=== PATIENT | female | born 1935 | race Caucasian/White ===

== ENCOUNTER 2017-02-09 04:10 | Inpatient (IN) | payer MEDICARE, MEDICAID ==
[2017-02-09] MEDS ORDERED: Sodium Chloride 0.9% 1,000 ML IV ONE (04:26)
--- NOTE | 2017-02-09 04:40 | ED Physician Chart ---
Chief Complaint/HPI - Patient Information Date Seen:: 02/09/17 Time Seen:: 04:20 Chief Complaint:: VOMITING History of Present Illness:: THIS IS AN 81 YR DEMENTED FEMALE PATIENT SENT FROM A SENIOR LIVING BECAUSE OF PERSISTENT VOMITING. SHE WAS GIVEN ZOFRAN BUT CONTINUED TO VOMIT. SHE HAS G- TUBE IN PLACE. SHE HAS A HISTORY OF DIABETES, HYPERTENSION AND HEART DISEASE. Allergies:: Allergies Allergy/AdvReac Type Severity Reaction Status Date / Time No Known Allergies Allergy Verified 02/09/17 04:24 Vitals:: Vital Signs - 8 hr 02/09/17 04:15 Temp 98.1 F HR 84 RR 20 BP 144/69 O2 Sat % 96 Historian:: EMS, Medical Records Review:: Nurse's Note Reviewed, Old Chart Reviewed, Transfer documents Reviewed Review of Systems - Review of Systems General/Constitutional: Other (SHE CANNOT GIVE A REVIEW OF SYSTEMS) Past Medical History - Past Medical History Obtainable: Yes Past Medical History: HTN, DM, CAD, Dementia Family History: None Social History: Non Smoker, No Alcohol, No Drug Use, Care Facility Surgical History: Appendectomy, Cholecystectomy, , Pacemaker Family Medical History - Family Member Mother History Unknown: Yes Physical Exam - Physical Examination General/Constitutional: Well-developed, well-nourished, Alert, No distress, GCS 15, Non-toxic appearing, Ambulatory Other Gen/Cons comments:: LETHARGIC AND NON-VERBAL Head: Atraumatic Eyes: Lids, conjuctiva normal, PERRL, EOMI Skin: Nl inspection, No rash, No skin lesions, No ecchymosis, Well hydrated, No lymphadenopathy ENMT: External ears, nose nl, Nasal exam nl, Lips, teeth, gums nl Neck: Nontender, Full ROM w/o pain, No JVD, No nuchal rigidity, No bruit, No mass, No stridor Respiratory: Nl effort/Exclusion, Clear to Auscultation, No Wheeze/Rhonchi/Rales Cardio Vascular: RRR, No murmur, gallop, rubs, NL S1 S2 GI: No tenderness/rebounding/guarding, No organomegaly, No hernia, Normal BS's, Nondistended, No mass/bruits, No McBurney tenderness Other GI comments:: NO TENDERNESS AND NO REBOUND. : No CVA tenderness Other comments:: THE G-TUBE WAS IN PLACE AND THE ABDOMEN LARGE AND SOFT Extremities: No tenderness or effusion, Full ROM, normal strength in all extremities, No edema, Normal digits & nails Neuro/Psych: Alert/oriented, DTR's symmetric, Normal sensory exam, Normal motor strength, Judgement/insight normal, Mood normal, Normal gait, No focal deficits Misc: normal gait, Normal back, No paraspinal tenderness Labs/Radiology/EKG Results - EKG Interpretations EKG Time:: 04:23 Rate & Rhythm: RATE=68 SINUS(PACED) [place]: LEFT AXIS Assessment - Assessment General Assessment: VOMITING ED Septic Shock - . Is Septic Shock (SBP<90, OR Lactate>4 mmol\L) present?: No - <6hrs of presentation: Vital Signs: Vital Signs - 8 hr 02/09/ 04:15 Temp 98.1 F HR 84 RR 20 BP 144/69 O2 Sat % 96 Reassessment (Disposition) - Reassessment Reassessment Condition:: Unchanged - Diagnosis Diagnosis:: PROTRACTED VOMITING DIABETES MELLITUS URINARY TRACT INFECTION - Patient Disposition Discharge/Transfer:: Acute Care w/in this hosp Condition at Disposition:: Improved ED Discharge Plan - Patient Disposition Admit/Discharge/Transfer: Acute Care w/in this hosp Condition at Disposition: Improved
[2017-02-09 05:39] LABS: MEAN CELL VOLUME 88.2 fl (81-100); MEAN CORPUSCULAR HEMOGLOBIN 29.8 pg (27.0-31.0); MEAN CORPUSCULAR HGB CONC 33.8 pg (28.0-36.0); RED BLOOD COUNT 3.94 Mil/cmm (3.80-5.20)
[2017-02-09 05:41] LABS: HEMATOCRIT 34.7 % (35.0-45.0); HEMOGLOBIN 11.7 gm/dL (11.7-16.1); PLATELET COUNT 187 Th/cmm (150-400); WHITE BLOOD COUNT 11.6 Th/cmm (4.8-10.8)
[2017-02-09 05:55] LABS: ALB/GLOB RATIO 0.9 (1.0-1.8); ALKALINE PHOSPHATASE 121 U/L (34-104); BILIRUBIN,TOTAL 0.4 mg/dL (0.3-1.0); BUN - UREA NITROGEN 45 mg/dL (7-25); CALCIUM SERUM 9.6 mg/dL (8.6-10.3); CARBON DIOXIDE 23.8 mEq/L (21.0-31.0); CHLORIDE 106 mEq/L (98-107); CHOLESTEROL 134 mg/dL (<200); CREATININE - SERUM 0.9 mg/dL (0.6-1.2); GLUCOSE 274 mg/dL (70-105); POTASSIUM SERUM 3.8 mEq/L (3.5-5.1); SGOT 24 U/L (13-39); SGPT/ALT 16 U/L (7-52); SODIUM SERUM 135 mEq/L (136-145); TRIGLYCERIDES 113 mg/dL (<150)
[2017-02-09 06:01] LABS: INR 0.97 (0.5-1.4); PROTHROMBIN TIME (TEST) 10.1 SECONDS (9.5-11.5)
[2017-02-09] MEDS ORDERED: cefTRIAXone 1 GM in Sodium Chloride 0.9% 50 ML IV ONE (06:25)
[2017-02-09 06:26] LABS: BAND NEUTROPHILE 3 % (0-10); NEUTROPHILS 91 % (40-80); TOTAL CELLS COUNTED 100
[2017-02-09 06:27] LABS: PLATELET ESTIMATE ADEQUATE (NORMAL); PLATELET MORPHOLOGY NORMAL (NORMAL)
[2017-02-09] MEDS ORDERED: Acetaminophen 160 MG/5 ML UDC GT PRN (08:38)
[2017-02-09] MEDS ORDERED: Magnesium Hydroxide (MOM) 30 mL UDC PO PRN (08:38)
--- NOTE | 2017-02-09 08:38 | Internal Medicine Prog Note ---
Internal Medicine Subjective - Subjective Service Date: 02/09/17 (dictated [id number]) Internal Medicine Objective - Results Result Diagrams: 02/09/17 05:13 02/09/17 05:13 Recent Labs: Laboratory Last Values WBC 11.6 Th/cmm (4.8-10.8) H D 02/09/17 05:13 RBC 3.94 Mil/cmm (3.80-5.20) 02/09/17 05:13 Hgb 11.7 gm/dL (11.7-16.1) D 02/09/17 05:13 Hct 34.7 % (35.0-45.0) L D 02/09/17 05:13 MCV 88.2 fl (81-100) 02/09/17 05:13 MCH 29.8 pg (27.0-31.0) 02/09/17 05:13 MCHC Differential 33.8 pg (28.0-36.0) 02/09/17 05:13 RDW 13.0 % (11.5-20.0) 02/09/17 05:13 Plt Count 187 Th/cmm (150-400) D 02/09/17 05:13 MPV 9.0 fl 02/09/17 05:13 Band Neutrophils % 3 % (0-10) 02/09/17 05:13 Neutrophils (Manual) 91 % (40-80) H 02/09/17 05:13 Lymphocytes 5 % (20-50) L 02/09/17 05:13 Monocytes 1 % (2-10) L 02/09/17 05:13 Platelet Estimate ADEQUATE (NORMAL) 02/09/17 05:13 Platelet Morphology NORMAL (NORMAL) 02/09/17 05:13 RBC Morph Micro Appear NORMAL (NORMAL) 02/09/17 05:13 PT 10.1 SECONDS (9.5-11.5) 02/09/17 05:13 INR 0.97 (0.5-1.4) 02/09/17 05:13 PTT (Actin FS) 23.0 SECONDS (26.0-38.0) L 02/09/17 05:13 Sodium 135 mEq/L (136-145) L 02/09/17 05:13 Potassium 3.8 mEq/L (3.5-5.1) 02/09/17 05:13 Chloride 106 mEq/L (98-107) 02/09/17 05:13 Carbon Dioxide 23.8 mEq/L (21.0-31.0) 02/09/17 05:13 Anion Gap 9.0 (7.0-16.0) 02/09/17 05:13 BUN 45 mg/dL (7-25) H 02/09/17 05:13 Creatinine 0.9 mg/dL (0.6-1.2) 02/09/17 05:13 Est GFR ( Amer) TNP 02/09/17 05:13 Est GFR (Non-Af Amer) TNP 02/09/17 05:13 BUN/Creatinine Ratio 50.0 02/09/17 05:13 Glucose 274 mg/dL (70-105) H 02/09/17 05:13 Hemoglobin A1c % 6.0 % (4.0-6.0) 02/09/17 05:13 Calcium 9.6 mg/dL (8.6-10.3) 02/09/17 05:13 Total Bilirubin 0.4 mg/dL (0.3-1.0) 02/09/17 05:13 AST 24 U/L (13-39) 02/09/17 05:13 ALT 16 U/L (7-52) 02/09/17 05:13 Alkaline Phosphatase 121 U/L (34-104) H 02/09/17 05:13 Troponin I 0.03 ng/mL (0.01-0.05) 02/09/17 05:13 Total Protein 6.9 gm/dL (6.0-8.3) 02/09/17 05:13 Albumin 3.2 gm/dL (3.7-5.3) L 02/09/17 05:13 Globulin 3.7 gm/dL 02/09/17 05:13 Albumin/Globulin Ratio 0.9 (1.0-1.8) L 02/09/17 05:13 Triglycerides 113 mg/dL (<150) 02/09/17 05:13 Cholesterol 134 mg/dL (<200) 02/09/17 05:13 LDL Cholesterol Direct 92 mg/dL (75-193) 02/09/17 05:13 HDL Cholesterol 35 mg/dL (23-92) 02/09/17 05:13 TSH 1.02 uIU/ml (0.34-5.60) 02/09/17 05:13 - Physical Exam Vitals and I&O: Vital Signs Temp 98.7 F 02/09/17 06:48 Pulse 62 02/09/17 06:48 Resp 13 02/09/17 06:48 BP 102/48 02/09/17 06:48 Pulse Ox 100 02/09/17 06:48 Active Medications: Current Medications Sodium Chloride (Nacl 0.9%) 1,000 mls @ 100 mls/hr IV .Q10H ONE Stop: 02/09/17 14:25 Last Admin: 02/09/17 04:35 Dose: 100 mls/hr - Procedures Procedures: Procedures Procedure Code Date EGD PLACE GASTROSTOMY TUBE 72632 12/31/15 INSERTION OF FEEDING DEVICE INTO STOMACH, [facility] APPROACH [id number] 12/31/15 TRANSFUSE NONAUT RED BLOOD CELLS IN PERIPH VEIN, [facility] 96902W7 12/31/15 Internal Medicine Assmt/Plan - Assessment Assessment: INTRACTABLE NAUSEA VOMITING HYPONATREMIA Acute renal failure dementia diabetes hypothyroidism cardiac pacemaker gerd alzheimers
[2017-02-09] MEDS ORDERED: Ipratropium Neb 0.5 mg/2.5 mL UD IH PRN (08:39)
[2017-02-09] MEDS ORDERED: Albuterol Nebulizer 2.5mg/3mL IH PRN (08:39)
[2017-02-09] MEDS ORDERED: guaiFENesin 200 MG/10 ML UDC PO PRN (08:40)
[2017-02-09] MEDS ORDERED: D5-0.45NS 1,000 ML IV SCH (08:45)
[2017-02-09] MEDS ORDERED: Non-Formulary Item 1 EA (Ferrous Sulfate [Ferosul] 7.5 ML) GT SCH (09:00)
[2017-02-09 09:07] LABS: URINE BILIRUBIN NEGATIVE (NEGATIVE); URINE BLOOD SMALL (NEGATIVE); URINE GLUCOSE (UA) 250 mg/dL (NEGATIVE); URINE KETONE NEGATIVE (NEGATIVE); URINE PROTEIN 30 mg/dL (NEGATIVE); URINE UROBILINOGEN 0.2 E.U./dL (0.2 - 1.0)
[2017-02-09 09:10] LABS: URINE COLOR YELLOW
[2017-02-09 10:07] LABS: URINE BACTERIA MANY /hpf (NONE SEEN); URINE EPITHELIAL CELLS FEW /lpf (FEW)
--- NOTE | 2017-02-09 10:21 | History & Physical ---
ADMIT DATE: 02/09/2017 CHIEF COMPLAINT: Nausea, vomiting. HISTORY OF PRESENT ILLNESS: This is an 81-year-old female who is a resident of [facility] who was brought here to [facility] with a 1-day history of nausea and vomiting. I was called on this patient last night. The patient had 4 episodes of vomiting and relieved by Zofran. For this reason, the patient was brought to [facility] and patient is now admitted. PAST MEDICAL HISTORY: Hypertension, diabetes, , GERD, hypothyroid, arthritis, dementia, status post pacemaker placement. SURGICAL HISTORY: Pacemaker. FAMILY HISTORY: Noncontributory. SOCIAL HISTORY: The patient is a [facility] resident, requiring 24-hour nursing care. PSYCHIATRIC HISTORY: Dementia. REVIEW OF SYSTEMS: Unable to obtain due to patient's mental status. The patient is confused. PHYSICAL EXAMINATION: GENERAL: The patient is well developed, well nourished, no acute distress. VITAL SIGNS: Temperature 98, heart rate 76, blood pressure 93/39, respirations 19, O2 99%. HEENT: Head; normocephalic, atraumatic. NECK: Supple. No mass. LUNGS: Clear bilaterally. HEART: Regular rhythm. ABDOMEN: Soft, nontender. LABORATORY DATA: WBC 6.0, H and H 9.1 and 27.7, platelet of 93. Sodium 139, potassium 4.0, chloride 112, BUN 32, creatinine 1.6, calcium 7.8. ASSESSMENT: Intractable nausea, vomiting, hyponatremia, acute renal failure, dementia, diabetes, hypothyroidism, cardiac pacemaker, GERD, Alzheimer's, hyponatremia. PLAN: The patient to be admitted to the med/surg unit. We will get GI on the case. We will keep the patient hydrated on IV fluids. The patient will be on antibiotic Cipro. We will continue to monitor this patient. [facility]# [id number]
[2017-02-09] MEDS: Levothyroxine 0.125 Mg Tab GT SCH (10:41)
[2017-02-09] MEDS: Potassium Chloride Elixir 20 mEq /15 mL UDC GT SCH (10:41)
[2017-02-09] MEDS: Ferrous Sulfate 300 MG/5 ML UDC PO SCH (10:41)
[2017-02-09] MEDS: Multivitamin Tab PO SCH (10:42)
[2017-02-09] MEDS: Multivitamin w/ Minerals Tab PO SCH (10:42)
[2017-02-09] MEDS ORDERED: INSULIN ASPART SLIDING SCALE 100 UNITS/ML UNIT SUBQ SCH (16:30)
[2017-02-09] MEDS ORDERED: VTE Chemical Prophylaxis Screen/Admission MC PRN (16:30)
[2017-02-09] MEDS: INSULIN ASPART SLIDING SCALE 100 UNITS/ML UNIT SUBQ SCH ×2 (19:33→20:54)
[2017-02-09] MEDS: Ciprofloxacin 400mg Premix PB 400 MG/200 ML BAG IV SCH (20:51)
[2017-02-09] MEDS: D5-0.45NS 1,000 ML IV SCH (20:52)
[2017-02-10] MEDS: Ciprofloxacin 400mg Premix PB 400 MG/200 ML BAG IV SCH ×3 (06:02→20:24)
[2017-02-10] MEDS: INSULIN ASPART SLIDING SCALE 100 UNITS/ML UNIT SUBQ SCH ×6 (06:31→20:16)
[2017-02-10 07:14] LABS: % BASOPHILS 0.5 % (0.0-2.0); % EOSINOPHILS 6.8 % (0.0-5.0); % LYMPHOCYTES 16.9 % (20.0-50.0); % MONOCYTES 7.4 % (2.0-10.0); % NEUTROPHILS 68.4 % (40.0-80.0); MEAN CELL VOLUME 88.7 fl (81-100); MEAN CORPUSCULAR HEMOGLOBIN 30.6 pg (27.0-31.0); MEAN CORPUSCULAR HGB CONC 34.5 pg (28.0-36.0); MEAN PLATELET VOLUME 9.2 fl; PLATELET COUNT 192 Th/cmm (150-400); RED BLOOD COUNT 3.61 Mil/cmm (3.80-5.20); RED CELL DISTRIBUTION WIDTH 13.1 % (11.5-20.0); WHITE BLOOD COUNT 10.4 Th/cmm (4.8-10.8)
[2017-02-10 07:40] LABS: ANION GAP 6.7 (7.0-16.0); BUN - UREA NITROGEN 39 mg/dL (7-25); BUN/CREATININE RATIO 43.3; CALCIUM SERUM 9.3 mg/dL (8.6-10.3); CARBON DIOXIDE 25.9 mEq/L (21.0-31.0); CHLORIDE 109 mEq/L (98-107); CREATININE - SERUM 0.9 mg/dL (0.6-1.2); GLUCOSE 204 mg/dL (70-105); POTASSIUM SERUM 3.6 mEq/L (3.5-5.1); SODIUM SERUM 138 mEq/L (136-145)
[2017-02-10] MEDS: Potassium Chloride Elixir 20 mEq /15 mL UDC GT SCH (09:52)
[2017-02-10] MEDS: Ferrous Sulfate 300 MG/5 ML UDC PO SCH (09:52)
[2017-02-10] MEDS: Multivitamin w/ Minerals Tab PO SCH (09:53)
[2017-02-10] MEDS: Multivitamin Tab PO SCH (09:53)
[2017-02-10] MEDS: Levothyroxine 0.125 Mg Tab GT SCH (09:54)
--- NOTE | 2017-02-10 12:36 | Internal Medicine Prog Note ---
Internal Medicine Subjective - Subjective Service Date: 02/10/17 Patient seen and examined:: with staff Patient is:: awake Per staff patient has:: no adverse event Internal Medicine Objective - Results Result Diagrams: 02/10/17 06:10 02/10/17 06:10 Recent Labs: Laboratory Last Values WBC 10.4 Th/cmm (4.8-10.8) 02/10/17 06:10 RBC 3.61 Mil/cmm (3.80-5.20) L 02/10/17 06:10 Hgb 11.0 gm/dL (11.7-16.1) L 02/10/17 06:10 Hct 32.0 % (35.0-45.0) L 02/10/17 06:10 MCV 88.7 fl (81-100) 02/10/17 06:10 MCH 30.6 pg (27.0-31.0) 02/10/17 06:10 MCHC Differential 34.5 pg (28.0-36.0) 02/10/17 06:10 RDW 13.1 % (11.5-20.0) 02/10/17 06:10 Plt Count 192 Th/cmm (150-400) 02/10/17 06:10 MPV 9.2 fl 02/10/17 06:10 Neutrophils % 68.4 % (40.0-80.0) 02/10/17 06:10 Band Neutrophils % 3 % (0-10) 02/09/17 05:13 Lymphocytes % 16.9 % (20.0-50.0) L 02/10/17 06:10 Monocytes % 7.4 % (2.0-10.0) 02/10/17 06:10 Eosinophils % 6.8 % (0.0-5.0) H 02/10/17 06:10 Basophils % 0.5 % (0.0-2.0) 02/10/17 06:10 Neutrophils (Manual) 91 % (40-80) H 02/09/17 05:13 Lymphocytes 5 % (20-50) L 02/09/17 05:13 Monocytes 1 % (2-10) L 02/09/17 05:13 Platelet Estimate ADEQUATE (NORMAL) 02/09/17 05:13 Platelet Morphology NORMAL (NORMAL) 02/09/17 05:13 RBC Morph Micro Appear NORMAL (NORMAL) 02/09/17 05:13 PT 10.1 SECONDS (9.5-11.5) 02/09/17 05:13 INR 0.97 (0.5-1.4) 02/09/17 05:13 PTT (Actin FS) 23.0 SECONDS (26.0-38.0) L 02/09/17 05:13 Sodium 138 mEq/L (136-145) 02/10/17 06:10 Potassium 3.6 mEq/L (3.5-5.1) 02/10/17 06:10 Chloride 109 mEq/L (98-107) H 02/10/17 06:10 Carbon Dioxide 25.9 mEq/L (21.0-31.0) 02/10/17 06:10 Anion Gap 6.7 (7.0-16.0) L 02/10/17 06:10 BUN 39 mg/dL (7-25) H 02/10/17 06:10 Creatinine 0.9 mg/dL (0.6-1.2) 02/10/17 06:10 Est GFR ( Amer) TNP 02/10/17 06:10 Est GFR (Non-Af Amer) TNP 02/10/17 06:10 BUN/Creatinine Ratio 43.3 02/10/17 06:10 Glucose 204 mg/dL (70-105) H 02/10/17 06:10 POC Glucose 201 MG/DL (70 - 105) H 02/10/17 06:05 Hemoglobin A1c % 6.0 % (4.0-6.0) 02/09/17 05:13 Calcium 9.3 mg/dL (8.6-10.3) 02/10/17 06:10 Magnesium 2.0 mg/dL (1.9-2.7) 02/10/17 06:10 Total Bilirubin 0.4 mg/dL (0.3-1.0) 02/09/17 05:13 AST 24 U/L (13-39) 02/09/17 05:13 ALT 16 U/L (7-52) 02/09/17 05:13 Alkaline Phosphatase 121 U/L (34-104) H 02/09/17 05:13 Troponin I 0.03 ng/mL (0.01-0.05) 02/09/17 05:13 B-Natriuretic Peptide 149.0 pg/mL (5.0-100.0) H 02/10/17 06:10 Total Protein 6.9 gm/dL (6.0-8.3) 02/09/17 05:13 Albumin 3.2 gm/dL (3.7-5.3) L 02/09/17 05:13 Globulin 3.7 gm/dL 02/09/17 05:13 Albumin/Globulin Ratio 0.9 (1.0-1.8) L 02/09/17 05:13 Triglycerides 113 mg/dL (<150) 02/09/17 05:13 Cholesterol 134 mg/dL (<200) 02/09/17 05:13 LDL Cholesterol Direct 92 mg/dL (75-193) 02/09/17 05:13 HDL Cholesterol 35 mg/dL (23-92) 02/09/17 05:13 TSH 1.02 uIU/ml (0.34-5.60) 02/09/17 05:13 Urine Source CLEAN C 02/09/17 05:15 Urine Color YELLOW 02/09/17 05:15 Urine Clarity SL. CLOUDY (CLEAR) 02/09/17 05:15 Urine pH 6.0 (4.6 - 8.0) 02/09/17 05:15 Ur Specific [place] 1.015 (1.005-1.030) 02/09/17 05:15 Urine Protein 30 mg/dL (NEGATIVE) H 02/09/17 05:15 Urine Glucose (UA) 250 mg/dL (NEGATIVE) H 02/09/17 05:15 Urine Ketones NEGATIVE mg/dL (NEGATIVE) 02/09/17 05:15 Urine Blood SMALL (NEGATIVE) H 02/09/17 05:15 Urine Nitrate NEGATIVE (NEGATIVE) 02/09/17 05:15 Urine Bilirubin NEGATIVE (NEGATIVE) 02/09/17 05:15 Urine Urobilinogen 0.2 E.U./dL (0.2 - 1.0) 02/09/17 05:15 Ur Leukocyte Esterase SMALL (NEGATIVE) H 02/09/17 05:15 Urine RBC 2-4 /hpf (0-5) 02/09/17 05:15 Urine WBC 2-5 /hpf (0-5) 02/09/17 05:15 Ur Epithelial Cells FEW /lpf (FEW) 02/09/17 05:15 Urine Bacteria MANY /hpf (NONE SEEN) 02/09/17 05:15 - Physical Exam Vitals and I&O: Vital Signs Temp 97.3 F 02/10/17 08:00 Pulse 66 02/10/17 08:00 Resp 18 02/10/17 08:00 BP 147/65 02/10/17 08:00 Pulse Ox 99 02/10/17 08:00 Intake & Output 02/09/17 02/10/17 02/10/17 18:59 06:59 18:59 Intake Total 1120 Output Total 200 300 200 Balance -200 820 -200 Weight (lbs) 160 lb 161 lb 161 lb Intake: Intake, IV Amount 200 Ciprofloxacin 400mg 200 Premix PB 400 mg In 200 ml @ 200 mls/hr IV Q8HR [facility] Rx#:[id number] Tube Feeding 720 Other 200 Output: Urine 200 300 200 Other: # Bowel Movements 0 0 Active Medications: Current Medications Acetaminophen (Tylenol Children) 320 mg GT Q4HR PRN PRN Reason: Pain or Fever >101 Stop: 04/10/17 08:37 Acetaminophen (Tylenol) 650 mg PO Q4HR PRN PRN Reason: Pain Or Fever above 101 Stop: 04/10/17 08:39 Albuterol Sulfate (Albuterol 2.5mg/3ml Neb Ud) 2.5 mg IH Q2HR PRN PRN Reason: Shortness of Breath or Wheeze Stop: 04/10/17 08:38 Bisacodyl (Dulcolax 10 Mg Supp) 10 mg RC DAILY PRN PRN Reason: Constipation Stop: 04/10/17 08:37 Docusate Sodium (Colace) 100 mg PO DAILY [facility] Stop: 04/10/17 08:59 Last Admin: 02/10/17 09:52 Dose: 100 mg Ferrous Sulfate (Iron) 300 mg PO DAILY [facility] Stop: 04/10/17 08:59 Last Admin: 02/10/17 09:52 Dose: 300 mg Fludrocortisone Acetate (Florinef) 0.05 mg PO DAILY [facility] Stop: 04/10/17 08:59 Last Admin: 02/10/17 09:52 Dose: 0.05 mg Guaifenesin (Robitussin) 100 mg PO Q4H PRN PRN Reason: Cough or Congestion Stop: 04/10/17 08:39 Heparin Sodium (Porcine) (Heparin) 5,000 units SUBQ Q12HR TINA Stop: 04/10/17 20:59 Last Admin: 02/10/17 09:55 Dose: 5,000 units Dextrose/Sodium Chloride (D5-0.45ns) 1,000 mls @ 70 mls/hr IV .[id number] TINA Stop: 04/10/17 08:44 Last Admin: 02/09/17 20:52 Dose: 70 mls/hr Ciprofloxacin (Cipro 400mg Premix Pb) 400 mg in 200 mls @ 200 mls/hr IV Q8HR TINA Stop: 04/10/17 20:59 Last Admin: 02/10/17 06:02 Dose: 200 mls/hr Insulin Aspart (Novolog Insulin Sliding Scale) 1 units SUBQ ACHS TINA PRN Reason: Protocol Stop: 04/10/17 16:29 Last Admin: 02/10/17 06:31 Dose: 1 units Ipratropium [place] (Atrovent Neb 0.5mg/2.5ml) 0.5 mg IH Q2HR PRN PRN Reason: Shortness of Breath or Wheeze Stop: 04/10/17 08:38 Levothyroxine Sodium (Synthroid) 0.125 mg GT DAILY TINA Stop: 04/10/17 08:59 Last Admin: 02/10/17 09:54 Dose: 0.125 mg Magnesium Hydroxide (Milk Of Magnesia) 30 ml PO DAILY PRN PRN Reason: Constipation Stop: 04/10/17 08:37 Miscellaneous (Vte Chemical Prophylaxis Screen/ Admission) 1 ea MC PRN PRN PRN Reason: PROTOCOL Stop: 04/10/17 16:29 Multivitamins/Vitamin C (Theragran) 1 tab PO DAILY TINA Stop: 04/10/17 08:59 Last Admin: 02/10/17 09:53 Dose: 1 tab Ondansetron HCl (Zofran) 4 mg IV Q8H PRN PRN Reason: Nausea / Vomiting Stop: 04/10/17 08:39 Potassium Chloride (Potassium Chloride Elixir) 20 meq GT DAILY TINA Stop: 04/10/17 08:59 Last Admin: 02/10/17 09:52 Dose: 20 meq Sitagliptin Phosphate (Januvia) 50 mg GT DAILY TINA Stop: 04/10/17 08:59 Last Admin: 02/10/17 09:52 Dose: 50 mg General: weak, alert, demented HEENT: NC/AT, PERRLA Neck: Supple Lungs: CTAB Cardiovascular: RRR, Normal S1, Normal S2, without murmur Abdomen: soft, non-tender, non-distended, positive bowel sound Extremities: clear Neurological: alert - Procedures Procedures: Procedures Procedure Code Date EGD PLACE GASTROSTOMY TUBE 15323 12/31/15 INSERTION OF FEEDING DEVICE INTO STOMACH, [facility] APPROACH [id number] 12/31/15 TRANSFUSE NONAUT RED BLOOD CELLS IN PERIPH VEIN, PERC 74034F6 12/31/15 Internal Medicine Assmt/Plan - Assessment Assessment: INTRACTABLE NAUSEA VOMITING HYPONATREMIA Acute renal failure dementia diabetes hypothyroidism cardiac pacemaker gerd alzheimers - Plan Plan: ivf for hydration am labs monitor glucose continue current plan of care
[2017-02-10] MEDS: D5-0.45NS 1,000 ML IV SCH ×3 (15:18→20:31)
[2017-02-11] MEDS: Ciprofloxacin 400mg Premix PB 400 MG/200 ML BAG IV SCH ×3 (05:35→21:06)
[2017-02-11 05:41] LABS: % BASOPHILS 0.4 % (0.0-2.0); % EOSINOPHILS 6.6 % (0.0-5.0); % LYMPHOCYTES 20.1 % (20.0-50.0); % MONOCYTES 7.4 % (2.0-10.0); % NEUTROPHILS 65.5 % (40.0-80.0); HEMOGLOBIN 9.8 gm/dL (11.7-16.1); MEAN CELL VOLUME 87.9 fl (81-100); MEAN CORPUSCULAR HEMOGLOBIN 30.4 pg (27.0-31.0); MEAN CORPUSCULAR HGB CONC 34.6 pg (28.0-36.0); MEAN PLATELET VOLUME 8.9 fl; NEUTROPHILE ABSOLUTE 6.6 Th/cmm (1.8-8.0); PLATELET COUNT 184 Th/cmm (150-400); RED BLOOD COUNT 3.21 Mil/cmm (3.80-5.20); RED CELL DISTRIBUTION WIDTH 13.1 % (11.5-20.0)
[2017-02-11 05:55] LABS: HEMATOCRIT 28.2 % (35.0-45.0)
[2017-02-11 06:02] LABS: ANION GAP 5.4 (7.0-16.0); BUN - UREA NITROGEN 34 mg/dL (7-25); CALCIUM SERUM 8.7 mg/dL (8.6-10.3); CARBON DIOXIDE 26.6 mEq/L (21.0-31.0); CHLORIDE 106 mEq/L (98-107); GLUCOSE 255 mg/dL (70-105); SODIUM SERUM 134 mEq/L (136-145)
[2017-02-11] MEDS: INSULIN ASPART SLIDING SCALE 100 UNITS/ML UNIT SUBQ SCH ×4 (06:52→21:24)
[2017-02-11] MEDS: Potassium Chloride Elixir 20 mEq /15 mL UDC GT SCH (08:32)
[2017-02-11] MEDS: Ferrous Sulfate 300 MG/5 ML UDC PO SCH (08:32)
[2017-02-11] MEDS: Multivitamin w/ Minerals Tab PO SCH (08:33)
[2017-02-11] MEDS: Multivitamin Tab PO SCH (08:33)
[2017-02-11] MEDS: Levothyroxine 0.125 Mg Tab GT SCH (08:34)
[2017-02-11] MEDS: D5-0.45NS 1,000 ML IV SCH (12:20)
--- NOTE | 2017-02-11 14:34 | Internal Medicine Prog Note ---
Internal Medicine Subjective - Subjective Service Date: 02/11/17 Patient is:: awake Per staff patient has:: no adverse event Internal Medicine Objective - Results Result Diagrams: 02/11/17 05:15 02/11/17 05:15 Recent Labs: Laboratory Last Values WBC 10.0 Th/cmm (4.8-10.8) 02/11/17 05:15 RBC 3.21 Mil/cmm (3.80-5.20) L 02/11/17 05:15 Hgb 9.8 gm/dL (11.7-16.1) L 02/11/17 05:15 Hct 28.2 % (35.0-45.0) L D 02/11/17 05:15 MCV 87.9 fl (81-100) 02/11/17 05:15 MCH 30.4 pg (27.0-31.0) 02/11/17 05:15 MCHC Differential 34.6 pg (28.0-36.0) 02/11/17 05:15 RDW 13.1 % (11.5-20.0) 02/11/17 05:15 Plt Count 184 Th/cmm (150-400) 02/11/17 05:15 MPV 8.9 fl 02/11/17 05:15 Neutrophils % 65.5 % (40.0-80.0) 02/11/17 05:15 Band Neutrophils % 3 % (0-10) 02/09/17 05:13 Lymphocytes % 20.1 % (20.0-50.0) 02/11/17 05:15 Monocytes % 7.4 % (2.0-10.0) 02/11/17 05:15 Eosinophils % 6.6 % (0.0-5.0) H 02/11/17 05:15 Basophils % 0.4 % (0.0-2.0) 02/11/17 05:15 Neutrophils (Manual) 91 % (40-80) H 02/09/17 05:13 Lymphocytes 5 % (20-50) L 02/09/17 05:13 Monocytes 1 % (2-10) L 02/09/17 05:13 Platelet Estimate ADEQUATE (NORMAL) 02/09/17 05:13 Platelet Morphology NORMAL (NORMAL) 02/09/17 05:13 RBC Morph Micro Appear NORMAL (NORMAL) 02/09/17 05:13 PT 10.1 SECONDS (9.5-11.5) 02/09/17 05:13 INR 0.97 (0.5-1.4) 02/09/17 05:13 PTT (Actin FS) 23.0 SECONDS (26.0-38.0) L 02/09/17 05:13 Sodium 134 mEq/L (136-145) L 02/11/17 05:15 Potassium 4.0 mEq/L (3.5-5.1) 02/11/17 05:15 Chloride 106 mEq/L (98-107) 02/11/17 05:15 Carbon Dioxide 26.6 mEq/L (21.0-31.0) 02/11/17 05:15 Anion Gap 5.4 (7.0-16.0) L 02/11/17 05:15 BUN 34 mg/dL (7-25) H 02/11/17 05:15 Creatinine 1.0 mg/dL (0.6-1.2) 02/11/17 05:15 Est GFR ( Amer) TNP 02/11/17 05:15 Est GFR (Non-Af Amer) TNP 02/11/17 05:15 BUN/Creatinine Ratio 34.0 02/11/17 05:15 Glucose 255 mg/dL (70-105) H 02/11/17 05:15 POC Glucose 219 MG/DL (70 - 105) H 02/11/17 11:45 Hemoglobin A1c % 6.0 % (4.0-6.0) 02/09/17 05:13 Calcium 8.7 mg/dL (8.6-10.3) 02/11/17 05:15 Magnesium 2.0 mg/dL (1.9-2.7) 02/10/17 06:10 Total Bilirubin 0.4 mg/dL (0.3-1.0) 02/09/17 05:13 AST 24 U/L (13-39) 02/09/17 05:13 ALT 16 U/L (7-52) 02/09/17 05:13 Alkaline Phosphatase 121 U/L (34-104) H 02/09/17 05:13 Troponin I 0.03 ng/mL (0.01-0.05) 02/09/17 05:13 B-Natriuretic Peptide 149.0 pg/mL (5.0-100.0) H 02/10/17 06:10 Total Protein 6.9 gm/dL (6.0-8.3) 02/09/17 05:13 Albumin 3.2 gm/dL (3.7-5.3) L 02/09/17 05:13 Globulin 3.7 gm/dL 02/09/17 05:13 Albumin/Globulin Ratio 0.9 (1.0-1.8) L 02/09/17 05:13 Triglycerides 113 mg/dL (<150) 02/09/17 05:13 Cholesterol 134 mg/dL (<200) 02/09/17 05:13 LDL Cholesterol Direct 92 mg/dL (75-193) 02/09/17 05:13 HDL Cholesterol 35 mg/dL (23-92) 02/09/17 05:13 TSH 1.02 uIU/ml (0.34-5.60) 02/09/17 05:13 Urine Source CLEAN C 02/09/17 05:15 Urine Color YELLOW 02/09/17 05:15 Urine Clarity SL. CLOUDY (CLEAR) 02/09/17 05:15 Urine pH 6.0 (4.6 - 8.0) 02/09/17 05:15 Ur Specific [place] 1.015 (1.005-1.030) 02/09/17 05:15 Urine Protein 30 mg/dL (NEGATIVE) H 02/09/17 05:15 Urine Glucose (UA) 250 mg/dL (NEGATIVE) H 02/09/17 05:15 Urine Ketones NEGATIVE mg/dL (NEGATIVE) 02/09/17 05:15 Urine Blood SMALL (NEGATIVE) H 02/09/17 05:15 Urine Nitrate NEGATIVE (NEGATIVE) 02/09/17 05:15 Urine Bilirubin NEGATIVE (NEGATIVE) 02/09/17 05:15 Urine Urobilinogen 0.2 E.U./dL (0.2 - 1.0) 02/09/17 05:15 Ur Leukocyte Esterase SMALL (NEGATIVE) H 02/09/17 05:15 Urine RBC 2-4 /hpf (0-5) 02/09/17 05:15 Urine WBC 2-5 /hpf (0-5) 02/09/17 05:15 Ur Epithelial Cells FEW /lpf (FEW) 02/09/17 05:15 Urine Bacteria MANY /hpf (NONE SEEN) 02/09/17 05:15 RPR NONREACTIVE (NONREACTIVE) 02/09/17 05:13 - Physical Exam Vitals and I&O: Vital Signs Temp 98.3 F 02/11/17 12:00 Pulse 62 02/11/17 12:00 Resp 20 02/11/17 12:00 BP 120/52 02/11/17 12:00 Pulse Ox 97 02/11/17 12:00 Intake & Output 02/10/17 02/11/17 02/11/17 18:59 06:59 18:59 Intake Total 1400 2480.980 9713 Output Total 1300 450 Balance 100 6518.039 2285 Weight (lbs) 161 lb 177 lb Intake: Intake, IV Amount 1400 837.337 2924 Ciprofloxacin 400mg 400 400 Premix PB 400 mg In 200 ml @ 200 mls/hr IV Q8HR [facility] Rx#:[id number] D5-0.45NS 1,000 ml @ 70 1000 868.953 4469 mls/hr IV .[id number] [facility] Rx #:[id number] Tube Feeding 720 Output: Urine 1300 450 Other: # Bowel Movements 0 0 Active Medications: Current Medications Acetaminophen (Tylenol Children) 320 mg GT Q4HR PRN PRN Reason: Pain or Fever >101 Stop: 04/10/17 08:37 Acetaminophen (Tylenol) 650 mg PO Q4HR PRN PRN Reason: Pain Or Fever above 101 Stop: 04/10/17 08:39 Albuterol Sulfate (Albuterol 2.5mg/3ml Neb Ud) 2.5 mg IH Q2HR PRN PRN Reason: Shortness of Breath or Wheeze Stop: 04/10/17 08:38 Bisacodyl (Dulcolax 10 Mg Supp) 10 mg RC DAILY PRN PRN Reason: Constipation Stop: 04/10/17 08:37 Docusate Sodium (Colace) 100 mg PO DAILY [facility] Stop: 04/10/17 08:59 Last Admin: 02/11/17 08:34 Dose: 100 mg Ferrous Sulfate (Iron) 300 mg PO DAILY [facility] Stop: 04/10/17 08:59 Last Admin: 02/11/17 08:32 Dose: 300 mg Fludrocortisone Acetate (Florinef) 0.05 mg PO DAILY [facility] Stop: 04/10/17 08:59 Last Admin: 02/11/17 08:34 Dose: 0.05 mg Guaifenesin (Robitussin) 100 mg PO Q4H PRN PRN Reason: Cough or Congestion Stop: 04/10/17 08:39 Heparin Sodium (Porcine) (Heparin) 5,000 units SUBQ Q12HR [facility] Stop: 04/10/17 20:59 Last Admin: 02/11/17 08:35 Dose: 5,000 units Dextrose/Sodium Chloride (D5-0.45ns) 1,000 mls @ 70 mls/hr IV .[id number] [facility] Stop: 04/10/17 08:44 Last Admin: 02/11/17 12:20 Dose: 70 mls/hr Ciprofloxacin (Cipro 400mg Premix Pb) 400 mg in 200 mls @ 200 mls/hr IV Q8HR [facility] Stop: 04/10/17 20:59 Last Admin: 02/11/17 12:56 Dose: 200 mls/hr Insulin Aspart (Novolog Insulin Sliding Scale) 0 units SUBQ ACHS [facility] PRN Reason: Protocol Stop: 04/11/17 12:49 Last Admin: 02/11/17 11:50 Dose: 2 units Ipratropium [place] (Atrovent Neb 0.5mg/2.5ml) 0.5 mg IH Q2HR PRN PRN Reason: Shortness of Breath or Wheeze Stop: 04/10/17 08:38 Levothyroxine Sodium (Synthroid) 0.125 mg GT DAILY [facility] Stop: 04/10/17 08:59 Last Admin: 02/11/17 08:34 Dose: 0.125 mg Magnesium Hydroxide (Milk Of Magnesia) 30 ml PO DAILY PRN PRN Reason: Constipation Stop: 04/10/17 08:37 Miscellaneous (Vte Chemical Prophylaxis Screen/ Admission) 1 ea MC PRN PRN PRN Reason: PROTOCOL Stop: 04/10/17 16:29 Multivitamins/Vitamin C (Theragran) 1 tab PO DAILY [facility] Stop: 04/10/17 08:59 Last Admin: 02/11/17 08:33 Dose: 1 tab Mupirocin (Bactroban Oint) 1 appl TP BID [facility] Stop: 04/12/17 16:59 Ondansetron HCl (Zofran) 4 mg IV Q8H PRN PRN Reason: Nausea / Vomiting Stop: 04/10/17 08:39 Potassium Chloride (Potassium Chloride Elixir) 20 meq GT DAILY [facility] Stop: 04/10/17 08:59 Last Admin: 02/11/17 08:32 Dose: 20 meq Sitagliptin Phosphate (Januvia) 50 mg GT DAILY [facility] Stop: 04/10/17 08:59 Last Admin: 02/11/17 08:34 Dose: 50 mg General: weak, alert, demented HEENT: NC/AT, PERRLA Neck: Supple Lungs: CTAB Cardiovascular: RRR, Normal S1, Normal S2, without murmur Abdomen: soft, non-tender, non-distended, positive bowel sound Extremities: clear Neurological: alert - Procedures Procedures: Procedures Procedure Code Date EGD PLACE GASTROSTOMY TUBE 22042 12/31/15 INSERTION OF FEEDING DEVICE INTO STOMACH, [facility]C APPROACH [id number] 12/31/15 TRANSFUSE NONAUT RED BLOOD CELLS IN PERIPH VEIN, PERC 01978D5 12/31/15 Internal Medicine Assmt/Plan - Assessment Assessment: INTRACTABLE NAUSEA VOMITING HYPONATREMIA Acute renal failure dementia diabetes hypothyroidism cardiac pacemaker gerd alzheimers - Plan Plan: ivf for hydration am labs monitor glucose continue current plan of care Nutritional Asmnt/Malnutr-PDOC - Dietary Evaluation Malnutrition Findings (Please click <Entered> for more info): Nutritional Asmnt/Malnutrition Start: 02/10/17 11: 01 Text: Status: Complete Freq: Document 02/10/17 17:05 [facility] (Rec: 02/10/17 17:14 [facility] [id number]) Nutritional Asmnt/Malnutrition Patient General Information Nutritional Screening High Risk Screening Diagnosis Intractable nausea and vomiting, hyponatremia, acute renal failure Pertinent Medical Hx/Surgical Hx HTN, DM, GERD, hypothyroidism, arthritis, dementia, s/p pacemaker placement Subjective Information Pt is a 81-year-old female from [facility] admitted with chief complaint of nausea and vomiting for one day. Pt has hx dementia. She is confused and a poor historian. Pt appears well nourished with no signs of muscle or fat depletion. Current Diet Order/ Nutrition Support Diabetisource AC at 60 ml/hr x 20 hours = 1440kcal,72gm protein,982ml water Patient / S.O Can't verbalize diet edu Pertinent Medications Cipro, D5-0.45 ns, Coalce, Iron, Theragran, KCl Elixir, Januvia Pertinent Labs (02/09) Glucose 274H, A1C WNL, Alkaline Phosphatase 121H. () BUN 39H, Glucose 204H, POC Glucose 271H Nutritional Hx/Data Height 5 ft Height (Calculated Centimeters) 152.4 Current Weight (lbs) 161 lb Weight (Calculated Kilograms) 73.0 Weight (Calculated Grams) 06447.4 [place] Body Weight 100 % [place] Body Weight 161 Weight Status Obese GI Symptoms GI Symptoms Nausea Vomitting Difficult in: Chewing Swallowing Food Allergies No Skin Integrity/Comment: Jey 14. Skin intact. Estimated Nutritional Goals BEE in Kcals: Adj wt of IBW Calories/Kcals/Kg Based on IBW 45.5 kg with consideration for obesity, wt maintenance: Kcals Calculated 4391-2485 kcals/day (30-35 kcals/kg) Protein: Adj wt of IBW Protein g/kg: Based on IBW 45.5 kg Protein Calculated 46-55 gm/day (1-1.2 gm/kg) Fluid: ml 7138-9147 ml/day (1 ml/kcal) Nutritional Problem 1. Problem Problem Altered GI function related to Etiology unknown etiology as evidenced by Signs/Symptoms: intractable nausea and vomiting x 1 day. Malnutrition Alert Protein-Calorie Malnutrition N/A Is there a minimum of two criteria No selected? Query Text:Check all the applicable criteria. A minimum of two criteria are recommended for diagnosis of either severe or non-severe malnutrition. Malnutrition Related to Morbid Obesity Malnutrition related to morbid obesity No Intervention/Recommendation Comments 1. When medically feasible, recommend resume tube feeding Diabetisource AC at 20 ml/hr and increase by 10 ml/hr every 4 hours, or as tolerated, to goal rate of 50 ml/hr. Expected Outcomes/Goals Expected Outcomes/Goals Provide pt with 100% of estimated nutritional needs with acceptable tolerance. Physician Parameters for PEM Serum Albumin (g/dl) 3.1 - 3.4 (Mild)
[2017-02-12] MEDS: Ciprofloxacin 400mg Premix PB 400 MG/200 ML BAG IV SCH (05:17)
[2017-02-12] MEDS: D5-0.45NS 1,000 ML IV SCH (05:31)
[2017-02-12 06:07] LABS: % BASOPHILS 1.3 % (0.0-2.0); % EOSINOPHILS 5.4 % (0.0-5.0); % LYMPHOCYTES 17.5 % (20.0-50.0); % MONOCYTES 7.9 % (2.0-10.0); % NEUTROPHILS 67.9 % (40.0-80.0); HEMATOCRIT 28.6 % (35.0-45.0); HEMOGLOBIN 9.8 gm/dL (11.7-16.1); MEAN CORPUSCULAR HEMOGLOBIN 30.6 pg (27.0-31.0); MEAN CORPUSCULAR HGB CONC 34.4 pg (28.0-36.0); NEUTROPHILE ABSOLUTE 6.8 Th/cmm (1.8-8.0); PLATELET COUNT 187 Th/cmm (150-400); RED BLOOD COUNT 3.21 Mil/cmm (3.80-5.20); RED CELL DISTRIBUTION WIDTH 13.2 % (11.5-20.0)
[2017-02-12 06:29] LABS: BUN - UREA NITROGEN 28 mg/dL (7-25); CALCIUM SERUM 9.1 mg/dL (8.6-10.3); CARBON DIOXIDE 25.9 mEq/L (21.0-31.0); CHLORIDE 106 mEq/L (98-107); GLUCOSE 214 mg/dL (70-105); POTASSIUM SERUM 3.9 mEq/L (3.5-5.1); SODIUM SERUM 135 mEq/L (136-145)
[2017-02-12] MEDS: Ferrous Sulfate 300 MG/5 ML UDC PO SCH (08:42)
[2017-02-12] MEDS: Levothyroxine 0.125 Mg Tab GT SCH (08:42)
[2017-02-12] MEDS: Multivitamin Tab PO SCH (08:42)
[2017-02-12] MEDS: Multivitamin w/ Minerals Tab PO SCH (08:42)
[2017-02-12] MEDS: Potassium Chloride Elixir 20 mEq /15 mL UDC GT SCH (08:42)
[2017-02-12] MEDS: INSULIN ASPART SLIDING SCALE 100 UNITS/ML UNIT SUBQ SCH (12:30)
--- NOTE | 2017-02-12 13:33 | Internal Medicine Prog Note ---
Internal Medicine Subjective - Subjective Service Date: 02/12/17 ([id number]) Patient is:: awake Per staff patient has:: no adverse event Internal Medicine Objective - Results Result Diagrams: 02/12/17 05:40 02/12/17 05:40 Recent Labs: Laboratory Last Values WBC 10.0 Th/cmm (4.8-10.8) 02/12/17 05:40 RBC 3.21 Mil/cmm (3.80-5.20) L 02/12/17 05:40 Hgb 9.8 gm/dL (11.7-16.1) L 02/12/17 05:40 Hct 28.6 % (35.0-45.0) L 02/12/17 05:40 MCV 89.0 fl (81-100) 02/12/17 05:40 MCH 30.6 pg (27.0-31.0) 02/12/17 05:40 MCHC Differential 34.4 pg (28.0-36.0) 02/12/17 05:40 RDW 13.2 % (11.5-20.0) 02/12/17 05:40 Plt Count 187 Th/cmm (150-400) 02/12/17 05:40 MPV 9.0 fl 02/12/17 05:40 Neutrophils % 67.9 % (40.0-80.0) 02/12/17 05:40 Band Neutrophils % 3 % (0-10) 02/09/17 05:13 Lymphocytes % 17.5 % (20.0-50.0) L 02/12/17 05:40 Monocytes % 7.9 % (2.0-10.0) 02/12/17 05:40 Eosinophils % 5.4 % (0.0-5.0) H 02/12/17 05:40 Basophils % 1.3 % (0.0-2.0) 02/12/17 05:40 Neutrophils (Manual) 91 % (40-80) H 02/09/17 05:13 Lymphocytes 5 % (20-50) L 02/09/17 05:13 Monocytes 1 % (2-10) L 02/09/17 05:13 Platelet Estimate ADEQUATE (NORMAL) 02/09/17 05:13 Platelet Morphology NORMAL (NORMAL) 02/09/17 05:13 RBC Morph Micro Appear NORMAL (NORMAL) 02/09/17 05:13 PT 10.1 SECONDS (9.5-11.5) 02/09/17 05:13 INR 0.97 (0.5-1.4) 02/09/17 05:13 PTT (Actin FS) 23.0 SECONDS (26.0-38.0) L 02/09/17 05:13 Sodium 135 mEq/L (136-145) L 02/12/17 05:40 Potassium 3.9 mEq/L (3.5-5.1) 02/12/17 05:40 Chloride 106 mEq/L (98-107) 02/12/17 05:40 Carbon Dioxide 25.9 mEq/L (21.0-31.0) 02/12/17 05:40 Anion Gap 7.0 (7.0-16.0) 02/12/17 05:40 BUN 28 mg/dL (7-25) H 02/12/17 05:40 Creatinine 1.0 mg/dL (0.6-1.2) 02/12/17 05:40 Est GFR ( Amer) TNP 02/12/17 05:40 Est GFR (Non-Af Amer) TNP 02/12/17 05:40 BUN/Creatinine Ratio 28.0 02/12/17 05:40 Glucose 214 mg/dL (70-105) H 02/12/17 05:40 POC Glucose 239 MG/DL (70 - 105) H 02/12/17 11:27 Hemoglobin A1c % 6.0 % (4.0-6.0) 02/09/17 05:13 Calcium 9.1 mg/dL (8.6-10.3) 02/12/17 05:40 Magnesium 2.0 mg/dL (1.9-2.7) 02/10/17 06:10 Total Bilirubin 0.4 mg/dL (0.3-1.0) 02/09/17 05:13 AST 24 U/L (13-39) 02/09/17 05:13 ALT 16 U/L (7-52) 02/09/17 05:13 Alkaline Phosphatase 121 U/L (34-104) H 02/09/17 05:13 Troponin I 0.03 ng/mL (0.01-0.05) 02/09/17 05:13 B-Natriuretic Peptide 149.0 pg/mL (5.0-100.0) H 02/10/17 06:10 Total Protein 6.9 gm/dL (6.0-8.3) 02/09/17 05:13 Albumin 3.2 gm/dL (3.7-5.3) L 02/09/17 05:13 Globulin 3.7 gm/dL 02/09/17 05:13 Albumin/Globulin Ratio 0.9 (1.0-1.8) L 02/09/17 05:13 Triglycerides 113 mg/dL (<150) 02/09/17 05:13 Cholesterol 134 mg/dL (<200) 02/09/17 05:13 LDL Cholesterol Direct 92 mg/dL (75-193) 02/09/17 05:13 HDL Cholesterol 35 mg/dL (23-92) 02/09/17 05:13 TSH 1.02 uIU/ml (0.34-5.60) 02/09/17 05:13 Urine Source CLEAN C 02/09/17 05:15 Urine Color YELLOW 02/09/17 05:15 Urine Clarity SL. CLOUDY (CLEAR) 02/09/17 05:15 Urine pH 6.0 (4.6 - 8.0) 02/09/17 05:15 Ur Specific [place] 1.015 (1.005-1.030) 02/09/17 05:15 Urine Protein 30 mg/dL (NEGATIVE) H 02/09/17 05:15 Urine Glucose (UA) 250 mg/dL (NEGATIVE) H 02/09/17 05:15 Urine Ketones NEGATIVE mg/dL (NEGATIVE) 02/09/17 05:15 Urine Blood SMALL (NEGATIVE) H 02/09/17 05:15 Urine Nitrate NEGATIVE (NEGATIVE) 02/09/17 05:15 Urine Bilirubin NEGATIVE (NEGATIVE) 02/09/17 05:15 Urine Urobilinogen 0.2 E.U./dL (0.2 - 1.0) 02/09/17 05:15 Ur Leukocyte Esterase SMALL (NEGATIVE) H 02/09/17 05:15 Urine RBC 2-4 /hpf (0-5) 02/09/17 05:15 Urine WBC 2-5 /hpf (0-5) 02/09/17 05:15 Ur Epithelial Cells FEW /lpf (FEW) 02/09/17 05:15 Urine Bacteria MANY /hpf (NONE SEEN) 02/09/17 05:15 RPR NONREACTIVE (NONREACTIVE) 02/09/17 05:13 - Physical Exam Vitals and I&O: Vital Signs Temp 97.7 F 02/12/17 07:38 Pulse 66 02/12/17 08:03 Resp 18 02/12/17 08:04 BP 130/71 02/12/17 07:38 Pulse Ox 96 02/12/17 08:03 Intake & Output 02/11/17 02/12/17 02/12/17 18:59 06:59 18:59 Intake Total 1920 1200 Output Total 1050 Balance 870 1200 Weight (lbs) 177 lb 177 lb Intake: Intake, IV Amount 1200 1200 Ciprofloxacin 400mg 200 200 Premix PB 400 mg In 200 ml @ 200 mls/hr IV Q8HR [facility] Rx#:[id number] D5-0.45NS 1,000 ml @ 70 1000 1000 mls/hr IV .[id number] [facility] Rx #:[id number] Tube Feeding 420 Other 300 Output: Urine 1050 Active Medications: Current Medications Acetaminophen (Tylenol Children) 320 mg GT Q4HR PRN PRN Reason: Pain or Fever >101 Stop: 04/10/17 08:37 Acetaminophen (Tylenol) 650 mg PO Q4HR PRN PRN Reason: Pain Or Fever above 101 Stop: 04/10/17 08:39 Albuterol Sulfate (Albuterol 2.5mg/3ml Neb Ud) 2.5 mg IH Q2HR PRN PRN Reason: Shortness of Breath or Wheeze Stop: 04/10/17 08:38 Bisacodyl (Dulcolax 10 Mg Supp) 10 mg RC DAILY PRN PRN Reason: Constipation Stop: 04/10/17 08:37 Docusate Sodium (Colace) 100 mg PO DAILY [facility] Stop: 04/10/17 08:59 Last Admin: 02/12/17 08:42 Dose: 100 mg Ferrous Sulfate (Iron) 300 mg PO DAILY [facility] Stop: 04/10/17 08:59 Last Admin: 02/12/17 08:42 Dose: 300 mg Fludrocortisone Acetate (Florinef) 0.05 mg PO DAILY [facility] Stop: 04/10/17 08:59 Last Admin: 02/12/17 08:42 Dose: 0.05 mg Guaifenesin (Robitussin) 100 mg PO Q4H PRN PRN Reason: Cough or Congestion Stop: 04/10/17 08:39 Heparin Sodium (Porcine) (Heparin) 5,000 units SUBQ Q12HR [facility] Stop: 04/10/17 20:59 Last Admin: 02/12/17 08:42 Dose: 5,000 units Dextrose/Sodium Chloride (D5-0.45ns) 1,000 mls @ 70 mls/hr IV .[id number] [facility] Stop: 04/10/17 08:44 Last Admin: 02/12/17 05:31 Dose: 70 mls/hr Ciprofloxacin (Cipro 400mg Premix Pb) 400 mg in 200 mls @ 200 mls/hr IV Q12H [facility] Stop: 04/13/17 17:59 Insulin Aspart (Novolog Insulin Sliding Scale) 0 units SUBQ ACHS [facility] PRN Reason: Protocol Stop: 04/11/17 12:49 Last Admin: 02/12/17 12:30 Dose: 2 units Ipratropium [place] (Atrovent Neb 0.5mg/2.5ml) 0.5 mg IH Q2HR PRN PRN Reason: Shortness of Breath or Wheeze Stop: 04/10/17 08:38 Levothyroxine Sodium (Synthroid) 0.125 mg GT DAILY [facility] Stop: 04/10/17 08:59 Last Admin: 02/12/17 08:42 Dose: 0.125 mg Magnesium Hydroxide (Milk Of Magnesia) 30 ml PO DAILY PRN PRN Reason: Constipation Stop: 04/10/17 08:37 Miscellaneous (Vte Chemical Prophylaxis Screen/ Admission) 1 ea MC PRN PRN PRN Reason: PROTOCOL Stop: 04/10/17 16:29 Multivitamins/Vitamin C (Theragran) 1 tab PO DAILY [facility] Stop: 04/10/17 08:59 Last Admin: 02/12/17 08:42 Dose: 1 tab Mupirocin (Bactroban Oint) 1 appl TP BID [facility] Stop: 02/16/17 09:01 Last Admin: 02/12/17 09:05 Dose: 1 appl Ondansetron HCl (Zofran) 4 mg IV Q8H PRN PRN Reason: Nausea / Vomiting Stop: 04/10/17 08:39 Potassium Chloride (Potassium Chloride Elixir) 20 meq GT DAILY [facility] Stop: 04/10/17 08:59 Last Admin: 02/12/17 08:42 Dose: 20 meq Sitagliptin Phosphate (Januvia) 50 mg GT DAILY [facility] Stop: 04/10/17 08:59 Last Admin: 02/12/17 08:42 Dose: 50 mg General: weak, alert, demented HEENT: NC/AT, PERRLA Neck: Supple Lungs: CTAB Cardiovascular: RRR, Normal S1, Normal S2, without murmur Abdomen: soft, non-tender, non-distended, positive bowel sound Extremities: clear Neurological: alert - Procedures Procedures: Procedures Procedure Code Date EGD PLACE GASTROSTOMY TUBE 61192 12/31/15 INSERTION OF FEEDING DEVICE INTO STOMACH, PERC APPROACH [id number] 12/31/15 TRANSFUSE NONAUT RED BLOOD CELLS IN PERIPH VEIN, PERC 07561G4 12/31/15 Internal Medicine Assmt/Plan - Assessment Assessment: INTRACTABLE NAUSEA VOMITING HYPONATREMIA Acute renal failure dementia diabetes hypothyroidism cardiac pacemaker gerd alzheimers - Plan Plan: ivf for hydration am labs monitor glucose continue current plan of care Nutritional Asmnt/Malnutr-PDOC - Dietary Evaluation Malnutrition Findings (Please click <Entered> for more info): Nutritional Asmnt/Malnutrition Start: 02/10/17 11: 01 Text: Status: Complete Freq: Document 02/10/17 17:05 [facility] (Rec: 02/10/17 17:14 [facility] [id number]) Nutritional Asmnt/Malnutrition Patient General Information Nutritional Screening High Risk Screening Diagnosis Intractable nausea and vomiting, hyponatremia, acute renal failure Pertinent Medical Hx/Surgical Hx HTN, DM, GERD, hypothyroidism, arthritis, dementia, s/p pacemaker placement Subjective Information Pt is a 81-year-old female from [facility] admitted with chief complaint of nausea and vomiting for one day. Pt has hx dementia. She is confused and a poor historian. Pt appears well nourished with no signs of muscle or fat depletion. Current Diet Order/ Nutrition Support Diabetisource AC at 60 ml/hr x 20 hours = 1440kcal,72gm protein,982ml water Patient / S.O Can't verbalize diet edu Pertinent Medications Cipro, D5-0.45 ns, Coalce, Iron, Theragran, KCl Elixir, Januvia Pertinent Labs (02/09) Glucose 274H, A1C WNL, Alkaline Phosphatase 121H. () BUN 39H, Glucose 204H, POC Glucose 271H Nutritional Hx/Data Height 5 ft Height (Calculated Centimeters) 152.4 Current Weight (lbs) 161 lb Weight (Calculated Kilograms) 73.0 Weight (Calculated Grams) 74200.4 [place] Body Weight 100 % [place] Body Weight 161 Weight Status Obese GI Symptoms GI Symptoms Nausea Vomitting Difficult in: Chewing Swallowing Food Allergies No Skin Integrity/Comment: Jey 14. Skin intact. Estimated Nutritional Goals BEE in Kcals: Adj wt of IBW Calories/Kcals/Kg Based on IBW 45.5 kg with consideration for obesity, wt maintenance: Kcals Calculated 4452-8975 kcals/day (30-35 kcals/kg) Protein: Adj wt of IBW Protein g/kg: Based on IBW 45.5 kg Protein Calculated 46-55 gm/day (1-1.2 gm/kg) Fluid: ml 2934-0839 ml/day (1 ml/kcal) Nutritional Problem 1. Problem Problem Altered GI function related to Etiology unknown etiology as evidenced by Signs/Symptoms: intractable nausea and vomiting x 1 day. Malnutrition Alert Protein-Calorie Malnutrition N/A Is there a minimum of two criteria No selected? Query Text:Check all the applicable criteria. A minimum of two criteria are recommended for diagnosis of either severe or non-severe malnutrition. Malnutrition Related to Morbid Obesity Malnutrition related to morbid obesity No Intervention/Recommendation Comments 1. When medically feasible, recommend resume tube feeding Diabetisource AC at 20 ml/hr and increase by 10 ml/hr every 4 hours, or as tolerated, to goal rate of 50 ml/hr. Expected Outcomes/Goals Expected Outcomes/Goals Provide pt with 100% of estimated nutritional needs with acceptable tolerance. Physician Parameters for PEM Serum Albumin (g/dl) 3.1 - 3.4 (Mild)
[2017-02-12] MEDS ORDERED: Ciprofloxacin 400mg Premix PB 400 MG/200 ML BAG IV SCH (18:00)
--- NOTE | 2017-02-12 20:23 | Discharge Summary ---
DATE OF DISCHARGE: 02/12/[address] Davy Trent. DISCHARGE DIAGNOSES: Intractable nausea, vomiting, hypernatremia, which has all resolved. Acute renal failure, dementia, diabetes, hypothyroidism, cardiac pacemaker, gastroesophageal reflux disease, Alzheimer , which has improved. HISTORY OF PRESENT ILLNESS: This is an 81-year-old female who is a resident of [facility], was brought to [facility] for 1-day history of nausea, vomiting, and diarrhea. The patient had 4 episodes of vomiting and unrelieved by Zofran. For this reason, the patient was admitted. PHYSICAL EXAMINATION: GENERAL: The patient is well developed, well nourished, in no acute distress. VITAL SIGNS: Stable. HEAD: Normocephalic and atraumatic. NECK: Supple. No mass. LUNGS: Clear bilaterally. CARDIOVASCULAR: Regular rate and rhythm. ABDOMEN: Soft and nontender. HOSPITAL COURSE: During the hospital stay, the patient was admitted to the Med/Surg unit. The patient was kept on IV fluids for hydration. The patient was also kept on Cipro for possible gastroenteritis. The patient was kept on IV antibiotics of Cipro. The patient did not have any episodes of any nausea, vomiting, or any diarrhea during the hospital stay. The patient's electrolyte levels were being monitored as well. For this reason, the patient is stable for discharge. CONDITION UPON DISCHARGE: Fair. DISPOSITION: The patient is going to [facility]. JOB# [id number]
== END 2017-02-12 17:00 | disposition home or self-care (01) | DRG 683 ==
LOC: ER 04:10 → MSI 06:30
PROVIDERS: ADMIT Internal Medicine; ATTEND Internal Medicine
DX: N17.9 Acute kidney failure, unspecified (principal); E87.1 Hypo-osmolality and hyponatremia; N39.0 Urinary tract infection, site not specified; I11.9 Hypertensive heart disease without heart failure; K52.9 Noninfective gastroenteritis and colitis, unspecified; G30.9 Alzheimer's disease, unspecified; E03.9 Hypothyroidism, unspecified; K21.9 Gastro-esophageal reflux disease without esophagitis; F02.80 Dementia in other diseases classified elsewhere, unspecified severity, without behavioral disturbance, psychotic disturbance, mood disturbance, and anxiety; I25.10 Atherosclerotic heart disease of native coronary artery without angina pectoris; M19.90 Unspecified osteoarthritis, unspecified site; E11.9 Type 2 diabetes mellitus without complications; Z95.0 Presence of cardiac pacemaker; Z93.1 Gastrostomy status; Z90.49 Acquired absence of other specified parts of digestive tract
CPT/HCPCS: 36415-UA; 80048-TC; 80053-TC; 80061-TC; 81001-TC; 82948-90; 83036-90; 83735-TC; 83880-TC; 84443-TC; 84484-TC; 85007-TC; 85025-TC; 85027-TC; 85610-TC; 85730-TC; 86592-TC; 93005; 94760; 96374; 96375; J0696; J0744; J1644; J1815; J2405; J7030; J7042; Z7610

== ENCOUNTER 2017-04-25 19:24 | Inpatient (IN) | payer MEDICARE, MEDICAID ==
[2017-04-25] MEDS ORDERED: cefTRIAXone 1 GM in Sodium Chloride 0.9% 50 ML IV ONE (22:49)
[2017-04-25] MEDS ORDERED: metroNIDAZOLE 500mg/NS 100mL 500 MG/100 ML BAG IV ONE (22:50)
[2017-04-26 00:47] LABS: % LYMPHOCYTES 11.7 % (20.0-50.0); % MONOCYTES 3.8 % (2.0-10.0); % NEUTROPHILS 82.5 % (40.0-80.0); MEAN CELL VOLUME 88.8 fl (81-100); MEAN CORPUSCULAR HGB CONC 33.8 pg (28.0-36.0); MEAN PLATELET VOLUME 8.8 fl; NEUTROPHILE ABSOLUTE 8.7 Th/cmm (1.8-8.0); PLATELET COUNT 195 Th/cmm (150-400); RED BLOOD COUNT 4.29 Mil/cmm (3.80-5.20); RED CELL DISTRIBUTION WIDTH 13.4 % (11.5-20.0); WHITE BLOOD COUNT 10.5 Th/cmm (4.8-10.8)
[2017-04-26 00:54] LABS: HEMOGLOBIN 12.9 gm/dL (12-16)
[2017-04-26 00:55] LABS: HEMATOCRIT 38.1 % (41.0-60)
[2017-04-26] MEDS ORDERED: Albuterol Nebulizer 2.5mg/3mL HHN PRN (01:00)
[2017-04-26] MEDS ORDERED: Morphine Sulfate 2 mg/mL 1mL Syr IVP PRN (01:00)
[2017-04-26 01:04] LABS: ALB/GLOB RATIO 0.8 (1.0-1.8); ALKALINE PHOSPHATASE 104 U/L (34-104); BILIRUBIN,TOTAL 0.5 mg/dL (0.3-1.0); BUN - UREA NITROGEN 45 mg/dL (7-25); CALCIUM SERUM 9.9 mg/dL (8.6-10.3); CHLORIDE 108 mEq/L (98-107); GLUCOSE 168 mg/dL (70-105); SGOT 36 U/L (13-39); SGPT/ALT 21 U/L (7-52); SODIUM SERUM 139 mEq/L (136-145)
[2017-04-26 01:07] LABS: INR 0.97 (0.5-1.4); PROTHROMBIN TIME (TEST) 10.1 SECONDS (9.5-11.5)
[2017-04-26 01:54] LABS: ANION GAP 10.8 (7.0-16.0); CARBON DIOXIDE 24.2 mEq/L (21.0-31.0)
[2017-04-26] MEDS: D5-0.9%NS 1,000 ML IV SCH ×2 (03:53→15:22)
[2017-04-26 04:43] VITALS: BP 138/72
--- NOTE | 2017-04-26 06:48 | ER Physician Documentation ---
DATE OF SERVICE: HISTORY OF PRESENT ILLNESS: I saw the patient, evaluated. The patient was sent from the correction for change of the G-tube. For G-tube replacement, according to the information that I got that the G-tube is small, it is not coming out and somehow it is not working well and hence Dr. Trent is the patient's MD, I believe, he might have instructed the patient to come over here. The patient cannot speak any Latvian or any other language. She does not speak anything, so history of present illness and review of systems could not be obtained. PHYSICAL EXAMINATION: VITAL SIGNS: The patient's temperature is 98.6, pulse is 77, respirations 20, blood pressure 116/64. Height is 5 feet 7 inches, weight 165 pounds. HEENT: Conjunctivae are pink, sclerae are white. HEENT is normal. The patient does not speak anything. MEDICAL DECISION MAKING: An 81-year-old female patient. The patient needs admission at [facility]. I believe the patient came from [facility], where she has been given many medications, which will be followed up on the floor. From what I can see, the patient has been taking some stool softener, fludrocortisone 0.1 mg tablet, insulin, and Januvia tablet, that means the patient has diabetes mellitus. The patient has some enteral orders. The patient's other diagnoses include, the patient has dysphagia of unspecified etiology. Gastrostomy tube, how it was done, by whom it was done, whether it was surgeon or whether it was done by motion picture set worker, what kind of G-tube was placed, none of this information is available and when I tried to pull it, it is not coming out, so best is the patient's G-tube should be removed by a motion picture set worker hopefully by tomorrow morning. The patient also has bilateral primary osteoarthritis of the knee, muscle weakness, contractures. She holds a tiny little baby doll. She has contractures. She has chronic kidney disease, unspecified. She has type 2 diabetes without complication. Other specified, hypothyroidism is the condition, the patient has it. Other condition that ____ has been mentioned is the patient has long-term need of insulin also. The patient had a cardiac pacemaker, but I do not see any cardiac pacemaker. She had atherosclerotic heart disease with angina pectoris, but the patient does not say whether she has any problems. She has dementia, behavioral dysfunction, peptic ulcer disease, unspecified, chronic without hemorrhage or perforation. The patient's G-tube needs to be removed and a new G-tube to be placed in. Somebody cleaned the G-tube with normal saline and dried, applied calcium alginate and then some dressing was applied and hence patient was sent over here. We are waiting for the patient's lab results to come and then we will follow up from there. If the labs are okay, the patient will be admitted under Dr. Coleman. JOB# [id number]
[2017-04-26] MEDS: Ipratropium Neb 0.5 mg/2.5 mL UD IH SCH ×4 (07:14→18:48)
[2017-04-26] MEDS ORDERED: Maalox 30 mL Cup PO PRN (09:15)
[2017-04-26] MEDS ORDERED: Diatrizoate Meglumine/Diatri 30 mL Sol PO ONE (09:27)
--- NOTE | 2017-04-26 15:21 | Internal Medicine Prog Note ---
Internal Medicine Subjective - Subjective Service Date: 04/26/17 ([facility] [id number] Internal Medicine Objective - Results Result Diagrams: 04/26/17 00:39 04/26/17 00:39 Recent Labs: Laboratory Last Values WBC 10.5 Th/cmm (4.8-10.8) 04/26/17 00:39 RBC 4.29 Mil/cmm (3.80-5.20) 04/26/17 00:39 Hgb 12.9 gm/dL (12-16) D 04/26/17 00:39 Hct 38.1 % (41.0-60) L D 04/26/17 00:39 MCV 88.8 fl (81-100) 04/26/17 00:39 MCH 30.0 pg (27.0-31.0) 04/26/17 00:39 MCHC Differential 33.8 pg (28.0-36.0) 04/26/17 00:39 RDW 13.4 % (11.5-20.0) 04/26/17 00:39 Plt Count 195 Th/cmm (150-400) 04/26/17 00:39 MPV 8.8 fl 04/26/17 00:39 Neutrophils % 82.5 % (40.0-80.0) H 04/26/17 00:39 Lymphocytes % 11.7 % (20.0-50.0) L 04/26/17 00:39 Monocytes % 3.8 % (2.0-10.0) 04/26/17 00:39 Eosinophils % 1.0 % (0.0-5.0) 04/26/17 00:39 Basophils % 1.0 % (0.0-2.0) 04/26/17 00:39 PT 10.1 SECONDS (9.5-11.5) 04/26/17 00:39 INR 0.97 (0.5-1.4) 04/26/17 00:39 Sodium 139 mEq/L (136-145) 04/26/17 00:39 Potassium 4.0 mEq/L (3.5-5.1) 04/26/17 00:39 Chloride 108 mEq/L (98-107) H 04/26/17 00:39 Carbon Dioxide 24.2 mEq/L (21.0-31.0) 04/26/17 00:39 Anion Gap 10.8 (7.0-16.0) 04/26/17 00:39 BUN 45 mg/dL (7-25) H 04/26/17 00:39 Creatinine 1.0 mg/dL (0.6-1.2) 04/26/17 00:39 Est GFR ( Amer) TNP 04/26/17 00:39 Est GFR (Non-Af Amer) TNP 04/26/17 00:39 BUN/Creatinine Ratio 45.0 04/26/17 00:39 Glucose 168 mg/dL (70-105) H 04/26/17 00:39 Calcium 9.9 mg/dL (8.6-10.3) 04/26/17 00:39 Magnesium 2.0 mg/dL (1.9-2.7) 04/26/17 00:39 Total Bilirubin 0.5 mg/dL (0.3-1.0) 04/26/17 00:39 AST 36 U/L (13-39) 04/26/17 00:39 ALT 21 U/L (7-52) 04/26/17 00:39 Alkaline Phosphatase 104 U/L (34-104) 04/26/17 00:39 Total Protein 7.5 gm/dL (6.0-8.3) 04/26/17 00:39 Albumin 3.4 gm/dL (3.7-5.3) L 04/26/17 00:39 Globulin 4.1 gm/dL 04/26/17 00:39 Albumin/Globulin Ratio 0.8 (1.0-1.8) L 04/26/17 00:39 - Physical Exam Vitals and I&O: Vital Signs Temp 97.4 F 04/26/17 12:00 Pulse 62 04/26/17 14:46 Resp 14 04/26/17 14:46 BP 141/64 04/26/17 12:00 Pulse Ox 97 04/26/17 14:46 Intake & Output 04/25/17 04/26/17 04/26/17 18:59 06:59 18:59 Weight (lbs) 164 lb 6.4 oz Other: Stool Characteristics Soft Soft Black Active Medications: Current Medications Acetaminophen (Tylenol) 650 mg PO Q4H PRN PRN Reason: Pain Or Fever above 101 Stop: 06/25/17 09:14 Al Hydrox/Mg Hydrox/Simethicone (Maalox) 30 ml PO Q6H PRN PRN Reason: Dyspepsia Stop: 06/25/17 09:14 Albuterol Sulfate (Albuterol 2.5mg/3ml Neb Ud) 2.5 mg HHN Q2HRT PRN PRN Reason: Shortness of Breath or Wheeze Stop: 06/25/17 00:59 Docusate Sodium (Colace) 100 mg PO DAILY [facility] Stop: 06/26/17 08:59 Ferrous Sulfate (Iron) 300 mg PO DAILY [facility] Stop: 06/26/17 08:59 Fludrocortisone Acetate (Florinef) 0.05 mg PO DAILY [facility] Stop: 06/26/17 08:59 Heparin Sodium (Porcine) (Heparin) 5,000 units SUBQ Q12HR [facility] Stop: 06/25/17 20:59 Dextrose/Sodium Chloride (D5-0.9%Ns) 1,000 mls @ 80 mls/hr IV .[id number] [facility] Stop: 06/25/17 00:59 Last Admin: 04/26/17 03:53 Dose: 80 mls/hr Ipratropium [place] (Atrovent Neb 0.5mg/2.5ml) 0.5 mg IH QIDRT [facility] Stop: 06/25/17 06:59 Last Admin: 04/26/17 14:45 Dose: 0.5 mg Morphine Sulfate (Morphine) 2 mg IVP Q4H PRN PRN Reason: Pain (Moderate) Stop: 06/25/17 00:59 Multivitamins/Vitamin C (Theragran) 5 ml PO DAILY [facility] Stop: 06/26/17 08:59 Ondansetron HCl (Zofran) 4 mg IV Q8H PRN PRN Reason: Nausea / Vomiting Stop: 06/25/17 00:59 Sitagliptin Phosphate (Januvia) 50 mg GT DAILY [facility] Stop: 06/26/17 08:59 - Procedures Procedures: Procedures Procedure Code Date EGD PLACE GASTROSTOMY TUBE 74511 12/31/15 INSERTION OF FEEDING DEVICE INTO STOMACH, PERC APPROACH [id number] 12/31/15 TRANSFUSE NONAUT RED BLOOD CELLS IN PERIPH VEIN, PERC 83047L2 12/31/15 Internal Medicine Assmt/Plan - Assessment Assessment: GT MALFUNCTION ACUTE RENAL FAILURE MILD PROTEIN CALORIE MALNUTRITION GERD DM HYPOTHYROID PACEMAKER STATUS
[2017-04-26] MEDS: INSULIN ASPART SLIDING SCALE 100 UNITS/ML UNIT SUBQ SCH (22:52)
[2017-04-26] MEDS: Insulin Detemir 100 units/mL 10mL Vial SUBQ SCH (22:52)
--- NOTE | 2017-04-26 23:12 | History & Physical ---
ADMIT DATE: 04/26/2017 CHIEF COMPLAINT: G-tube malfunction. HISTORY OF PRESENT ILLNESS: This is an 81-year-old female who is a resident of [facility] who I recently seen yesterday at the [place] [facility]. The patient was noted to have a G-tube malfunction. For this reason, the patient is now admitted to have her G-tube replaced. PAST MEDICAL HISTORY: Hypertension, diabetes, GERD, hypothyroidism, arthritis, dementia, status post pacemaker status. PAST SURGICAL HISTORY: Pacemaker. FAMILY HISTORY: Noncontributory. SOCIAL HISTORY: The patient is a [place] [facility] resident, requiring 24-hour nursing care. PSYCHIATRIC HISTORY: Dementia. REVIEW OF SYSTEMS: Unable to obtain due to patient's mental status. PHYSICAL EXAMINATION: GENERAL: This is an elderly female, awake, confused, no apparent distress. VITAL SIGNS: Temperature 97.4, heart rate 63, blood pressure 141/64, respirations 18, O2 99%. HEENT: Head; normocephalic, atraumatic. NECK: Supple. No mass. LUNGS: Clear bilaterally. ABDOMEN: Soft, nontender. LABORATORY DATA: WBC 10.5, H and H 12.9 and 38.1. Platelet 195. Sodium 139, potassium 4.0, chloride 108, BUN 45, creatinine 1.0. Albumin 3.4. ASSESSMENT: G-tube malfunction, acute renal failure, dementia, diabetes, hypothyroidism, cardiac pacemaker status, gastroesophageal reflux disease, Alzheimer, and protein calorie malnutrition. PLAN: We will admit patient to the med/surg unit. Will get GI on the case to have a G-tube replace. Will keep the patient on IV fluids for hydration. We will continue to monitor this patient. JOB# [id number]
[2017-04-27] MEDS: D5-0.9%NS 1,000 ML IV SCH ×2 (04:37→21:34)
[2017-04-27 05:21] LABS: % BASOPHILS 0.1 % (0.0-2.0); % LYMPHOCYTES 17.1 % (20.0-50.0); % MONOCYTES 8.9 % (2.0-10.0); % NEUTROPHILS 67.9 % (40.0-80.0); HEMATOCRIT 35.4 % (41.0-60); HEMOGLOBIN 11.9 gm/dL (12-16); MEAN CELL VOLUME 89.1 fl (81-100); MEAN CORPUSCULAR HEMOGLOBIN 29.9 pg (27.0-31.0); MEAN CORPUSCULAR HGB CONC 33.6 pg (28.0-36.0); MEAN PLATELET VOLUME 9.6 fl; NEUTROPHILE ABSOLUTE 4.7 Th/cmm (1.8-8.0); PLATELET COUNT 170 Th/cmm (150-400); RED BLOOD COUNT 3.98 Mil/cmm (3.80-5.20); RED CELL DISTRIBUTION WIDTH 13.8 % (11.5-20.0); WHITE BLOOD COUNT 6.9 Th/cmm (4.8-10.8)
[2017-04-27 05:46] LABS: ANION GAP 8.9 (7.0-16.0); BUN - UREA NITROGEN 33 mg/dL (7-25); BUN/CREATININE RATIO 41.3; CALCIUM SERUM 9.3 mg/dL (8.6-10.3); CARBON DIOXIDE 25.8 mEq/L (21.0-31.0); CHLORIDE 113 mEq/L (98-107); CREATININE - SERUM 0.8 mg/dL (0.6-1.2); GLUCOSE 164 mg/dL (70-105); POTASSIUM SERUM 3.7 mEq/L (3.5-5.1); SODIUM SERUM 144 mEq/L (136-145)
[2017-04-27 06:07] LABS: URINE BILIRUBIN NEGATIVE (NEGATIVE); URINE BLOOD TRACE (NEGATIVE); URINE GLUCOSE (UA) NEGATIVE (NEGATIVE); URINE KETONE NEGATIVE (NEGATIVE); URINE PROTEIN TRACE mg/dL (NEGATIVE)
[2017-04-27 06:11] LABS: URINE COLOR YELLOW
[2017-04-27 06:31] LABS: URINE BACTERIA 2+ /hpf (NONE SEEN); URINE EPITHELIAL CELLS FEW /lpf (FEW); URINE WBC >100 /hpf (0-5)
[2017-04-27] MEDS: INSULIN ASPART SLIDING SCALE 100 UNITS/ML UNIT SUBQ SCH ×4 (06:34→21:15)
[2017-04-27] MEDS: Ipratropium Neb 0.5 mg/2.5 mL UD IH SCH ×4 (07:25→18:58)
--- NOTE | 2017-04-27 07:35 | Consultation ---
DATE OF CONSULTATION: 04/26/2017 INPATIENT GASTROENTEROLOGY CONSULT REFERRING PHYSICIAN: Davy Trent DO REASON FOR CONSULTATION: Malfunctioning G-tube. HISTORY OF PRESENT ILLNESS: This is an 81-year-old female resident of skilled facility, was sent to the hospital because of G-tube was malfunctioning. The patient is otherwise a poor historian, unable to give any meaningful history. PAST MEDICAL HISTORY: Dysphagia, hypertension, diabetes, hypothyroidism, arthritis, and dementia. PAST SURGICAL HISTORY: Pacemaker placement and PEG tube. FAMILY HISTORY: Noncontributory. SOCIAL HISTORY: Resident of [facility]. ALLERGIES: None. CURRENT MEDICATIONS: Tylenol, Maalox, albuterol, Colace, Florinef, heparin, , morphine, Zofran, and Januvia. REVIEW OF SYSTEMS: Unobtainable. PHYSICAL EXAMINATION: VITAL SIGNS: Temperature is 97.3, breathing 18, pulse of 61, blood pressure 139/53, and satting 99%. GENERAL: In no apparent distress. EYES: Anicteric, normal conjunctivae. HEENT: Normocephalic, atraumatic. Moist mucous membranes. NECK: Soft, supple. CHEST: Clear. No effort. CARDIOVASCULAR: Regular rate and rhythm. ABDOMEN: Soft, nontender, nondistended with the old G-tube. SKIN: Warm, dry. EXTREMITIES: Reveal no cyanosis. LABORATORY DATA: INR is 0.97. White count 10.5, hemoglobin 12.9, platelets of 195. IMPRESSION: An 81-year-old female with dysphagia, has a G-tube that has malfunctioned, will likely need to have it replaced. PLAN: 1. G-tube to be changed at bedside. 2. Continue supportive care and other management per primary team. Thank you for allowing me to participate. Please call me if you have any questions. JOB# [id number]
[2017-04-27] MEDS ORDERED: Non-Formulary Item 1 EA (Ferrous Sulfate [Ferosul] 7.5 ML) GT SCH (09:00)
--- NOTE | 2017-04-27 09:07 | GI Progress Note ---
Subjective - Review of Systems Subjective: YIN TUBE FEEDS NO EVENTS Objective - Results Result Diagrams: 04/27/17 04:35 04/27/17 04:35 Recent Labs: Laboratory Last Values WBC 6.9 Th/cmm (4.8-10.8) D 04/27/17 04:35 RBC 3.98 Mil/cmm (3.80-5.20) 04/27/17 04:35 Hgb 11.9 gm/dL (12-16) L 04/27/17 04:35 Hct 35.4 % (41.0-60) L 04/27/17 04:35 MCV 89.1 fl (81-100) 04/27/17 04:35 MCH 29.9 pg (27.0-31.0) 04/27/17 04:35 MCHC Differential 33.6 pg (28.0-36.0) 04/27/17 04:35 RDW 13.8 % (11.5-20.0) 04/27/17 04:35 Plt Count 170 Th/cmm (150-400) 04/27/17 04:35 MPV 9.6 fl 04/27/17 04:35 Neutrophils % 67.9 % (40.0-80.0) 04/27/17 04:35 Lymphocytes % 17.1 % (20.0-50.0) L 04/27/17 04:35 Monocytes % 8.9 % (2.0-10.0) 04/27/17 04:35 Eosinophils % 6.0 % (0.0-5.0) H 04/27/17 04:35 Basophils % 0.1 % (0.0-2.0) 04/27/17 04:35 PT 10.1 SECONDS (9.5-11.5) 04/26/17 00:39 INR 0.97 (0.5-1.4) 04/26/17 00:39 Sodium 144 mEq/L (136-145) 04/27/17 04:35 Potassium 3.7 mEq/L (3.5-5.1) 04/27/17 04:35 Chloride 113 mEq/L (98-107) H 04/27/17 04:35 Carbon Dioxide 25.8 mEq/L (21.0-31.0) 04/27/17 04:35 Anion Gap 8.9 (7.0-16.0) 04/27/17 04:35 BUN 33 mg/dL (7-25) H 04/27/17 04:35 Creatinine 0.8 mg/dL (0.6-1.2) 04/27/17 04:35 Est GFR ( Amer) TNP 04/27/17 04:35 Est GFR (Non-Af Amer) TNP 04/27/17 04:35 BUN/Creatinine Ratio 41.3 04/27/17 04:35 Glucose 164 mg/dL (70-105) H 04/27/17 04:35 POC Glucose 244 MG/DL (70 - 105) H 04/27/17 06:12 Calcium 9.3 mg/dL (8.6-10.3) 04/27/17 04:35 Magnesium 2.0 mg/dL (1.9-2.7) 04/26/17 00:39 Total Bilirubin 0.5 mg/dL (0.3-1.0) 04/26/17 00:39 AST 36 U/L (13-39) 04/26/17 00:39 ALT 21 U/L (7-52) 04/26/17 00:39 Alkaline Phosphatase 104 U/L (34-104) 04/26/17 00:39 Total Protein 7.5 gm/dL (6.0-8.3) 04/26/17 00:39 Albumin 3.4 gm/dL (3.7-5.3) L 04/26/17 00:39 Globulin 4.1 gm/dL 04/26/17 00:39 Albumin/Globulin Ratio 0.8 (1.0-1.8) L 04/26/17 00:39 Urine Source CATH 04/27/17 03:45 Urine Color YELLOW 04/27/17 03:45 Urine Clarity HAZY (CLEAR) 04/27/17 03:45 Urine pH 7.0 (4.6 - 8.0) 04/27/17 03:45 Ur Specific [place] 1.010 (1.005-1.030) 04/27/17 03:45 Urine Protein TRACE mg/dL (NEGATIVE) 04/27/17 03:45 Urine Glucose (UA) NEGATIVE mg/dL (NEGATIVE) 04/27/17 03:45 Urine Ketones NEGATIVE mg/dL (NEGATIVE) 04/27/17 03:45 Urine Blood TRACE (NEGATIVE) 04/27/17 03:45 Urine Nitrate NEGATIVE (NEGATIVE) 04/27/17 03:45 Urine Bilirubin NEGATIVE (NEGATIVE) 04/27/17 03:45 Urine Urobilinogen 1.0 E.U./dL (0.2 - 1.0) 04/27/17 03:45 Ur Leukocyte Esterase LARGE (NEGATIVE) H 04/27/17 03:45 Urine RBC 5-10 /hpf (0-5) H 04/27/17 03:45 Urine WBC >100 /hpf (0-5) H 04/27/17 03:45 Ur Epithelial Cells FEW /lpf (FEW) 04/27/17 03:45 Urine Bacteria 2+ /hpf (NONE SEEN) H 04/27/17 03:45 - Physical Exam Vitals and I&O: Vital Signs Temp 99.2 F 04/27/17 07:58 Pulse 79 04/27/17 07:58 Resp 19 04/27/17 07:58 BP 153/58 04/27/17 07:58 Pulse Ox 99 04/27/17 07:58 Intake & Output 04/26/17 04/27/17 04/27/17 18:59 06:59 18:59 Intake Total 3247.719 4255 Balance 6278.058 6828 Weight (lbs) 74.571 kg 76.657 kg Intake: Intake, IV Amount 366.667 2458 D5-0.9%Ns 1,000 ml @ 80 813.790 0429 mls/hr IV .[id number] [facility] Rx #:[id number] Tube Feeding 270 600 Other: # Voids 4 2 # Bowel Movements 2 1 Stool Characteristics Soft Black Active Medications: Current Medications Acetaminophen (Tylenol) 650 mg PO Q4H PRN PRN Reason: Pain Or Fever above 101 Stop: 06/25/17 09:14 Al Hydrox/Mg Hydrox/Simethicone (Maalox) 30 ml PO Q6H PRN PRN Reason: Dyspepsia Stop: 06/25/17 09:14 Albuterol Sulfate (Albuterol 2.5mg/3ml Neb Ud) 2.5 mg HHN Q2HRT PRN PRN Reason: Shortness of Breath or Wheeze Stop: 06/25/17 00:59 Docusate Sodium (Colace) 100 mg PO DAILY [facility] Stop: 06/26/17 08:59 Ferrous Sulfate (Iron) 300 mg PO DAILY [facility] Stop: 06/26/17 08:59 Fludrocortisone Acetate (Florinef) 0.05 mg PO DAILY [facility] Stop: 06/26/17 08:59 Heparin Sodium (Porcine) (Heparin) 5,000 units SUBQ Q12HR [facility] Stop: 06/25/17 20:59 Last Admin: 04/26/17 22:48 Dose: 5,000 units Dextrose/Sodium Chloride (D5-0.9%Ns) 1,000 mls @ 80 mls/hr IV .[id number] [facility] Stop: 06/25/17 00:59 Last Admin: 04/27/17 04:37 Dose: 80 mls/hr Insulin Aspart (Novolog Insulin Sliding Scale) 0 units SUBQ ACHS [facility] PRN Reason: Protocol Stop: 06/25/17 20:59 Last Admin: 04/27/17 06:34 Dose: 4 units Insulin Detemir (Levemir Insulin) 20 units SUBQ HS [facility] PRN Reason: Protocol Stop: 06/25/17 20:59 Last Admin: 04/26/17 22:52 Dose: 20 units Ipratropium [place] (Atrovent Neb 0.5mg/2.5ml) 0.5 mg IH QIDRT [facility] Stop: 06/25/17 06:59 Last Admin: 04/27/17 07:25 Dose: 0.5 mg Morphine Sulfate (Morphine) 2 mg IVP Q4H PRN PRN Reason: Pain (Moderate) Stop: 06/25/17 00:59 Multivitamins/Vitamin C (Theragran) 5 ml PO DAILY [facility] Stop: 06/26/17 08:59 Ondansetron HCl (Zofran) 4 mg IV Q8H PRN PRN Reason: Nausea / Vomiting Stop: 06/25/17 00:59 Sitagliptin Phosphate (Januvia) 50 mg GT DAILY [facility] Stop: 06/26/17 08:59 - Procedures Procedures: Procedures Procedure Code Date EGD PLACE GASTROSTOMY TUBE 44901 12/31/15 INSERTION OF FEEDING DEVICE INTO STOMACH, [facility] APPROACH [id number] 12/31/15 TRANSFUSE NONAUT RED BLOOD CELLS IN PERIPH VEIN, PERC 29175X0 07/03/16 Assessment/Plan - Problem List Patient Problems: All Active Problems DM w/o complication type II (Acute) E11.9 Dehydration (Acute) E86.0 Urinary tract infection (Acute) - Assessment Assessment: 81 YO FEMALE WITH MALFUNCTION G TUBE AND DYSPHAGIA GTUBE CHANGED TO 20 FR KUB NOTED TUBE IN THE STOMACH 1.CONT SUPP CARE 2.CONT TUBE FEEDS YIN 3.WILL SIGN OFF, CALL IF QUESTIONS
[2017-04-27] MEDS: Multivitamin 5 mL UDC PO SCH (09:45)
[2017-04-27] MEDS: Ferrous Sulfate 300 MG/5 ML UDC PO SCH (09:45)
--- NOTE | 2017-04-27 10:01 | Diagnostic Imaging Report ---
Upper GI (Limited, gastrostomy tube placement) HISTORY: Gastrostomy tube placement Water-soluble contrast was instilled through the patient's gastrostomy tube. The exam demonstrates opacification of the gastric lumen. There is free flow of contrast into the duodenum. IMPRESSION: 1. Confirmation of gastrostomy tube within the gastric lumen.
--- NOTE | 2017-04-27 13:16 | Internal Medicine Prog Note ---
Internal Medicine Subjective - Subjective Service Date: 04/27/17 (s/p peg placement tolerating feedings well.) Patient seen and examined:: with staff Patient is:: awake, confused Per staff patient has:: tolerating meds Internal Medicine Objective - Results Result Diagrams: 04/27/17 04:35 04/27/17 04:35 Recent Labs: Laboratory Last Values WBC 6.9 Th/cmm (4.8-10.8) D 04/27/17 04:35 RBC 3.98 Mil/cmm (3.80-5.20) 04/27/17 04:35 Hgb 11.9 gm/dL (12-16) L 04/27/17 04:35 Hct 35.4 % (41.0-60) L 04/27/17 04:35 MCV 89.1 fl (81-100) 04/27/17 04:35 MCH 29.9 pg (27.0-31.0) 04/27/17 04:35 MCHC Differential 33.6 pg (28.0-36.0) 04/27/17 04:35 RDW 13.8 % (11.5-20.0) 04/27/17 04:35 Plt Count 170 Th/cmm (150-400) 04/27/17 04:35 MPV 9.6 fl 04/27/17 04:35 Neutrophils % 67.9 % (40.0-80.0) 04/27/17 04:35 Lymphocytes % 17.1 % (20.0-50.0) L 04/27/17 04:35 Monocytes % 8.9 % (2.0-10.0) 04/27/17 04:35 Eosinophils % 6.0 % (0.0-5.0) H 04/27/17 04:35 Basophils % 0.1 % (0.0-2.0) 04/27/17 04:35 PT 10.1 SECONDS (9.5-11.5) 04/26/17 00:39 INR 0.97 (0.5-1.4) 04/26/17 00:39 Sodium 144 mEq/L (136-145) 04/27/17 04:35 Potassium 3.7 mEq/L (3.5-5.1) 04/27/17 04:35 Chloride 113 mEq/L (98-107) H 04/27/17 04:35 Carbon Dioxide 25.8 mEq/L (21.0-31.0) 04/27/17 04:35 Anion Gap 8.9 (7.0-16.0) 04/27/17 04:35 BUN 33 mg/dL (7-25) H 04/27/17 04:35 Creatinine 0.8 mg/dL (0.6-1.2) 04/27/17 04:35 Est GFR ( Amer) TNP 04/27/17 04:35 Est GFR (Non-Af Amer) TNP 04/27/17 04:35 BUN/Creatinine Ratio 41.3 04/27/17 04:35 Glucose 164 mg/dL (70-105) H 04/27/17 04:35 POC Glucose 141 MG/DL (70 - 105) H 04/27/17 11:45 Calcium 9.3 mg/dL (8.6-10.3) 04/27/17 04:35 Magnesium 2.0 mg/dL (1.9-2.7) 04/26/17 00:39 Total Bilirubin 0.5 mg/dL (0.3-1.0) 04/26/17 00:39 AST 36 U/L (13-39) 04/26/17 00:39 ALT 21 U/L (7-52) 04/26/17 00:39 Alkaline Phosphatase 104 U/L (34-104) 04/26/17 00:39 Total Protein 7.5 gm/dL (6.0-8.3) 04/26/17 00:39 Albumin 3.4 gm/dL (3.7-5.3) L 04/26/17 00:39 Globulin 4.1 gm/dL 04/26/17 00:39 Albumin/Globulin Ratio 0.8 (1.0-1.8) L 04/26/17 00:39 Urine Source CATH 04/27/17 03:45 Urine Color YELLOW 04/27/17 03:45 Urine Clarity HAZY (CLEAR) 04/27/17 03:45 Urine pH 7.0 (4.6 - 8.0) 04/27/17 03:45 Ur Specific [place] 1.010 (1.005-1.030) 04/27/17 03:45 Urine Protein TRACE mg/dL (NEGATIVE) 04/27/17 03:45 Urine Glucose (UA) NEGATIVE mg/dL (NEGATIVE) 04/27/17 03:45 Urine Ketones NEGATIVE mg/dL (NEGATIVE) 04/27/17 03:45 Urine Blood TRACE (NEGATIVE) 04/27/17 03:45 Urine Nitrate NEGATIVE (NEGATIVE) 04/27/17 03:45 Urine Bilirubin NEGATIVE (NEGATIVE) 04/27/17 03:45 Urine Urobilinogen 1.0 E.U./dL (0.2 - 1.0) 04/27/17 03:45 Ur Leukocyte Esterase LARGE (NEGATIVE) H 04/27/17 03:45 Urine RBC 5-10 /hpf (0-5) H 04/27/17 03:45 Urine WBC >100 /hpf (0-5) H 04/27/17 03:45 Ur Epithelial Cells FEW /lpf (FEW) 04/27/17 03:45 Urine Bacteria 2+ /hpf (NONE SEEN) H 04/27/17 03:45 - Physical Exam Vitals and I&O: Vital Signs Temp 99.2 F 04/27/17 07:58 Pulse 79 04/27/17 11:21 Resp 14 04/27/17 11:21 BP 153/58 04/27/17 07:58 Pulse Ox 100 04/27/17 11:21 Intake & Output 04/26/17 04/27/17 04/27/17 18:59 06:59 18:59 Intake Total 1305.653 7005 Balance 4067.742 8851 Weight (lbs) 164 lb 6.4 oz 169 lb Intake: Intake, IV Amount 567.488 2261 D5-0.9%Ns 1,000 ml @ 80 898.992 5640 mls/hr IV .[id number] [facility] Rx #:[id number] Tube Feeding 270 600 Other: # Voids 4 2 # Bowel Movements 2 1 Stool Characteristics Soft Black Active Medications: Current Medications Acetaminophen (Tylenol) 650 mg PO Q4H PRN PRN Reason: Pain Or Fever above 101 Stop: 06/25/17 09:14 Al Hydrox/Mg Hydrox/Simethicone (Maalox) 30 ml PO Q6H PRN PRN Reason: Dyspepsia Stop: 06/25/17 09:14 Albuterol Sulfate (Albuterol 2.5mg/3ml Neb Ud) 2.5 mg HHN Q2HRT PRN PRN Reason: Shortness of Breath or Wheeze Stop: 06/25/17 00:59 Docusate Sodium (Colace) 100 mg PO DAILY [facility] Stop: 06/26/17 08:59 Last Admin: 04/27/17 09:45 Dose: 100 mg Ferrous Sulfate (Iron) 300 mg PO DAILY [facility] Stop: 06/26/17 08:59 Last Admin: 04/27/17 09:45 Dose: 300 mg Fludrocortisone Acetate (Florinef) 0.05 mg PO DAILY [facility] Stop: 06/26/17 08:59 Last Admin: 04/27/17 09:45 Dose: 0.05 mg Heparin Sodium (Porcine) (Heparin) 5,000 units SUBQ Q12HR [facility] Stop: 06/25/17 20:59 Last Admin: 04/27/17 09:45 Dose: 5,000 units Dextrose/Sodium Chloride (D5-0.9%Ns) 1,000 mls @ 80 mls/hr IV .[id number] [facility] Stop: 06/25/17 00:59 Last Admin: 04/27/17 04:37 Dose: 80 mls/hr Levofloxacin (Levaquin Pb) 500 mg in 100 mls @ 100 mls/hr IV Q24HR [facility] Stop: 06/26/17 13:14 Insulin Aspart (Novolog Insulin Sliding Scale) 0 units SUBQ ACHS [facility] PRN Reason: Protocol Stop: 06/25/17 20:59 Last Admin: 04/27/17 11:46 Dose: Not Given Insulin Detemir (Levemir Insulin) 20 units SUBQ HS [facility] PRN Reason: Protocol Stop: 06/25/17 20:59 Last Admin: 04/26/17 22:52 Dose: 20 units Ipratropium Mercedita (Atrovent Neb 0.5mg/2.5ml) 0.5 mg IH QIDRT [facility] Stop: 06/25/17 06:59 Last Admin: 04/27/17 11:19 Dose: 0.5 mg Morphine Sulfate (Morphine) 2 mg IVP Q4H PRN PRN Reason: Pain (Moderate) Stop: 06/25/17 00:59 Multivitamins/Vitamin C (Theragran) 5 ml PO DAILY [facility] Stop: 06/26/17 08:59 Last Admin: 04/27/17 09:45 Dose: Not Given Multivitamins/Vitamin C (Theragran) 1 tab PO DAILY [facility] Stop: 06/27/17 08:59 Ondansetron HCl (Zofran) 4 mg IV Q8H PRN PRN Reason: Nausea / Vomiting Stop: 06/25/17 00:59 Sitagliptin Phosphate (Januvia) 50 mg GT DAILY [facility] Stop: 06/26/17 08:59 Last Admin: 04/27/17 09:45 Dose: 50 mg General: alert HEENT: NC/AT, PERRLA Neck: Supple Lungs: CTAB Abdomen: soft, non-tender, non-distended, +GT Extremities: excoriation Neurological: alert, other (confused) - Procedures Procedures: Procedures Procedure Code Date EGD PLACE GASTROSTOMY TUBE 25066 12/31/15 INSERTION OF FEEDING DEVICE INTO STOMACH, [facility] APPROACH [id number] 12/31/15 TRANSFUSE NONAUT RED BLOOD CELLS IN PERIPH VEIN, [facility] 72452Z7 12/31/15 Internal Medicine Assmt/Plan - Assessment Assessment: ACUTE UTI 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
[2017-04-27] MEDS ORDERED: Levofloxacin 500mg/100mL 500 MG/100 ML BAG IV SCH (15:00)
[2017-04-27] MEDS: Insulin Detemir 100 units/mL 10mL Vial SUBQ SCH (21:16)
[2017-04-28 06:19] LABS: % BASOPHILS 0.6 % (0.0-2.0); % EOSINOPHILS 1.6 % (0.0-5.0); % LYMPHOCYTES 27.3 % (20.0-50.0); % MONOCYTES 11.1 % (2.0-10.0); % NEUTROPHILS 59.4 % (40.0-80.0); HEMATOCRIT 32.8 % (41.0-60); HEMOGLOBIN 10.9 gm/dL (12-16); MEAN CELL VOLUME 89.2 fl (81-100); MEAN CORPUSCULAR HEMOGLOBIN 29.7 pg (27.0-31.0); MEAN CORPUSCULAR HGB CONC 33.3 pg (28.0-36.0); MEAN PLATELET VOLUME 9.1 fl; NEUTROPHILE ABSOLUTE 2.5 Th/cmm (1.8-8.0); PLATELET COUNT 151 Th/cmm (150-400); RED BLOOD COUNT 3.67 Mil/cmm (3.80-5.20); RED CELL DISTRIBUTION WIDTH 13.5 % (11.5-20.0)
[2017-04-28 06:27] LABS: WHITE BLOOD COUNT 4.3 Th/cmm (4.8-10.8)
[2017-04-28] MEDS: D5-0.9%NS 1,000 ML IV SCH (06:29)
[2017-04-28] MEDS: Ipratropium Neb 0.5 mg/2.5 mL UD IH SCH ×2 (06:30→10:49)
[2017-04-28] MEDS: INSULIN ASPART SLIDING SCALE 100 UNITS/ML UNIT SUBQ SCH ×2 (06:33→12:00)
[2017-04-28 06:37] LABS: ANION GAP 4.5 (7.0-16.0); BUN - UREA NITROGEN 24 mg/dL (7-25); BUN/CREATININE RATIO 26.7; CALCIUM SERUM 8.6 mg/dL (8.6-10.3); CHLORIDE 113 mEq/L (98-107); CREATININE - SERUM 0.9 mg/dL (0.6-1.2); GLUCOSE 177 mg/dL (70-105); POTASSIUM SERUM 3.5 mEq/L (3.5-5.1); SODIUM SERUM 139 mEq/L (136-145)
[2017-04-28] MEDS: Ferrous Sulfate 300 MG/5 ML UDC PO SCH (08:53)
[2017-04-28] MEDS ORDERED: Multivitamin Tab PO SCH (09:00)
[2017-04-28] MEDS: Multivitamin 5 mL UDC PO SCH (09:26)
--- NOTE | 2017-04-28 12:20 | Internal Medicine Prog Note ---
Internal Medicine Subjective - Subjective Service Date: 04/28/17 ( DC SUMMARY [id number]) Patient is:: awake, confused Per staff patient has:: tolerating meds Internal Medicine Objective - Results Result Diagrams: 04/28/17 05:40 04/28/17 05:40 Recent Labs: Laboratory Last Values WBC 4.3 Th/cmm (4.8-10.8) L D 04/28/17 05:40 RBC 3.67 Mil/cmm (3.80-5.20) L 04/28/17 05:40 Hgb 10.9 gm/dL (12-16) L 04/28/17 05:40 Hct 32.8 % (41.0-60) L 04/28/17 05:40 MCV 89.2 fl (81-100) 04/28/17 05:40 MCH 29.7 pg (27.0-31.0) 04/28/17 05:40 MCHC Differential 33.3 pg (28.0-36.0) 04/28/17 05:40 RDW 13.5 % (11.5-20.0) 04/28/17 05:40 Plt Count 151 Th/cmm (150-400) 04/28/17 05:40 MPV 9.1 fl 04/28/17 05:40 Neutrophils % 59.4 % (40.0-80.0) 04/28/17 05:40 Lymphocytes % 27.3 % (20.0-50.0) 04/28/17 05:40 Monocytes % 11.1 % (2.0-10.0) H 04/28/17 05:40 Eosinophils % 1.6 % (0.0-5.0) 04/28/17 05:40 Basophils % 0.6 % (0.0-2.0) 04/28/17 05:40 PT 10.1 SECONDS (9.5-11.5) 04/26/17 00:39 INR 0.97 (0.5-1.4) 04/26/17 00:39 Sodium 139 mEq/L (136-145) 04/28/17 05:40 Potassium 3.5 mEq/L (3.5-5.1) 04/28/17 05:40 Chloride 113 mEq/L (98-107) H 04/28/17 05:40 Carbon Dioxide 25.0 mEq/L (21.0-31.0) 04/28/17 05:40 Anion Gap 4.5 (7.0-16.0) L 04/28/17 05:40 BUN 24 mg/dL (7-25) 04/28/17 05:40 Creatinine 0.9 mg/dL (0.6-1.2) 04/28/17 05:40 Est GFR ( Amer) TNP 04/28/17 05:40 Est GFR (Non-Af Amer) TNP 04/28/17 05:40 BUN/Creatinine Ratio 26.7 04/28/17 05:40 Glucose 177 mg/dL (70-105) H 04/28/17 05:40 POC Glucose 94 MG/DL (70 - 105) 04/28/17 11:33 Calcium 8.6 mg/dL (8.6-10.3) 04/28/17 05:40 Magnesium 2.0 mg/dL (1.9-2.7) 04/26/17 00:39 Total Bilirubin 0.5 mg/dL (0.3-1.0) 04/26/17 00:39 AST 36 U/L (13-39) 04/26/17 00:39 ALT 21 U/L (7-52) 04/26/17 00:39 Alkaline Phosphatase 104 U/L (34-104) 04/26/17 00:39 Total Protein 7.5 gm/dL (6.0-8.3) 04/26/17 00:39 Albumin 3.4 gm/dL (3.7-5.3) L 04/26/17 00:39 Globulin 4.1 gm/dL 04/26/17 00:39 Albumin/Globulin Ratio 0.8 (1.0-1.8) L 04/26/17 00:39 Urine Source CATH 04/27/17 03:45 Urine Color YELLOW 04/27/17 03:45 Urine Clarity HAZY (CLEAR) 04/27/17 03:45 Urine pH 7.0 (4.6 - 8.0) 04/27/17 03:45 Ur Specific [place] 1.010 (1.005-1.030) 04/27/17 03:45 Urine Protein TRACE mg/dL (NEGATIVE) 04/27/17 03:45 Urine Glucose (UA) NEGATIVE mg/dL (NEGATIVE) 04/27/17 03:45 Urine Ketones NEGATIVE mg/dL (NEGATIVE) 04/27/17 03:45 Urine Blood TRACE (NEGATIVE) 04/27/17 03:45 Urine Nitrate NEGATIVE (NEGATIVE) 04/27/17 03:45 Urine Bilirubin NEGATIVE (NEGATIVE) 04/27/17 03:45 Urine Urobilinogen 1.0 E.U./dL (0.2 - 1.0) 04/27/17 03:45 Ur Leukocyte Esterase LARGE (NEGATIVE) H 04/27/17 03:45 Urine RBC 5-10 /hpf (0-5) H 04/27/17 03:45 Urine WBC >100 /hpf (0-5) H 04/27/17 03:45 Ur Epithelial Cells FEW /lpf (FEW) 04/27/17 03:45 Urine Bacteria 2+ /hpf (NONE SEEN) H 04/27/17 03:45 - Physical Exam Vitals and I&O: Vital Signs Temp 98.4 F 04/28/17 07:37 Pulse 66 04/28/17 10:58 Resp 12 04/28/17 10:58 BP 119/38 04/28/17 07:37 Pulse Ox 96 04/28/17 10:58 Intake & Output 04/27/17 04/28/17 04/28/17 18:59 06:59 18:59 Intake Total 360 1953.333 Balance 360 1953.333 Weight (lbs) 169 lb 171 lb Intake: Intake, IV Amount 1713.333 D5-0.9%Ns 1,000 ml @ 80 1713.333 mls/hr IV .[id number] [facility] Rx #:[id number] Oral 0 Tube Feeding 360 240 Other: # Voids 4 # Bowel Movements 2 Active Medications: Current Medications Acetaminophen (Tylenol) 650 mg PO Q4H PRN PRN Reason: Pain Or Fever above 101 Stop: 06/25/17 09:14 Al Hydrox/Mg Hydrox/Simethicone (Maalox) 30 ml PO Q6H PRN PRN Reason: Dyspepsia Stop: 06/25/17 09:14 Albuterol Sulfate (Albuterol 2.5mg/3ml Neb Ud) 2.5 mg HHN Q2HRT PRN PRN Reason: Shortness of Breath or Wheeze Stop: 06/25/17 00:59 Docusate Sodium (Colace) 100 mg PO DAILY [facility] Stop: 06/26/17 08:59 Last Admin: 04/28/17 08:54 Dose: 100 mg Ferrous Sulfate (Iron) 300 mg PO DAILY TINA Stop: 06/26/17 08:59 Last Admin: 04/28/17 08:53 Dose: 300 mg Fludrocortisone Acetate (Florinef) 0.05 mg PO DAILY [facility] Stop: 06/26/17 08:59 Last Admin: 04/28/17 08:53 Dose: 0.05 mg Heparin Sodium (Porcine) (Heparin) 5,000 units SUBQ Q12HR [facility] Stop: 06/25/17 20:59 Last Admin: 04/28/17 08:54 Dose: 5,000 units Dextrose/Sodium Chloride (D5-0.9%Ns) 1,000 mls @ 80 mls/hr IV .[id number] [facility] Stop: 06/25/17 00:59 Last Admin: 04/28/17 06:29 Dose: 80 mls/hr Levofloxacin (Levaquin Pb) 500 mg in 100 mls @ 100 mls/hr IV Q24HR [facility] Stop: 06/26/17 14:59 Last Admin: 04/27/17 14:57 Dose: 100 mls/hr Insulin Aspart (Novolog Insulin Sliding Scale) 0 units SUBQ ACHS TINA PRN Reason: Protocol Stop: 06/25/17 20:59 Last Admin: 04/28/17 12:00 Dose: Not Given Insulin Detemir (Levemir Insulin) 20 units SUBQ HS [facility] PRN Reason: Protocol Stop: 06/25/17 20:59 Last Admin: 04/27/17 21:16 Dose: 20 units Ipratropium [place] (Atrovent Neb 0.5mg/2.5ml) 0.5 mg IH QIDRT [facility] Stop: 06/25/17 06:59 Last Admin: 04/28/17 10:49 Dose: 0.5 mg Morphine Sulfate (Morphine) 2 mg IVP Q4H PRN PRN Reason: Pain (Moderate) Stop: 06/25/17 00:59 Multivitamins/Vitamin C (Theragran) 5 ml PO DAILY [facility] Stop: 06/26/17 08:59 Last Admin: 04/28/17 09:26 Dose: Not Given Multivitamins/Vitamin C (Theragran) 1 tab PO DAILY TINA Stop: 06/27/17 08:59 Last Admin: 04/28/17 08:54 Dose: 1 tab Mupirocin (Bactroban Oint) 1 appl NS BID TINA Stop: 05/02/17 09:01 Last Admin: 04/28/17 11:04 Dose: Not Given Ondansetron HCl (Zofran) 4 mg IV Q8H PRN PRN Reason: Nausea / Vomiting Stop: 06/25/17 00:59 Sitagliptin Phosphate (Januvia) 50 mg GT DAILY TINA Stop: 06/26/17 08:59 Last Admin: 04/28/17 08:54 Dose: 50 mg General: alert HEENT: NC/AT, PERRLA Neck: Supple Lungs: CTAB Abdomen: soft, non-tender, non-distended, +GT Extremities: excoriation Neurological: alert, other (confused) - Procedures Procedures: Procedures Procedure Code Date CHANGE FEEDING DEVICE IN UP INTEST TRACT, APPLICATIONS SYSTEM ANALYST APPROACH [id number] 04/26/17 CHANGE GASTROSTOMY TUBE 07324 04/26/[address] GASTROSTOMY TUBE 05643 12/31/15 INSERTION OF FEEDING DEVICE INTO STOMACH, PERC APPROACH [id number] 12/31/15 TRANSFUSE NONAUT RED BLOOD CELLS IN PERIPH VEIN, PERC 80607O9 12/31/15 Internal Medicine Assmt/Plan - Assessment Assessment: ACUTE UTI MRSA NARES GT MALFUNCTION s/p peg placement ACUTE RENAL FAILURE MILD PROTEIN CALORIE MALNUTRITION GERD DM HYPOTHYROID PACEMAKER STATUS
--- NOTE | 2017-04-28 12:20 | Operative Report ---
DATE OF SURGERY: 04/26/2017 INPATIENT GASTROINTESTINAL PROCEDURE NAME OF PROCEDURE: G-tube change. REFERRING PHYSICIAN: Dr. Trent. REASON FOR PROCEDURE: Malfunctioning G-tube, dysphagia. PREOPERATIVE DIAGNOSES: Malfunctioning G-tube and dysphagia. POSTOPERATIVE DIAGNOSIS: New 20-Namibian gastrostomy tube placed. DESCRIPTION OF PROCEDURE: The patient was placed on her back. The old G-tube site was identified, it was simply pulled out using traction method. A new 20-Namibian gastrostomy tube was lubricated at the tip inserted through the gastrocutaneous fistula entering into the stomach lumen. Internal balloon was inflated with 15 mL of sterile saline. The outer flange was secured in position. Procedure was then completed. COMPLICATIONS: None. FINDINGS: New 20-Namibian gastrostomy tube placed in the stomach. RECOMMENDATIONS: 1. Obtain KUB with Gastrografin to confirm placement in the stomach. 2. If it is in stomach, may begin using it. 3. Check residual every 6 hours and hold if greater than 100 mL. Thank you for allowing me to participate. Please call me if any questions. JOB# [id number]
--- NOTE | 2017-04-29 00:30 | Discharge Summary ---
DATE OF DISCHARGE: 04/28/2017 DICTATING FOR: Davy Trent D.O. DISCHARGE DIAGNOSES: G-tube malfunction, status post PEG replacement, acute urinary tract infection, acute renal failure, dementia, diabetes, hypothyroidism, cardiac pacemaker status, gastroesophageal reflux disease, Alzheimer, and protein calorie malnutrition. HISTORY OF PRESENT ILLNESS: An 81-year-old female who is a resident of [facility] who I had recently seen yesterday at the [facility]. The patient was noted to have a G-tube malfunction. For this reason, the patient is now admitted to have her G-tube replaced. PHYSICAL EXAMINATION: GENERAL: The patient is an elderly female, awake, confused, in no apparent distress. VITAL SIGNS: Stable. HEENT: Head normocephalic and atraumatic. NECK: Supple. No mass. LUNGS: Clear bilaterally. HEART: ____. ABDOMEN: Soft and nontender. HOSPITAL COURSE: During the hospital stay, the patient was admitted to the med/surg unit. The patient had MRSA of swab of nares, the patient was positive for MRSA. The patient was kept on Bactroban via nares b.i.d. The patient had a GI consultation done with Dr. Figueredo on 04/26/2017, the patient's PEG was replaced. The patient tolerating G-tube feedings. The patient was kept on empiric IV antibiotics of Levaquin for acute UTI. The patient was also kept on IV fluids for hydration. The patient is currently stable. For this reason, the patient is stable for discharge. CONDITION UPON DISCHARGE: Fair. DISPOSITION: [facility]. JOB# [id number]
== END 2017-04-28 19:20 | disposition home or self-care (01) | DRG 394 ==
LOC: ER 19:24 → MSI 04-26 00:45
PROVIDERS: ADMIT Internal Medicine; ATTEND Internal Medicine
PROC: 0D20XUZ Change Feeding Device in Upper Intestinal Tract, External Approach (ICD-10-PCS; principal; 2017-04-26)
DX: K94.23 Gastrostomy malfunction (principal); N17.9 Acute kidney failure, unspecified; E11.22 Type 2 diabetes mellitus with diabetic chronic kidney disease; G30.9 Alzheimer's disease, unspecified; E44.1 Mild protein-calorie malnutrition; R13.10 Dysphagia, unspecified; N39.0 Urinary tract infection, site not specified; F02.81 Dementia in other diseases classified elsewhere, unspecified severity, with behavioral disturbance; E03.9 Hypothyroidism, unspecified; Z95.0 Presence of cardiac pacemaker; K21.9 Gastro-esophageal reflux disease without esophagitis; M17.0 Bilateral primary osteoarthritis of knee; M62.81 Muscle weakness (generalized); M24.562 Contracture, left knee; M24.561 Contracture, right knee; N18.9 Chronic kidney disease, unspecified; I25.10 Atherosclerotic heart disease of native coronary artery without angina pectoris; K27.9 Peptic ulcer, site unspecified, unspecified as acute or chronic, without hemorrhage or perforation; I12.9 Hypertensive chronic kidney disease with stage 1 through stage 4 chronic kidney disease, or unspecified chronic kidney disease; Y83.3 Surgical operation with formation of external stoma as the cause of abnormal reaction of the patient, or of later complication, without mention of misadventure at the time of the procedure; Y92.89 Other specified places as the place of occurrence of the external cause; Z68.26 Body mass index [BMI] 26.0-26.9, adult
CPT/HCPCS: 36415-UA; 80048-TC; 80053-TC; 81001-TC; 82948-90; 83735-TC; 85025-TC; 85610-TC; 87086-90; 90779; 94760; 96375; J1644; J1815; J1956; J7042; X7704; Z7610

== ENCOUNTER 2017-09-29 22:14 | Inpatient (IN) | payer MEDICARE, MEDICAID ==
--- NOTE | 2017-09-29 22:56 | ED Physician Chart ---
ED Chief Complaint/HPI - Patient Information Date Seen:: 09/29/17 Time Seen:: 22:52 Chief Complaint:: right breast solid mass infected with pus coming out and redness andppm lt History of Present Illness:: ultrasound of the breaset done showing a space occupying complex mass measuring 3.6 cm by 1 cm seen at 8 o clock position.and impression was solid complex mass and was referred by dr. Trent for perhaps admission and this is going on for a week or more Allergies:: Allergies Allergy/AdvReac Type Severity Reaction Status Date / Time No Known Allergies Allergy Verified 09/29/17 22:26 Vitals:: Vital Signs - 8 hr 09/29/17 22:15 Temp 97.6 F HR 78 RR 18 BP 118/52 O2 Sat % 100 Historian:: Medical Records Family MD/PCP:: LMP:: patient has many other diagnosis which will be put in the final diagnosis. Review:: Nurse's Note Reviewed, Old Chart Reviewed, EMS run form Reviewed (most of the data are from the chart came with the patient), Transfer documents Reviewed, Patient unable to respond (speaks latvian and does not answer questions) ED Review of Systems - Review of Systems General/Constitutional: Fever, Weight loss, No weight loss Skin: Skin lesions (right breast solid mass with purulent discharge) Head: No headache Eyes: No pain ENT: No earache Neck: No neck pain Cardio Vascular: No chest pain, No palpitations, No PND, No orthopnea, No edema Pulmonary: No SOB, No cough, No sputum, No wheezing GI: No nausea, No vomiting, No diarrhea, No pain, No melena, No hematochezia, No constipation, No hematemesis, Other (has g tube and a ppm and has dysphagia, peptic ulcer disease,dementiahtn,) G/U: Other (peptic ulcer,) Musculoskeletal: No bone or joint pain, No back pain, No muscle pain, Other ( bilateral primary osteoarthritis of knee,contracture,ckd,DM WITHOUT COMPLICATIONS,HYPOTHYROIDISM,ANAEMIA,ashd,CAD WITHPOUT ANGINA DEMENTIA, PEPTIC ULCER DISEASE UNSPECIFIED OR CHRONIC WITHOUT HEMORRAGE OR PERFORATION,) Endocrine: No polyuria, No polydipsia Psychiatric: Prior psych history, Depression, Anxiety, Other (dementia) Hematopoietic: No bruising, Lymphadenopathy (NO DEFINITE LYMPHADENOPATHY), No lymphadenopathy Allergic/Immuno: No urticaria, No angioedema Neurological: No syncope, No focal symptoms, Weakness, No weakness, No paresthesia, No headache, No seizure, No dizziness, Confusion (CANNOT COMMUNICATE WITH ME NOR WITH RNS), No confusion, No vertigo, Other ED Past Medical History - Past Medical History Past Medical History: HTN, CAD (HYPOTHYROIDISM,), CHF, Dyslipidemia, Thyroid disorder (HYPOTHYROIDISM), Arthritis, Dementia Family History: None Social History: No Alcohol, No Drug Use, Single (LIVES [place], G TUBE,PPM) Surgical History: Pacemaker, PEG/GTube Psychiatricy History: Depression, Dementia Other PMH History: HTN,ASHD,CONTRACTURES, Family Medical History - Family Member Mother History Unknown: Yes Ethnicity: Unknown Living Status: Unknown ED Physical Exam - Physical Examination General/Constitutional: Well-developed, well-nourished, No distress, Non-toxic appearing Eyes: Lids, conjuctiva normal, PERRL, EOMI Skin: Nl inspection, No rash, No skin lesions, No ecchymosis, Well hydrated, No lymphadenopathy ENMT: External ears, nose nl, Nasal exam nl, Lips, teeth, gums nl Neck: Nontender, Full ROM w/o pain, No JVD, No nuchal rigidity, No bruit, No mass, No stridor Respiratory: Nl effort/Exclusion, Clear to Auscultation, No Wheeze/Rhonchi/Rales Cardio Vascular: RRR, No murmur, gallop, rubs, NL S1 S2 GI: No tenderness/rebounding/guarding, No organomegaly, No hernia, Normal BS's, Nondistended, No mass/bruits, No McBurney tenderness : No CVA tenderness Extremities: No tenderness or effusion, Full ROM, normal strength in all extremities, No edema (AWAKE BUT NOT COMMUNICATIVE), Normal digits & nails ED Labs/Radiology/EKG Results - Radiology Results Results: DONE NOW - EKG Interpretations EKG Time:: 23:25 Rate & Rhythm: 100 PERCENT PACED [place]: LEFT Comments:: 100 percent paced rhythm and has 2 leads atrial and ventricular good position lvh, ED Assessment - Assessment General Assessment: RIGHT BREAST INFECTED TUMOUR HTN, HYPOTHYROIDISM DEMENTIA, ASHD, CAD WITHOUTM ANGINA PECTORIS PPM 2 LEASDS OF THE LEFT SIDE, G TUBE, PEPTIC ULCER DISEASE, GERD OBESITY, DEMENTIA,LVH, DYSPHAGIA, 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 Is Septic Shock (SBP<90, OR Lactate>4 mmol\L) present?: No - <6hrs of presentation: Vital Signs: Vital Signs - 8 hr 09/29/17 22:15 Temp 97.6 F HR 78 RR 18 BP 118/52 O2 Sat % 100 Assessment of Lungs: Lung CTA bilateral, Ventilator, Decreased BS, Rhonchi, No Rhonchi, Rales, No Rales, Wheezing, No Wheezing, Stridor, No Stridor, Other, Documented in PE Assessment of Heart: RRR, No thrill, No Gallops, No Rub, No Murmur EKG Interpretation: NSR, No ST elevation (PACED RHYTHM) Capillary refill evaluation: Capillary refill < 2 secs Skin Exam: Warm, Dry, Good Turgur - Peripheral pulse evaluation Carotid Peripheral pulse evaluation-quality: +2 (normal), Symmetrical ED Reassessment (Disposition) - Reassessment Reassessment:: ABOVE MENTIONED WILL CALL AND WILL DO WHAT CINTHIA RECOMMENDSR.N. IS INSERTING MEDS ETC THANKS DR. TRENT FOR THE PREVILEGE. - Aftercare/Follow up Instructions Medication Prescribed:: PER - Patient Disposition Accepting Physician::
[2017-09-29 23:12] LABS: % BASOPHILS 0.2 % (0.0-2.0); % EOSINOPHILS 4.9 % (0.0-5.0); % LYMPHOCYTES 20.8 % (20.0-50.0); % MONOCYTES 6.5 % (2.0-10.0); % NEUTROPHILS 67.6 % (40.0-80.0); EOSINOPHILE ABSOLUTE 0.4 Th/cmm (0.1-0.4); HEMATOCRIT 33.7 % (41.0-60); HEMOGLOBIN 11.4 gm/dL (12-16); LYMPHOCYTE ABSOLUTE 1.6 Th/cmm (1.5-3.0); MEAN CELL VOLUME 89.5 fl (81-100); MEAN CORPUSCULAR HEMOGLOBIN 30.3 pg (27.0-31.0); MEAN CORPUSCULAR HGB CONC 33.9 pg (28.0-36.0); MEAN PLATELET VOLUME 8.8 fl; MONOCYTE ABSOLUTE 0.5 Th/cmm (0.3-1.0); NEUTROPHILE ABSOLUTE 5.2 Th/cmm (1.8-8.0); PLATELET COUNT 207 Th/cmm (150-400); RED BLOOD COUNT 3.77 Mil/cmm (3.80-5.20); RED CELL DISTRIBUTION WIDTH 13.2 % (11.5-20.0); WHITE BLOOD COUNT 7.7 Th/cmm (4.8-10.8)
[2017-09-29 23:33] LABS: ALB/GLOB RATIO 0.8 (1.0-1.8); ALBUMIN 3.2 gm/dL (3.7-5.3); ALKALINE PHOSPHATASE 147 U/L (34-104); BILIRUBIN,TOTAL 0.3 mg/dL (0.3-1.0); BUN - UREA NITROGEN 39 mg/dL (7-25); CALCIUM SERUM 9.8 mg/dL (8.6-10.3); CARBON DIOXIDE 23.3 mEq/L (21.0-31.0); CHLORIDE 104 mEq/L (98-107); CREATININE - SERUM 1.1 mg/dL (0.6-1.2); GLUCOSE 158 mg/dL (70-105); MAGNESIUM 2.1 mg/dL (1.9-2.7); POTASSIUM SERUM 4.3 mEq/L (3.5-5.1); SGOT 23 U/L (13-39); SGPT/ALT 16 U/L (7-52); SODIUM SERUM 133 mEq/L (136-145); TOTAL PROTEIN,SERUM 7.4 gm/dL (6.0-8.3)
[2017-09-29] MEDS ORDERED: Sodium Chloride 0.9% 1,000 ML IV SCH (23:45)
[2017-09-29] MEDS ORDERED: Pantoprazole 40 mg EC Tab PO STA (23:51)
[2017-09-30] MEDS ORDERED: Albuterol Nebulizer 2.5mg/3mL IH PRN (01:57)
[2017-09-30] MEDS ORDERED: Magnesium Hydroxide (MOM) 30 mL UDC GT PRN (01:57)
[2017-09-30] MEDS ORDERED: Ipratropium Neb 0.5 mg/2.5 mL UD IH PRN (01:57)
[2017-09-30] MEDS ORDERED: Dextrose 50% 50 mL Abboject IVP ONE (01:57)
[2017-09-30] MEDS: D5-0.45NS 1,000 ML IV SCH ×2 (02:56→22:02)
[2017-09-30 03:01] VITALS: BP 128/52
[2017-09-30] MEDS ORDERED: Pneumococcal Vaccine 0.5 mL Vial IM ONE (03:37)
[2017-09-30] MEDS ORDERED: Piperacillin Sodium/Tazobact 3.375 gm Vial IV ONE (05:20)
[2017-09-30] MEDS: INSULIN ASPART SLIDING SCALE 100 UNITS/ML UNIT SUBQ SCH ×4 (07:30→21:54)
--- NOTE | 2017-09-30 07:51 | Diagnostic Imaging Report ---
Portable chest x-ray HISTORY: Shortness of breath There is a poor inspiration. The heart appears enlarged. Cardiac pacemaker lead wires project over the right atrium and right ventricle. Allowing for a poor inspiration, no acute focal pulmonary processes are seen. IMPRESSION: 1. No acute abnormalities 2. Cardiomegaly with pacemaker placement
[2017-09-30] MEDS ORDERED: Probiotic Screen MC PRN (08:59)
[2017-09-30] MEDS: Potassium Chloride Elixir 20 mEq /15 mL UDC GT SCH (09:46)
[2017-09-30] MEDS: Ferrous Sulfate 300 MG/5 ML UDC GT SCH (09:46)
[2017-09-30] MEDS: Multivitamin w/ Minerals Tab GT SCH (09:51)
[2017-09-30] MEDS: Lactobacillus Rhamnosus GG 15 Billion CFU CAP.SPRINK PO SCH (09:55)
--- NOTE | 2017-09-30 10:40 | General Progress Note ---
Subjective - Review of Systems Service Date: 09/30/17 Events since last encounter: left breast mass, etio?? ultrasound ordered Objective - Results Result Diagrams: 09/29/17 23:00 09/29/17 23:00 Recent Labs: Laboratory Last Values WBC 7.7 Th/cmm (4.8-10.8) 09/29/17 23:00 RBC 3.77 Mil/cmm (3.80-5.20) L 09/29/17 23:00 Hgb 11.4 gm/dL (12-16) L 09/29/17 23:00 Hct 33.7 % (41.0-60) L 09/29/17 23:00 MCV 89.5 fl (81-100) 09/29/17 23:00 MCH 30.3 pg (27.0-31.0) 09/29/17 23:00 MCHC Differential 33.9 pg (28.0-36.0) 09/29/17 23:00 RDW 13.2 % (11.5-20.0) 09/29/17 23:00 Plt Count 207 Th/cmm (150-400) 09/29/17 23:00 MPV 8.8 fl 09/29/17 23:00 Neutrophils % 67.6 % (40.0-80.0) 09/29/17 23:00 Lymphocytes % 20.8 % (20.0-50.0) 09/29/17 23:00 Monocytes % 6.5 % (2.0-10.0) 09/29/17 23:00 Eosinophils % 4.9 % (0.0-5.0) 09/29/17 23:00 Basophils % 0.2 % (0.0-2.0) 09/29/17 23:00 Sodium 133 mEq/L (136-145) L 09/29/17 23:00 Potassium 4.3 mEq/L (3.5-5.1) 09/29/17 23:00 Chloride 104 mEq/L (98-107) 09/29/17 23:00 Carbon Dioxide 23.3 mEq/L (21.0-31.0) 09/29/17 23:00 Anion Gap 10.0 (7.0-16.0) 09/29/17 23:00 BUN 39 mg/dL (7-25) H 09/29/17 23:00 Creatinine 1.1 mg/dL (0.6-1.2) 09/29/17 23:00 Est GFR ( Amer) TNP 09/29/17 23:00 Est GFR (Non-Af Amer) TNP 09/29/17 23:00 BUN/Creatinine Ratio 35.5 09/29/17 23:00 Glucose 158 mg/dL (70-105) H 09/29/17 23:00 POC Glucose 194 MG/DL (70 - 105) H 09/30/17 06:27 Whole Bld Lactic Acid 1.03 mmol/L (0.60-1.99) 09/29/17 23:00 Calcium 9.8 mg/dL (8.6-10.3) 09/29/17 23:00 Magnesium 2.1 mg/dL (1.9-2.7) 09/29/17 23:00 Total Bilirubin 0.3 mg/dL (0.3-1.0) 09/29/17 23:00 AST 23 U/L (13-39) 09/29/17 23:00 ALT 16 U/L (7-52) 09/29/17 23:00 Alkaline Phosphatase 147 U/L (34-104) H 09/29/17 23:00 Total Protein 7.4 gm/dL (6.0-8.3) 09/29/17 23:00 Albumin 3.2 gm/dL (3.7-5.3) L 09/29/17 23:00 Globulin 4.2 gm/dL 09/29/17 23:00 Albumin/Globulin Ratio 0.8 (1.0-1.8) L 09/29/17 23:00 - Physical Exam Vitals and I&O: Vital Signs Temp 97 F 09/30/17 04:00 Pulse 75 09/30/17 04:00 Resp 20 09/30/17 04:00 BP 128/76 09/30/17 04:00 Pulse Ox 98 09/30/17 04:00 Intake & Output 09/29/17 09/30/17 09/30/17 18:59 06:59 18:59 Weight (lbs) 81.647 kg Other: # Voids 2 # Bowel Movements 0 Weight Source Bedscale Active Medications: Current Medications Acetaminophen (Tylenol) 650 mg PO Q4HR PRN PRN Reason: Pain Or Fever above 101 Stop: 11/29/17 01:56 Albuterol Sulfate (Albuterol 2.5mg/3ml Neb Ud) 2.5 mg IH Q2HR PRN PRN Reason: Shortness of Breath or Wheeze Stop: 11/29/17 01:56 Bisacodyl (Dulcolax 10 Mg Supp) 10 mg RC DAILY PRN PRN Reason: Constipation Stop: 11/29/17 01:56 Docusate Sodium (Colace) 100 mg PO DAILY [facility] Stop: 11/29/17 08:59 Last Admin: 09/30/17 09:49 Dose: 100 mg Ferrous Sulfate (Iron) 450 mg GT DAILY [facility] Stop: 11/29/17 08:59 Last Admin: 09/30/17 09:46 Dose: 450 mg Fludrocortisone Acetate (Florinef) 0.05 mg GT DAILY [facility] Stop: 11/29/17 08:59 Last Admin: 09/30/17 09:47 Dose: 0.05 mg Dextrose/Sodium Chloride (D5-0.45ns) 1,000 mls @ 60 mls/hr IV .[id number] [facility] Stop: 11/29/17 01:56 Last Admin: 09/30/17 02:56 Dose: 60 mls/hr Piperacillin Sod/Tazobactam (Sod 3.375 gm/ Sodium Chloride) 50 mls @ 100 mls/ hr IV Q6HR [facility] Stop: 11/29/17 05:59 Last Admin: 09/30/17 05:47 Dose: 100 mls/hr Vancomycin HCl 1 gm/ Sodium (Chloride) 250 mls @ 165 mls/hr IV Q24H [facility] Stop: 11/29/17 09:59 Last Admin: 09/30/17 09:49 Dose: 165 mls/hr Insulin Aspart (Novolog Insulin Sliding Scale) 0 units SUBQ ACHS TINA PRN Reason: Protocol Stop: 11/29/17 07:29 Insulin Detemir (Levemir Insulin) 20 units SUBQ HS [facility]INA PRN Reason: Protocol Stop: 11/29/17 20:59 Ipratropium [place] (Atrovent Neb 0.5mg/2.5ml) 0.5 mg IH Q2HR PRN PRN Reason: Shortness of Breath or Wheeze Stop: 11/29/17 01:56 Lactobacillus Rhamnosus (Culturelle 15b) 1 each PO DAILY [facility] Stop: 11/29/17 08:59 Last Admin: 09/30/17 09:55 Dose: 1 each Levothyroxine Sodium (Synthroid) 0.125 mg GT 1030 [facility] Stop: 11/29/17 10:29 Magnesium Hydroxide (Milk Of Magnesia) 30 ml GT DAILY PRN PRN Reason: Constipation Stop: 11/29/17 01:56 Miscellaneous (Vancomycin Iv Per Pharmacy) 1 ea PRN TINA Stop: 11/29/17 01:56 Miscellaneous (Probiotic Screen) 1 ea PRN PRN PRN Reason: PROTOCOL Stop: 11/29/17 08:58 Ondansetron HCl (Zofran) 4 mg IV Q8H PRN PRN Reason: Nausea / Vomiting Stop: 11/29/17 01:56 Pantoprazole Sodium (Protonix) 20 mg IVP DAILY [facility] Stop: 11/29/17 08:59 Last Admin: 09/30/17 09:55 Dose: 20 mg Potassium Chloride (Potassium Chloride Elixir) 20 meq GT DAILY [facility] Stop: 11/29/17 08:59 Last Admin: 09/30/17 09:46 Dose: 20 meq Sitagliptin Phosphate (Januvia) 50 mg GT DAILY [facility] Stop: 11/29/17 08:59 Last Admin: 09/30/17 09:47 Dose: 50 mg - Procedures Procedures: Procedures Procedure Code Date CHANGE FEEDING DEVICE IN UP INTEST TRACT, LANDSCAPE SPECIALIST APPROACH [id number] 04/26/17 CHANGE GASTROSTOMY TUBE 88153 04/26/[address] GASTROSTOMY TUBE 33620 12/31/15 INSERTION OF FEEDING DEVICE INTO STOMACH, PERC APPROACH [id number] 12/31/15 TRANSFUSE NONAUT RED BLOOD CELLS IN PERIPH VEIN, PERC 50709T9 12/31/15
[2017-09-30] MEDS: Levothyroxine 0.125 Mg Tab GT SCH (10:52)
--- NOTE | 2017-09-30 11:58 | Diagnostic Imaging Report ---
Exam: Ultrasound examination right breast HISTORY: Right breast mass. Findings: Real-time ultrasound of right breast performed multiple planes. The study demonstrates the palpable nodularity at 7:00 measuring 1.4 x 1.1 x 0.6 cm diameter. Architectural distortion subcutaneously suggestive of inflammatory changes. Subcutaneous phlegmon cannot be excluded. Clinical correlation recommended. IMPRESSION: Subcutaneous architectural distortion of the right breast at 7:00 most likely suggestive of inflammatory changes, phlegmon formation cannot be excluded clinical correlation recommended.
--- NOTE | 2017-09-30 12:24 | Internal Medicine Prog Note ---
Internal Medicine Subjective - Subjective Service Date: 09/30/17 ([facility] [id number]) Internal Medicine Objective - Results Result Diagrams: 09/29/17 23:00 09/29/17 23:00 Recent Labs: Laboratory Last Values WBC 7.7 Th/cmm (4.8-10.8) 09/29/17 23:00 RBC 3.77 Mil/cmm (3.80-5.20) L 09/29/17 23:00 Hgb 11.4 gm/dL (12-16) L 09/29/17 23:00 Hct 33.7 % (41.0-60) L 09/29/17 23:00 MCV 89.5 fl (81-100) 09/29/17 23:00 MCH 30.3 pg (27.0-31.0) 09/29/17 23:00 MCHC Differential 33.9 pg (28.0-36.0) 09/29/17 23:00 RDW 13.2 % (11.5-20.0) 09/29/17 23:00 Plt Count 207 Th/cmm (150-400) 09/29/17 23:00 MPV 8.8 fl 09/29/17 23:00 Neutrophils % 67.6 % (40.0-80.0) 09/29/17 23:00 Lymphocytes % 20.8 % (20.0-50.0) 09/29/17 23:00 Monocytes % 6.5 % (2.0-10.0) 09/29/17 23:00 Eosinophils % 4.9 % (0.0-5.0) 09/29/17 23:00 Basophils % 0.2 % (0.0-2.0) 09/29/17 23:00 Sodium 133 mEq/L (136-145) L 09/29/17 23:00 Potassium 4.3 mEq/L (3.5-5.1) 09/29/17 23:00 Chloride 104 mEq/L (98-107) 09/29/17 23:00 Carbon Dioxide 23.3 mEq/L (21.0-31.0) 09/29/17 23:00 Anion Gap 10.0 (7.0-16.0) 09/29/17 23:00 BUN 39 mg/dL (7-25) H 09/29/17 23:00 Creatinine 1.1 mg/dL (0.6-1.2) 09/29/17 23:00 Est GFR ( Amer) TNP 09/29/17 23:00 Est GFR (Non-Af Amer) TNP 09/29/17 23:00 BUN/Creatinine Ratio 35.5 09/29/17 23:00 Glucose 158 mg/dL (70-105) H 09/29/17 23:00 POC Glucose 155 MG/DL (70 - 105) H 09/30/17 11:31 Whole Bld Lactic Acid 1.03 mmol/L (0.60-1.99) 09/29/17 23:00 Calcium 9.8 mg/dL (8.6-10.3) 09/29/17 23:00 Magnesium 2.1 mg/dL (1.9-2.7) 09/29/17 23:00 Total Bilirubin 0.3 mg/dL (0.3-1.0) 09/29/17 23:00 AST 23 U/L (13-39) 09/29/17 23:00 ALT 16 U/L (7-52) 09/29/17 23:00 Alkaline Phosphatase 147 U/L (34-104) H 09/29/17 23:00 Total Protein 7.4 gm/dL (6.0-8.3) 09/29/17 23:00 Albumin 3.2 gm/dL (3.7-5.3) L 09/29/17 23:00 Globulin 4.2 gm/dL 09/29/17 23:00 Albumin/Globulin Ratio 0.8 (1.0-1.8) L 09/29/17 23:00 - Physical Exam Vitals and I&O: Vital Signs Temp 97 F 09/30/17 04:00 Pulse 75 09/30/17 04:00 Resp 20 09/30/17 04:00 BP 128/76 09/30/17 04:00 Pulse Ox 98 09/30/17 04:00 Intake & Output 09/29/17 09/30/17 09/30/17 18:59 06:59 18:59 Intake Total 50 Balance 50 Weight (lbs) 180 lb Intake: Intake, IV Amount 50 Piperacillin Sodium/ 50 Tazobact 3.375 gm In Sodium Chloride 0.9% 50 ml @ 100 mls/hr IV Q6HR [facility] Rx#:[id number] Other: # Voids 2 # Bowel Movements 0 Weight Source Bedscale Active Medications: Current Medications Acetaminophen (Tylenol) 650 mg PO Q4HR PRN PRN Reason: Pain Or Fever above 101 Stop: 11/29/17 01:56 Albuterol Sulfate (Albuterol 2.5mg/3ml Neb Ud) 2.5 mg IH Q2HR PRN PRN Reason: Shortness of Breath or Wheeze Stop: 11/29/17 01:56 Bisacodyl (Dulcolax 10 Mg Supp) 10 mg RC DAILY PRN PRN Reason: Constipation Stop: 11/29/17 01:56 Docusate Sodium (Colace) 100 mg PO DAILY [facility] Stop: 11/29/17 08:59 Last Admin: 09/30/17 09:49 Dose: 100 mg Ferrous Sulfate (Iron) 450 mg GT DAILY [facility] Stop: 11/29/17 08:59 Last Admin: 09/30/17 09:46 Dose: 450 mg Fludrocortisone Acetate (Florinef) 0.05 mg GT DAILY [facility] Stop: 11/29/17 08:59 Last Admin: 09/30/17 09:47 Dose: 0.05 mg Dextrose/Sodium Chloride (D5-0.45ns) 1,000 mls @ 60 mls/hr IV .[id number] [facility] Stop: 11/29/17 01:56 Last Admin: 09/30/17 02:56 Dose: 60 mls/hr Piperacillin Sod/Tazobactam (Sod 3.375 gm/ Sodium Chloride) 50 mls @ 100 mls/ hr IV Q6HR [facility] Stop: 11/29/17 05:59 Last Admin: 09/30/17 11:41 Dose: 100 mls/hr Vancomycin HCl 1 gm/ Sodium (Chloride) 250 mls @ 165 mls/hr IV Q24H [facility] Stop: 11/29/17 09:59 Last Admin: 09/30/17 09:49 Dose: 165 mls/hr Insulin Aspart (Novolog Insulin Sliding Scale) 0 units SUBQ ACHS [facility]INA PRN Reason: Protocol Stop: 11/29/17 07:29 Last Admin: 09/30/17 11:40 Dose: 3 units Insulin Detemir (Levemir Insulin) 20 units SUBQ HS [facility]INA PRN Reason: Protocol Stop: 11/29/17 20:59 Ipratropium [place] (Atrovent Neb 0.5mg/2.5ml) 0.5 mg IH Q2HR PRN PRN Reason: Shortness of Breath or Wheeze Stop: 11/29/17 01:56 Lactobacillus Rhamnosus (Culturelle 15b) 1 each PO DAILY [facility] Stop: 11/29/17 08:59 Last Admin: 09/30/17 09:55 Dose: 1 each Levothyroxine Sodium (Synthroid) 0.125 mg GT 1030 [facility] Stop: 11/29/17 10:29 Last Admin: 09/30/17 10:52 Dose: 0.125 mg Magnesium Hydroxide (Milk Of Magnesia) 30 ml GT DAILY PRN PRN Reason: Constipation Stop: 11/29/17 01:56 Miscellaneous (Vancomycin Iv Per Pharmacy) 1 ea PRN [facility] Stop: 11/29/17 01:56 Miscellaneous (Probiotic Screen) 1 [facility] PRN PRN PRN Reason: PROTOCOL Stop: 11/29/17 08:58 Ondansetron HCl (Zofran) 4 mg IV Q8H PRN PRN Reason: Nausea / Vomiting Stop: 11/29/17 01:56 Pantoprazole Sodium (Protonix) 20 mg IVP DAILY [facility] Stop: 11/29/17 08:59 Last Admin: 09/30/17 09:55 Dose: 20 mg Potassium Chloride (Potassium Chloride Elixir) 20 meq GT DAILY [facility] Stop: 11/29/17 08:59 Last Admin: 09/30/17 09:46 Dose: 20 meq Sitagliptin Phosphate (Januvia) 50 mg GT DAILY [facility] Stop: 11/29/17 08:59 Last Admin: 09/30/17 09:47 Dose: 50 mg - Procedures Procedures: Procedures Procedure Code Date CHANGE FEEDING DEVICE IN UP INTEST TRACT, CAFE HELPER APPROACH [id number] 04/26/17 CHANGE GASTROSTOMY TUBE 81415 04/26/[address] GASTROSTOMY TUBE 19017 12/31/15 INSERTION OF FEEDING DEVICE INTO STOMACH, PERC APPROACH [id number] 12/31/15 TRANSFUSE NONAUT RED BLOOD CELLS IN PERIPH VEIN, PERC 63043A8 12/31/15
--- NOTE | 2017-09-30 13:34 | History & Physical ---
ADMIT DATE: 09/30/2017 CHIEF COMPLAINT: Right breast mass infected with pus. HISTORY OF PRESENT ILLNESS: This is an 81-year-old female who is a resident of [facility], who was brought here to [facility] due to recent ultrasound of the breast and showing space occupying complex mass measuring 3.6 cm x 1 cm seen at 8 o'clock position and impression was solid mass and the patient is noted to have pus drainage coming out from the right breast. For further management, the patient is now admitted to the med-surg unit. PAST MEDICAL HISTORY: Hypertension, diabetes, GERD, hypothyroidism, arthritis, dementia, and status post pacemaker status. SURGICAL HISTORY: Pacemaker. FAMILY HISTORY: Noncontributory. SOCIAL HISTORY: The patient is a halfway resident, requiring 24-hour nursing care. PSYCHIATRIC HISTORY: Dementia. REVIEW OF SYSTEMS: Unable to obtain due to patient's mental status. PHYSICAL EXAMINATION: GENERAL: This is an elderly female, awake, not really interactive, in no apparent distress. VITAL SIGNS: Temperature 97, heart rate 75, blood pressure 120/76, respirations 20, and O2 98%. HEENT: Head; normocephalic, atraumatic. NECK: Supple. No mass. LUNGS: Clear bilaterally. HEART: Regular rhythm. ABDOMEN: Nontender. BREAST: Right breast noted with pustule drainage with slight redness. DIAGNOSTICS: The patient had an ultrasound of the breast and the impression is subcutaneous architectural distortion of the right breast at 7 o'clock, most likely suggestive of inflammatory changes, phlegmon formation cannot be excluded. Clinical correlation recommended. The patient also had a chest x-ray done and the impression is no acute abnormalities, cardiomegaly with pacemaker placement. ASSESSMENT: Right breast abscess, rule out mass; hyponatremia; acute renal failure; dementia; diabetes, hypothyroidism; cardiac pacemaker status; GERD; and Alzheimer. PLAN: We will refer to patient to Oncology as well as a Surgical consultation. I will await for patient's urine cultures. Keep patient on IV fluids for hydration. Accu-Chek per sliding scale. I will get a wound culture done of the right breast due to the pustule drainage. Keep patient on vancomycin and Zosyn. Continue current orders. We will continue to follow this patient. JOB# [id number]
--- NOTE | 2017-09-30 17:34 | Consultation ---
DATE OF CONSULTATION: 09/30/2017 HEMATOLOGY ONCOLOGY CONSULTATION REFERRED BY: Dr. Krista Dobson and Dr. Trent. REASON FOR CONSULTATION: Breast mass. HISTORY OF PRESENT ILLNESS: The patient is an 81-year-old female, who is a resident of a nursing facility. She was found to have swelling in the right breast, therefore admitted. Breast ultrasound showed inflammatory changes at the 7 o'clock position and possible underlying mass. The patient is scheduled to have an incision and drainage by surgeon. PAST MEDICAL HISTORY: Diabetes, hypertension, hypothyroidism, arthritis, dementia. PAST SURGICAL HISTORY: Pacemaker. MEDICATIONS: Reviewed. SOCIAL HISTORY: long-term facility. PHYSICAL EXAMINATION: GENERAL: She is awake, not in distress, noncommunicative, pleasantly confused, afebrile. VITAL SIGNS: Blood pressure is stable. HEENT: Atraumatic. NECK: No lymphadenopathy. CHEST: Good air entry. BREASTS: Right breast with erythema and [place] consistent with abscess formation. No axillary adenopathy. ABDOMEN: Soft. No bleeding from any site. LABORATORY DATA: White count 7.7, hemoglobin 11.4, platelets 207. Chemistry unremarkable. Albumin 3.2. The breast ultrasound report was noted showing subcutaneous distortion of the right breast at 7 o'clock position most likely inflammatory with abscess formation. ASSESSMENT: Right breast mass, inflammatory versus neoplastic. I agree with incision and drainage and the patient is covered with vancomycin antibiotic and Zosyn. Further management to be addressed per surgical findings. Thank you for the opportunity to participate in the care of this interesting case. JOB# [id number]
[2017-09-30] MEDS: Insulin Detemir 100 units/mL 10mL Vial SUBQ SCH (21:55)
[2017-10-01 04:41] LABS: % NEUTROPHILS 61.9 % (40.0-80.0); LYMPHOCYTE ABSOLUTE 1.5 Th/cmm (1.5-3.0); NEUTROPHILE ABSOLUTE 4.1 Th/cmm (1.8-8.0); RED CELL DISTRIBUTION WIDTH 13.1 % (11.5-20.0)
[2017-10-01 04:47] LABS: % BASOPHILS 0.5 % (0.0-2.0); % EOSINOPHILS 5.1 % (0.0-5.0); % LYMPHOCYTES 22.6 % (20.0-50.0); % MONOCYTES 9.9 % (2.0-10.0); EOSINOPHILE ABSOLUTE 0.3 Th/cmm (0.1-0.4); HEMATOCRIT 34.2 % (41.0-60); HEMOGLOBIN 11.4 gm/dL (12-16); MEAN CELL VOLUME 90.2 fl (81-100); MEAN CORPUSCULAR HGB CONC 33.2 pg (28.0-36.0); MEAN PLATELET VOLUME 9.2 fl; MONOCYTE ABSOLUTE 0.6 Th/cmm (0.3-1.0); PLATELET COUNT 203 Th/cmm (150-400); RED BLOOD COUNT 3.79 Mil/cmm (3.80-5.20); WHITE BLOOD COUNT 6.5 Th/cmm (4.8-10.8)
[2017-10-01 04:56] LABS: INR 1.03 (0.5-1.4); PROTHROMBIN TIME (TEST) 10.7 SECONDS (9.5-11.5)
[2017-10-01 05:03] LABS: ALB/GLOB RATIO 0.8 (1.0-1.8); ALBUMIN 3.2 gm/dL (3.7-5.3); ALKALINE PHOSPHATASE 114 U/L (34-104); ANION GAP 11.3 (7.0-16.0); BILIRUBIN,TOTAL 0.6 mg/dL (0.3-1.0); BUN - UREA NITROGEN 35 mg/dL (7-25); CALCIUM SERUM 9.7 mg/dL (8.6-10.3); CARBON DIOXIDE 21.6 mEq/L (21.0-31.0); CHLORIDE 107 mEq/L (98-107); CREATININE - SERUM 1.2 mg/dL (0.6-1.2); GLUCOSE 96 mg/dL (70-105); POTASSIUM SERUM 3.9 mEq/L (3.5-5.1); SGOT 26 U/L (13-39); SGPT/ALT 17 U/L (7-52); SODIUM SERUM 136 mEq/L (136-145); TOTAL PROTEIN,SERUM 7.3 gm/dL (6.0-8.3)
[2017-10-01] MEDS ORDERED: Propofol 10 mg/mL 20mL Vial **SURGERY USE ONLY IV ONE (07:20)
[2017-10-01] MEDS: INSULIN ASPART SLIDING SCALE 100 UNITS/ML UNIT SUBQ SCH ×4 (07:40→21:37)
[2017-10-01] MEDS: Potassium Chloride Elixir 20 mEq /15 mL UDC GT SCH (08:49)
[2017-10-01] MEDS: Ferrous Sulfate 300 MG/5 ML UDC GT SCH (08:49)
[2017-10-01] MEDS: Lactobacillus Rhamnosus GG 15 Billion CFU CAP.SPRINK PO SCH (08:49)
[2017-10-01] MEDS: Multivitamin w/ Minerals Tab GT SCH (08:49)
--- NOTE | 2017-10-01 10:02 | Operative Report ---
DATE OF SURGERY: 10/01/2017 PREOPERATIVE DIAGNOSES: 1. Right breast abscess, questionable mass. 2. Diabetes mellitus. 3. Dementia. POSTOPERATIVE DIAGNOSES: 1. Right breast abscess, questionable mass. 2. Diabetes mellitus. 3. Dementia. OPERATION DONE: 1. Incision and drainage abscess, right breast. 2. Excisional biopsy. SURGEON: Azalia Fry MD. ANESTHESIA: MAC. ANESTHESIOLOGIST: Henri. ESTIMATED BLOOD LOSS: 5 mL. INDICATIONS FOR SURGERY: The patient had only consent for incision and drainage, but in view of the suspicious mass on the first ultrasound. We will try and obtain tissue for histologic examination. Message was left to granddaughter via telephone. The granddaughter was called over the phone in [place] for the additional consent PROCEDURE: The patient was given IV sedation. The right breast was prepped with Betadine and draped. A 1% lidocaine was used to infiltrate the area around the breast infection. Incision was then done and drainage and cultures taken. Feel for the breast for any suspicious mass was, however, difficult to ascertain, so a piece of tissue was excised for examination. The incision was closed with interrupted sutures of 3-0 Vicryl for the subcutaneous tissues. The skin was closed with subcuticular suture of 4-0 Vicryl. The patient tolerated the procedure well. [facility]# [id number] MARGIE
--- NOTE | 2017-10-01 10:40 | General Progress Note ---
Subjective - Review of Systems Service Date: 10/01/17 Objective - Results Result Diagrams: 10/01/17 04:15 10/01/17 04:15 Recent Labs: Laboratory Last Values WBC 6.5 Th/cmm (4.8-10.8) 10/01/17 04:15 RBC 3.79 Mil/cmm (3.80-5.20) L 10/01/17 04:15 Hgb 11.4 gm/dL (12-16) L 10/01/17 04:15 Hct 34.2 % (41.0-60) L 10/01/17 04:15 MCV 90.2 fl (81-100) 10/01/17 04:15 MCH 30.0 pg (27.0-31.0) 10/01/17 04:15 MCHC Differential 33.2 pg (28.0-36.0) 10/01/17 04:15 RDW 13.1 % (11.5-20.0) 10/01/17 04:15 Plt Count 203 Th/cmm (150-400) 10/01/17 04:15 MPV 9.2 fl 10/01/17 04:15 Neutrophils % 61.9 % (40.0-80.0) 10/01/17 04:15 Lymphocytes % 22.6 % (20.0-50.0) 10/01/17 04:15 Monocytes % 9.9 % (2.0-10.0) 10/01/17 04:15 Eosinophils % 5.1 % (0.0-5.0) H 10/01/17 04:15 Basophils % 0.5 % (0.0-2.0) 10/01/17 04:15 PT 10.7 SECONDS (9.5-11.5) 10/01/17 04:15 INR 1.03 (0.5-1.4) 10/01/17 04:15 PTT (Actin FS) 25.6 SECONDS (26.0-38.0) L 10/01/17 04:15 Sodium 136 mEq/L (136-145) 10/01/17 04:15 Potassium 3.9 mEq/L (3.5-5.1) 10/01/17 04:15 Chloride 107 mEq/L (98-107) 10/01/17 04:15 Carbon Dioxide 21.6 mEq/L (21.0-31.0) 10/01/17 04:15 Anion Gap 11.3 (7.0-16.0) 10/01/17 04:15 BUN 35 mg/dL (7-25) H 10/01/17 04:15 Creatinine 1.2 mg/dL (0.6-1.2) 10/01/17 04:15 Est GFR ( Amer) TNP 10/01/17 04:15 Est GFR (Non-Af Amer) TNP 10/01/17 04:15 BUN/Creatinine Ratio 29.2 10/01/17 04:15 Glucose 96 mg/dL (70-105) 10/01/17 04:15 POC Glucose 89 MG/DL (70 - 105) 10/01/17 06:06 Whole Bld Lactic Acid 1.03 mmol/L (0.60-1.99) 09/29/17 23:00 Calcium 9.7 mg/dL (8.6-10.3) 10/01/17 04:15 Magnesium 2.1 mg/dL (1.9-2.7) 09/29/17 23:00 Total Bilirubin 0.6 mg/dL (0.3-1.0) 10/01/17 04:15 AST 26 U/L (13-39) 10/01/17 04:15 ALT 17 U/L (7-52) 10/01/17 04:15 Alkaline Phosphatase 114 U/L (34-104) H 10/01/17 04:15 Total Protein 7.3 gm/dL (6.0-8.3) 10/01/17 04:15 Albumin 3.2 gm/dL (3.7-5.3) L 10/01/17 04:15 Globulin 4.1 gm/dL 10/01/17 04:15 Albumin/Globulin Ratio 0.8 (1.0-1.8) L 10/01/17 04:15 - Physical Exam Vitals and I&O: Vital Signs Temp 96.1 F 10/01/17 08:00 Pulse 71 10/01/17 08:00 Resp 20 10/01/17 08:00 BP 144/45 10/01/17 08:00 Pulse Ox 98 10/01/17 08:00 Intake & Output 0410/01/17 10/01/17 18:59 06:59 18:59 Intake Total 970 1300 Balance 970 1300 Weight (lbs) 81.647 kg 81.057 kg Intake: Intake, IV Amount 100 1300 D5-0.45NS 1,000 ml @ 60 1000 mls/hr IV .[id number] [facility] Rx #:[id number] Piperacillin Sodium/ 100 50 Tazobact 3.375 gm In Sodium Chloride 0.9% 50 ml @ 100 mls/hr IV Q6HR [facility] Rx#:[id number] Vancomycin HCl 1 gm In 250 Sodium Chloride 0.9% 250 ml @ 165 mls/hr IV Q24H [facility] Rx#:[id number] Tube Feeding 870 Other: # Voids 3 Weight Source Bedscale Bedscale Active Medications: Current Medications Acetaminophen (Tylenol) 650 mg PO Q4HR PRN PRN Reason: Pain Or Fever above 101 Stop: 11/29/17 01:56 Albuterol Sulfate (Albuterol 2.5mg/3ml Neb Ud) 2.5 mg IH Q2HR PRN PRN Reason: Shortness of Breath or Wheeze Stop: 11/29/17 01:56 Bisacodyl (Dulcolax 10 Mg Supp) 10 mg RC DAILY PRN PRN Reason: Constipation Stop: 11/29/17 01:56 Docusate Sodium (Colace) 100 mg PO DAILY [facility] Stop: 11/29/17 08:59 Last Admin: 10/01/17 08:49 Dose: Not Given Ferrous Sulfate (Iron) 450 mg GT DAILY [facility] Stop: 11/29/17 08:59 Last Admin: 10/01/17 08:49 Dose: Not Given Dextrose/Sodium Chloride (D5-0.45ns) 1,000 mls @ 60 mls/hr IV .[id number] [facility] Stop: 11/29/17 01:56 Last Admin: 09/30/17 22:02 Dose: 60 mls/hr Piperacillin Sod/Tazobactam (Sod 3.375 gm/ Sodium Chloride) 50 mls @ 100 mls/ hr IV Q6HR [facility] Stop: 11/29/17 05:59 Last Admin: 10/01/17 05:03 Dose: 100 mls/hr Vancomycin HCl 1 gm/ Sodium (Chloride) 250 mls @ 165 mls/hr IV Q24H [facility] Stop: 11/29/17 09:59 Last Infusion: 10/01/17 00:17 Dose: Infused Insulin Aspart (Novolog Insulin Sliding Scale) 0 units SUBQ ACHS TINA PRN Reason: Protocol Stop: 11/29/17 07:29 Last Admin: 10/01/17 07:40 Dose: Not Given Insulin Detemir (Levemir Insulin) 20 units SUBQ HS [facility] PRN Reason: Protocol Stop: 11/29/17 20:59 Last Admin: 09/30/17 21:55 Dose: 20 units Ipratropium [place] (Atrovent Neb 0.5mg/2.5ml) 0.5 mg IH Q2HR PRN PRN Reason: Shortness of Breath or Wheeze Stop: 11/29/17 01:56 Lactobacillus Rhamnosus (Culturelle 15b) 1 each PO DAILY [facility] Stop: 11/29/17 08:59 Last Admin: 10/01/17 08:49 Dose: Not Given Levothyroxine Sodium (Synthroid) 0.125 mg GT 1030 [facility] Stop: 11/29/17 10:29 Last Admin: 09/30/17 10:52 Dose: 0.125 mg Magnesium Hydroxide (Milk Of Magnesia) 30 ml GT DAILY PRN PRN Reason: Constipation Stop: 11/29/17 01:56 Miscellaneous (Vancomycin Iv Per Pharmacy) 1 ea PRN [facility] Stop: 11/29/17 01:56 Miscellaneous (Probiotic Screen) 1 ea PRN PRN PRN Reason: PROTOCOL Stop: 11/29/17 08:58 Ondansetron HCl (Zofran) 4 mg IV Q8H PRN PRN Reason: Nausea / Vomiting Stop: 11/29/17 01:56 Pantoprazole Sodium (Protonix) 20 mg IVP DAILY [facility] Stop: 11/29/17 08:59 Last Admin: 10/01/17 08:49 Dose: Not Given Potassium Chloride (Potassium Chloride Elixir) 20 meq GT DAILY [facility] Stop: 11/29/17 08:59 Last Admin: 10/01/17 08:49 Dose: Not Given Sitagliptin Phosphate (Januvia) 50 mg GT DAILY [facility] Stop: 11/29/17 08:59 Last Admin: 10/01/17 08:50 Dose: Not Given General: Alert HEENT: Atraumatic Neck: Supple Cardiovascular: Regular rate Lungs: Clear to auscultation Skin: Other (right breast dressing dry) - Procedures Procedures: Procedures Procedure Code Date CHANGE FEEDING DEVICE IN UP INTEST TRACT, INSPECTOR GENERAL APPROACH [id number] 04/26/17 CHANGE GASTROSTOMY TUBE 50216 04/26/[address] GASTROSTOMY TUBE 41402 12/31/15 INSERTION OF FEEDING DEVICE INTO STOMACH, PERC APPROACH [id number] 12/31/15 TRANSFUSE NONAUT RED BLOOD CELLS IN PERIPH VEIN, PERC 53655D5 12/31/15 Assessment/Plan - Assessment Assessment: * Right breast abcess s/p I&D with excision biopsy follow biopsy Nutritional Asmnt/Malnutr-PDOC - Dietary Evaluation Malnutrition Findings (Please click <Entered> for more info): Nutritional Asmnt/Malnutrition Start: 09/30/17 16: 02 Text: Status: Complete Freq: Document 09/30/17 16:02 MARIBELL (Rec: 09/30/17 16:21 MARIBELL INOCENTE-[email or web address]) Nutritional Asmnt/Malnutrition Patient General Information Nutritional Screening High Risk Consult Diagnosis right breast abscess Pertinent Medical Hx/Surgical Hx HTN, CAD, hypothyroidism, CHF, dyslipidemia, arthritis, dementia, depression, ASHD, contractures, pacemaker, PEG Subjective Information Consult received for TF and diabetic. Pt is English speaking note. No diet order at this time. Per nurse note, pt was getting TF Glucerna 1.2 at 65ml/hr x 20hr at care facility. Current Diet Order/ Nutrition Support no diet order Pertinent Medications D5-0.45ns, colace, iron, novolog, levemir, culturelle, synthroid, protonix, piperacillin, kcl, vancomycin Pertinent Labs 4/2 Na 133, BUN 39, glucose 158 4/3 POC 155-194 Nutritional Hx/Data Height 1.57 m Height (Calculated Centimeters) 157.5 Current Weight (lbs) 81.647 kg Weight (Calculated Kilograms) 81.6 Weight (Calculated Grams) 03171.6 [place] Body Weight 110 Body Mass Index (BMI) 32.9 Weight Status Obese GI Symptoms GI Symptoms None Last BM 0 Difficult in: None Usual diet at home Glucerna 1.2 at 65ml/hr x 20hr Skin Integrity/Comment: ulceration to right breast abscess Current %PO Negligible < 25% Estimated Nutritional Goals BEE in Kcals: Adj wt of IBW Calories/Kcals/Kg 25-30 adj wt 58kg Kcals Calculated 3786-5058 Protein: Adj wt of IBW Protein g/k.1-1.3 Protein Calculated 64-75 Fluid: ml 1450-1740ml (1ml/kcal) Nutritional Problem 1. Problem Problem altered nutritioni related labs Etiology hx of DM Signs/Symptoms: glucose 158, POC 155-194 Malnutrition Alert Protein-Calorie Malnutrition N/A Is there a minimum of two criteria No selected? Query Text:Check all the applicable criteria. A minimum of two criteria are recommended for diagnosis of either severe or non-severe malnutrition. Intervention/Recommendation Comments 1. Recommend Diabetisource AC at 60ml/hr x 20ml. It provides 1440kcal, 72g protein, 981ml free water, meeting 100% of nutritional needs 2. Monitor TF rate, tolerance, wt weekly, skin integrity and labs 3. F/U as high risk in 2-3 days, 45-/6 Expected Outcomes/Goals Expected Outcomes/Goals 1. Pt to meet at least 75% of nutritional needs via nutrition support with tolerance 2. Wt stability, skin to remain intact, labs to approach WNL.
[2017-10-01] MEDS: D5-0.45NS 1,000 ML IV SCH (10:41)
[2017-10-01] MEDS: Levothyroxine 0.125 Mg Tab GT SCH (10:41)
--- NOTE | 2017-10-01 13:45 | Internal Medicine Prog Note ---
Internal Medicine Subjective - Subjective Service Date: 10/01/17 Patient seen and examined:: with staff Patient is:: awake, non-verbal Per staff patient has:: tolerating meds Internal Medicine Objective - Results Result Diagrams: 10/01/17 04:15 10/01/17 04:15 Recent Labs: Laboratory Last Values WBC 6.5 Th/cmm (4.8-10.8) 10/01/17 04:15 RBC 3.79 Mil/cmm (3.80-5.20) L 10/01/17 04:15 Hgb 11.4 gm/dL (12-16) L 10/01/17 04:15 Hct 34.2 % (41.0-60) L 10/01/17 04:15 MCV 90.2 fl (81-100) 10/01/17 04:15 MCH 30.0 pg (27.0-31.0) 10/01/17 04:15 MCHC Differential 33.2 pg (28.0-36.0) 10/01/17 04:15 RDW 13.1 % (11.5-20.0) 10/01/17 04:15 Plt Count 203 Th/cmm (150-400) 10/01/17 04:15 MPV 9.2 fl 10/01/17 04:15 Neutrophils % 61.9 % (40.0-80.0) 10/01/17 04:15 Lymphocytes % 22.6 % (20.0-50.0) 10/01/17 04:15 Monocytes % 9.9 % (2.0-10.0) 10/01/17 04:15 Eosinophils % 5.1 % (0.0-5.0) H 10/01/17 04:15 Basophils % 0.5 % (0.0-2.0) 10/01/17 04:15 PT 10.7 SECONDS (9.5-11.5) 10/01/17 04:15 INR 1.03 (0.5-1.4) 10/01/17 04:15 PTT (Actin FS) 25.6 SECONDS (26.0-38.0) L 10/01/17 04:15 Sodium 136 mEq/L (136-145) 10/01/17 04:15 Potassium 3.9 mEq/L (3.5-5.1) 10/01/17 04:15 Chloride 107 mEq/L (98-107) 10/01/17 04:15 Carbon Dioxide 21.6 mEq/L (21.0-31.0) 10/01/17 04:15 Anion Gap 11.3 (7.0-16.0) 10/01/17 04:15 BUN 35 mg/dL (7-25) H 10/01/17 04:15 Creatinine 1.2 mg/dL (0.6-1.2) 10/01/17 04:15 Est GFR ( Amer) TNP 10/01/17 04:15 Est GFR (Non-Af Amer) TNP 10/01/17 04:15 BUN/Creatinine Ratio 29.2 10/01/17 04:15 Glucose 96 mg/dL (70-105) 10/01/17 04:15 POC Glucose 94 MG/DL (70 - 105) 10/01/17 11:39 Whole Bld Lactic Acid 1.03 mmol/L (0.60-1.99) 09/29/17 23:00 Calcium 9.7 mg/dL (8.6-10.3) 10/01/17 04:15 Magnesium 2.1 mg/dL (1.9-2.7) 09/29/17 23:00 Total Bilirubin 0.6 mg/dL (0.3-1.0) 10/01/17 04:15 AST 26 U/L (13-39) 10/01/17 04:15 ALT 17 U/L (7-52) 10/01/17 04:15 Alkaline Phosphatase 114 U/L (34-104) H 10/01/17 04:15 Total Protein 7.3 gm/dL (6.0-8.3) 10/01/17 04:15 Albumin 3.2 gm/dL (3.7-5.3) L 10/01/17 04:15 Globulin 4.1 gm/dL 10/01/17 04:15 Albumin/Globulin Ratio 0.8 (1.0-1.8) L 10/01/17 04:15 - Physical Exam Vitals and I&O: Vital Signs Temp 96.5 F 10/01/17 12:00 Pulse 60 10/01/17 12:00 Resp 18 10/01/17 12:00 BP 123/76 10/01/17 12:00 Pulse Ox 100 10/01/17 12:00 Intake & Output 09/30/17 10/01/17 10/01/17 18:59 06:59 18:59 Intake Total 970 1350 759 Balance 970 1350 759 Weight (lbs) 180 lb 178 lb 11.2 oz Intake: Intake, IV Amount 100 1350 759 D5-0.45NS 1,000 ml @ 60 1000 759 mls/hr IV .[id number] [facility] Rx #:[id number] Piperacillin Sodium/ 100 100 Tazobact 3.375 gm In Sodium Chloride 0.9% 50 ml @ 100 mls/hr IV Q6HR [facility] Rx#:[id number] Vancomycin HCl 1 gm In 250 Sodium Chloride 0.9% 250 ml @ 165 mls/hr IV Q24H [facility] Rx#:[id number] Tube Feeding 870 Other: # Voids 3 Weight Source Bedscale Bedscale Active Medications: Current Medications Acetaminophen (Tylenol) 650 mg PO Q4HR PRN PRN Reason: Pain Or Fever above 101 Stop: 11/29/17 01:56 Albuterol Sulfate (Albuterol 2.5mg/3ml Neb Ud) 2.5 mg IH Q2HR PRN PRN Reason: Shortness of Breath or Wheeze Stop: 11/29/17 01:56 Bisacodyl (Dulcolax 10 Mg Supp) 10 mg RC DAILY PRN PRN Reason: Constipation Stop: 11/29/17 01:56 Docusate Sodium (Colace) 100 mg PO DAILY [facility] Stop: 11/29/17 08:59 Last Admin: 10/01/17 08:49 Dose: Not Given Ferrous Sulfate (Iron) 450 mg GT DAILY [facility] Stop: 11/29/17 08:59 Last Admin: 10/01/17 08:49 Dose: Not Given Dextrose/Sodium Chloride (D5-0.45ns) 1,000 mls @ 60 mls/hr IV .[id number] [facility] Stop: 11/29/17 01:56 Last Admin: 10/01/17 10:41 Dose: 60 mls/hr Piperacillin Sod/Tazobactam (Sod 3.375 gm/ Sodium Chloride) 50 mls @ 100 mls/ hr IV Q6HR [facility] Stop: 11/29/17 05:59 Last Admin: 10/01/17 12:28 Dose: 100 mls/hr Vancomycin HCl 1 gm/ Sodium (Chloride) 250 mls @ 165 mls/hr IV Q24H [facility] Stop: 11/29/17 09:59 Last Admin: 10/01/17 10:40 Dose: 165 mls/hr Insulin Aspart (Novolog Insulin Sliding Scale) 0 units SUBQ ACHS [facility] PRN Reason: Protocol Stop: 11/29/17 07:29 Last Admin: 10/01/17 11:47 Dose: Not Given Insulin Detemir (Levemir Insulin) 20 units SUBQ HS [facility]INA PRN Reason: Protocol Stop: 11/29/17 20:59 Last Admin: 09/30/17 21:55 Dose: 20 units Ipratropium [place] (Atrovent Neb 0.5mg/2.5ml) 0.5 mg IH Q2HR PRN PRN Reason: Shortness of Breath or Wheeze Stop: 11/29/17 01:56 Lactobacillus Rhamnosus (Culturelle 15b) 1 each PO DAILY [facility] Stop: 11/29/17 08:59 Last Admin: 10/01/17 08:49 Dose: Not Given Levothyroxine Sodium (Synthroid) 0.125 mg GT 1030 [facility] Stop: 11/29/17 10:29 Last Admin: 10/01/17 10:41 Dose: 0.125 mg Magnesium Hydroxide (Milk Of Magnesia) 30 ml GT DAILY PRN PRN Reason: Constipation Stop: 11/29/17 01:56 Miscellaneous (Vancomycin Iv Per Pharmacy) 1 ea MC PRN [facility] Stop: 11/29/17 01:56 Miscellaneous (Probiotic Screen) 1 ea PRN PRN PRN Reason: PROTOCOL Stop: 11/29/17 08:58 Ondansetron HCl (Zofran) 4 mg IV Q8H PRN PRN Reason: Nausea / Vomiting Stop: 11/29/17 01:56 Pantoprazole Sodium (Protonix) 20 mg IVP DAILY [facility] Stop: 11/29/17 08:59 Last Admin: 10/01/17 08:49 Dose: Not Given Potassium Chloride (Potassium Chloride Elixir) 20 meq GT DAILY [facility] Stop: 11/29/17 08:59 Last Admin: 10/01/17 08:49 Dose: Not Given Sitagliptin Phosphate (Januvia) 50 mg GT DAILY [facility] Stop: 11/29/17 08:59 Last Admin: 10/01/17 08:50 Dose: Not Given General: weak, alert HEENT: NC/AT, PERRLA Neck: Supple, No JVD Lungs: CTAB Cardiovascular: RRR Abdomen: soft, non-tender, non-distended, positive bowel sound Neurological: alert - Procedures Procedures: Procedures Procedure Code Date CHANGE FEEDING DEVICE IN UP INTEST TRACT, AUTO DRIVER APPROACH [id number] 04/26/17 CHANGE GASTROSTOMY TUBE 67082 04/26/[address] GASTROSTOMY TUBE 50893 12/31/15 INSERTION OF FEEDING DEVICE INTO STOMACH, PERC APPROACH [id number] 12/31/15 TRANSFUSE NONAUT RED BLOOD CELLS IN PERIPH VEIN, PERC 56038O1 12/31/15 Internal Medicine Assmt/Plan - Assessment Assessment: right breast abscess s/p i+d hyponatremia acute renal failure dm hypothyroidism cardiac pacemaker status gerd alzheimer - Plan Plan: continue ivabx cbc/bmp in am will follow performance management consultant recommendations continue current plan of care Nutritional Asmnt/Malnutr-PDOC - Dietary Evaluation Malnutrition Findings (Please click <Entered> for more info): Nutritional Asmnt/Malnutrition Start: 09/30/17 16: 02 Text: Status: Complete Freq: Document 09/30/17 16:02 EDUARD (Rec: 09/30/17 16:21 [facility] Nutritional Asmnt/Malnutrition Patient General Information Nutritional Screening High Risk Consult Diagnosis right breast abscess Pertinent Medical Hx/Surgical Hx HTN, CAD, hypothyroidism, CHF, dyslipidemia, arthritis, dementia, depression, ASHD, contractures, pacemaker, PEG Subjective Information Consult received for TF and diabetic. Pt is Romansh speaking note. No diet order at this time. Per nurse note, pt was getting TF Glucerna 1.2 at 65ml/hr x 20hr at care facility. Current Diet Order/ Nutrition Support no diet order Pertinent Medications D5-0.45ns, colace, iron, novolog, levemir, culturelle, synthroid, protonix, piperacillin, kcl, vancomycin Pertinent Labs 4/2 Na 133, BUN 39, glucose 158 4/3 POC 155-194 Nutritional Hx/Data Height 5 ft 2 in Height (Calculated Centimeters) 157.5 Current Weight (lbs) 180 lb Weight (Calculated Kilograms) 81.6 Weight (Calculated Grams) 56614.6 [place] Body Weight 110 Body Mass Index (BMI) 32.9 Weight Status Obese GI Symptoms GI Symptoms None Last BM 0 Difficult in: None Usual diet at home Glucerna 1.2 at 65ml/hr x 20hr Skin Integrity/Comment: ulceration to right breast abscess Current %PO Negligible < 25% Estimated Nutritional Goals BEE in Kcals: Adj wt of IBW Calories/Kcals/Kg 25-30 adj wt 58kg Kcals Calculated 5738-4649 Protein: Adj wt of IBW Protein g/k.1-1.3 Protein Calculated 64-75 Fluid: ml 1450-1740ml (1ml/kcal) Nutritional Problem 1. Problem Problem altered nutritioni related labs Etiology hx of DM Signs/Symptoms: glucose 158, POC 155-194 Malnutrition Alert Protein-Calorie Malnutrition N/A Is there a minimum of two criteria No selected? Query Text:Check all the applicable criteria. A minimum of two criteria are recommended for diagnosis of either severe or non-severe malnutrition. Intervention/Recommendation Comments 1. Recommend Diabetisource AC at 60ml/hr x 20ml. It provides 1440kcal, 72g protein, 981ml free water, meeting 100% of nutritional needs 2. Monitor TF rate, tolerance, wt weekly, skin integrity and labs 3. F/U as high risk in 2-3 days, 4/5-4/6 Expected Outcomes/Goals Expected Outcomes/Goals 1. Pt to meet at least 75% of nutritional needs via nutrition support with tolerance 2. Wt stability, skin to remain intact, labs to approach WNL.
--- NOTE | 2017-10-01 14:49 | Consultation ---
DATE OF CONSULTATION: 09/30/2017 SURGICAL CONSULTATION REFERRING PHYSICIAN: Dr. Trent. REASON FOR CONSULTATION: Abscess, right breast. Thank you for referring this patient to me. HISTORY OF PRESENT ILLNESS: This is an 81-year-old female, unable to give any information. She apparently had a mass in the right breast measuring 3.6 cm x 1 cm at 8 o'clock location. Other comorbidities include hypertension, diabetes, GERD, hypothyroidism, arthritis, pacemaker, and dementia. The laboratory studies show the WBC is normal. The chemistry; blood sugar slightly high at 158, BUN high at 39. An ultrasound was repeated of the right breast and this showed subcutaneous architectural distortion of the right breast at 7 o'clock suggestive of inflammatory changes, no masses noted. The patient will need incision and drainage and also biopsy of mass if this is palpated on surgery. JOB# [id number]
[2017-10-01] MEDS: Insulin Detemir 100 units/mL 10mL Vial SUBQ SCH (21:37)
[2017-10-02] MEDS: D5-0.45NS 1,000 ML IV SCH (04:51)
[2017-10-02 07:16] LABS: % BASOPHILS 0.8 % (0.0-2.0); % EOSINOPHILS 4.8 % (0.0-5.0); % LYMPHOCYTES 26.1 % (20.0-50.0); % MONOCYTES 9.6 % (2.0-10.0); % NEUTROPHILS 58.7 % (40.0-80.0); EOSINOPHILE ABSOLUTE 0.3 Th/cmm (0.1-0.4); HEMATOCRIT 30.2 % (41.0-60); HEMOGLOBIN 10.3 gm/dL (12-16); LYMPHOCYTE ABSOLUTE 1.6 Th/cmm (1.5-3.0); MEAN CELL VOLUME 89.9 fl (81-100); MEAN CORPUSCULAR HEMOGLOBIN 30.6 pg (27.0-31.0); MEAN CORPUSCULAR HGB CONC 34.1 pg (28.0-36.0); MONOCYTE ABSOLUTE 0.6 Th/cmm (0.3-1.0); NEUTROPHILE ABSOLUTE 3.6 Th/cmm (1.8-8.0); PLATELET COUNT 185 Th/cmm (150-400); RED BLOOD COUNT 3.37 Mil/cmm (3.80-5.20); RED CELL DISTRIBUTION WIDTH 13.1 % (11.5-20.0); WHITE BLOOD COUNT 6.1 Th/cmm (4.8-10.8)
[2017-10-02 07:20] LABS: ANION GAP 10.4 (7.0-16.0); BUN - UREA NITROGEN 29 mg/dL (7-25); CALCIUM SERUM 9.1 mg/dL (8.6-10.3); CARBON DIOXIDE 22.3 mEq/L (21.0-31.0); CHLORIDE 110 mEq/L (98-107); CREATININE - SERUM 1.2 mg/dL (0.6-1.2); GLUCOSE 104 mg/dL (70-105); POTASSIUM SERUM 3.7 mEq/L (3.5-5.1); SODIUM SERUM 139 mEq/L (136-145)
[2017-10-02] MEDS: INSULIN ASPART SLIDING SCALE 100 UNITS/ML UNIT SUBQ SCH ×4 (08:05→21:14)
[2017-10-02] MEDS: Multivitamin w/ Minerals Tab GT SCH (09:13)
[2017-10-02] MEDS: Potassium Chloride Elixir 20 mEq /15 mL UDC GT SCH (09:13)
[2017-10-02] MEDS: Ferrous Sulfate 300 MG/5 ML UDC GT SCH (09:13)
[2017-10-02] MEDS: Lactobacillus Rhamnosus GG 15 Billion CFU CAP.SPRINK PO SCH (09:13)
--- NOTE | 2017-10-02 09:22 | General Progress Note ---
Subjective - Review of Systems Service Date: 10/02/17 Events since last encounter: await tests dressings dry Objective - Results Result Diagrams: 10/02/17 06:45 10/02/17 06:45 Recent Labs: Laboratory Last Values WBC 6.1 Th/cmm (4.8-10.8) 10/02/17 06:45 RBC 3.37 Mil/cmm (3.80-5.20) L 10/02/17 06:45 Hgb 10.3 gm/dL (12-16) L 10/02/17 06:45 Hct 30.2 % (41.0-60) L 10/02/17 06:45 MCV 89.9 fl (81-100) 10/02/17 06:45 MCH 30.6 pg (27.0-31.0) 10/02/17 06:45 MCHC Differential 34.1 pg (28.0-36.0) 10/02/17 06:45 RDW 13.1 % (11.5-20.0) 10/02/17 06:45 Plt Count 185 Th/cmm (150-400) 10/02/17 06:45 MPV 9.0 fl 10/02/17 06:45 Neutrophils % 58.7 % (40.0-80.0) 10/02/17 06:45 Lymphocytes % 26.1 % (20.0-50.0) 10/02/17 06:45 Monocytes % 9.6 % (2.0-10.0) 10/02/17 06:45 Eosinophils % 4.8 % (0.0-5.0) 10/02/17 06:45 Basophils % 0.8 % (0.0-2.0) 10/02/17 06:45 PT 10.7 SECONDS (9.5-11.5) 10/01/17 04:15 INR 1.03 (0.5-1.4) 10/01/17 04:15 PTT (Actin FS) 25.6 SECONDS (26.0-38.0) L 10/01/17 04:15 Sodium 139 mEq/L (136-145) 10/02/17 06:45 Potassium 3.7 mEq/L (3.5-5.1) 10/02/17 06:45 Chloride 110 mEq/L (98-107) H 10/02/17 06:45 Carbon Dioxide 22.3 mEq/L (21.0-31.0) 10/02/17 06:45 Anion Gap 10.4 (7.0-16.0) 10/02/17 06:45 BUN 29 mg/dL (7-25) H 10/02/17 06:45 Creatinine 1.2 mg/dL (0.6-1.2) 10/02/17 06:45 Est GFR ( Amer) TNP 10/02/17 06:45 Est GFR (Non-Af Amer) TNP 10/02/17 06:45 BUN/Creatinine Ratio 24.2 10/02/17 06:45 Glucose 104 mg/dL (70-105) 10/02/17 06:45 POC Glucose 102 MG/DL (70 - 105) 10/02/17 06:36 Whole Bld Lactic Acid 1.03 mmol/L (0.60-1.99) 09/29/17 23:00 Calcium 9.1 mg/dL (8.6-10.3) 10/02/17 06:45 Magnesium 2.1 mg/dL (1.9-2.7) 09/29/17 23:00 Total Bilirubin 0.6 mg/dL (0.3-1.0) 10/01/17 04:15 AST 26 U/L (13-39) 10/01/17 04:15 ALT 17 U/L (7-52) 10/01/17 04:15 Alkaline Phosphatase 114 U/L (34-104) H 10/01/17 04:15 Total Protein 7.3 gm/dL (6.0-8.3) 10/01/17 04:15 Albumin 3.2 gm/dL (3.7-5.3) L 10/01/17 04:15 Globulin 4.1 gm/dL 10/01/17 04:15 Albumin/Globulin Ratio 0.8 (1.0-1.8) L 10/01/17 04:15 Urine Source Cancelled 09/29/17 18:19 Urine Color Cancelled 09/29/17 18:19 Urine Clarity Cancelled 09/29/17 18:19 Urine pH Cancelled 09/29/17 18:19 Ur Specific Strang Cancelled 09/29/17 18:19 Urine Protein Cancelled 09/29/17 18:19 Urine Glucose (UA) Cancelled 09/29/17 18:19 Urine Clinitest Cancelled 09/29/17 18:19 Urine Ketones Cancelled 09/29/17 18:19 Urine Blood Cancelled 09/29/17 18:19 Urine Nitrate Cancelled 09/29/17 18:19 Urine Bilirubin Cancelled 09/29/17 18:19 Urine Ictotest Cancelled 09/29/17 18:19 Urine Urobilinogen Cancelled 09/29/17 18:19 Ur Leukocyte Esterase Cancelled 09/29/17 18:19 Ur Micro Indicated Cancelled 09/29/17 18:19 Urine RBC Cancelled 09/29/17 18:19 Urine WBC Cancelled 09/29/17 18:19 Ur Epithelial Cells Cancelled 09/29/17 18:19 Calcium Oxalate Crystal Cancelled 09/29/17 18:19 Uric Acid Crystals Cancelled 09/29/17 18:19 Triple Phos Crystals Cancelled 09/29/17 18:19 Other Crystals Cancelled 09/29/17 18:19 Amorphous Sediment Cancelled 09/29/17 18:19 Urine Bacteria Cancelled 09/29/17 18:19 Hyaline Casts Cancelled 09/29/17 18:19 Fine Granular Casts Cancelled 09/29/17 18:19 Coarse Granular Casts Cancelled 09/29/17 18:19 Waxy Casts Cancelled 09/29/17 18:19 RBC Casts Cancelled 09/29/17 18:19 WBC Casts Cancelled 09/29/17 18:19 Other Casts Cancelled 09/29/17 18:19 Urine Mucus Cancelled 09/29/17 18:19 Urine Other Cancelled 09/29/17 18:19 Urine Trichomonas Cancelled 09/29/17 18:19 Urine Yeast Cancelled 09/29/17 18:19 Urine Sperm Cancelled 09/29/17 18:19 Ur Oval Fat Bodies Cancelled 09/29/17 18:19 - Physical Exam Vitals and I&O: Vital Signs Temp 98.5 F 10/02/17 08:00 Pulse 60 10/02/17 08:00 Resp 17 10/02/17 08:00 BP 119/49 10/02/17 08:00 Pulse Ox 94 10/02/17 08:00 Intake & Output 04/10/1510/02/17 10/02/17 18:59 06:59 18:59 Intake Total 1769 1050 Output Total 0 Balance 1769 1050 Weight (lbs) 80.739 kg Intake: Intake, IV Amount 1109 1050 D5-0.45NS 1,000 ml @ 60 759 1000 mls/hr IV .[id number] [facility] Rx #:[id number] Piperacillin Sodium/ 100 50 Tazobact 3.375 gm In Sodium Chloride 0.9% 50 ml @ 100 mls/hr IV Q6HR [facility] Rx#:[id number] Vancomycin HCl 1 gm In 250 Sodium Chloride 0.9% 250 ml @ 165 mls/hr IV Q24H [facility] Rx#:[id number] Oral 0 Tube Feeding 660 Output: Stool 0 Other: # Voids 3 # Bowel Movements 0 Weight Source Bedscale Active Medications: Current Medications Acetaminophen (Tylenol) 650 mg PO Q4HR PRN PRN Reason: Pain Or Fever above 101 Stop: 11/29/17 01:56 Last Admin: 10/01/17 21:57 Dose: 650 mg Albuterol Sulfate (Albuterol 2.5mg/3ml Neb Ud) 2.5 mg IH Q2HR PRN PRN Reason: Shortness of Breath or Wheeze Stop: 11/29/17 01:56 Bisacodyl (Dulcolax 10 Mg Supp) 10 mg RC DAILY PRN PRN Reason: Constipation Stop: 11/29/17 01:56 Docusate Sodium (Colace) 100 mg PO DAILY [facility] Stop: 11/29/17 08:59 Last Admin: 10/02/17 09:13 Dose: 100 mg Ferrous Sulfate (Iron) 450 mg GT DAILY [facility] Stop: 11/29/17 08:59 Last Admin: 10/02/17 09:13 Dose: 450 mg Dextrose/Sodium Chloride (D5-0.45ns) 1,000 mls @ 60 mls/hr IV .[id number] [facility] Stop: 11/29/17 01:56 Last Admin: 10/02/17 04:51 Dose: 60 mls/hr Piperacillin Sod/Tazobactam (Sod 3.375 gm/ Sodium Chloride) 50 mls @ 100 mls/ hr IV Q6HR [facility] Stop: 11/29/17 05:59 Last Admin: 10/02/17 05:09 Dose: 100 mls/hr Vancomycin HCl 1 gm/ Sodium (Chloride) 250 mls @ 165 mls/hr IV Q24H [facility] Stop: 11/29/17 09:59 Last Admin: 10/02/17 09:13 Dose: 165 mls/hr Insulin Aspart (Novolog Insulin Sliding Scale) 0 units SUBQ ACHS [facility]INA PRN Reason: Protocol Stop: 11/29/17 07:29 Last Admin: 10/02/17 08:05 Dose: Not Given Insulin Detemir (Levemir Insulin) 20 units SUBQ HS [facility]INA PRN Reason: Protocol Stop: 11/29/17 20:59 Last Admin: 10/01/17 21:37 Dose: 20 units Ipratropium [place] (Atrovent Neb 0.5mg/2.5ml) 0.5 mg IH Q2HR PRN PRN Reason: Shortness of Breath or Wheeze Stop: 11/29/17 01:56 Lactobacillus Rhamnosus (Culturelle 15b) 1 each PO DAILY [facility] Stop: 11/29/17 08:59 Last Admin: 10/02/17 09:13 Dose: 1 each Levothyroxine Sodium (Synthroid) 0.125 mg GT 1030 [facility] Stop: 11/29/17 10:29 Last Admin: 10/01/17 10:41 Dose: 0.125 mg Magnesium Hydroxide (Milk Of Magnesia) 30 ml GT DAILY PRN PRN Reason: Constipation Stop: 11/29/17 01:56 Miscellaneous (Vancomycin Iv Per Pharmacy) 1 ea MC PRN [facility] Stop: 11/29/17 01:56 Miscellaneous (Probiotic Screen) 1 ea PRN PRN PRN Reason: PROTOCOL Stop: 11/29/17 08:58 Mupirocin (Bactroban Oint) 1 appl NS BID [facility] Stop: 10/06/17 09:01 Last Admin: 10/02/17 09:13 Dose: 1 appl Ondansetron HCl (Zofran) 4 mg IV Q8H PRN PRN Reason: Nausea / Vomiting Stop: 11/29/17 01:56 Pantoprazole Sodium (Protonix) 20 mg IVP DAILY [facility] Stop: 11/29/17 08:59 Last Admin: 10/02/17 09:13 Dose: 20 mg Potassium Chloride (Potassium Chloride Elixir) 20 meq GT DAILY [facility] Stop: 11/29/17 08:59 Last Admin: 10/02/17 09:13 Dose: 20 meq Sitagliptin Phosphate (Januvia) 50 mg GT DAILY [facility] Stop: 11/29/17 08:59 Last Admin: 10/02/17 09:13 Dose: 50 mg General: Alert HEENT: Atraumatic Neck: Supple Cardiovascular: Regular rate Lungs: Clear to auscultation Skin: Other (right breast dressing dry) - Procedures Procedures: Procedures Procedure Code Date BIOPSY OF BREAST OPEN 42891 09/30/17 CHANGE FEEDING DEVICE IN UP INTEST TRACT, CREATIVE DEVELOPER APPROACH [id number] 04/26/17 CHANGE GASTROSTOMY TUBE 87542 04/26/17 DRAINAGE OF CHEST SUBCU/FASCIA, OPEN APPROACH [id number] 09/30/17 DRAINAGE OF SKIN ABSCESS 14717 09/30/[address] GASTROSTOMY TUBE 93052 12/31/15 EXCISION OF RIGHT BREAST, OPEN APPROACH, DIAGNOSTIC [id number] 09/30/17 INSERTION OF FEEDING DEVICE INTO STOMACH, PERC APPROACH [id number] 12/31/15 TRANSFUSE NONAUT RED BLOOD CELLS IN PERIPH VEIN, PERC 89236A9 12/31/15 Nutritional Asmnt/Malnutr-PDOC - Dietary Evaluation Malnutrition Findings (Please click <Entered> for more info): Nutritional Asmnt/Malnutrition Start: 09/30/17 16: 02 Text: Status: Complete Freq: Document 09/30/17 16:[address] [facility] (Rec: 09/30/17 16:21 [facility]-FNS1) Nutritional Asmnt/Malnutrition Patient General Information Nutritional Screening High Risk Consult Diagnosis right breast abscess Pertinent Medical Hx/Surgical Hx HTN, CAD, hypothyroidism, CHF, dyslipidemia, arthritis, dementia, depression, ASHD, contractures, pacemaker, PEG Subjective Information Consult received for TF and diabetic. Pt is [place] speaking note. No diet order at this time. Per nurse note, pt was getting TF Glucerna 1.2 at 65ml/hr x 20hr at care facility. Current Diet Order/ Nutrition Support no diet order Pertinent Medications D5-0.45ns, colace, iron, novolog, levemir, culturelle, synthroid, protonix, piperacillin, kcl, vancomycin Pertinent Labs 4/2 Na 133, BUN 39, glucose 158 4/3 POC 155-194 Nutritional Hx/Data Height 1.57 m Height (Calculated Centimeters) 157.5 Current Weight (lbs) 81.647 kg Weight (Calculated Kilograms) 81.6 Weight (Calculated Grams) 94029.6 [place] Body Weight 110 Body Mass Index (BMI) 32.9 Weight Status Obese GI Symptoms GI Symptoms None Last BM 0 Difficult in: None Usual diet at home Glucerna 1.2 at 65ml/hr x 20hr Skin Integrity/Comment: ulceration to right breast abscess Current %PO Negligible < 25% Estimated Nutritional Goals BEE in Kcals: Adj wt of IBW Calories/Kcals/Kg 25-30 adj wt 58kg Kcals Calculated 0419-3007 Protein: Adj wt of IBW Protein g/k.1-1.3 Protein Calculated 64-75 Fluid: ml 1450-1740ml (1ml/kcal) Nutritional Problem 1. Problem Problem altered nutritioni related labs Etiology hx of DM Signs/Symptoms: glucose 158, POC 155-194 Malnutrition Alert Protein-Calorie Malnutrition N/A Is there a minimum of two criteria No selected? Query Text:Check all the applicable criteria. A minimum of two criteria are recommended for diagnosis of either severe or non-severe malnutrition. Intervention/Recommendation Comments 1. Recommend Diabetisource AC at 60ml/hr x 20ml. It provides 1440kcal, 72g protein, 981ml free water, meeting 100% of nutritional needs 2. Monitor TF rate, tolerance, wt weekly, skin integrity and labs 3. F/U as high risk in 2-3 days, 4/5-4/6 Expected Outcomes/Goals Expected Outcomes/Goals 1. Pt to meet at least 75% of nutritional needs via nutrition support with tolerance 2. Wt stability, skin to remain intact, labs to approach WNL.
--- NOTE | 2017-10-02 09:23 | General Progress Note ---
Subjective - Review of Systems Service Date: 10/02/17 Events since last encounter: tolerating oral intake no pain Objective - Results Result Diagrams: 10/02/17 06:45 10/02/17 06:45 Recent Labs: Laboratory Last Values WBC 6.1 Th/cmm (4.8-10.8) 10/02/17 06:45 RBC 3.37 Mil/cmm (3.80-5.20) L 10/02/17 06:45 Hgb 10.3 gm/dL (12-16) L 10/02/17 06:45 Hct 30.2 % (41.0-60) L 10/02/17 06:45 MCV 89.9 fl (81-100) 10/02/17 06:45 MCH 30.6 pg (27.0-31.0) 10/02/17 06:45 MCHC Differential 34.1 pg (28.0-36.0) 10/02/17 06:45 RDW 13.1 % (11.5-20.0) 10/02/17 06:45 Plt Count 185 Th/cmm (150-400) 10/02/17 06:45 MPV 9.0 fl 10/02/17 06:45 Neutrophils % 58.7 % (40.0-80.0) 10/02/17 06:45 Lymphocytes % 26.1 % (20.0-50.0) 10/02/17 06:45 Monocytes % 9.6 % (2.0-10.0) 10/02/17 06:45 Eosinophils % 4.8 % (0.0-5.0) 10/02/17 06:45 Basophils % 0.8 % (0.0-2.0) 10/02/17 06:45 PT 10.7 SECONDS (9.5-11.5) 10/01/17 04:15 INR 1.03 (0.5-1.4) 10/01/17 04:15 PTT (Actin FS) 25.6 SECONDS (26.0-38.0) L 10/01/17 04:15 Sodium 139 mEq/L (136-145) 10/02/17 06:45 Potassium 3.7 mEq/L (3.5-5.1) 10/02/17 06:45 Chloride 110 mEq/L (98-107) H 10/02/17 06:45 Carbon Dioxide 22.3 mEq/L (21.0-31.0) 10/02/17 06:45 Anion Gap 10.4 (7.0-16.0) 10/02/17 06:45 BUN 29 mg/dL (7-25) H 10/02/17 06:45 Creatinine 1.2 mg/dL (0.6-1.2) 10/02/17 06:45 Est GFR ( Amer) TNP 10/02/17 06:45 Est GFR (Non-Af Amer) TNP 10/02/17 06:45 BUN/Creatinine Ratio 24.2 10/02/17 06:45 Glucose 104 mg/dL (70-105) 10/02/17 06:45 POC Glucose 102 MG/DL (70 - 105) 10/02/17 06:36 Whole Bld Lactic Acid 1.03 mmol/L (0.60-1.99) 09/29/17 23:00 Calcium 9.1 mg/dL (8.6-10.3) 10/02/17 06:45 Magnesium 2.1 mg/dL (1.9-2.7) 09/29/17 23:00 Total Bilirubin 0.6 mg/dL (0.3-1.0) 10/01/17 04:15 AST 26 U/L (13-39) 10/01/17 04:15 ALT 17 U/L (7-52) 10/01/17 04:15 Alkaline Phosphatase 114 U/L (34-104) H 10/01/17 04:15 Total Protein 7.3 gm/dL (6.0-8.3) 10/01/17 04:15 Albumin 3.2 gm/dL (3.7-5.3) L 10/01/17 04:15 Globulin 4.1 gm/dL 10/01/17 04:15 Albumin/Globulin Ratio 0.8 (1.0-1.8) L 10/01/17 04:15 Urine Source Cancelled 09/29/17 18:19 Urine Color Cancelled 09/29/17 18:19 Urine Clarity Cancelled 09/29/17 18:19 Urine pH Cancelled 09/29/17 18:19 Ur Specific [place] Cancelled 09/29/17 18:19 Urine Protein Cancelled 09/29/17 18:19 Urine Glucose (UA) Cancelled 09/29/17 18:19 Urine Clinitest Cancelled 09/29/17 18:19 Urine Ketones Cancelled 09/29/17 18:19 Urine Blood Cancelled 09/29/17 18:19 Urine Nitrate Cancelled 09/29/17 18:19 Urine Bilirubin Cancelled 09/29/17 18:19 Urine Ictotest Cancelled 09/29/17 18:19 Urine Urobilinogen Cancelled 09/29/17 18:19 Ur Leukocyte Esterase Cancelled 09/29/17 18:19 Ur Micro Indicated Cancelled 09/29/17 18:19 Urine RBC Cancelled 09/29/17 18:19 Urine WBC Cancelled 09/29/17 18:19 Ur Epithelial Cells Cancelled 09/29/17 18:19 Calcium Oxalate Crystal Cancelled 09/29/17 18:19 Uric Acid Crystals Cancelled 09/29/17 18:19 Triple Phos Crystals Cancelled 09/29/17 18:19 Other Crystals Cancelled 09/29/17 18:19 Amorphous Sediment Cancelled 09/29/17 18:19 Urine Bacteria Cancelled 09/29/17 18:19 Hyaline Casts Cancelled 09/29/17 18:19 Fine Granular Casts Cancelled 09/29/17 18:19 Coarse Granular Casts Cancelled 09/29/17 18:19 Waxy Casts Cancelled 09/29/17 18:19 RBC Casts Cancelled 09/29/17 18:19 WBC Casts Cancelled 09/29/17 18:19 Other Casts Cancelled 09/29/17 18:19 Urine Mucus Cancelled 09/29/17 18:19 Urine Other Cancelled 09/29/17 18:19 Urine Trichomonas Cancelled 09/29/17 18:19 Urine Yeast Cancelled 09/29/17 18:19 Urine Sperm Cancelled 09/29/17 18:19 Ur Oval Fat Bodies Cancelled 09/29/17 18:19 - Physical Exam Vitals and I&O: Vital Signs Temp 98.5 F 10/02/17 08:00 Pulse 60 10/02/17 08:00 Resp 17 10/02/17 08:00 BP 119/49 10/02/17 08:00 Pulse Ox 94 10/02/17 08:00 Intake & Output 04/10/1510/02/17 10/02/17 18:59 06:59 18:59 Intake Total 1769 1050 Output Total 0 Balance 1769 1050 Weight (lbs) 80.739 kg Intake: Intake, IV Amount 1109 1050 D5-0.45NS 1,000 ml @ 60 759 1000 mls/hr IV .[id number] [facility] Rx #:[id number] Piperacillin Sodium/ 100 50 Tazobact 3.375 gm In Sodium Chloride 0.9% 50 ml @ 100 mls/hr IV Q6HR [facility] Rx#:[id number] Vancomycin HCl 1 gm In 250 Sodium Chloride 0.9% 250 ml @ 165 mls/hr IV Q24H [facility] Rx#:[id number] Oral 0 Tube Feeding 660 Output: Stool 0 Other: # Voids 3 # Bowel Movements 0 Weight Source Bedscale Active Medications: Current Medications Acetaminophen (Tylenol) 650 mg PO Q4HR PRN PRN Reason: Pain Or Fever above 101 Stop: 11/29/17 01:56 Last Admin: 10/01/17 21:57 Dose: 650 mg Albuterol Sulfate (Albuterol 2.5mg/3ml Neb Ud) 2.5 mg IH Q2HR PRN PRN Reason: Shortness of Breath or Wheeze Stop: 11/29/17 01:56 Bisacodyl (Dulcolax 10 Mg Supp) 10 mg RC DAILY PRN PRN Reason: Constipation Stop: 11/29/17 01:56 Docusate Sodium (Colace) 100 mg PO DAILY [facility] Stop: 11/29/17 08:59 Last Admin: 10/02/17 09:13 Dose: 100 mg Ferrous Sulfate (Iron) 450 mg GT DAILY [facility] Stop: 11/29/17 08:59 Last Admin: 10/02/17 09:13 Dose: 450 mg Dextrose/Sodium Chloride (D5-0.45ns) 1,000 mls @ 60 mls/hr IV .[id number] [facility] Stop: 11/29/17 01:56 Last Admin: 10/02/17 04:51 Dose: 60 mls/hr Piperacillin Sod/Tazobactam (Sod 3.375 gm/ Sodium Chloride) 50 mls @ 100 mls/ hr IV Q6HR [facility] Stop: 11/29/17 05:59 Last Admin: 10/02/17 05:09 Dose: 100 mls/hr Vancomycin HCl 1 gm/ Sodium (Chloride) 250 mls @ 165 mls/hr IV Q24H [facility] Stop: 11/29/17 09:59 Last Admin: 10/02/17 09:13 Dose: 165 mls/hr Insulin Aspart (Novolog Insulin Sliding Scale) 0 units SUBQ ACHS [facility] PRN Reason: Protocol Stop: 11/29/17 07:29 Last Admin: 10/02/17 08:05 Dose: Not Given Insulin Detemir (Levemir Insulin) 20 units SUBQ HS [facility] PRN Reason: Protocol Stop: 11/29/17 20:59 Last Admin: 10/01/17 21:37 Dose: 20 units Ipratropium [place] (Atrovent Neb 0.5mg/2.5ml) 0.5 mg IH Q2HR PRN PRN Reason: Shortness of Breath or Wheeze Stop: 11/29/17 01:56 Lactobacillus Rhamnosus (Culturelle 15b) 1 each PO DAILY [facility] Stop: 11/29/17 08:59 Last Admin: 10/02/17 09:13 Dose: 1 each Levothyroxine Sodium (Synthroid) 0.125 mg GT 1030 [facility] Stop: 11/29/17 10:29 Last Admin: 10/01/17 10:41 Dose: 0.125 mg Magnesium Hydroxide (Milk Of Magnesia) 30 ml GT DAILY PRN PRN Reason: Constipation Stop: 11/29/17 01:56 Miscellaneous (Vancomycin Iv Per Pharmacy) 1 ea MC PRN [facility] Stop: 11/29/17 01:56 Miscellaneous (Probiotic Screen) 1 ea PRN PRN PRN Reason: PROTOCOL Stop: 11/29/17 08:58 Mupirocin (Bactroban Oint) 1 appl NS BID [facility] Stop: 10/06/17 09:01 Last Admin: 10/02/17 09:13 Dose: 1 appl Ondansetron HCl (Zofran) 4 mg IV Q8H PRN PRN Reason: Nausea / Vomiting Stop: 11/29/17 01:56 Pantoprazole Sodium (Protonix) 20 mg IVP DAILY [facility] Stop: 11/29/17 08:59 Last Admin: 10/02/17 09:13 Dose: 20 mg Potassium Chloride (Potassium Chloride Elixir) 20 meq GT DAILY [facility] Stop: 11/29/17 08:59 Last Admin: 10/02/17 09:13 Dose: 20 meq Sitagliptin Phosphate (Januvia) 50 mg GT DAILY [facility] Stop: 11/29/17 08:59 Last Admin: 10/02/17 09:13 Dose: 50 mg General: Alert HEENT: Atraumatic Neck: Supple Cardiovascular: Regular rate Lungs: Clear to auscultation Skin: Other (right breast dressing dry) - Procedures Procedures: Procedures Procedure Code Date BIOPSY OF BREAST OPEN 57087 09/30/17 CHANGE FEEDING DEVICE IN UP INTEST TRACT, SOFTLINES SUPERVISOR APPROACH [id number] 04/26/17 CHANGE GASTROSTOMY TUBE 04705 04/26/17 DRAINAGE OF CHEST SUBCU/FASCIA, OPEN APPROACH [id number] 09/30/17 DRAINAGE OF SKIN ABSCESS 56728 09/30/[address] GASTROSTOMY TUBE 16146 12/31/15 EXCISION OF RIGHT BREAST, OPEN APPROACH, DIAGNOSTIC [id number] 09/30/17 INSERTION OF FEEDING DEVICE INTO STOMACH, PERC APPROACH 8BB88PB 12/31/15 TRANSFUSE NONAUT RED BLOOD CELLS IN PERIPH VEIN, PERC 42474M4 12/31/15 Nutritional Asmnt/Malnutr-PDOC - Dietary Evaluation Malnutrition Findings (Please click <Entered> for more info): Nutritional Asmnt/Malnutrition Start: 09/30/17 16: 02 Text: Status: Complete Freq: Document 09/30/17 16:02 [facility] (Rec: 09/30/17 16:21 [facility]-[email or web address]) Nutritional Asmnt/Malnutrition Patient General Information Nutritional Screening High Risk Consult Diagnosis right breast abscess Pertinent Medical Hx/Surgical Hx HTN, CAD, hypothyroidism, CHF, dyslipidemia, arthritis, dementia, depression, ASHD, contractures, pacemaker, PEG Subjective Information Consult received for TF and diabetic. Pt is Somali speaking note. No diet order at this time. Per nurse note, pt was getting TF Glucerna 1.2 at 65ml/hr x 20hr at care facility. Current Diet Order/ Nutrition Support no diet order Pertinent Medications D5-0.45ns, colace, iron, novolog, levemir, culturelle, synthroid, protonix, piperacillin, kcl, vancomycin Pertinent Labs 4/2 Na 133, BUN 39, glucose 158 4/3 POC 155-194 Nutritional Hx/Data Height 1.57 m Height (Calculated Centimeters) 157.5 Current Weight (lbs) 81.647 kg Weight (Calculated Kilograms) 81.6 Weight (Calculated Grams) 48689.6 [place] Body Weight 110 Body Mass Index (BMI) 32.9 Weight Status Obese GI Symptoms GI Symptoms None Last BM 0 Difficult in: None Usual diet at home Glucerna 1.2 at 65ml/hr x 20hr Skin Integrity/Comment: ulceration to right breast abscess Current %PO Negligible < 25% Estimated Nutritional Goals BEE in Kcals: Adj wt of IBW Calories/Kcals/Kg 25-30 adj wt 58kg Kcals Calculated 6937-8780 Protein: Adj wt of IBW Protein g/k.1-1.3 Protein Calculated 64-75 Fluid: ml 1450-1740ml (1ml/kcal) Nutritional Problem 1. Problem Problem altered nutritioni related labs Etiology hx of DM Signs/Symptoms: glucose 158, POC 155-194 Malnutrition Alert Protein-Calorie Malnutrition N/A Is there a minimum of two criteria No selected? Query Text:Check all the applicable criteria. A minimum of two criteria are recommended for diagnosis of either severe or non-severe malnutrition. Intervention/Recommendation Comments 1. Recommend Diabetisource AC at 60ml/hr x 20ml. It provides 1440kcal, 72g protein, 981ml free water, meeting 100% of nutritional needs 2. Monitor TF rate, tolerance, wt weekly, skin integrity and labs 3. F/U as high risk in 2-3 days, 4/5-4/6 Expected Outcomes/Goals Expected Outcomes/Goals 1. Pt to meet at least 75% of nutritional needs via nutrition support with tolerance 2. Wt stability, skin to remain intact, labs to approach WNL.
[2017-10-02] MEDS: Levothyroxine 0.125 Mg Tab GT SCH (09:55)
--- NOTE | 2017-10-02 10:15 | General Progress Note ---
Subjective - Review of Systems Service Date: 10/02/17 Objective - Results Result Diagrams: 10/02/17 06:45 10/02/17 06:45 Recent Labs: Laboratory Last Values WBC 6.1 Th/cmm (4.8-10.8) 10/02/17 06:45 RBC 3.37 Mil/cmm (3.80-5.20) L 10/02/17 06:45 Hgb 10.3 gm/dL (12-16) L 10/02/17 06:45 Hct 30.2 % (41.0-60) L 10/02/17 06:45 MCV 89.9 fl (81-100) 10/02/17 06:45 MCH 30.6 pg (27.0-31.0) 10/02/17 06:45 MCHC Differential 34.1 pg (28.0-36.0) 10/02/17 06:45 RDW 13.1 % (11.5-20.0) 10/02/17 06:45 Plt Count 185 Th/cmm (150-400) 10/02/17 06:45 MPV 9.0 fl 10/02/17 06:45 Neutrophils % 58.7 % (40.0-80.0) 10/02/17 06:45 Lymphocytes % 26.1 % (20.0-50.0) 10/02/17 06:45 Monocytes % 9.6 % (2.0-10.0) 10/02/17 06:45 Eosinophils % 4.8 % (0.0-5.0) 10/02/17 06:45 Basophils % 0.8 % (0.0-2.0) 10/02/17 06:45 PT 10.7 SECONDS (9.5-11.5) 10/01/17 04:15 INR 1.03 (0.5-1.4) 10/01/17 04:15 PTT (Actin FS) 25.6 SECONDS (26.0-38.0) L 10/01/17 04:15 Sodium 139 mEq/L (136-145) 10/02/17 06:45 Potassium 3.7 mEq/L (3.5-5.1) 10/02/17 06:45 Chloride 110 mEq/L (98-107) H 10/02/17 06:45 Carbon Dioxide 22.3 mEq/L (21.0-31.0) 10/02/17 06:45 Anion Gap 10.4 (7.0-16.0) 10/02/17 06:45 BUN 29 mg/dL (7-25) H 10/02/17 06:45 Creatinine 1.2 mg/dL (0.6-1.2) 04 06:45 Est GFR ( Amer) TNP 10/02/17 06:45 Est GFR (Non-Af Amer) TNP 10/02/17 06:45 BUN/Creatinine Ratio 24.2 10/02/17 06:45 Glucose 104 mg/dL (70-105) 10/02/17 06:45 POC Glucose 102 MG/DL (70 - 105) 10/02/17 06:36 Whole Bld Lactic Acid 1.03 mmol/L (0.60-1.99) 09/29/17 23:00 Calcium 9.1 mg/dL (8.6-10.3) 10/02/17 06:45 Magnesium 2.1 mg/dL (1.9-2.7) 09/29/17 23:00 Total Bilirubin 0.6 mg/dL (0.3-1.0) 10/01/17 04:15 AST 26 U/L (13-39) 10/01/17 04:15 ALT 17 U/L (7-52) 10/01/17 04:15 Alkaline Phosphatase 114 U/L (34-104) H 10/01/17 04:15 Total Protein 7.3 gm/dL (6.0-8.3) 10/01/17 04:15 Albumin 3.2 gm/dL (3.7-5.3) L 10/01/17 04:15 Globulin 4.1 gm/dL 10/01/17 04:15 Albumin/Globulin Ratio 0.8 (1.0-1.8) L 10/01/17 04:15 Urine Source Cancelled 09/29/17 18:19 Urine Color Cancelled 09/29/17 18:19 Urine Clarity Cancelled 09/29/17 18:19 Urine pH Cancelled 09/29/17 18:19 Ur Specific [place] Cancelled 09/29/17 18:19 Urine Protein Cancelled 09/29/17 18:19 Urine Glucose (UA) Cancelled 09/29/17 18:19 Urine Clinitest Cancelled 09/29/17 18:19 Urine Ketones Cancelled 09/29/17 18:19 Urine Blood Cancelled 09/29/17 18:19 Urine Nitrate Cancelled 09/29/17 18:19 Urine Bilirubin Cancelled 09/29/17 18:19 Urine Ictotest Cancelled 09/29/17 18:19 Urine Urobilinogen Cancelled 09/29/17 18:19 Ur Leukocyte Esterase Cancelled 09/29/17 18:19 Ur Micro Indicated Cancelled 09/29/17 18:19 Urine RBC Cancelled 09/29/17 18:19 Urine WBC Cancelled 09/29/17 18:19 Ur Epithelial Cells Cancelled 09/29/17 18:19 Calcium Oxalate Crystal Cancelled 09/29/17 18:19 Uric Acid Crystals Cancelled 09/29/17 18:19 Triple Phos Crystals Cancelled 09/29/17 18:19 Other Crystals Cancelled 09/29/17 18:19 Amorphous Sediment Cancelled 09/29/17 18:19 Urine Bacteria Cancelled 09/29/17 18:19 Hyaline Casts Cancelled 09/29/17 18:19 Fine Granular Casts Cancelled 09/29/17 18:19 Coarse Granular Casts Cancelled 09/29/17 18:19 Waxy Casts Cancelled 09/29/17 18:19 RBC Casts Cancelled 09/29/17 18:19 WBC Casts Cancelled 09/29/17 18:19 Other Casts Cancelled 09/29/17 18:19 Urine Mucus Cancelled 09/29/17 18:19 Urine Other Cancelled 09/29/17 18:19 Urine Trichomonas Cancelled 09/29/17 18:19 Urine Yeast Cancelled 09/29/17 18:19 Urine Sperm Cancelled 09/29/17 18:19 Ur Oval Fat Bodies Cancelled 09/29/17 18:19 - Physical Exam Vitals and I&O: Vital Signs Temp 98.5 F 10/02/17 08:00 Pulse 60 10/02/17 08:00 Resp 20 10/02/17 08:00 BP 119/49 10/02/17 08:00 Pulse Ox 94 10/02/17 08:00 Intake & Output 10/01/17 10/02/17 10/02/17 18:59 06:59 18:59 Intake Total 1769 1050 Output Total 0 Balance 1769 1050 Weight (lbs) 80.739 kg Intake: Intake, IV Amount 1109 1050 D5-0.45NS 1,000 ml @ 60 759 1000 mls/hr IV .[id number] [facility] Rx #:[id number] Piperacillin Sodium/ 100 50 Tazobact 3.375 gm In Sodium Chloride 0.9% 50 ml @ 100 mls/hr IV Q6HR [facility] Rx#:[id number] Vancomycin HCl 1 gm In 250 Sodium Chloride 0.9% 250 ml @ 165 mls/hr IV Q24H [facility] Rx#:[id number] Oral 0 Tube Feeding 660 Output: Stool 0 Other: # Voids 3 # Bowel Movements 0 Stool Characteristics Soft Soft Formed Formed Brown Brown Weight Source Bedscale Active Medications: Current Medications Acetaminophen (Tylenol) 650 mg PO Q4HR PRN PRN Reason: Pain Or Fever above 101 Stop: 11/29/17 01:56 Last Admin: 10/01/17 21:57 Dose: 650 mg Albuterol Sulfate (Albuterol 2.5mg/3ml Neb Ud) 2.5 mg IH Q2HR PRN PRN Reason: Shortness of Breath or Wheeze Stop: 11/29/17 01:56 Bisacodyl (Dulcolax 10 Mg Supp) 10 mg RC DAILY PRN PRN Reason: Constipation Stop: 11/29/17 01:56 Docusate Sodium (Colace) 100 mg PO DAILY [facility] Stop: 11/29/17 08:59 Last Admin: 10/02/17 09:13 Dose: 100 mg Ferrous Sulfate (Iron) 450 mg GT DAILY [facility] Stop: 11/29/17 08:59 Last Admin: 10/02/17 09:13 Dose: 450 mg Dextrose/Sodium Chloride (D5-0.45ns) 1,000 mls @ 60 mls/hr IV .[id number] [facility] Stop: 11/29/17 01:56 Last Admin: 10/02/17 04:51 Dose: 60 mls/hr Piperacillin Sod/Tazobactam (Sod 3.375 gm/ Sodium Chloride) 50 mls @ 100 mls/ hr IV Q6HR [facility] Stop: 11/29/17 05:59 Last Admin: 10/02/17 05:09 Dose: 100 mls/hr Vancomycin HCl 1 gm/ Sodium (Chloride) 250 mls @ 165 mls/hr IV Q24H [facility] Stop: 11/29/17 09:59 Last Admin: 10/02/17 09:13 Dose: 165 mls/hr Insulin Aspart (Novolog Insulin Sliding Scale) 0 units SUBQ ACHS [facility] PRN Reason: Protocol Stop: 11/29/17 07:29 Last Admin: 10/02/17 08:05 Dose: Not Given Insulin Detemir (Levemir Insulin) 20 units SUBQ HS [facility] PRN Reason: Protocol Stop: 11/29/17 20:59 Last Admin: 10/01/17 21:37 Dose: 20 units Ipratropium [place] (Atrovent Neb 0.5mg/2.5ml) 0.5 mg IH Q2HR PRN PRN Reason: Shortness of Breath or Wheeze Stop: 11/29/17 01:56 Lactobacillus Rhamnosus (Culturelle 15b) 1 each PO DAILY [facility] Stop: 11/29/17 08:59 Last Admin: 10/02/17 09:13 Dose: 1 each Levothyroxine Sodium (Synthroid) 0.125 mg GT 1030 [facility] Stop: 11/29/17 10:29 Last Admin: 10/02/17 09:55 Dose: 0.125 mg Magnesium Hydroxide (Milk Of Magnesia) 30 ml GT DAILY PRN PRN Reason: Constipation Stop: 11/29/17 01:56 Miscellaneous (Vancomycin Iv Per Pharmacy) 1 ea MC PRN [facility] Stop: 11/29/17 01:56 Miscellaneous (Probiotic Screen) 1 ea PRN PRN PRN Reason: PROTOCOL Stop: 11/29/17 08:58 Mupirocin (Bactroban Oint) 1 appl NS BID [facility] Stop: 10/06/17 09:01 Last Admin: 10/02/17 09:13 Dose: 1 appl Ondansetron HCl (Zofran) 4 mg IV Q8H PRN PRN Reason: Nausea / Vomiting Stop: 11/29/17 01:56 Pantoprazole Sodium (Protonix) 20 mg IVP DAILY [facility] Stop: 11/29/17 08:59 Last Admin: 10/02/17 09:13 Dose: 20 mg Potassium Chloride (Potassium Chloride Elixir) 20 meq GT DAILY [facility] Stop: 11/29/17 08:59 Last Admin: 10/02/17 09:13 Dose: 20 meq Sitagliptin Phosphate (Januvia) 50 mg GT DAILY [facility] Stop: 11/29/17 08:59 Last Admin: 10/02/17 09:13 Dose: 50 mg General: Alert HEENT: Atraumatic Neck: Supple Cardiovascular: Regular rate Lungs: Clear to auscultation Skin: Other (right breast dressing dry) - Procedures Procedures: Procedures Procedure Code Date BIOPSY OF BREAST OPEN 19391 09/30/17 CHANGE FEEDING DEVICE IN UP INTEST TRACT, SCALEMAKER APPROACH [id number] 04/26/17 CHANGE GASTROSTOMY TUBE 18431 04/26/17 DRAINAGE OF CHEST SUBCU/FASCIA, OPEN APPROACH 2R764MH 09/30/17 DRAINAGE OF SKIN ABSCESS 76603 09/30/[address] GASTROSTOMY TUBE 60352 12/31/15 EXCISION OF RIGHT BREAST, OPEN APPROACH, DIAGNOSTIC [id number] 09/30/17 INSERTION OF FEEDING DEVICE INTO STOMACH, PERC APPROACH 5KB40MR 12/31/15 TRANSFUSE NONAUT RED BLOOD CELLS IN PERIPH VEIN, PERC 53944L7 12/31/15 Assessment/Plan - Assessment Assessment: * Right breast abcess s/p I&D with excision biopsy follow biopsy pathology Nutritional Asmnt/Malnutr-PDOC - Dietary Evaluation Malnutrition Findings (Please click <Entered> for more info): Nutritional Asmnt/Malnutrition Start: 09/30/17 16: 02 Text: Status: Complete Freq: Document 09/30/17 16:02 [facility] (Rec: 09/30/17 16:21 [facility] Nutritional Asmnt/Malnutrition Patient General Information Nutritional Screening High Risk Consult Diagnosis right breast abscess Pertinent Medical Hx/Surgical Hx HTN, CAD, hypothyroidism, CHF, dyslipidemia, arthritis, dementia, depression, ASHD, contractures, pacemaker, PEG Subjective Information Consult received for TF and diabetic. Pt is Belarusian speaking note. No diet order at this time. Per nurse note, pt was getting TF Glucerna 1.2 at 65ml/hr x 20hr at care facility. Current Diet Order/ Nutrition Support no diet order Pertinent Medications D5-0.45ns, colace, iron, novolog, levemir, culturelle, synthroid, protonix, piperacillin, kcl, vancomycin Pertinent Labs / Na 133, BUN 39, glucose 158 4/3 POC 155-194 Nutritional Hx/Data Height 1.57 m Height (Calculated Centimeters) 157.5 Current Weight (lbs) 81.647 kg Weight (Calculated Kilograms) 81.6 Weight (Calculated Grams) 08760.6 [place] Body Weight 110 Body Mass Index (BMI) 32.9 Weight Status Obese GI Symptoms GI Symptoms None Last BM 0 Difficult in: None Usual diet at home Glucerna 1.2 at 65ml/hr x 20hr Skin Integrity/Comment: ulceration to right breast abscess Current %PO Negligible < 25% Estimated Nutritional Goals BEE in Kcals: Adj wt of IBW Calories/Kcals/Kg 25-30 adj wt 58kg Kcals Calculated 7713-7191 Protein: Adj wt of IBW Protein g/k.1-1.3 Protein Calculated 64-75 Fluid: ml 1450-1740ml (1ml/kcal) Nutritional Problem 1. Problem Problem altered nutritioni related labs Etiology hx of DM Signs/Symptoms: glucose 158, POC 155-194 Malnutrition Alert Protein-Calorie Malnutrition N/A Is there a minimum of two criteria No selected? Query Text:Check all the applicable criteria. A minimum of two criteria are recommended for diagnosis of either severe or non-severe malnutrition. Intervention/Recommendation Comments 1. Recommend Diabetisource AC at 60ml/hr x 20ml. It provides 1440kcal, 72g protein, 981ml free water, meeting 100% of nutritional needs 2. Monitor TF rate, tolerance, wt weekly, skin integrity and labs 3. F/U as high risk in 2-3 days, 4/5-4/6 Expected Outcomes/Goals Expected Outcomes/Goals 1. Pt to meet at least 75% of nutritional needs via nutrition support with tolerance 2. Wt stability, skin to remain intact, labs to approach WNL.
--- NOTE | 2017-10-02 14:46 | Internal Medicine Prog Note ---
Internal Medicine Subjective - Subjective Service Date: 10/02/17 Patient is:: awake, non-verbal Per staff patient has:: tolerating meds Internal Medicine Objective - Results Result Diagrams: 10/02/17 06:45 10/02/17 06:45 Recent Labs: Laboratory Last Values WBC 6.1 Th/cmm (4.8-10.8) 10/02/17 06:45 RBC 3.37 Mil/cmm (3.80-5.20) L 10/02/17 06:45 Hgb 10.3 gm/dL (12-16) L 10/02/17 06:45 Hct 30.2 % (41.0-60) L 10/02/17 06:45 MCV 89.9 fl (81-100) 10/02/17 06:45 MCH 30.6 pg (27.0-31.0) 10/02/17 06:45 MCHC Differential 34.1 pg (28.0-36.0) 10/02/17 06:45 RDW 13.1 % (11.5-20.0) 10/02/17 06:45 Plt Count 185 Th/cmm (150-400) 10/02/17 06:45 MPV 9.0 fl 10/02/17 06:45 Neutrophils % 58.7 % (40.0-80.0) 10/02/17 06:45 Lymphocytes % 26.1 % (20.0-50.0) 10/02/17 06:45 Monocytes % 9.6 % (2.0-10.0) 10/02/17 06:45 Eosinophils % 4.8 % (0.0-5.0) 10/02/17 06:45 Basophils % 0.8 % (0.0-2.0) 10/02/17 06:45 PT 10.7 SECONDS (9.5-11.5) 10/01/17 04:15 INR 1.03 (0.5-1.4) 10/01/17 04:15 PTT (Actin FS) 25.6 SECONDS (26.0-38.0) L 10/01/17 04:15 Sodium 139 mEq/L (136-145) 10/02/17 06:45 Potassium 3.7 mEq/L (3.5-5.1) 10/02/17 06:45 Chloride 110 mEq/L (98-107) H 10/02/17 06:45 Carbon Dioxide 22.3 mEq/L (21.0-31.0) 10/02/17 06:45 Anion Gap 10.4 (7.0-16.0) 10/02/17 06:45 BUN 29 mg/dL (7-25) H 10/02/17 06:45 Creatinine 1.2 mg/dL (0.6-1.2) 10/02/17 06:45 Est GFR ( Amer) TNP 10/02/17 06:45 Est GFR (Non-Af Amer) TNP 10/02/17 06:45 BUN/Creatinine Ratio 24.2 10/02/17 06:45 Glucose 104 mg/dL (70-105) 10/02/17 06:45 POC Glucose 90 MG/DL (70 - 105) 10/02/17 12:56 Whole Bld Lactic Acid 1.03 mmol/L (0.60-1.99) 09/29/17 23:00 Calcium 9.1 mg/dL (8.6-10.3) 10/02/17 06:45 Magnesium 2.1 mg/dL (1.9-2.7) 09/29/17 23:00 Total Bilirubin 0.6 mg/dL (0.3-1.0) 10/01/17 04:15 AST 26 U/L (13-39) 10/01/17 04:15 ALT 17 U/L (7-52) 10/01/17 04:15 Alkaline Phosphatase 114 U/L (34-104) H 10/01/17 04:15 Total Protein 7.3 gm/dL (6.0-8.3) 10/01/17 04:15 Albumin 3.2 gm/dL (3.7-5.3) L 10/01/17 04:15 Globulin 4.1 gm/dL 10/01/17 04:15 Albumin/Globulin Ratio 0.8 (1.0-1.8) L 10/01/17 04:15 Urine Source Cancelled 09/29/17 18:19 Urine Color Cancelled 09/29/17 18:19 Urine Clarity Cancelled 09/29/17 18:19 Urine pH Cancelled 09/29/17 18:19 Ur Specific [place] Cancelled 09/29/17 18:19 Urine Protein Cancelled 09/29/17 18:19 Urine Glucose (UA) Cancelled 09/29/17 18:19 Urine Clinitest Cancelled 09/29/17 18:19 Urine Ketones Cancelled 09/29/17 18:19 Urine Blood Cancelled 09/29/17 18:19 Urine Nitrate Cancelled 09/29/17 18:19 Urine Bilirubin Cancelled 09/29/17 18:19 Urine Ictotest Cancelled 09/29/17 18:19 Urine Urobilinogen Cancelled 09/29/17 18:19 Ur Leukocyte Esterase Cancelled 09/29/17 18:19 Ur Micro Indicated Cancelled 09/29/17 18:19 Urine RBC Cancelled 09/29/17 18:19 Urine WBC Cancelled 09/29/17 18:19 Ur Epithelial Cells Cancelled 09/29/17 18:19 Calcium Oxalate Crystal Cancelled 09/29/17 18:19 Uric Acid Crystals Cancelled 09/29/17 18:19 Triple Phos Crystals Cancelled 09/29/17 18:19 Other Crystals Cancelled 09/29/17 18:19 Amorphous Sediment Cancelled 09/29/17 18:19 Urine Bacteria Cancelled 09/29/17 18:19 Hyaline Casts Cancelled 09/29/17 18:19 Fine Granular Casts Cancelled 09/29/17 18:19 Coarse Granular Casts Cancelled 09/29/17 18:19 Waxy Casts Cancelled 09/29/17 18:19 RBC Casts Cancelled 09/29/17 18:19 WBC Casts Cancelled 09/29/17 18:19 Other Casts Cancelled 09/29/17 18:19 Urine Mucus Cancelled 09/29/17 18:19 Urine Other Cancelled 09/29/17 18:19 Urine Trichomonas Cancelled 09/29/17 18:19 Urine Yeast Cancelled 09/29/17 18:19 Urine Sperm Cancelled 09/29/17 18:19 Ur Oval Fat Bodies Cancelled 09/29/17 18:19 Vancomycin Trough 17.7 ug/mL (5-10) H 10/02/17 08:30 - Physical Exam Vitals and I&O: Vital Signs Temp 97.9 F 10/02/17 12:00 Pulse 58 10/02/17 12:00 Resp 17 04/05/18 12:00 BP 116/58 10/02/17 12:00 Pulse Ox 100 10/02/17 12:00 Intake & Output 10/01/17 10/02/17 10/02/17 18:59 06:59 18:59 Intake Total 1769 1100 300 Output Total 0 Balance 1769 1100 300 Weight (lbs) 178 lb Intake: Intake, IV Amount 1109 1100 300 D5-0.45NS 1,000 ml @ 60 759 1000 mls/hr IV .[id number] [facility] Rx #:[id number] Piperacillin Sodium/ 100 100 50 Tazobact 3.375 gm In Sodium Chloride 0.9% 50 ml @ 100 mls/hr IV Q6HR [facility] Rx#:[id number] Vancomycin HCl 1 gm In 250 250 Sodium Chloride 0.9% 250 ml @ 165 mls/hr IV Q24H [facility] Rx#:[id number] Oral 0 Tube Feeding 660 Output: Stool 0 Other: # Voids 3 # Bowel Movements 0 Stool Characteristics Soft Soft Formed Formed Brown Brown Weight Source Bedscale Active Medications: Current Medications Acetaminophen (Tylenol) 650 mg PO Q4HR PRN PRN Reason: Pain Or Fever above 101 Stop: 11/29/17 01:56 Last Admin: 10/01/17 21:57 Dose: 650 mg Albuterol Sulfate (Albuterol 2.5mg/3ml Neb Ud) 2.5 mg IH Q2HR PRN PRN Reason: Shortness of Breath or Wheeze Stop: 11/29/17 01:56 Bisacodyl (Dulcolax 10 Mg Supp) 10 mg RC DAILY PRN PRN Reason: Constipation Stop: 11/29/17 01:56 Docusate Sodium (Colace) 100 mg PO DAILY [facility] Stop: 11/29/17 08:59 Last Admin: 10/02/17 09:13 Dose: 100 mg Ferrous Sulfate (Iron) 450 mg GT DAILY [facility] Stop: 11/29/17 08:59 Last Admin: 10/02/17 09:13 Dose: 450 mg Dextrose/Sodium Chloride (D5-0.45ns) 1,000 mls @ 60 mls/hr IV .[id number] [facility] Stop: 11/29/17 01:56 Last Admin: 10/02/17 04:51 Dose: 60 mls/hr Piperacillin Sod/Tazobactam (Sod 3.375 gm/ Sodium Chloride) 50 mls @ 100 mls/ hr IV Q6HR TINA Stop: 11/29/17 05:59 Last Infusion: 10/02/17 14:38 Dose: Infused Vancomycin HCl 1 gm/ Sodium (Chloride) 250 mls @ 165 mls/hr IV Q24H [facility]INA Stop: 11/29/17 09:59 Last Infusion: 10/02/17 14:38 Dose: Infused Insulin Aspart (Novolog Insulin Sliding Scale) 0 units SUBQ ACHS TINA PRN Reason: Protocol Stop: 11/29/17 07:29 Last Admin: 10/02/17 12:01 Dose: Not Given Insulin Detemir (Levemir Insulin) 20 units SUBQ HS TINA PRN Reason: Protocol Stop: 11/29/17 20:59 Last Admin: 10/01/17 21:37 Dose: 20 units Ipratropium [place] (Atrovent Neb 0.5mg/2.5ml) 0.5 mg IH Q2HR PRN PRN Reason: Shortness of Breath or Wheeze Stop: 11/29/17 01:56 Lactobacillus Rhamnosus (Culturelle 15b) 1 each PO DAILY TINA Stop: 11/29/17 08:59 Last Admin: 10/02/17 09:13 Dose: 1 each Levothyroxine Sodium (Synthroid) 0.125 mg GT 1030 [facility] Stop: 11/29/17 10:29 Last Admin: 10/02/17 09:55 Dose: 0.125 mg Magnesium Hydroxide (Milk Of Magnesia) 30 ml GT DAILY PRN PRN Reason: Constipation Stop: 11/29/17 01:56 Miscellaneous (Vancomycin Iv Per Pharmacy) 1 ea MC PRN TINA Stop: 11/29/17 01:56 Miscellaneous (Probiotic Screen) 1 ea MC PRN PRN PRN Reason: PROTOCOL Stop: 11/29/17 08:58 Mupirocin (Bactroban Oint) 1 appl NS BID [facility] Stop: 10/06/17 09:01 Last Admin: 10/02/17 09:13 Dose: 1 appl Ondansetron HCl (Zofran) 4 mg IV Q8H PRN PRN Reason: Nausea / Vomiting Stop: 11/29/17 01:56 Pantoprazole Sodium (Protonix) 20 mg IVP DAILY TINA Stop: 11/29/17 08:59 Last Admin: 10/02/17 09:13 Dose: 20 mg Potassium Chloride (Potassium Chloride Elixir) 20 meq GT DAILY [facility] Stop: 11/29/17 08:59 Last Admin: 10/02/17 09:13 Dose: 20 meq Sitagliptin Phosphate (Januvia) 50 mg GT DAILY [facility] Stop: 11/29/17 08:59 Last Admin: 10/02/17 09:13 Dose: 50 mg General: weak, alert HEENT: NC/AT, PERRLA Neck: Supple, No JVD Lungs: CTAB Cardiovascular: RRR Abdomen: soft, non-tender, non-distended, positive bowel sound Neurological: alert - Procedures Procedures: Procedures Procedure Code Date BIOPSY OF BREAST OPEN 96362 09/30/17 CHANGE FEEDING DEVICE IN UP INTEST TRACT, BUILDING ASSOCIATE APPROACH [id number] 04/26/17 CHANGE GASTROSTOMY TUBE 32336 04/26/17 DRAINAGE OF CHEST SUBCU/FASCIA, OPEN APPROACH [id number] 09/30/17 DRAINAGE OF SKIN ABSCESS 26779 09/30/[address] GASTROSTOMY TUBE 04141 12/31/15 EXCISION OF RIGHT BREAST, OPEN APPROACH, DIAGNOSTIC [id number] 09/30/17 INSERTION OF FEEDING DEVICE INTO STOMACH, PERC APPROACH 4UL45WJ 12/31/15 TRANSFUSE NONAUT RED BLOOD CELLS IN PERIPH VEIN, PERC 19273R6 12/31/15 Internal Medicine Assmt/Plan - Assessment Assessment: right breast abscess s/p i+d W/mrsa hyponatremia acute renal failure dm hypothyroidism cardiac pacemaker status gerd alzheimer - Plan Plan: CONTINUE VANCO continue ivabx cbc/bmp in am will follow workday consultant recommendations continue current plan of care Nutritional Asmnt/Malnutr-PDOC - Dietary Evaluation Malnutrition Findings (Please click <Entered> for more info): Nutritional Asmnt/Malnutrition Start: 09/30/17 16: 02 Text: Status: Complete Freq: Document 09/30/17 16:02 GURJIT (Rec: 09/30/17 16:21 GURJIT [email or web address]) Nutritional Asmnt/Malnutrition Patient General Information Nutritional Screening High Risk Consult Diagnosis right breast abscess Pertinent Medical Hx/Surgical Hx HTN, CAD, hypothyroidism, CHF, dyslipidemia, arthritis, dementia, depression, ASHD, contractures, pacemaker, PEG Subjective Information Consult received for TF and diabetic. Pt is [place]ive[place] speaking note. No diet order at this time. Per nurse note, pt was getting TF Glucerna 1.2 at 65ml/hr x 20hr at care facility. Current Diet Order/ Nutrition Support no diet order Pertinent Medications D5-0.45ns, colace, iron, novolog, levemir, culturelle, synthroid, protonix, piperacillin, kcl, vancomycin Pertinent Labs 4/2 Na 133, BUN 39, glucose 158 4/3 POC 155-194 Nutritional Hx/Data Height 5 ft 2 in Height (Calculated Centimeters) 157.5 Current Weight (lbs) 180 lb Weight (Calculated Kilograms) 81.6 Weight (Calculated Grams) 03340.6 [place] Body Weight 110 Body Mass Index (BMI) 32.9 Weight Status Obese GI Symptoms GI Symptoms None Last BM 0 Difficult in: None Usual diet at home Glucerna 1.2 at 65ml/hr x 20hr Skin Integrity/Comment: ulceration to right breast abscess Current %PO Negligible < 25% Estimated Nutritional Goals BEE in Kcals: Adj wt of IBW Calories/Kcals/Kg 25-30 adj wt 58kg Kcals Calculated 1233-7399 Protein: Adj wt of IBW Protein g/k.1-1.3 Protein Calculated 64-75 Fluid: ml 1450-1740ml (1ml/kcal) Nutritional Problem 1. Problem Problem altered nutritioni related labs Etiology hx of DM Signs/Symptoms: glucose 158, POC 155-194 Malnutrition Alert Protein-Calorie Malnutrition N/A Is there a minimum of two criteria No selected? Query Text:Check all the applicable criteria. A minimum of two criteria are recommended for diagnosis of either severe or non-severe malnutrition. Intervention/Recommendation Comments 1. Recommend Diabetisource AC at 60ml/hr x 20ml. It provides 1440kcal, 72g protein, 981ml free water, meeting 100% of nutritional needs 2. Monitor TF rate, tolerance, wt weekly, skin integrity and labs 3. F/U as high risk in 2-3 days, 10/02-10/03 Expected Outcomes/Goals Expected Outcomes/Goals 1. Pt to meet at least 75% of nutritional needs via nutrition support with tolerance 2. Wt stability, skin to remain intact, labs to approach WNL.
--- NOTE | 2017-10-02 14:59 | Internal Medicine Prog Note ---
Internal Medicine Subjective - Subjective Service Date: 10/02/17 Patient is:: awake, non-verbal Per staff patient has:: tolerating meds Internal Medicine Objective - Results Result Diagrams: 10/02/17 06:45 10/02/17 06:45 Recent Labs: Laboratory Last Values WBC 6.1 Th/cmm (4.8-10.8) 10/02/17 06:45 RBC 3.37 Mil/cmm (3.80-5.20) L 10/02/17 06:45 Hgb 10.3 gm/dL (12-16) L 10/02/17 06:45 Hct 30.2 % (41.0-60) L 10/02/17 06:45 MCV 89.9 fl (81-100) 10/02/17 06:45 MCH 30.6 pg (27.0-31.0) 10/02/17 06:45 MCHC Differential 34.1 pg (28.0-36.0) 10/02/17 06:45 RDW 13.1 % (11.5-20.0) 10/02/17 06:45 Plt Count 185 Th/cmm (150-400) 10/02/17 06:45 MPV 9.0 fl 10/02/17 06:45 Neutrophils % 58.7 % (40.0-80.0) 10/02/17 06:45 Lymphocytes % 26.1 % (20.0-50.0) 10/02/17 06:45 Monocytes % 9.6 % (2.0-10.0) 10/02/17 06:45 Eosinophils % 4.8 % (0.0-5.0) 10/02/17 06:45 Basophils % 0.8 % (0.0-2.0) 10/02/17 06:45 PT 10.7 SECONDS (9.5-11.5) 10/01/17 04:15 INR 1.03 (0.5-1.4) 10/01/17 04:15 PTT (Actin FS) 25.6 SECONDS (26.0-38.0) L 10/01/17 04:15 Sodium 139 mEq/L (136-145) 10/02/17 06:45 Potassium 3.7 mEq/L (3.5-5.1) 10/02/17 06:45 Chloride 110 mEq/L (98-107) H 10/02/17 06:45 Carbon Dioxide 22.3 mEq/L (21.0-31.0) 10/02/17 06:45 Anion Gap 10.4 (7.0-16.0) 10/02/17 06:45 BUN 29 mg/dL (7-25) H 10/02/17 06:45 Creatinine 1.2 mg/dL (0.6-1.2) 10/02/17 06:45 Est GFR ( Amer) TNP 10/02/17 06:45 Est GFR (Non-Af Amer) TNP 10/02/17 06:45 BUN/Creatinine Ratio 24.2 10/02/17 06:45 Glucose 104 mg/dL (70-105) 10/02/17 06:45 POC Glucose 90 MG/DL (70 - 105) 10/02/17 12:56 Whole Bld Lactic Acid 1.03 mmol/L (0.60-1.99) 09/29/17 23:00 Calcium 9.1 mg/dL (8.6-10.3) 10/02/17 06:45 Magnesium 2.1 mg/dL (1.9-2.7) 09/29/17 23:00 Total Bilirubin 0.6 mg/dL (0.3-1.0) 10/01/17 04:15 AST 26 U/L (13-39) 10/01/17 04:15 ALT 17 U/L (7-52) 10/01/17 04:15 Alkaline Phosphatase 114 U/L (34-104) H 10/01/17 04:15 Total Protein 7.3 gm/dL (6.0-8.3) 10/01/17 04:15 Albumin 3.2 gm/dL (3.7-5.3) L 10/01/17 04:15 Globulin 4.1 gm/dL 10/01/17 04:15 Albumin/Globulin Ratio 0.8 (1.0-1.8) L 10/01/17 04:15 Urine Source Cancelled 09/29/17 18:19 Urine Color Cancelled 09/29/17 18:19 Urine Clarity Cancelled 09/29/17 18:19 Urine pH Cancelled 09/29/17 18:19 Ur Specific [place] Cancelled 09/29/17 18:19 Urine Protein Cancelled 09/29/17 18:19 Urine Glucose (UA) Cancelled 09/29/17 18:19 Urine Clinitest Cancelled 09/29/17 18:19 Urine Ketones Cancelled 09/29/17 18:19 Urine Blood Cancelled 09/29/17 18:19 Urine Nitrate Cancelled 09/29/17 18:19 Urine Bilirubin Cancelled 09/29/17 18:19 Urine Ictotest Cancelled 09/29/17 18:19 Urine Urobilinogen Cancelled 09/29/17 18:19 Ur Leukocyte Esterase Cancelled 09/29/17 18:19 Ur Micro Indicated Cancelled 09/29/17 18:19 Urine RBC Cancelled 09/29/17 18:19 Urine WBC Cancelled 09/29/17 18:19 Ur Epithelial Cells Cancelled 09/29/17 18:19 Calcium Oxalate Crystal Cancelled 09/29/17 18:19 Uric Acid Crystals Cancelled 09/29/17 18:19 Triple Phos Crystals Cancelled 09/29/17 18:19 Other Crystals Cancelled 09/29/17 18:19 Amorphous Sediment Cancelled 09/29/17 18:19 Urine Bacteria Cancelled 09/29/17 18:19 Hyaline Casts Cancelled 09/29/17 18:19 Fine Granular Casts Cancelled 09/29/17 18:19 Coarse Granular Casts Cancelled 09/29/17 18:19 Waxy Casts Cancelled 09/29/17 18:19 RBC Casts Cancelled 09/29/17 18:19 WBC Casts Cancelled 09/29/17 18:19 Other Casts Cancelled 09/29/17 18:19 Urine Mucus Cancelled 09/29/17 18:19 Urine Other Cancelled 09/29/17 18:19 Urine Trichomonas Cancelled 09/29/17 18:19 Urine Yeast Cancelled 09/29/17 18:19 Urine Sperm Cancelled 09/29/17 18:19 Ur Oval Fat Bodies Cancelled 09/29/17 18:19 Vancomycin Trough 17.7 ug/mL (5-10) H 10/02/17 08:30 - Physical Exam Vitals and I&O: Vital Signs Temp 97.9 F 10/02/17 12:00 Pulse 58 10/02/17 12:00 Resp 17 04/05/18 12:00 BP 116/58 10/02/17 12:00 Pulse Ox 100 10/02/17 12:00 Intake & Output 10/01/17 10/02/17 10/02/17 18:59 06:59 18:59 Intake Total 1769 1100 300 Output Total 0 Balance 1769 1100 300 Weight (lbs) 178 lb Intake: Intake, IV Amount 1109 1100 300 D5-0.45NS 1,000 ml @ 60 759 1000 mls/hr IV .[id number] [facility] Rx #:[id number] Piperacillin Sodium/ 100 100 50 Tazobact 3.375 gm In Sodium Chloride 0.9% 50 ml @ 100 mls/hr IV Q6HR [facility] Rx#:[id number] Vancomycin HCl 1 gm In 250 250 Sodium Chloride 0.9% 250 ml @ 165 mls/hr IV Q24H [facility] Rx#:[id number] Oral 0 Tube Feeding 660 Output: Stool 0 Other: # Voids 3 # Bowel Movements 0 Stool Characteristics Soft Soft Formed Formed Brown Brown Weight Source Bedscale Active Medications: Current Medications Acetaminophen (Tylenol) 650 mg PO Q4HR PRN PRN Reason: Pain Or Fever above 101 Stop: 11/29/17 01:56 Last Admin: 10/01/17 21:57 Dose: 650 mg Albuterol Sulfate (Albuterol 2.5mg/3ml Neb Ud) 2.5 mg IH Q2HR PRN PRN Reason: Shortness of Breath or Wheeze Stop: 11/29/17 01:56 Bisacodyl (Dulcolax 10 Mg Supp) 10 mg RC DAILY PRN PRN Reason: Constipation Stop: 11/29/17 01:56 Docusate Sodium (Colace) 100 mg PO DAILY [facility] Stop: 11/29/17 08:59 Last Admin: 10/02/17 09:13 Dose: 100 mg Ferrous Sulfate (Iron) 450 mg GT DAILY [facility] Stop: 11/29/17 08:59 Last Admin: 10/02/17 09:13 Dose: 450 mg Dextrose/Sodium Chloride (D5-0.45ns) 1,000 mls @ 60 mls/hr IV .[id number] [facility] Stop: 11/29/17 01:56 Last Admin: 10/02/17 04:51 Dose: 60 mls/hr Piperacillin Sod/Tazobactam (Sod 3.375 gm/ Sodium Chloride) 50 mls @ 100 mls/ hr IV Q6HR [facility] Stop: 11/29/17 05:59 Last Infusion: 10/02/17 14:38 Dose: Infused Vancomycin HCl 1 gm/ Sodium (Chloride) 250 mls @ 165 mls/hr IV Q24H [facility] Stop: 11/29/17 09:59 Last Infusion: 10/02/17 14:38 Dose: Infused Insulin Aspart (Novolog Insulin Sliding Scale) 0 units SUBQ ACHS TINA PRN Reason: Protocol Stop: 11/29/17 07:29 Last Admin: 10/02/17 12:01 Dose: Not Given Insulin Detemir (Levemir Insulin) 20 units SUBQ HS TINA PRN Reason: Protocol Stop: 11/29/17 20:59 Last Admin: 10/01/17 21:37 Dose: 20 units Ipratropium [place] (Atrovent Neb 0.5mg/2.5ml) 0.5 mg IH Q2HR PRN PRN Reason: Shortness of Breath or Wheeze Stop: 11/29/17 01:56 Lactobacillus Rhamnosus (Culturelle 15b) 1 each PO DAILY [facility]INA Stop: 11/29/17 08:59 Last Admin: 10/02/17 09:13 Dose: 1 each Levothyroxine Sodium (Synthroid) 0.125 mg GT 1030 [facility] Stop: 11/29/17 10:29 Last Admin: 10/02/17 09:55 Dose: 0.125 mg Magnesium Hydroxide (Milk Of Magnesia) 30 ml GT DAILY PRN PRN Reason: Constipation Stop: 11/29/17 01:56 Miscellaneous (Vancomycin Iv Per Pharmacy) 1 ea MC PRN TINA Stop: 11/29/17 01:56 Miscellaneous (Probiotic Screen) 1 ea MC PRN PRN PRN Reason: PROTOCOL Stop: 11/29/17 08:58 Mupirocin (Bactroban Oint) 1 appl NS BID [facility] Stop: 10/06/17 09:01 Last Admin: 10/02/17 09:13 Dose: 1 appl Ondansetron HCl (Zofran) 4 mg IV Q8H PRN PRN Reason: Nausea / Vomiting Stop: 11/29/17 01:56 Pantoprazole Sodium (Protonix) 20 mg IVP DAILY [facility] Stop: 11/29/17 08:59 Last Admin: 10/02/17 09:13 Dose: 20 mg Potassium Chloride (Potassium Chloride Elixir) 20 meq GT DAILY [facility] Stop: 11/29/17 08:59 Last Admin: 10/02/17 09:13 Dose: 20 meq Sitagliptin Phosphate (Januvia) 50 mg GT DAILY [facility] Stop: 11/29/17 08:59 Last Admin: 10/02/17 09:13 Dose: 50 mg General: weak, alert HEENT: NC/AT, PERRLA Neck: Supple, No JVD Lungs: CTAB Cardiovascular: RRR Abdomen: soft, non-tender, non-distended, positive bowel sound Neurological: alert - Procedures Procedures: Procedures Procedure Code Date BIOPSY OF BREAST OPEN 89928 09/30/17 CHANGE FEEDING DEVICE IN UP INTEST TRACT, COAT OPERATOR APPROACH [id number] 04/26/17 CHANGE GASTROSTOMY TUBE 38604 04/26/17 DRAINAGE OF CHEST SUBCU/FASCIA, OPEN APPROACH [id number] 09/30/17 DRAINAGE OF SKIN ABSCESS 01739 09/30/[address] GASTROSTOMY TUBE 78676 12/31/15 EXCISION OF RIGHT BREAST, OPEN APPROACH, DIAGNOSTIC [id number] 09/30/17 INSERTION OF FEEDING DEVICE INTO STOMACH, PERC APPROACH 6EL59EX 12/31/15 TRANSFUSE NONAUT RED BLOOD CELLS IN PERIPH VEIN, PERC 27693V4 12/31/15 Internal Medicine Assmt/Plan - Assessment Assessment: right breast abscess s/p i+d W/mrsa hyponatremia acute renal failure dm hypothyroidism cardiac pacemaker status gerd alzheimer - Plan Plan: CONTINUE VANCO continue ivabx cbc/bmp in am will follow technical marketing consultant recommendations continue current plan of care Nutritional Asmnt/Malnutr-PDOC - Dietary Evaluation Malnutrition Findings (Please click <Entered> for more info): Nutritional Asmnt/Malnutrition Start: 09/30/17 16: 02 Text: Status: Complete Freq: Document 09/30/17 16:02 GURJIT (Rec: 09/30/17 16:21 GURJIT [email or web address]) Nutritional Asmnt/Malnutrition Patient General Information Nutritional Screening High Risk Consult Diagnosis right breast abscess Pertinent Medical Hx/Surgical Hx HTN, CAD, hypothyroidism, CHF, dyslipidemia, arthritis, dementia, depression, ASHD, contractures, pacemaker, PEG Subjective Information Consult received for TF and diabetic. Pt is [place] speaking note. No diet order at this time. Per nurse note, pt was getting TF Glucerna 1.2 at 65ml/hr x 20hr at care facility. Current Diet Order/ Nutrition Support no diet order Pertinent Medications D5-0.45ns, colace, iron, novolog, levemir, culturelle, synthroid, protonix, piperacillin, kcl, vancomycin Pertinent Labs 4/2 Na 133, BUN 39, glucose 158 4/3 POC 155-194 Nutritional Hx/Data Height 5 ft 2 in Height (Calculated Centimeters) 157.5 Current Weight (lbs) 180 lb Weight (Calculated Kilograms) 81.6 Weight (Calculated Grams) 77471.6 [place] Body Weight 110 Body Mass Index (BMI) 32.9 Weight Status Obese GI Symptoms GI Symptoms None Last BM 0 Difficult in: None Usual diet at home Glucerna 1.2 at 65ml/hr x 20hr Skin Integrity/Comment: ulceration to right breast abscess Current %PO Negligible < 25% Estimated Nutritional Goals BEE in Kcals: Adj wt of IBW Calories/Kcals/Kg 25-30 adj wt 58kg Kcals Calculated 4605-7547 Protein: Adj wt of IBW Protein g/k.1-1.3 Protein Calculated 64-75 Fluid: ml 1450-1740ml (1ml/kcal) Nutritional Problem 1. Problem Problem altered nutritioni related labs Etiology hx of DM Signs/Symptoms: glucose 158, POC 155-194 Malnutrition Alert Protein-Calorie Malnutrition N/A Is there a minimum of two criteria No selected? Query Text:Check all the applicable criteria. A minimum of two criteria are recommended for diagnosis of either severe or non-severe malnutrition. Intervention/Recommendation Comments 1. Recommend Diabetisource AC at 60ml/hr x 20ml. It provides 1440kcal, 72g protein, 981ml free water, meeting 100% of nutritional needs 2. Monitor TF rate, tolerance, wt weekly, skin integrity and labs 3. F/U as high risk in 2-3 days, 10/02-10/03 Expected Outcomes/Goals Expected Outcomes/Goals 1. Pt to meet at least 75% of nutritional needs via nutrition support with tolerance 2. Wt stability, skin to remain intact, labs to approach WNL.
[2017-10-02 15:48] LABS: URINE MICROSCOPIC INDICATED? YES; URINE SOURCE CATH
[2017-10-02 15:51] LABS: URINE BILIRUBIN NEGATIVE (NEGATIVE); URINE BLOOD MODERATE (NEGATIVE); URINE GLUCOSE (UA) NEGATIVE (NEGATIVE); URINE KETONE NEGATIVE (NEGATIVE); URINE LEUKOCYTE ESTERASE SMALL (NEGATIVE); URINE NITRATE NEGATIVE (NEGATIVE); URINE PH 7.5 (4.6 - 8.0); URINE PROTEIN NEGATIVE (NEGATIVE); URINE UROBILINOGEN 0.2 E.U./dL (0.2 - 1.0)
[2017-10-02 15:57] LABS: URINE BACTERIA OCCASIONAL /hpf (NONE SEEN); URINE CLARITY CLEAR (CLEAR); URINE COLOR YELLOW; URINE EPITHELIAL CELLS OCCASIONAL /lpf (FEW)
[2017-10-02] MEDS: Insulin Detemir 100 units/mL 10mL Vial SUBQ SCH (21:16)
[2017-10-03] MEDS: D5-0.45NS 1,000 ML IV SCH ×2 (04:02→12:51)
[2017-10-03 05:42] LABS: % BASOPHILS 0.9 % (0.0-2.0); % LYMPHOCYTES 22.1 % (20.0-50.0); % MONOCYTES 9.1 % (2.0-10.0); % NEUTROPHILS 62.9 % (40.0-80.0); BASOPHILE ABSOLUTE 0.1 Th/cumm (0-0.2); EOSINOPHILE ABSOLUTE 0.3 Th/cmm (0.1-0.4); HEMOGLOBIN 10.4 gm/dL (12-16); LYMPHOCYTE ABSOLUTE 1.5 Th/cmm (1.5-3.0); MEAN CELL VOLUME 90.1 fl (81-100); MEAN CORPUSCULAR HEMOGLOBIN 30.3 pg (27.0-31.0); MEAN CORPUSCULAR HGB CONC 33.6 pg (28.0-36.0); MEAN PLATELET VOLUME 8.7 fl; MONOCYTE ABSOLUTE 0.6 Th/cmm (0.3-1.0); NEUTROPHILE ABSOLUTE 4.2 Th/cmm (1.8-8.0); PLATELET COUNT 188 Th/cmm (150-400); RED BLOOD COUNT 3.44 Mil/cmm (3.80-5.20); RED CELL DISTRIBUTION WIDTH 13.2 % (11.5-20.0); WHITE BLOOD COUNT 6.7 Th/cmm (4.8-10.8)
[2017-10-03 05:53] LABS: ANION GAP 8.1 (7.0-16.0); BUN - UREA NITROGEN 27 mg/dL (7-25); CARBON DIOXIDE 22.6 mEq/L (21.0-31.0); CHLORIDE 109 mEq/L (98-107); CREATININE - SERUM 1.1 mg/dL (0.6-1.2); POTASSIUM SERUM 3.7 mEq/L (3.5-5.1); SODIUM SERUM 136 mEq/L (136-145)
[2017-10-03 06:21] LABS: GLUCOSE 217 mg/dL (70-105)
[2017-10-03] MEDS: INSULIN ASPART SLIDING SCALE 100 UNITS/ML UNIT SUBQ SCH ×4 (06:32→22:46)
[2017-10-03] MEDS: Ferrous Sulfate 300 MG/5 ML UDC GT SCH (09:32)
[2017-10-03] MEDS: Multivitamin w/ Minerals Tab GT SCH (09:33)
[2017-10-03] MEDS: Lactobacillus Rhamnosus GG 15 Billion CFU CAP.SPRINK PO SCH (09:33)
[2017-10-03] MEDS: Levothyroxine 0.125 Mg Tab GT SCH (09:33)
--- NOTE | 2017-10-03 11:14 | Pathology Report ---
[id number] Collection date: 10/01/2017 Surgeon: Dr. Marianela Fry Specimen Description: Right breast biopsy Gross Description: Received in formalin is a 4.2 x 4.0 x 2.5 cm portion of yellow fatty tissue. Sectioning shows areas of lanza-white firm tissue measuring up to 1.3 cm. There are no mass lesions appreciated. Neon Pumper sections are submitted in six cassettes labeled A1 to A6, which includes all of the firm lanza- white tissue. Microscopic Description: The histologic sections show fibrofatty breast tissue with areas of benign fibrocystic change including several dilated ducts and focal microcalcification. Areas of chronic inflammation are appreciated consisting of mostly lymphocytes. There is no evidence for atypia. Diagnosis: 1. Benign fibrocystic changes with microcalcification (right breast biopsy). 2. There are areas of chronic inflammation, consistent with recent abscess. [facility]# [id number] [facility]OSPITALSusan
--- NOTE | 2017-10-03 12:00 | General Progress Note ---
Subjective - Review of Systems Service Date: 10/03/17 Events since last encounter: redressed, minimal drainage Mone drain out C and S no growth no path report Objective - Results Result Diagrams: 10/03/17 05:00 10/03/17 05:00 Recent Labs: Laboratory Last Values WBC 6.7 Th/cmm (4.8-10.8) 10/03/17 05:00 RBC 3.44 Mil/cmm (3.80-5.20) L 10/03/17 05:00 Hgb 10.4 gm/dL (12-16) L 10/03/17 05:00 Hct 31.0 % (41.0-60) L 10/03/17 05:00 MCV 90.1 fl (81-100) 10/03/17 05:00 MCH 30.3 pg (27.0-31.0) 10/03/17 05:00 MCHC Differential 33.6 pg (28.0-36.0) 10/03/17 05:00 RDW 13.2 % (11.5-20.0) 10/03/17 05:00 Plt Count 188 Th/cmm (150-400) 10/03/17 05:00 MPV 8.7 fl 10/03/17 05:00 Neutrophils % 62.9 % (40.0-80.0) 10/03/17 05:00 Lymphocytes % 22.1 % (20.0-50.0) 10/03/17 05:00 Monocytes % 9.1 % (2.0-10.0) 10/03/17 05:00 Eosinophils % 5.0 % (0.0-5.0) 10/03/17 05:00 Basophils % 0.9 % (0.0-2.0) 10/03/17 05:00 PT 10.7 SECONDS (9.5-11.5) 10/01/17 04:15 INR 1.03 (0.5-1.4) 10/01/17 04:15 PTT (Actin FS) 25.6 SECONDS (26.0-38.0) L 10/01/17 04:15 Sodium 136 mEq/L (136-145) 10/03/17 05:00 Potassium 3.7 mEq/L (3.5-5.1) 10/03/17 05:00 Chloride 109 mEq/L (98-107) H 10/03/17 05:00 Carbon Dioxide 22.6 mEq/L (21.0-31.0) 10/03/17 05:00 Anion Gap 8.1 (7.0-16.0) 10/03/17 05:00 BUN 27 mg/dL (7-25) H 10/03/17 05:00 Creatinine 1.1 mg/dL (0.6-1.2) 10/03/17 05:00 Est GFR ( Amer) TNP 10/03/17 05:00 Est GFR (Non-Af Amer) TNP 10/03/17 05:00 BUN/Creatinine Ratio 24.5 10/03/17 05:00 Glucose 217 mg/dL (70-105) H D 10/03/17 05:00 POC Glucose 199 MG/DL (70 - 105) H 10/03/17 06:13 Whole Bld Lactic Acid 1.03 mmol/L (0.60-1.99) 09/29/17 23:00 Calcium 9.0 mg/dL (8.6-10.3) 10/03/17 05:00 Magnesium 2.1 mg/dL (1.9-2.7) 09/29/17 23:00 Total Bilirubin 0.6 mg/dL (0.3-1.0) 10/01/17 04:15 AST 26 U/L (13-39) 10/01/17 04:15 ALT 17 U/L (7-52) 10/01/17 04:15 Alkaline Phosphatase 114 U/L (34-104) H 10/01/17 04:15 Total Protein 7.3 gm/dL (6.0-8.3) 10/01/17 04:15 Albumin 3.2 gm/dL (3.7-5.3) L 10/01/17 04:15 Globulin 4.1 gm/dL 10/01/17 04:15 Albumin/Globulin Ratio 0.8 (1.0-1.8) L 10/01/17 04:15 Urine Source CATH 10/02/17 15:37 Urine Color YELLOW 10/02/17 15:37 Urine Clarity CLEAR (CLEAR) 10/02/17 15:37 Urine pH 7.5 (4.6 - 8.0) 10/02/17 15:37 Ur Specific [place] 1.010 (1.005-1.030) 10/02/17 15:37 Urine Protein NEGATIVE mg/dL (NEGATIVE) 10/02/17 15:37 Urine Glucose (UA) NEGATIVE mg/dL (NEGATIVE) 10/02/17 15:37 Urine Clinitest Cancelled 09/29/17 18:19 Urine Ketones NEGATIVE mg/dL (NEGATIVE) 10/02/17 15:37 Urine Blood MODERATE (NEGATIVE) H 10/02/17 15:37 Urine Nitrate NEGATIVE (NEGATIVE) 10/02/17 15:37 Urine Bilirubin NEGATIVE (NEGATIVE) 10/02/17 15:37 Urine Ictotest Cancelled 09/29/17 18:19 Urine Urobilinogen 0.2 E.U./dL (0.2 - 1.0) 10/02/17 15:37 Ur Leukocyte Esterase SMALL (NEGATIVE) H 10/02/17 15:37 Ur Micro Indicated Cancelled 09/29/17 18:19 Urine RBC 10-25 /hpf (0-5) H 10/02/17 15:37 Urine WBC 2-5 /hpf (0-5) 10/02/17 15:37 Ur Epithelial Cells OCCASIONAL /lpf (FEW) 10/02/17 15:37 Calcium Oxalate Crystal Cancelled 09/29/17 18:19 Uric Acid Crystals Cancelled 09/29/17 18:19 Triple Phos Crystals Cancelled 09/29/17 18:19 Other Crystals Cancelled 09/29/17 18:19 Amorphous Sediment Cancelled 09/29/17 18:19 Urine Bacteria OCCASIONAL /hpf (NONE SEEN) 10/02/17 15:37 Hyaline Casts Cancelled 09/29/17 18:19 Fine Granular Casts Cancelled 09/29/17 18:19 Coarse Granular Casts Cancelled 09/29/17 18:19 Waxy Casts Cancelled 09/29/17 18:19 RBC Casts Cancelled 09/29/17 18:19 WBC Casts Cancelled 09/29/17 18:19 Other Casts Cancelled 09/29/17 18:19 Urine Mucus Cancelled 09/29/17 18:19 Urine Other Cancelled 09/29/17 18:19 Urine Trichomonas Cancelled 09/29/17 18:19 Urine Yeast Cancelled 09/29/17 18:19 Urine Sperm Cancelled 09/29/17 18:19 Ur Oval Fat Bodies Cancelled 09/29/17 18:19 Vancomycin Trough 17.7 ug/mL (5-10) H 10/02/17 08:30 - Physical Exam Vitals and I&O: Vital Signs Temp 96.8 F 10/03/17 08:00 Pulse 70 10/03/17 08:00 Resp 17 10/03/17 08:00 BP 125/38 10/03/17 08:00 Pulse Ox 100 10/03/17 08:00 Intake & Output 10/02/17 10/03/17 10/03/17 18:59 06:59 18:59 Intake Total 350 1050 Balance 350 1050 Intake: Intake, IV Amount 350 1050 D5-0.45NS 1,000 ml @ 60 1000 mls/hr IV .[id number] [facility] Rx #:[id number] Piperacillin Sodium/ 100 Tazobact 3.375 gm In Sodium Chloride 0.9% 50 ml @ 100 mls/hr IV Q6HR [facility] Rx#:[id number] Vancomycin HCl 1 gm In 250 Sodium Chloride 0.9% 250 ml @ 165 mls/hr IV Q24H [facility] Rx#:[id number] Other: Stool Characteristics Soft Formed Brown Active Medications: Current Medications Acetaminophen (Tylenol) 650 mg PO Q4HR PRN PRN Reason: Pain Or Fever above 101 Stop: 11/29/17 01:56 Last Admin: 10/01/17 21:57 Dose: 650 mg Albuterol Sulfate (Albuterol 2.5mg/3ml Neb Ud) 2.5 mg IH Q2HR PRN PRN Reason: Shortness of Breath or Wheeze Stop: 11/29/17 01:56 Bisacodyl (Dulcolax 10 Mg Supp) 10 mg RC DAILY PRN PRN Reason: Constipation Stop: 11/29/17 01:56 Docusate Sodium (Colace) 100 mg PO DAILY [facility] Stop: 11/29/17 08:59 Last Admin: 10/03/17 09:33 Dose: 100 mg Ferrous Sulfate (Iron) 450 mg GT DAILY [facility] Stop: 11/29/17 08:59 Last Admin: 10/03/17 09:32 Dose: 450 mg Dextrose/Sodium Chloride (D5-0.45ns) 1,000 mls @ 60 mls/hr IV .[id number] [facility] Stop: 11/29/17 01:56 Last Admin: 10/03/17 04:02 Dose: 60 mls/hr Vancomycin HCl 1 gm/ Sodium (Chloride) 250 mls @ 165 mls/hr IV Q24H [facility] Stop: 11/29/17 09:59 Last Admin: 10/03/17 09:32 Dose: 165 mls/hr Piperacillin Sod/Tazobactam (Sod 3.375 gm/ Sodium Chloride) 50 mls @ 100 mls/ hr IV Q8HR [facility] Stop: 12/02/17 04:59 Last Admin: 10/03/17 05:35 Dose: 100 mls/hr Insulin Aspart (Novolog Insulin Sliding Scale) 0 units SUBQ ACHS [facility] PRN Reason: Protocol Stop: 11/29/17 07:29 Last Admin: 10/03/17 06:32 Dose: 3 units Insulin Detemir (Levemir Insulin) 14 units SUBQ HS [facility] PRN Reason: Protocol Stop: 12/02/17 01:19 Ipratropium [place] (Atrovent Neb 0.5mg/2.5ml) 0.5 mg IH Q2HR PRN PRN Reason: Shortness of Breath or Wheeze Stop: 11/29/17 01:56 Lactobacillus Rhamnosus (Culturelle 15b) 1 each PO DAILY [facility] Stop: 11/29/17 08:59 Last Admin: 10/03/17 09:33 Dose: 1 each Levothyroxine Sodium (Synthroid) 0.125 mg GT 1030 [facility] Stop: 11/29/17 10:29 Last Admin: 10/03/17 09:33 Dose: 0.125 mg Magnesium Hydroxide (Milk Of Magnesia) 30 ml GT DAILY PRN PRN Reason: Constipation Stop: 11/29/17 01:56 Miscellaneous (Vancomycin Iv Per Pharmacy) 1 ea MC PRN [facility] Stop: 11/29/17 01:56 Miscellaneous (Probiotic Screen) 1 ea MC PRN PRN PRN Reason: PROTOCOL Stop: 11/29/17 08:58 Mupirocin (Bactroban Oint) 1 appl NS BID [facility] Stop: 10/06/17 09:01 Last Admin: 10/03/17 09:32 Dose: 1 appl Ondansetron HCl (Zofran) 4 mg IV Q8H PRN PRN Reason: Nausea / Vomiting Stop: 11/29/17 01:56 Pantoprazole Sodium (Protonix) 20 mg IVP DAILY [facility] Stop: 11/29/17 08:59 Last Admin: 10/03/17 09:33 Dose: 20 mg Sitagliptin Phosphate (Januvia) 50 mg GT DAILY [facility] Stop: 11/29/17 08:59 Last Admin: 10/03/17 09:33 Dose: 50 mg General: Alert HEENT: Atraumatic Neck: Supple Cardiovascular: Regular rate Lungs: Clear to auscultation Skin: Other (right breast dressing dry) - Procedures Procedures: Procedures Procedure Code Date BIOPSY OF BREAST OPEN 86768 09/30/17 CHANGE FEEDING DEVICE IN UP INTEST TRACT, FIELD IDENTIFICATION SPECIALIST APPROACH [id number] 04/26/17 CHANGE GASTROSTOMY TUBE 29096 04/26/17 DRAINAGE OF CHEST SUBCU/FASCIA, OPEN APPROACH [id number] 09/30/17 DRAINAGE OF SKIN ABSCESS 10181 09/30/[address] GASTROSTOMY TUBE 85240 12/31/15 EXCISION OF RIGHT BREAST, OPEN APPROACH, DIAGNOSTIC [id number] 09/30/17 INSERTION OF FEEDING DEVICE INTO STOMACH, PERC APPROACH [id number] 12/31/15 TRANSFUSE NONAUT RED BLOOD CELLS IN PERIPH VEIN, PERC 54457G6 12/31/15 Nutritional Asmnt/Malnutr-PDOC - Dietary Evaluation Malnutrition Findings (Please click <Entered> for more info): Nutritional Asmnt/Malnutrition Start: 09/30/17 16: 02 Text: Status: Complete Freq: Document 09/30/17 16:02 MARIBELL (Rec: 09/30/17 16:21 HEN [email or web address]) Nutritional Asmnt/Malnutrition Patient General Information Nutritional Screening High Risk Consult Diagnosis right breast abscess Pertinent Medical Hx/Surgical Hx HTN, CAD, hypothyroidism, CHF, dyslipidemia, arthritis, dementia, depression, ASHD, contractures, pacemaker, PEG Subjective Information Consult received for TF and diabetic. Pt is [place] speaking note. No diet order at this time. Per nurse note, pt was getting TF Glucerna 1.2 at 65ml/hr x 20hr at care facility. Current Diet Order/ Nutrition Support no diet order Pertinent Medications D5-0.45ns, colace, iron, novolog, levemir, culturelle, synthroid, protonix, piperacillin, kcl, vancomycin Pertinent Labs 4/2 Na 133, BUN 39, glucose 158 4/3 POC 155-194 Nutritional Hx/Data Height 1.57 m Height (Calculated Centimeters) 157.5 Current Weight (lbs) 81.647 kg Weight (Calculated Kilograms) 81.6 Weight (Calculated Grams) 62426.6 [place] Body Weight 110 Body Mass Index (BMI) 32.9 Weight Status Obese GI Symptoms GI Symptoms None Last BM 0 Difficult in: None Usual diet at home Glucerna 1.2 at 65ml/hr x 20hr Skin Integrity/Comment: ulceration to right breast abscess Current %PO Negligible < 25% Estimated Nutritional Goals BEE in Kcals: Adj wt of IBW Calories/Kcals/Kg 25-30 adj wt 58kg Kcals Calculated 2387-6990 Protein: Adj wt of IBW Protein g/k.1-1.3 Protein Calculated 64-75 Fluid: ml 1450-1740ml (1ml/kcal) Nutritional Problem 1. Problem Problem altered nutritioni related labs Etiology hx of DM Signs/Symptoms: glucose 158, POC 155-194 Malnutrition Alert Protein-Calorie Malnutrition N/A Is there a minimum of two criteria No selected? Query Text:Check all the applicable criteria. A minimum of two criteria are recommended for diagnosis of either severe or non-severe malnutrition. Intervention/Recommendation Comments 1. Recommend Diabetisource AC at 60ml/hr x 20ml. It provides 1440kcal, 72g protein, 981ml free water, meeting 100% of nutritional needs 2. Monitor TF rate, tolerance, wt weekly, skin integrity and labs 3. F/U as high risk in 2-3 days, 10/02-10/03 Expected Outcomes/Goals Expected Outcomes/Goals 1. Pt to meet at least 75% of nutritional needs via nutrition support with tolerance 2. Wt stability, skin to remain intact, labs to approach WNL.
--- NOTE | 2017-10-03 12:26 | Internal Medicine Prog Note ---
Internal Medicine Subjective - Subjective Service Date: 10/03/17 Patient seen and examined:: with staff Patient is:: awake, non-verbal Per staff patient has:: tolerating meds Internal Medicine Objective - Results Result Diagrams: 10/03/17 05:00 10/03/17 05:00 Recent Labs: Laboratory Last Values WBC 6.7 Th/cmm (4.8-10.8) 10/03/17 05:00 RBC 3.44 Mil/cmm (3.80-5.20) L 10/03/17 05:00 Hgb 10.4 gm/dL (12-16) L 10/03/17 05:00 Hct 31.0 % (41.0-60) L 10/03/17 05:00 MCV 90.1 fl (81-100) 10/03/17 05:00 MCH 30.3 pg (27.0-31.0) 10/03/17 05:00 MCHC Differential 33.6 pg (28.0-36.0) 10/03/17 05:00 RDW 13.2 % (11.5-20.0) 10/03/17 05:00 Plt Count 188 Th/cmm (150-400) 10/03/17 05:00 MPV 8.7 fl 10/03/17 05:00 Neutrophils % 62.9 % (40.0-80.0) 10/03/17 05:00 Lymphocytes % 22.1 % (20.0-50.0) 10/03/17 05:00 Monocytes % 9.1 % (2.0-10.0) 10/03/17 05:00 Eosinophils % 5.0 % (0.0-5.0) 10/03/17 05:00 Basophils % 0.9 % (0.0-2.0) 10/03/17 05:00 PT 10.7 SECONDS (9.5-11.5) 10/01/17 04:15 INR 1.03 (0.5-1.4) 10/01/17 04:15 PTT (Actin FS) 25.6 SECONDS (26.0-38.0) L 10/01/17 04:15 Sodium 136 mEq/L (136-145) 10/03/17 05:00 Potassium 3.7 mEq/L (3.5-5.1) 10/03/17 05:00 Chloride 109 mEq/L (98-107) H 10/03/17 05:00 Carbon Dioxide 22.6 mEq/L (21.0-31.0) 10/03/17 05:00 Anion Gap 8.1 (7.0-16.0) 10/03/17 05:00 BUN 27 mg/dL (7-25) H 10/03/17 05:00 Creatinine 1.1 mg/dL (0.6-1.2) 10/03/17 05:00 Est GFR ( Amer) TNP 10/03/17 05:00 Est GFR (Non-Af Amer) TNP 10/03/17 05:00 BUN/Creatinine Ratio 24.5 10/03/17 05:00 Glucose 217 mg/dL (70-105) H D 10/03/17 05:00 POC Glucose 115 MG/DL (70 - 105) H 10/03/17 12:02 Whole Bld Lactic Acid 1.03 mmol/L (0.60-1.99) 09/29/17 23:00 Calcium 9.0 mg/dL (8.6-10.3) 10/03/17 05:00 Magnesium 2.1 mg/dL (1.9-2.7) 09/29/17 23:00 Total Bilirubin 0.6 mg/dL (0.3-1.0) 10/01/17 04:15 AST 26 U/L (13-39) 10/01/17 04:15 ALT 17 U/L (7-52) 10/01/17 04:15 Alkaline Phosphatase 114 U/L (34-104) H 10/01/17 04:15 Total Protein 7.3 gm/dL (6.0-8.3) 10/01/17 04:15 Albumin 3.2 gm/dL (3.7-5.3) L 10/01/17 04:15 Globulin 4.1 gm/dL 10/01/17 04:15 Albumin/Globulin Ratio 0.8 (1.0-1.8) L 10/01/17 04:15 Urine Source CATH 10/02/17 15:37 Urine Color YELLOW 10/02/17 15:37 Urine Clarity CLEAR (CLEAR) 10/02/17 15:37 Urine pH 7.5 (4.6 - 8.0) 10/02/17 15:37 Ur Specific [place] 1.010 (1.005-1.030) 10/02/17 15:37 Urine Protein NEGATIVE mg/dL (NEGATIVE) 10/02/17 15:37 Urine Glucose (UA) NEGATIVE mg/dL (NEGATIVE) 10/02/17 15:37 Urine Clinitest Cancelled 09/29/17 18:19 Urine Ketones NEGATIVE mg/dL (NEGATIVE) 10/02/17 15:37 Urine Blood MODERATE (NEGATIVE) H 10/02/17 15:37 Urine Nitrate NEGATIVE (NEGATIVE) 10/02/17 15:37 Urine Bilirubin NEGATIVE (NEGATIVE) 10/02/17 15:37 Urine Ictotest Cancelled 09/29/17 18:19 Urine Urobilinogen 0.2 E.U./dL (0.2 - 1.0) 10/02/17 15:37 Ur Leukocyte Esterase SMALL (NEGATIVE) H 10/02/17 15:37 Ur Micro Indicated Cancelled 09/29/17 18:19 Urine RBC 10-25 /hpf (0-5) H 10/02/17 15:37 Urine WBC 2-5 /hpf (0-5) 10/02/17 15:37 Ur Epithelial Cells OCCASIONAL /lpf (FEW) 10/02/17 15:37 Calcium Oxalate Crystal Cancelled 09/29/17 18:19 Uric Acid Crystals Cancelled 09/29/17 18:19 Triple Phos Crystals Cancelled 09/29/17 18:19 Other Crystals Cancelled 09/29/17 18:19 Amorphous Sediment Cancelled 09/29/17 18:19 Urine Bacteria OCCASIONAL /hpf (NONE SEEN) 10/02/17 15:37 Hyaline Casts Cancelled 09/29/17 18:19 Fine Granular Casts Cancelled 09/29/17 18:19 Coarse Granular Casts Cancelled 09/29/17 18:19 Waxy Casts Cancelled 09/29/17 18:19 RBC Casts Cancelled 09/29/17 18:19 WBC Casts Cancelled 09/29/17 18:19 Other Casts Cancelled 09/29/17 18:19 Urine Mucus Cancelled 09/29/17 18:19 Urine Other Cancelled 09/29/17 18:19 Urine Trichomonas Cancelled 09/29/17 18:19 Urine Yeast Cancelled 09/29/17 18:19 Urine Sperm Cancelled 09/29/17 18:19 Ur Oval Fat Bodies Cancelled 09/29/17 18:19 Vancomycin Trough 17.7 ug/mL (5-10) H 10/02/17 08:30 - Physical Exam Vitals and I&O: Vital Signs Temp 96.8 F 10/03/17 08:00 Pulse 70 10/03/17 08:00 Resp 17 10/03/17 08:00 BP 125/38 10/03/17 08:00 Pulse Ox 100 10/03/17 08:00 Intake & Output 10/02/17 10/03/17 10/03/17 18:59 06:59 18:59 Intake Total 350 1050 Balance 350 1050 Intake: Intake, IV Amount 350 1050 D5-0.45NS 1,000 ml @ 60 1000 mls/hr IV .[id number] [facility] Rx #:[id number] Piperacillin Sodium/ 100 Tazobact 3.375 gm In Sodium Chloride 0.9% 50 ml @ 100 mls/hr IV Q6HR [facility] Rx#:[id number] Vancomycin HCl 1 gm In 250 Sodium Chloride 0.9% 250 ml @ 165 mls/hr IV Q24H [facility] Rx#:[id number] Other: Stool Characteristics Soft Formed Brown Active Medications: Current Medications Acetaminophen (Tylenol) 650 mg PO Q4HR PRN PRN Reason: Pain Or Fever above 101 Stop: 11/29/17 01:56 Last Admin: 10/01/17 21:57 Dose: 650 mg Albuterol Sulfate (Albuterol 2.5mg/3ml Neb Ud) 2.5 mg IH Q2HR PRN PRN Reason: Shortness of Breath or Wheeze Stop: 11/29/17 01:56 Bisacodyl (Dulcolax 10 Mg Supp) 10 mg RC DAILY PRN PRN Reason: Constipation Stop: 11/29/17 01:56 Docusate Sodium (Colace) 100 mg PO DAILY [facility] Stop: 11/29/17 08:59 Last Admin: 10/03/17 09:33 Dose: 100 mg Ferrous Sulfate (Iron) 450 mg GT DAILY [facility] Stop: 11/29/17 08:59 Last Admin: 10/03/17 09:32 Dose: 450 mg Dextrose/Sodium Chloride (D5-0.45ns) 1,000 mls @ 60 mls/hr IV .[id number] [facility] Stop: 11/29/17 01:56 Last Admin: 10/03/17 04:02 Dose: 60 mls/hr Vancomycin HCl 1 gm/ Sodium (Chloride) 250 mls @ 165 mls/hr IV Q24H [facility] Stop: 11/29/17 09:59 Last Admin: 10/03/17 09:32 Dose: 165 mls/hr Piperacillin Sod/Tazobactam (Sod 3.375 gm/ Sodium Chloride) 50 mls @ 100 mls/ hr IV Q8HR [facility] Stop: 12/02/17 04:59 Last Admin: 10/03/17 05:35 Dose: 100 mls/hr Insulin Aspart (Novolog Insulin Sliding Scale) 0 units SUBQ ACHS [facility] PRN Reason: Protocol Stop: 11/29/17 07:29 Last Admin: 10/03/17 12:13 Dose: Not Given Insulin Detemir (Levemir Insulin) 14 units SUBQ HS [facility] PRN Reason: Protocol Stop: 12/02/17 01:19 Ipratropium [place] (Atrovent Neb 0.5mg/2.5ml) 0.5 mg IH Q2HR PRN PRN Reason: Shortness of Breath or Wheeze Stop: 11/29/17 01:56 Lactobacillus Rhamnosus (Culturelle 15b) 1 each PO DAILY [facility] Stop: 11/29/17 08:59 Last Admin: 10/03/17 09:33 Dose: 1 each Levothyroxine Sodium (Synthroid) 0.125 mg GT 1030 [facility] Stop: 11/29/17 10:29 Last Admin: 10/03/17 09:33 Dose: 0.125 mg Magnesium Hydroxide (Milk Of Magnesia) 30 ml GT DAILY PRN PRN Reason: Constipation Stop: 11/29/17 01:56 Miscellaneous (Vancomycin Iv Per Pharmacy) 1 ea MC PRN [facility] Stop: 11/29/17 01:56 Miscellaneous (Probiotic Screen) 1 ea MC PRN PRN PRN Reason: PROTOCOL Stop: 11/29/17 08:58 Mupirocin (Bactroban Oint) 1 appl NS BID [facility] Stop: 10/06/17 09:01 Last Admin: 10/03/17 09:32 Dose: 1 appl Ondansetron HCl (Zofran) 4 mg IV Q8H PRN PRN Reason: Nausea / Vomiting Stop: 11/29/17 01:56 Pantoprazole Sodium (Protonix) 20 mg IVP DAILY [facility] Stop: 11/29/17 08:59 Last Admin: 10/03/17 09:33 Dose: 20 mg Sitagliptin Phosphate (Januvia) 50 mg GT DAILY [facility] Stop: 11/29/17 08:59 Last Admin: 10/03/17 09:33 Dose: 50 mg General: weak, alert HEENT: NC/AT, PERRLA Neck: Supple, No JVD Lungs: CTAB Cardiovascular: RRR Abdomen: soft, non-tender, non-distended, positive bowel sound Neurological: alert - Procedures Procedures: Procedures Procedure Code Date BIOPSY OF BREAST OPEN 31297 09/30/17 CHANGE FEEDING DEVICE IN UP INTEST TRACT, DOCK OPERATIONS SUPERVISOR APPROACH [id number] 04/26/17 CHANGE GASTROSTOMY TUBE 30082 04/26/17 DRAINAGE OF CHEST SUBCU/FASCIA, OPEN APPROACH [id number] 09/30/17 DRAINAGE OF SKIN ABSCESS 92931 09/30/[address] GASTROSTOMY TUBE 99397 12/31/15 EXCISION OF RIGHT BREAST, OPEN APPROACH, DIAGNOSTIC [id number] 09/30/17 INSERTION OF FEEDING DEVICE INTO STOMACH, PERC APPROACH [id number] 12/31/15 TRANSFUSE NONAUT RED BLOOD CELLS IN PERIPH VEIN, PERC 75164Z8 12/31/15 Internal Medicine Assmt/Plan - Assessment Assessment: right breast abscess s/p i+d W/mrsa hyponatremia acute renal failure dm hypothyroidism cardiac pacemaker status gerd alzheimer - Plan Plan: ltac eval continue ivabx cbc/bmp in am will follow professional housing consultant recommendations continue current plan of care Nutritional Asmnt/Malnutr-PDOC - Dietary Evaluation Malnutrition Findings (Please click <Entered> for more info): Nutritional Asmnt/Malnutrition Start: 09/30/17 16: 02 Text: Status: Complete Freq: Document 09/30/17 16:02 GURJIT (Rec: 09/30/17 16:21 JOSE C INOCENTE-[email or web address]) Nutritional Asmnt/Malnutrition Patient General Information Nutritional Screening High Risk Consult Diagnosis right breast abscess Pertinent Medical Hx/Surgical Hx HTN, CAD, hypothyroidism, CHF, dyslipidemia, arthritis, dementia, depression, ASHD, contractures, pacemaker, PEG Subjective Information Consult received for TF and diabetic. Pt is [place] speaking note. No diet order at this time. Per nurse note, pt was getting TF Glucerna 1.2 at 65ml/hr x 20hr at care facility. Current Diet Order/ Nutrition Support no diet order Pertinent Medications D5-0.45ns, colace, iron, novolog, levemir, culturelle, synthroid, protonix, piperacillin, kcl, vancomycin Pertinent Labs 4/2 Na 133, BUN 39, glucose 158 4/3 POC 155-194 Nutritional Hx/Data Height 5 ft 2 in Height (Calculated Centimeters) 157.5 Current Weight (lbs) 180 lb Weight (Calculated Kilograms) 81.6 Weight (Calculated Grams) 95193.6 [place] Body Weight 110 Body Mass Index (BMI) 32.9 Weight Status Obese GI Symptoms GI Symptoms None Last BM 0 Difficult in: None Usual diet at home Glucerna 1.2 at 65ml/hr x 20hr Skin Integrity/Comment: ulceration to right breast abscess Current %PO Negligible < 25% Estimated Nutritional Goals BEE in Kcals: Adj wt of IBW Calories/Kcals/Kg 25-30 adj wt 58kg Kcals Calculated 7344-0045 Protein: Adj wt of IBW Protein g/k.1-1.3 Protein Calculated 64-75 Fluid: ml 1450-1740ml (1ml/kcal) Nutritional Problem 1. Problem Problem altered nutritioni related labs Etiology hx of DM Signs/Symptoms: glucose 158, POC 155-194 Malnutrition Alert Protein-Calorie Malnutrition N/A Is there a minimum of two criteria No selected? Query Text:Check all the applicable criteria. A minimum of two criteria are recommended for diagnosis of either severe or non-severe malnutrition. Intervention/Recommendation Comments 1. Recommend Diabetisource AC at 60ml/hr x 20ml. It provides 1440kcal, 72g protein, 981ml free water, meeting 100% of nutritional needs 2. Monitor TF rate, tolerance, wt weekly, skin integrity and labs 3. F/U as high risk in 2-3 days, 10/02-6 Expected Outcomes/Goals Expected Outcomes/Goals 1. Pt to meet at least 75% of nutritional needs via nutrition support with tolerance 2. Wt stability, skin to remain intact, labs to approach WNL.
[2017-10-03] MEDS: Insulin Detemir 100 units/mL 10mL Vial SUBQ SCH (22:47)
[2017-10-04] MEDS: INSULIN ASPART SLIDING SCALE 100 UNITS/ML UNIT SUBQ SCH ×4 (06:55→20:36)
[2017-10-04 07:24] LABS: % BASOPHILS 0.9 % (0.0-2.0); % EOSINOPHILS 3.1 % (0.0-5.0); % MONOCYTES 7.1 % (2.0-10.0); % NEUTROPHILS 72.9 % (40.0-80.0); BASOPHILE ABSOLUTE 0.1 Th/cumm (0-0.2); EOSINOPHILE ABSOLUTE 0.3 Th/cmm (0.1-0.4); HEMATOCRIT 30.1 % (41.0-60); HEMOGLOBIN 10.4 gm/dL (12-16); LYMPHOCYTE ABSOLUTE 1.5 Th/cmm (1.5-3.0); MEAN CELL VOLUME 89.4 fl (81-100); MEAN CORPUSCULAR HEMOGLOBIN 30.7 pg (27.0-31.0); MEAN CORPUSCULAR HGB CONC 34.4 pg (28.0-36.0); MONOCYTE ABSOLUTE 0.7 Th/cmm (0.3-1.0); NEUTROPHILE ABSOLUTE 6.6 Th/cmm (1.8-8.0); PLATELET COUNT 174 Th/cmm (150-400); RED BLOOD COUNT 3.37 Mil/cmm (3.80-5.20); RED CELL DISTRIBUTION WIDTH 13.1 % (11.5-20.0); WHITE BLOOD COUNT 9.2 Th/cmm (4.8-10.8)
[2017-10-04 07:35] LABS: ANION GAP 6.7 (7.0-16.0); BUN - UREA NITROGEN 26 mg/dL (7-25); CHLORIDE 107 mEq/L (98-107); GLUCOSE 204 mg/dL (70-105); POTASSIUM SERUM 3.7 mEq/L (3.5-5.1); SODIUM SERUM 135 mEq/L (136-145)
[2017-10-04] MEDS: Multivitamin w/ Minerals Tab GT SCH (08:09)
[2017-10-04] MEDS: Ferrous Sulfate 300 MG/5 ML UDC GT SCH (08:09)
[2017-10-04] MEDS: Lactobacillus Rhamnosus GG 15 Billion CFU CAP.SPRINK PO SCH (08:09)
[2017-10-04] MEDS: Levothyroxine 0.125 Mg Tab GT SCH (10:13)
[2017-10-04] MEDS: Venelex 60gm Tube TP SCH (10:13)
--- NOTE | 2017-10-04 11:44 | General Progress Note ---
Subjective - Review of Systems Service Date: 10/04/17 Events since last encounter: staph aureus, on appropriate meds minimal dr from incision Objective - Results Result Diagrams: 10/04/17 06:30 10/04/17 06:30 Recent Labs: Laboratory Last Values WBC 9.2 Th/cmm (4.8-10.8) 10/04/17 06:30 RBC 3.37 Mil/cmm (3.80-5.20) L 10/04/17 06:30 Hgb 10.4 gm/dL (12-16) L 10/04/17 06:30 Hct 30.1 % (41.0-60) L 10/04/17 06:30 MCV 89.4 fl (81-100) 10/04/17 06:30 MCH 30.7 pg (27.0-31.0) 10/04/17 06:30 MCHC Differential 34.4 pg (28.0-36.0) 10/04/17 06:30 RDW 13.1 % (11.5-20.0) 10/04/17 06:30 Plt Count 174 Th/cmm (150-400) 10/04/17 06:30 MPV 9.0 fl 10/04/17 06:30 Neutrophils % 72.9 % (40.0-80.0) 10/04/17 06:30 Lymphocytes % 16.0 % (20.0-50.0) L 10/04/17 06:30 Monocytes % 7.1 % (2.0-10.0) 10/04/17 06:30 Eosinophils % 3.1 % (0.0-5.0) 10/04/17 06:30 Basophils % 0.9 % (0.0-2.0) 10/04/17 06:30 PT 10.7 SECONDS (9.5-11.5) 10/01/17 04:15 INR 1.03 (0.5-1.4) 10/01/17 04:15 PTT (Actin FS) 25.6 SECONDS (26.0-38.0) L 10/01/17 04:15 Sodium 135 mEq/L (136-145) L 10/04/17 06:30 Potassium 3.7 mEq/L (3.5-5.1) 10/04/17 06:30 Chloride 107 mEq/L (98-107) 10/04/17 06:30 Carbon Dioxide 25.0 mEq/L (21.0-31.0) 10/04/17 06:30 Anion Gap 6.7 (7.0-16.0) L 10/04/17 06:30 BUN 26 mg/dL (7-25) H 10/04/17 06:30 Creatinine 1.0 mg/dL (0.6-1.2) 10/04/17 06:30 Est GFR ( Amer) TNP 10/04/17 06:30 Est GFR (Non-Af Amer) TNP 10/04/17 06:30 BUN/Creatinine Ratio 26.0 10/04/17 06:30 Glucose 204 mg/dL (70-105) H 10/04/17 06:30 POC Glucose 219 MG/DL (70 - 105) H 10/04/17 06:07 Whole Bld Lactic Acid 1.03 mmol/L (0.60-1.99) 09/29/17 23:00 Calcium 9.0 mg/dL (8.6-10.3) 10/04/17 06:30 Magnesium 2.1 mg/dL (1.9-2.7) 09/29/17 23:00 Total Bilirubin 0.6 mg/dL (0.3-1.0) 10/01/17 04:15 AST 26 U/L (13-39) 10/01/17 04:15 ALT 17 U/L (7-52) 10/01/17 04:15 Alkaline Phosphatase 114 U/L (34-104) H 10/01/17 04:15 Total Protein 7.3 gm/dL (6.0-8.3) 10/01/17 04:15 Albumin 3.2 gm/dL (3.7-5.3) L 10/01/17 04:15 Globulin 4.1 gm/dL 10/01/17 04:15 Albumin/Globulin Ratio 0.8 (1.0-1.8) L 10/01/17 04:15 Urine Source CATH 10/02/17 15:37 Urine Color YELLOW 10/02/17 15:37 Urine Clarity CLEAR (CLEAR) 10/02/17 15:37 Urine pH 7.5 (4.6 - 8.0) 10/02/17 15:37 Ur Specific [place] 1.010 (1.005-1.030) 10/02/17 15:37 Urine Protein NEGATIVE mg/dL (NEGATIVE) 10/02/17 15:37 Urine Glucose (UA) NEGATIVE mg/dL (NEGATIVE) 10/02/17 15:37 Urine Clinitest Cancelled 09/29/17 18:19 Urine Ketones NEGATIVE mg/dL (NEGATIVE) 10/02/17 15:37 Urine Blood MODERATE (NEGATIVE) H 10/02/17 15:37 Urine Nitrate NEGATIVE (NEGATIVE) 10/02/17 15:37 Urine Bilirubin NEGATIVE (NEGATIVE) 10/02/17 15:37 Urine Ictotest Cancelled 09/29/17 18:19 Urine Urobilinogen 0.2 E.U./dL (0.2 - 1.0) 10/02/17 15:37 Ur Leukocyte Esterase SMALL (NEGATIVE) H 10/02/17 15:37 Ur Micro Indicated Cancelled 09/29/17 18:19 Urine RBC 10-25 /hpf (0-5) H 10/02/17 15:37 Urine WBC 2-5 /hpf (0-5) 10/02/17 15:37 Ur Epithelial Cells OCCASIONAL /lpf (FEW) 10/02/17 15:37 Calcium Oxalate Crystal Cancelled 09/29/17 18:19 Uric Acid Crystals Cancelled 09/29/17 18:19 Triple Phos Crystals Cancelled 09/29/17 18:19 Other Crystals Cancelled 09/29/17 18:19 Amorphous Sediment Cancelled 09/29/17 18:19 Urine Bacteria OCCASIONAL /hpf (NONE SEEN) 10/02/17 15:37 Hyaline Casts Cancelled 09/29/17 18:19 Fine Granular Casts Cancelled 09/29/17 18:19 Coarse Granular Casts Cancelled 09/29/17 18:19 Waxy Casts Cancelled 09/29/17 18:19 RBC Casts Cancelled 09/29/17 18:19 WBC Casts Cancelled 09/29/17 18:19 Other Casts Cancelled 09/29/17 18:19 Urine Mucus Cancelled 09/29/17 18:19 Urine Other Cancelled 09/29/17 18:19 Urine Trichomonas Cancelled 09/29/17 18:19 Urine Yeast Cancelled 09/29/17 18:19 Urine Sperm Cancelled 09/29/17 18:19 Ur Oval Fat Bodies Cancelled 09/29/17 18:19 Vancomycin Trough 19.0 ug/mL (5-10) H 10/04/17 09:05 - Physical Exam Vitals and I&O: Vital Signs Temp 97.8 F 10/04/17 04:00 Pulse 73 10/04/17 04:00 Resp 18 10/04/17 04:00 BP 142/80 10/04/17 04:00 Pulse Ox 97 10/04/17 04:00 Intake & Output 10/03/17 10/04/17 10/04/17 18:59 06:59 18:59 Intake Total 529 1356 Balance 529 1356 Weight (lbs) 80.785 kg 84.453 kg Intake: Intake, IV Amount 529 676 D5-0.45NS 1,000 ml @ 60 529 376 mls/hr IV .[id number] [facility] Rx #:[id number] Vancomycin HCl 1 gm In 250 Sodium Chloride 0.9% 250 ml @ 165 mls/hr IV Q24H [facility] Rx#:[id number] Oral 0 Tube Feeding 560 Other 120 Other: # Voids 3 3 # Bowel Movements 1 2 Weight Source Bedscale Bedscale Active Medications: Current Medications Acetaminophen (Tylenol) 650 mg PO Q4HR PRN PRN Reason: Pain Or Fever above 101 Stop: 11/29/17 01:56 Last Admin: 10/01/17 21:57 Dose: 650 mg Albuterol Sulfate (Albuterol 2.5mg/3ml Neb Ud) 2.5 mg IH Q2HR PRN PRN Reason: Shortness of Breath or Wheeze Stop: 11/29/17 01:56 Bisacodyl (Dulcolax 10 Mg Supp) 10 mg RC DAILY PRN PRN Reason: Constipation Stop: 11/29/17 01:56 [place] Oil/[place] Balsam/Trypsin (Venelex) 1 appl TP DAILY [facility] Stop: 12/03/17 08:59 Last Admin: 10/04/17 10:13 Dose: 1 appl Docusate Sodium (Colace) 100 mg PO DAILY [facility] Stop: 11/29/17 08:59 Last Admin: 10/04/17 08:09 Dose: 100 mg Ferrous Sulfate (Iron) 450 mg GT DAILY [facility] Stop: 11/29/17 08:59 Last Admin: 10/04/17 08:09 Dose: 450 mg Dextrose/Sodium Chloride (D5-0.45ns) 1,000 mls @ 60 mls/hr IV .[id number] [facility] Stop: 11/29/17 01:56 Last Infusion: 10/03/17 19:07 Dose: 60 mls/hr Vancomycin HCl 1 gm/ Sodium (Chloride) 250 mls @ 165 mls/hr IV Q24H [facility] Stop: 11/29/17 09:59 Last Infusion: 10/03/17 19:08 Dose: Infused Insulin Aspart (Novolog Insulin Sliding Scale) 0 units SUBQ ACHS TINA PRN Reason: Protocol Stop: 11/29/17 07:29 Last Admin: 10/04/17 06:55 Dose: 5 units Insulin Detemir (Levemir Insulin) 14 units SUBQ HS TINA PRN Reason: Protocol Stop: 12/02/17 01:19 Last Admin: 10/03/17 22:47 Dose: 14 units Ipratropium [place] (Atrovent Neb 0.5mg/2.5ml) 0.5 mg IH Q2HR PRN PRN Reason: Shortness of Breath or Wheeze Stop: 11/29/17 01:56 Lactobacillus Rhamnosus (Culturelle 15b) 1 each PO DAILY [facility] Stop: 11/29/17 08:59 Last Admin: 10/04/17 08:09 Dose: 1 each Levothyroxine Sodium (Synthroid) 0.125 mg GT 1030 [facility] Stop: 11/29/17 10:29 Last Admin: 10/04/17 10:13 Dose: 0.125 mg Magnesium Hydroxide (Milk Of Magnesia) 30 ml GT DAILY PRN PRN Reason: Constipation Stop: 11/29/17 01:56 Miscellaneous (Vancomycin Iv Per Pharmacy) 1 ea MC PRN [facility]INA Stop: 11/29/17 01:56 Miscellaneous (Probiotic Screen) 1 ea MC PRN PRN PRN Reason: PROTOCOL Stop: 11/29/17 08:58 Mupirocin (Bactroban Oint) 1 appl NS BID [facility] Stop: 10/06/17 09:01 Last Admin: 10/04/17 08:10 Dose: 1 appl Ondansetron HCl (Zofran) 4 mg IV Q8H PRN PRN Reason: Nausea / Vomiting Stop: 11/29/17 01:56 Pantoprazole Sodium (Protonix) 20 mg IVP DAILY [facility] Stop: 11/29/17 08:59 Last Admin: 10/04/17 08:09 Dose: 20 mg Sitagliptin Phosphate (Januvia) 50 mg GT DAILY [facility] Stop: 11/29/17 08:59 Last Admin: 10/04/17 08:09 Dose: 50 mg General: Alert HEENT: Atraumatic Neck: Supple Cardiovascular: Regular rate Lungs: Clear to auscultation Skin: Other (right breast dressing dry) - Procedures Procedures: Procedures Procedure Code Date BIOPSY OF BREAST OPEN 64915 09/30/17 CHANGE FEEDING DEVICE IN UP INTEST TRACT, DIE GRINDER APPROACH [id number] 04/26/17 CHANGE GASTROSTOMY TUBE 02158 04/26/17 DRAINAGE OF CHEST SUBCU/FASCIA, OPEN APPROACH [id number] 09/30/17 DRAINAGE OF SKIN ABSCESS 98156 09/30/[address] GASTROSTOMY TUBE 73058 12/31/15 EXCISION OF RIGHT BREAST, OPEN APPROACH, DIAGNOSTIC [id number] 09/30/17 INSERTION OF FEEDING DEVICE INTO STOMACH, PERC APPROACH [id number] 12/31/15 TRANSFUSE NONAUT RED BLOOD CELLS IN PERIPH VEIN, PERC 95532Y7 12/31/15 Nutritional Asmnt/Malnutr-PDOC - Dietary Evaluation Malnutrition Findings (Please click <Entered> for more info): Nutritional Asmnt/Malnutrition Start: 09/30/17 16: 02 Text: Status: Complete Freq: Document 09/30/17 16:02 MARIBELL (Rec: 09/30/17 16:21 MARIBELL INOCENTE-[email or web address]) Nutritional Asmnt/Malnutrition Patient General Information Nutritional Screening High Risk Consult Diagnosis right breast abscess Pertinent Medical Hx/Surgical Hx HTN, CAD, hypothyroidism, CHF, dyslipidemia, arthritis, dementia, depression, ASHD, contractures, pacemaker, PEG Subjective Information Consult received for TF and diabetic. Pt is Citizen Of [place] speaking note. No diet order at this time. Per nurse note, pt was getting TF Glucerna 1.2 at 65ml/hr x 20hr at care facility. Current Diet Order/ Nutrition Support no diet order Pertinent Medications D5-0.45ns, colace, iron, novolog, levemir, culturelle, synthroid, protonix, piperacillin, kcl, vancomycin Pertinent Labs 4/2 Na 133, BUN 39, glucose 158 4/3 POC 155-194 Nutritional Hx/Data Height 1.57 m Height (Calculated Centimeters) 157.5 Current Weight (lbs) 81.647 kg Weight (Calculated Kilograms) 81.6 Weight (Calculated Grams) 74154.6 [place] Body Weight 110 Body Mass Index (BMI) 32.9 Weight Status Obese GI Symptoms GI Symptoms None Last BM 0 Difficult in: None Usual diet at home Glucerna 1.2 at 65ml/hr x 20hr Skin Integrity/Comment: ulceration to right breast abscess Current %PO Negligible < 25% Estimated Nutritional Goals BEE in Kcals: Adj wt of IBW Calories/Kcals/Kg 25-30 adj wt 58kg Kcals Calculated 8608-5807 Protein: Adj wt of IBW Protein g/k.1-1.3 Protein Calculated 64-75 Fluid: ml 1450-1740ml (1ml/kcal) Nutritional Problem 1. Problem Problem altered nutritioni related labs Etiology hx of DM Signs/Symptoms: glucose 158, POC 155-194 Malnutrition Alert Protein-Calorie Malnutrition N/A Is there a minimum of two criteria No selected? Query Text:Check all the applicable criteria. A minimum of two criteria are recommended for diagnosis of either severe or non-severe malnutrition. Intervention/Recommendation Comments 1. Recommend Diabetisource AC at 60ml/hr x 20ml. It provides 1440kcal, 72g protein, 981ml free water, meeting 100% of nutritional needs 2. Monitor TF rate, tolerance, wt weekly, skin integrity and labs 3. F/U as high risk in 2-3 days, 5-6 Expected Outcomes/Goals Expected Outcomes/Goals 1. Pt to meet at least 75% of nutritional needs via nutrition support with tolerance 2. Wt stability, skin to remain intact, labs to approach WNL.
--- NOTE | 2017-10-04 12:54 | General Progress Note ---
Subjective - Review of Systems Service Date: 10/04/17 Subjective: non communicative Objective - Results Result Diagrams: 10/04/17 06:30 10/04/17 06:30 Recent Labs: Laboratory Last Values WBC 9.2 Th/cmm (4.8-10.8) 10/04/17 06:30 RBC 3.37 Mil/cmm (3.80-5.20) L 10/04/17 06:30 Hgb 10.4 gm/dL (12-16) L 10/04/17 06:30 Hct 30.1 % (41.0-60) L 10/04/17 06:30 MCV 89.4 fl (81-100) 10/04/17 06:30 MCH 30.7 pg (27.0-31.0) 10/04/17 06:30 MCHC Differential 34.4 pg (28.0-36.0) 10/04/17 06:30 RDW 13.1 % (11.5-20.0) 10/04/17 06:30 Plt Count 174 Th/cmm (150-400) 10/04/17 06:30 MPV 9.0 fl 10/04/17 06:30 Neutrophils % 72.9 % (40.0-80.0) 10/04/17 06:30 Lymphocytes % 16.0 % (20.0-50.0) L 10/04/17 06:30 Monocytes % 7.1 % (2.0-10.0) 10/04/17 06:30 Eosinophils % 3.1 % (0.0-5.0) 10/04/17 06:30 Basophils % 0.9 % (0.0-2.0) 10/04/17 06:30 PT 10.7 SECONDS (9.5-11.5) 10/01/17 04:15 INR 1.03 (0.5-1.4) 10/01/17 04:15 PTT (Actin FS) 25.6 SECONDS (26.0-38.0) L 10/01/17 04:15 Sodium 135 mEq/L (136-145) L 10/04/17 06:30 Potassium 3.7 mEq/L (3.5-5.1) 10/04/17 06:30 Chloride 107 mEq/L (98-107) 10/04/17 06:30 Carbon Dioxide 25.0 mEq/L (21.0-31.0) 10/04/17 06:30 Anion Gap 6.7 (7.0-16.0) L 10/04/17 06:30 BUN 26 mg/dL (7-25) H 10/04/17 06:30 Creatinine 1.0 mg/dL (0.6-1.2) 10/04/17 06:30 Est GFR ( Amer) TNP 10/04/17 06:30 Est GFR (Non-Af Amer) TNP 10/04/17 06:30 BUN/Creatinine Ratio 26.0 10/04/17 06:30 Glucose 204 mg/dL (70-105) H 10/04/17 06:30 POC Glucose 99 MG/DL (70 - 105) 10/04/17 12:04 Whole Bld Lactic Acid 1.03 mmol/L (0.60-1.99) 09/29/17 23:00 Calcium 9.0 mg/dL (8.6-10.3) 10/04/17 06:30 Magnesium 2.1 mg/dL (1.9-2.7) 09/29/17 23:00 Total Bilirubin 0.6 mg/dL (0.3-1.0) 10/01/17 04:15 AST 26 U/L (13-39) 10/01/17 04:15 ALT 17 U/L (7-52) 10/01/17 04:15 Alkaline Phosphatase 114 U/L (34-104) H 10/01/17 04:15 Total Protein 7.3 gm/dL (6.0-8.3) 10/01/17 04:15 Albumin 3.2 gm/dL (3.7-5.3) L 10/01/17 04:15 Globulin 4.1 gm/dL 10/01/17 04:15 Albumin/Globulin Ratio 0.8 (1.0-1.8) L 10/01/17 04:15 Urine Source CATH 10/02/17 15:37 Urine Color YELLOW 10/02/17 15:37 Urine Clarity CLEAR (CLEAR) 10/02/17 15:37 Urine pH 7.5 (4.6 - 8.0) 10/02/17 15:37 Ur Specific [place] 1.010 (1.005-1.030) 10/02/17 15:37 Urine Protein NEGATIVE mg/dL (NEGATIVE) 10/02/17 15:37 Urine Glucose (UA) NEGATIVE mg/dL (NEGATIVE) 10/02/17 15:37 Urine Clinitest Cancelled 09/29/17 18:19 Urine Ketones NEGATIVE mg/dL (NEGATIVE) 10/02/17 15:37 Urine Blood MODERATE (NEGATIVE) H 10/02/17 15:37 Urine Nitrate NEGATIVE (NEGATIVE) 10/02/17 15:37 Urine Bilirubin NEGATIVE (NEGATIVE) 10/02/17 15:37 Urine Ictotest Cancelled 09/29/17 18:19 Urine Urobilinogen 0.2 E.U./dL (0.2 - 1.0) 10/02/17 15:37 Ur Leukocyte Esterase SMALL (NEGATIVE) H 10/02/17 15:37 Ur Micro Indicated Cancelled 09/29/17 18:19 Urine RBC 10-25 /hpf (0-5) H 10/02/17 15:37 Urine WBC 2-5 /hpf (0-5) 10/02/17 15:37 Ur Epithelial Cells OCCASIONAL /lpf (FEW) 10/02/17 15:37 Calcium Oxalate Crystal Cancelled 09/29/17 18:19 Uric Acid Crystals Cancelled 09/29/17 18:19 Triple Phos Crystals Cancelled 09/29/17 18:19 Other Crystals Cancelled 09/29/17 18:19 Amorphous Sediment Cancelled 09/29/17 18:19 Urine Bacteria OCCASIONAL /hpf (NONE SEEN) 10/02/17 15:37 Hyaline Casts Cancelled 09/29/17 18:19 Fine Granular Casts Cancelled 09/29/17 18:19 Coarse Granular Casts Cancelled 09/29/17 18:19 Waxy Casts Cancelled 09/29/17 18:19 RBC Casts Cancelled 09/29/17 18:19 WBC Casts Cancelled 09/29/17 18:19 Other Casts Cancelled 09/29/17 18:19 Urine Mucus Cancelled 09/29/17 18:19 Urine Other Cancelled 09/29/17 18:19 Urine Trichomonas Cancelled 09/29/17 18:19 Urine Yeast Cancelled 09/29/17 18:19 Urine Sperm Cancelled 09/29/17 18:19 Ur Oval Fat Bodies Cancelled 09/29/17 18:19 Vancomycin Trough 19.0 ug/mL (5-10) H 10/04/17 09:05 - Physical Exam Vitals and I&O: Vital Signs Temp 97.8 F 10/04/17 04:00 Pulse 73 10/04/17 04:00 Resp 17 10/04/17 08:00 BP 142/80 10/04/17 04:00 Pulse Ox 97 10/04/17 04:00 Intake & Output 10/03/17 10/04/17 10/04/17 18:59 06:59 18:59 Intake Total 529 1356 Balance 529 1356 Weight (lbs) 80.785 kg 84.453 kg Intake: Intake, IV Amount 529 676 D5-0.45NS 1,000 ml @ 60 529 376 mls/hr IV .[id number] [facility] Rx #:[id number] Vancomycin HCl 1 gm In 250 Sodium Chloride 0.9% 250 ml @ 165 mls/hr IV Q24H [facility] Rx#:[id number] Oral 0 Tube Feeding 560 Other 120 Other: # Voids 3 3 # Bowel Movements 1 2 Stool Characteristics Soft Brown Weight Source Bedscale Bedscale Active Medications: Current Medications Acetaminophen (Tylenol) 650 mg PO Q4HR PRN PRN Reason: Pain Or Fever above 101 Stop: 11/29/17 01:56 Last Admin: 10/01/17 21:57 Dose: 650 mg Albuterol Sulfate (Albuterol 2.5mg/3ml Neb Ud) 2.5 mg IH Q2HR PRN PRN Reason: Shortness of Breath or Wheeze Stop: 11/29/17 01:56 Bisacodyl (Dulcolax 10 Mg Supp) 10 mg RC DAILY PRN PRN Reason: Constipation Stop: 11/29/17 01:56 [place] Oil/[place] Balsam/Trypsin (Venelex) 1 appl TP DAILY [facility] Stop: 12/03/17 08:59 Last Admin: 10/04/17 10:13 Dose: 1 appl Docusate Sodium (Colace) 100 mg PO DAILY [facility] Stop: 11/29/17 08:59 Last Admin: 10/04/17 08:09 Dose: 100 mg Ferrous Sulfate (Iron) 450 mg GT DAILY [facility] Stop: 11/29/17 08:59 Last Admin: 10/04/17 08:09 Dose: 450 mg Dextrose/Sodium Chloride (D5-0.45ns) 1,000 mls @ 60 mls/hr IV .[id number] [facility] Stop: 11/29/17 01:56 Last Infusion: 10/03/17 19:07 Dose: 60 mls/hr Vancomycin HCl 1 gm/ Sodium (Chloride) 250 mls @ 165 mls/hr IV Q24H [facility] Stop: 11/29/17 09:59 Last Admin: 10/04/17 12:18 Dose: 165 mls/hr Insulin Aspart (Novolog Insulin Sliding Scale) 0 units SUBQ ACHS [facility]INA PRN Reason: Protocol Stop: 11/29/17 07:29 Last Admin: 10/04/17 12:25 Dose: Not Given Insulin Detemir (Levemir Insulin) 14 units SUBQ HS TINA PRN Reason: Protocol Stop: 12/02/17 01:19 Last Admin: 10/03/17 22:47 Dose: 14 units Ipratropium [place] (Atrovent Neb 0.5mg/2.5ml) 0.5 mg IH Q2HR PRN PRN Reason: Shortness of Breath or Wheeze Stop: 11/29/17 01:56 Lactobacillus Rhamnosus (Culturelle 15b) 1 each PO DAILY [facility] Stop: 11/29/17 08:59 Last Admin: 10/04/17 08:09 Dose: 1 each Levothyroxine Sodium (Synthroid) 0.125 mg GT 1030 [facility] Stop: 11/29/17 10:29 Last Admin: 10/04/17 10:13 Dose: 0.125 mg Magnesium Hydroxide (Milk Of Magnesia) 30 ml GT DAILY PRN PRN Reason: Constipation Stop: 11/29/17 01:56 Miscellaneous (Vancomycin Iv Per Pharmacy) 1 ea MC PRN TINA Stop: 11/29/17 01:56 Miscellaneous (Probiotic Screen) 1 ea MC PRN PRN PRN Reason: PROTOCOL Stop: 11/29/17 08:58 Mupirocin (Bactroban Oint) 1 appl NS BID [facility] Stop: 10/06/17 09:01 Last Admin: 10/04/17 08:10 Dose: 1 appl Ondansetron HCl (Zofran) 4 mg IV Q8H PRN PRN Reason: Nausea / Vomiting Stop: 11/29/17 01:56 Pantoprazole Sodium (Protonix) 20 mg IVP DAILY [facility] Stop: 11/29/17 08:59 Last Admin: 10/04/17 08:09 Dose: 20 mg Sitagliptin Phosphate (Januvia) 50 mg GT DAILY [facility] Stop: 11/29/17 08:59 Last Admin: 10/04/17 08:09 Dose: 50 mg General: Alert HEENT: Atraumatic Neck: Supple Cardiovascular: Regular rate Lungs: Clear to auscultation Skin: Other (right breast dressing dry) - Procedures Procedures: Procedures Procedure Code Date BIOPSY OF BREAST OPEN 51579 09/30/17 CHANGE FEEDING DEVICE IN UP INTEST TRACT, VINYL CUTTER APPROACH [id number] 04/26/17 CHANGE GASTROSTOMY TUBE 78075 04/26/17 DRAINAGE OF CHEST SUBCU/FASCIA, OPEN APPROACH [id number] 09/30/17 DRAINAGE OF SKIN ABSCESS 20534 09/30/[address] GASTROSTOMY TUBE 12033 12/31/15 EXCISION OF RIGHT BREAST, OPEN APPROACH, DIAGNOSTIC [id number] 09/30/17 INSERTION OF FEEDING DEVICE INTO STOMACH, PERC APPROACH [id number] 12/31/15 TRANSFUSE NONAUT RED BLOOD CELLS IN PERIPH VEIN, PERC 43475D7 12/31/15 Assessment/Plan - Assessment Assessment: * Right breast abcess s/p I&D with excision biopsy follow biopsy pathology Nutritional Asmnt/Malnutr-PDOC - Dietary Evaluation Malnutrition Findings (Please click <Entered> for more info): Nutritional Asmnt/Malnutrition Start: 09/30/17 16: 02 Text: Status: Complete Freq: Document 09/30/17 16:02 EDUARD (Rec: 09/30/17 16:21 [email or web address] Nutritional Asmnt/Malnutrition Patient General Information Nutritional Screening High Risk Consult Diagnosis right breast abscess Pertinent Medical Hx/Surgical Hx HTN, CAD, hypothyroidism, CHF, dyslipidemia, arthritis, dementia, depression, ASHD, contractures, pacemaker, PEG Subjective Information Consult received for TF and diabetic. Pt is [place] speaking note. No diet order at this time. Per nurse note, pt was getting TF Glucerna 1.2 at 65ml/hr x 20hr at care facility. Current Diet Order/ Nutrition Support no diet order Pertinent Medications D5-0.45ns, colace, iron, novolog, levemir, culturelle, synthroid, protonix, piperacillin, kcl, vancomycin Pertinent Labs 4/2 Na 133, BUN 39, glucose 158 4/3 POC 155-194 Nutritional Hx/Data Height 1.57 m Height (Calculated Centimeters) 157.5 Current Weight (lbs) 81.647 kg Weight (Calculated Kilograms) 81.6 Weight (Calculated Grams) 96549.6 [place] Body Weight 110 Body Mass Index (BMI) 32.9 Weight Status Obese GI Symptoms GI Symptoms None Last BM 0 Difficult in: None Usual diet at home Glucerna 1.2 at 65ml/hr x 20hr Skin Integrity/Comment: ulceration to right breast abscess Current %PO Negligible < 25% Estimated Nutritional Goals BEE in Kcals: Adj wt of IBW Calories/Kcals/Kg 25-30 adj wt 58kg Kcals Calculated 0778-7220 Protein: Adj wt of IBW Protein g/k.1-1.3 Protein Calculated 64-75 Fluid: ml 1450-1740ml (1ml/kcal) Nutritional Problem 1. Problem Problem altered nutritioni related labs Etiology hx of DM Signs/Symptoms: glucose 158, POC 155-194 Malnutrition Alert Protein-Calorie Malnutrition N/A Is there a minimum of two criteria No selected? Query Text:Check all the applicable criteria. A minimum of two criteria are recommended for diagnosis of either severe or non-severe malnutrition. Intervention/Recommendation Comments 1. Recommend Diabetisource AC at 60ml/hr x 20ml. It provides 1440kcal, 72g protein, 981ml free water, meeting 100% of nutritional needs 2. Monitor TF rate, tolerance, wt weekly, skin integrity and labs 3. F/U as high risk in 2-3 days, 5-/6 Expected Outcomes/Goals Expected Outcomes/Goals 1. Pt to meet at least 75% of nutritional needs via nutrition support with tolerance 2. Wt stability, skin to remain intact, labs to approach WNL.
--- NOTE | 2017-10-04 13:27 | Internal Medicine Prog Note ---
Internal Medicine Subjective - Subjective Service Date: 10/04/17 Patient seen and examined:: with staff Patient is:: awake, non-verbal Per staff patient has:: tolerating meds Internal Medicine Objective - Results Result Diagrams: 10/04/17 06:30 10/04/17 06:30 Recent Labs: Laboratory Last Values WBC 9.2 Th/cmm (4.8-10.8) 10/04/17 06:30 RBC 3.37 Mil/cmm (3.80-5.20) L 10/04/17 06:30 Hgb 10.4 gm/dL (12-16) L 10/04/17 06:30 Hct 30.1 % (41.0-60) L 10/04/17 06:30 MCV 89.4 fl (81-100) 10/04/17 06:30 MCH 30.7 pg (27.0-31.0) 10/04/17 06:30 MCHC Differential 34.4 pg (28.0-36.0) 10/04/17 06:30 RDW 13.1 % (11.5-20.0) 10/04/17 06:30 Plt Count 174 Th/cmm (150-400) 10/04/17 06:30 MPV 9.0 fl 10/04/17 06:30 Neutrophils % 72.9 % (40.0-80.0) 10/04/17 06:30 Lymphocytes % 16.0 % (20.0-50.0) L 10/04/17 06:30 Monocytes % 7.1 % (2.0-10.0) 10/04/17 06:30 Eosinophils % 3.1 % (0.0-5.0) 10/04/17 06:30 Basophils % 0.9 % (0.0-2.0) 10/04/17 06:30 PT 10.7 SECONDS (9.5-11.5) 10/01/17 04:15 INR 1.03 (0.5-1.4) 10/01/17 04:15 PTT (Actin FS) 25.6 SECONDS (26.0-38.0) L 10/01/17 04:15 Sodium 135 mEq/L (136-145) L 10/04/17 06:30 Potassium 3.7 mEq/L (3.5-5.1) 10/04/17 06:30 Chloride 107 mEq/L (98-107) 10/04/17 06:30 Carbon Dioxide 25.0 mEq/L (21.0-31.0) 10/04/17 06:30 Anion Gap 6.7 (7.0-16.0) L 10/04/17 06:30 BUN 26 mg/dL (7-25) H 10/04/17 06:30 Creatinine 1.0 mg/dL (0.6-1.2) 10/04/17 06:30 Est GFR ( Amer) TNP 10/04/17 06:30 Est GFR (Non-Af Amer) TNP 10/04/17 06:30 BUN/Creatinine Ratio 26.0 10/04/17 06:30 Glucose 204 mg/dL (70-105) H 10/04/17 06:30 POC Glucose 99 MG/DL (70 - 105) 10/04/17 12:04 Whole Bld Lactic Acid 1.03 mmol/L (0.60-1.99) 09/29/17 23:00 Calcium 9.0 mg/dL (8.6-10.3) 10/04/17 06:30 Magnesium 2.1 mg/dL (1.9-2.7) 09/29/17 23:00 Total Bilirubin 0.6 mg/dL (0.3-1.0) 10/01/17 04:15 AST 26 U/L (13-39) 10/01/17 04:15 ALT 17 U/L (7-52) 10/01/17 04:15 Alkaline Phosphatase 114 U/L (34-104) H 10/01/17 04:15 Total Protein 7.3 gm/dL (6.0-8.3) 10/01/17 04:15 Albumin 3.2 gm/dL (3.7-5.3) L 10/01/17 04:15 Globulin 4.1 gm/dL 10/01/17 04:15 Albumin/Globulin Ratio 0.8 (1.0-1.8) L 10/01/17 04:15 Urine Source CATH 10/02/17 15:37 Urine Color YELLOW 10/02/17 15:37 Urine Clarity CLEAR (CLEAR) 10/02/17 15:37 Urine pH 7.5 (4.6 - 8.0) 10/02/17 15:37 Ur Specific [place] 1.010 (1.005-1.030) 10/02/17 15:37 Urine Protein NEGATIVE mg/dL (NEGATIVE) 10/02/17 15:37 Urine Glucose (UA) NEGATIVE mg/dL (NEGATIVE) 10/02/17 15:37 Urine Clinitest Cancelled 09/29/17 18:19 Urine Ketones NEGATIVE mg/dL (NEGATIVE) 10/02/17 15:37 Urine Blood MODERATE (NEGATIVE) H 10/02/17 15:37 Urine Nitrate NEGATIVE (NEGATIVE) 10/02/17 15:37 Urine Bilirubin NEGATIVE (NEGATIVE) 10/02/17 15:37 Urine Ictotest Cancelled 09/29/17 18:19 Urine Urobilinogen 0.2 E.U./dL (0.2 - 1.0) 10/02/17 15:37 Ur Leukocyte Esterase SMALL (NEGATIVE) H 10/02/17 15:37 Ur Micro Indicated Cancelled 09/29/17 18:19 Urine RBC 10-25 /hpf (0-5) H 10/02/17 15:37 Urine WBC 2-5 /hpf (0-5) 10/02/17 15:37 Ur Epithelial Cells OCCASIONAL /lpf (FEW) 10/02/17 15:37 Calcium Oxalate Crystal Cancelled 09/29/17 18:19 Uric Acid Crystals Cancelled 09/29/17 18:19 Triple Phos Crystals Cancelled 09/29/17 18:19 Other Crystals Cancelled 09/29/17 18:19 Amorphous Sediment Cancelled 09/29/17 18:19 Urine Bacteria OCCASIONAL /hpf (NONE SEEN) 10/02/17 15:37 Hyaline Casts Cancelled 09/29/17 18:19 Fine Granular Casts Cancelled 09/29/17 18:19 Coarse Granular Casts Cancelled 09/29/17 18:19 Waxy Casts Cancelled 09/29/17 18:19 RBC Casts Cancelled 09/29/17 18:19 WBC Casts Cancelled 09/29/17 18:19 Other Casts Cancelled 09/29/17 18:19 Urine Mucus Cancelled 09/29/17 18:19 Urine Other Cancelled 09/29/17 18:19 Urine Trichomonas Cancelled 09/29/17 18:19 Urine Yeast Cancelled 09/29/17 18:19 Urine Sperm Cancelled 09/29/17 18:19 Ur Oval Fat Bodies Cancelled 09/29/17 18:19 Vancomycin Trough 19.0 ug/mL (5-10) H 10/04/17 09:05 - Physical Exam Vitals and I&O: Vital Signs Temp 97.8 F 10/04/17 04:00 Pulse 73 10/04/17 04:00 Resp 17 10/04/17 08:00 BP 142/80 10/04/17 04:00 Pulse Ox 97 10/04/17 04:00 Intake & Output 10/03/17 10/04/17 10/04/17 18:59 06:59 18:59 Intake Total 529 1356 Balance 529 1356 Weight (lbs) 178 lb 1.6 oz 186 lb 3 oz Intake: Intake, IV Amount 529 676 D5-0.45NS 1,000 ml @ 60 529 376 mls/hr IV .[id number] [facility] Rx #:[id number] Vancomycin HCl 1 gm In 250 Sodium Chloride 0.9% 250 ml @ 165 mls/hr IV Q24H [facility] Rx#:[id number] Oral 0 Tube Feeding 560 Other 120 Other: # Voids 3 3 # Bowel Movements 1 2 Stool Characteristics Soft Brown Weight Source Bedscale Bedscale Active Medications: Current Medications Acetaminophen (Tylenol) 650 mg PO Q4HR PRN PRN Reason: Pain Or Fever above 101 Stop: 11/29/17 01:56 Last Admin: 10/01/17 21:57 Dose: 650 mg Albuterol Sulfate (Albuterol 2.5mg/3ml Neb Ud) 2.5 mg IH Q2HR PRN PRN Reason: Shortness of Breath or Wheeze Stop: 11/29/17 01:56 Bisacodyl (Dulcolax 10 Mg Supp) 10 mg RC DAILY PRN PRN Reason: Constipation Stop: 11/29/17 01:56 [place] Oil/[place] Balsam/Trypsin (Venelex) 1 appl TP DAILY [facility] Stop: 12/03/17 08:59 Last Admin: 10/04/17 10:13 Dose: 1 appl Docusate Sodium (Colace) 100 mg PO DAILY [facility] Stop: 11/29/17 08:59 Last Admin: 10/04/17 08:09 Dose: 100 mg Ferrous Sulfate (Iron) 450 mg GT DAILY TINA Stop: 11/29/17 08:59 Last Admin: 10/04/17 08:09 Dose: 450 mg Dextrose/Sodium Chloride (D5-0.45ns) 1,000 mls @ 60 mls/hr IV .[id number] TINA Stop: 11/29/17 01:56 Last Infusion: 10/03/17 19:07 Dose: 60 mls/hr Vancomycin HCl 1 gm/ Sodium (Chloride) 250 mls @ 165 mls/hr IV Q24H TINA Stop: 11/29/17 09:59 Last Admin: 10/04/17 12:18 Dose: 165 mls/hr Insulin Aspart (Novolog Insulin Sliding Scale) 0 units SUBQ ACHS TINA PRN Reason: Protocol Stop: 11/29/17 07:29 Last Admin: 10/04/17 12:25 Dose: Not Given Insulin Detemir (Levemir Insulin) 14 units SUBQ HS TINA PRN Reason: Protocol Stop: 12/02/17 01:19 Last Admin: 10/03/17 22:47 Dose: 14 units Ipratropium [place] (Atrovent Neb 0.5mg/2.5ml) 0.5 mg IH Q2HR PRN PRN Reason: Shortness of Breath or Wheeze Stop: 11/29/17 01:56 Lactobacillus Rhamnosus (Culturelle 15b) 1 each PO DAILY TINA Stop: 11/29/17 08:59 Last Admin: 10/04/17 08:09 Dose: 1 each Levothyroxine Sodium (Synthroid) 0.125 mg GT 1030 TINA Stop: 11/29/17 10:29 Last Admin: 10/04/17 10:13 Dose: 0.125 mg Magnesium Hydroxide (Milk Of Magnesia) 30 ml GT DAILY PRN PRN Reason: Constipation Stop: 11/29/17 01:56 Miscellaneous (Vancomycin Iv Per Pharmacy) 1 ea MC PRN TINA Stop: 11/29/17 01:56 Miscellaneous (Probiotic Screen) 1 ea MC PRN PRN PRN Reason: PROTOCOL Stop: 11/29/17 08:58 Mupirocin (Bactroban Oint) 1 appl NS BID TINA Stop: 10/06/17 09:01 Last Admin: 10/04/17 08:10 Dose: 1 appl Ondansetron HCl (Zofran) 4 mg IV Q8H PRN PRN Reason: Nausea / Vomiting Stop: 11/29/17 01:56 Pantoprazole Sodium (Protonix) 20 mg IVP DAILY [facility] Stop: 11/29/17 08:59 Last Admin: 10/04/17 08:09 Dose: 20 mg Sitagliptin Phosphate (Januvia) 50 mg GT DAILY TINA Stop: 11/29/17 08:59 Last Admin: 10/04/17 08:09 Dose: 50 mg General: weak, alert HEENT: NC/AT, PERRLA Neck: Supple, No JVD Lungs: CTAB Cardiovascular: RRR Abdomen: soft, non-tender, non-distended, positive bowel sound Neurological: alert - Procedures Procedures: Procedures Procedure Code Date BIOPSY OF BREAST OPEN 53942 09/30/17 CHANGE FEEDING DEVICE IN UP INTEST TRACT, OFFICE SYSTEMS TECHNOLOGY INSTRUCTOR APPROACH [id number] 04/26/17 CHANGE GASTROSTOMY TUBE 31466 04/26/17 DRAINAGE OF CHEST SUBCU/FASCIA, OPEN APPROACH [id number] 09/30/17 DRAINAGE OF SKIN ABSCESS 22226 09/30/[address] GASTROSTOMY TUBE 31272 12/31/15 EXCISION OF RIGHT BREAST, OPEN APPROACH, DIAGNOSTIC [id number] 09/30/17 INSERTION OF FEEDING DEVICE INTO STOMACH, PERC APPROACH [id number] 12/31/15 TRANSFUSE NONAUT RED BLOOD CELLS IN PERIPH VEIN, PERC 96814V3 12/31/15 Internal Medicine Assmt/Plan - Assessment Assessment: right breast abscess s/p i+d W/mrsa MRSA nares hyponatremia acute renal failure dm hypothyroidism cardiac pacemaker status gerd alzheimer - Plan Plan: await for bed available at [facility] continue with bactroban contact isolation continue ivabx cbc/bmp in am will follow solutions sales consultant recommendations continue current plan of care Nutritional Asmnt/Malnutr-PDOC - Dietary Evaluation Malnutrition Findings (Please click <Entered> for more info): Nutritional Asmnt/Malnutrition Start: 09/30/17 16: 02 Text: Status: Complete Freq: Document 09/30/17 16:02 MARIBELL (Rec: 09/30/17 16:21 MARIBELL [email or web address]) Nutritional Asmnt/Malnutrition Patient General Information Nutritional Screening High Risk Consult Diagnosis right breast abscess Pertinent Medical Hx/Surgical Hx HTN, CAD, hypothyroidism, CHF, dyslipidemia, arthritis, dementia, depression, ASHD, contractures, pacemaker, PEG Subjective Information Consult received for TF and diabetic. Pt is Mold[place] speaking note. No diet order at this time. Per nurse note, pt was getting TF Glucerna 1.2 at 65ml/hr x 20hr at care facility. Current Diet Order/ Nutrition Support no diet order Pertinent Medications D5-0.45ns, colace, iron, novolog, levemir, culturelle, synthroid, protonix, piperacillin, kcl, vancomycin Pertinent Labs 4/2 Na 133, BUN 39, glucose 158 4/3 POC 155-194 Nutritional Hx/Data Height 5 ft 2 in Height (Calculated Centimeters) 157.5 Current Weight (lbs) 180 lb Weight (Calculated Kilograms) 81.6 Weight (Calculated Grams) 53326.6 [place] Body Weight 110 Body Mass Index (BMI) 32.9 Weight Status Obese GI Symptoms GI Symptoms None Last BM 0 Difficult in: None Usual diet at home Glucerna 1.2 at 65ml/hr x 20hr Skin Integrity/Comment: ulceration to right breast abscess Current %PO Negligible < 25% Estimated Nutritional Goals BEE in Kcals: Adj wt of IBW Calories/Kcals/Kg 25-30 adj wt 58kg Kcals Calculated 2112-2389 Protein: Adj wt of IBW Protein g/k.1-1.3 Protein Calculated 64-75 Fluid: ml 1450-1740ml (1ml/kcal) Nutritional Problem 1. Problem Problem altered nutritioni related labs Etiology hx of DM Signs/Symptoms: glucose 158, POC 155-194 Malnutrition Alert Protein-Calorie Malnutrition N/A Is there a minimum of two criteria No selected? Query Text:Check all the applicable criteria. A minimum of two criteria are recommended for diagnosis of either severe or non-severe malnutrition. Intervention/Recommendation Comments 1. Recommend Diabetisource AC at 60ml/hr x 20ml. It provides 1440kcal, 72g protein, 981ml free water, meeting 100% of nutritional needs 2. Monitor TF rate, tolerance, wt weekly, skin integrity and labs 3. F/U as high risk in 2-3 days, 10/02-10/03 Expected Outcomes/Goals Expected Outcomes/Goals 1. Pt to meet at least 75% of nutritional needs via nutrition support with tolerance 2. Wt stability, skin to remain intact, labs to approach WNL.
[2017-10-04 15:45] LABS: A1C % 7.4 % (4.0-6.0)
[2017-10-04] MEDS: D5-0.45NS 1,000 ML IV SCH (16:28)
[2017-10-04] MEDS: Insulin Detemir 100 units/mL 10mL Vial SUBQ SCH (20:36)
[2017-10-05] MEDS: INSULIN ASPART SLIDING SCALE 100 UNITS/ML UNIT SUBQ SCH ×4 (06:40→21:17)
[2017-10-05 06:53] LABS: % EOSINOPHILS 2.5 % (0.0-5.0); % LYMPHOCYTES 16.9 % (20.0-50.0); % MONOCYTES 8.1 % (2.0-10.0); % NEUTROPHILS 71.5 % (40.0-80.0); BASOPHILE ABSOLUTE 0.1 Th/cumm (0-0.2); EOSINOPHILE ABSOLUTE 0.3 Th/cmm (0.1-0.4); HEMATOCRIT 32.3 % (41.0-60); HEMOGLOBIN 10.9 gm/dL (12-16); LYMPHOCYTE ABSOLUTE 1.8 Th/cmm (1.5-3.0); MEAN CELL VOLUME 89.6 fl (81-100); MEAN CORPUSCULAR HEMOGLOBIN 30.3 pg (27.0-31.0); MEAN CORPUSCULAR HGB CONC 33.8 pg (28.0-36.0); MEAN PLATELET VOLUME 8.7 fl; MONOCYTE ABSOLUTE 0.9 Th/cmm (0.3-1.0); NEUTROPHILE ABSOLUTE 7.6 Th/cmm (1.8-8.0); PLATELET COUNT 182 Th/cmm (150-400); RED BLOOD COUNT 3.61 Mil/cmm (3.80-5.20); WHITE BLOOD COUNT 10.7 Th/cmm (4.8-10.8)
[2017-10-05 07:37] LABS: ANION GAP 9.2 (7.0-16.0); BUN - UREA NITROGEN 22 mg/dL (7-25); CALCIUM SERUM 9.2 mg/dL (8.6-10.3); CARBON DIOXIDE 22.5 mEq/L (21.0-31.0); CHLORIDE 107 mEq/L (98-107); CREATININE - SERUM 0.9 mg/dL (0.6-1.2); GLUCOSE 201 mg/dL (70-105); POTASSIUM SERUM 3.7 mEq/L (3.5-5.1); SODIUM SERUM 135 mEq/L (136-145)
[2017-10-05] MEDS: Lactobacillus Rhamnosus GG 15 Billion CFU CAP.SPRINK PO SCH (10:08)
[2017-10-05] MEDS: Multivitamin w/ Minerals Tab GT SCH (10:08)
[2017-10-05] MEDS: Ferrous Sulfate 300 MG/5 ML UDC GT SCH (10:08)
[2017-10-05] MEDS: Venelex 60gm Tube TP SCH (10:10)
[2017-10-05] MEDS: Levothyroxine 0.125 Mg Tab GT SCH (10:11)
--- NOTE | 2017-10-05 12:31 | Internal Medicine Prog Note ---
Internal Medicine Subjective - Subjective Service Date: 10/05/17 Patient seen and examined:: with staff Patient is:: awake, stares blankly Per staff patient has:: tolerating meds Internal Medicine Objective - Results Result Diagrams: 10/05/17 06:24 10/05/17 06:24 Recent Labs: Laboratory Last Values WBC 10.7 Th/cmm (4.8-10.8) 10/05/17 06:24 RBC 3.61 Mil/cmm (3.80-5.20) L 10/05/17 06:24 Hgb 10.9 gm/dL (12-16) L 10/05/17 06:24 Hct 32.3 % (41.0-60) L 10/05/17 06:24 MCV 89.6 fl (81-100) 10/05/17 06:24 MCH 30.3 pg (27.0-31.0) 10/05/17 06:24 MCHC Differential 33.8 pg (28.0-36.0) 10/05/17 06:24 RDW 13.0 % (11.5-20.0) 10/05/17 06:24 Plt Count 182 Th/cmm (150-400) 10/05/17 06:24 MPV 8.7 fl 10/05/17 06:24 Neutrophils % 71.5 % (40.0-80.0) 10/05/17 06:24 Lymphocytes % 16.9 % (20.0-50.0) L 10/05/17 06:24 Monocytes % 8.1 % (2.0-10.0) 10/05/17 06:24 Eosinophils % 2.5 % (0.0-5.0) 10/05/17 06:24 Basophils % 1.0 % (0.0-2.0) 10/05/17 06:24 PT 10.7 SECONDS (9.5-11.5) 10/01/17 04:15 INR 1.03 (0.5-1.4) 10/01/17 04:15 PTT (Actin FS) 25.6 SECONDS (26.0-38.0) L 10/01/17 04:15 Sodium 135 mEq/L (136-145) L 10/05/17 06:24 Potassium 3.7 mEq/L (3.5-5.1) 10/05/17 06:24 Chloride 107 mEq/L (98-107) 10/05/17 06:24 Carbon Dioxide 22.5 mEq/L (21.0-31.0) 10/05/17 06:24 Anion Gap 9.2 (7.0-16.0) 10/05/17 06:24 BUN 22 mg/dL (7-25) 10/05/17 06:24 Creatinine 0.9 mg/dL (0.6-1.2) 10/05/17 06:24 Est GFR ( Amer) TNP 10/05/17 06:24 Est GFR (Non-Af Amer) TNP 10/05/17 06:24 BUN/Creatinine Ratio 24.4 10/05/17 06:24 Glucose 201 mg/dL (70-105) H 10/05/17 06:24 POC Glucose 123 MG/DL (70 - 105) H 10/05/17 11:42 Hemoglobin A1c % 7.4 % (4.0-6.0) H 10/03/17 05:00 Whole Bld Lactic Acid 1.03 mmol/L (0.60-1.99) 09/29/17 23:00 Calcium 9.2 mg/dL (8.6-10.3) 10/05/17 06:24 Magnesium 2.1 mg/dL (1.9-2.7) 09/29/17 23:00 Total Bilirubin 0.6 mg/dL (0.3-1.0) 10/01/17 04:15 AST 26 U/L (13-39) 10/01/17 04:15 ALT 17 U/L (7-52) 10/01/17 04:15 Alkaline Phosphatase 114 U/L (34-104) H 10/01/17 04:15 Total Protein 7.3 gm/dL (6.0-8.3) 10/01/17 04:15 Albumin 3.2 gm/dL (3.7-5.3) L 10/01/17 04:15 Globulin 4.1 gm/dL 10/01/17 04:15 Albumin/Globulin Ratio 0.8 (1.0-1.8) L 10/01/17 04:15 Urine Source CATH 10/02/17 15:37 Urine Color YELLOW 10/02/17 15:37 Urine Clarity CLEAR (CLEAR) 10/02/17 15:37 Urine pH 7.5 (4.6 - 8.0) 10/02/17 15:37 Ur Specific [place] 1.010 (1.005-1.030) 10/02/17 15:37 Urine Protein NEGATIVE mg/dL (NEGATIVE) 10/02/17 15:37 Urine Glucose (UA) NEGATIVE mg/dL (NEGATIVE) 10/02/17 15:37 Urine Clinitest Cancelled 09/29/17 18:19 Urine Ketones NEGATIVE mg/dL (NEGATIVE) 10/02/17 15:37 Urine Blood MODERATE (NEGATIVE) H 10/02/17 15:37 Urine Nitrate NEGATIVE (NEGATIVE) 10/02/17 15:37 Urine Bilirubin NEGATIVE (NEGATIVE) 10/02/17 15:37 Urine Ictotest Cancelled 09/29/17 18:19 Urine Urobilinogen 0.2 E.U./dL (0.2 - 1.0) 10/02/17 15:37 Ur Leukocyte Esterase SMALL (NEGATIVE) H 10/02/17 15:37 Ur Micro Indicated Cancelled 09/29/17 18:19 Urine RBC 10-25 /hpf (0-5) H 10/02/17 15:37 Urine WBC 2-5 /hpf (0-5) 10/02/17 15:37 Ur Epithelial Cells OCCASIONAL /lpf (FEW) 10/02/17 15:37 Calcium Oxalate Crystal Cancelled 09/29/17 18:19 Uric Acid Crystals Cancelled 09/29/17 18:19 Triple Phos Crystals Cancelled 09/29/17 18:19 Other Crystals Cancelled 09/29/17 18:19 Amorphous Sediment Cancelled 09/29/17 18:19 Urine Bacteria OCCASIONAL /hpf (NONE SEEN) 10/02/17 15:37 Hyaline Casts Cancelled 09/29/17 18:19 Fine Granular Casts Cancelled 09/29/17 18:19 Coarse Granular Casts Cancelled 09/29/17 18:19 Waxy Casts Cancelled 09/29/17 18:19 RBC Casts Cancelled 09/29/17 18:19 WBC Casts Cancelled 09/29/17 18:19 Other Casts Cancelled 09/29/17 18:19 Urine Mucus Cancelled 09/29/17 18:19 Urine Other Cancelled 09/29/17 18:19 Urine Trichomonas Cancelled 09/29/17 18:19 Urine Yeast Cancelled 09/29/17 18:19 Urine Sperm Cancelled 09/29/17 18:19 Ur Oval Fat Bodies Cancelled 09/29/17 18:19 Vancomycin Trough 19.0 ug/mL (5-10) H 10/04/17 09:05 - Physical Exam Vitals and I&O: Vital Signs Temp 97.3 F 10/05/17 04:00 Pulse 68 10/05/17 04:00 Resp 18 10/05/17 09:00 BP 118/64 10/05/17 04:00 Pulse Ox 100 10/05/17 04:00 Intake & Output 10/04/17 10/05/17 10/05/17 18:59 06:59 18:59 Intake Total 730 Output Total 1 Balance 730 -1 Weight (lbs) 186 lb 187 lb 11.2 oz Intake: Intake, IV Amount 250 Vancomycin HCl 1 gm In 250 Sodium Chloride 0.9% 250 ml @ 165 mls/hr IV Q24H [facility] Rx#:[id number] Tube Feeding 480 Output: Urine/Stool Mix 1 Other: # Voids 4 1 # Bowel Movements 1 Stool Characteristics Soft Soft Brown Weight Source Bedscale Bedscale Active Medications: Current Medications Acetaminophen (Tylenol) 650 mg PO Q4HR PRN PRN Reason: Pain Or Fever above 101 Stop: 11/29/17 01:56 Last Admin: 10/01/17 21:57 Dose: 650 mg Albuterol Sulfate (Albuterol 2.5mg/3ml Neb Ud) 2.5 mg IH Q2HR PRN PRN Reason: Shortness of Breath or Wheeze Stop: 11/29/17 01:56 Bisacodyl (Dulcolax 10 Mg Supp) 10 mg RC DAILY PRN PRN Reason: Constipation Stop: 11/29/17 01:56 [place] Oil/[place] Balsam/Trypsin (Venelex) 1 appl TP DAILY [facility] Stop: 12/03/17 08:59 Last Admin: 10/05/17 10:10 Dose: 1 appl Docusate Sodium (Colace) 100 mg PO DAILY [facility] Stop: 11/29/17 08:59 Last Admin: 10/05/17 10:08 Dose: 100 mg Ferrous Sulfate (Iron) 450 mg GT DAILY TINA Stop: 11/29/17 08:59 Last Admin: 10/05/17 10:08 Dose: 450 mg Vancomycin HCl 1 gm/ Sodium (Chloride) 250 mls @ 165 mls/hr IV Q24H TINA Stop: 11/29/17 09:59 Last Admin: 10/05/17 10:09 Dose: 165 mls/hr Dextrose/Sodium Chloride (D5-0.45ns) 1,000 mls @ 40 mls/hr IV .Q24H TINA Stop: 12/03/17 14:33 Last Admin: 10/04/17 16:28 Dose: 40 mls/hr Insulin Aspart (Novolog Insulin Sliding Scale) 0 units SUBQ ACHS TINA PRN Reason: Protocol Stop: 11/29/17 07:29 Last Admin: 10/05/17 12:15 Dose: Not Given Insulin Detemir (Levemir Insulin) 14 units SUBQ HS TINA PRN Reason: Protocol Stop: 12/02/17 01:19 Last Admin: 10/04/17 20:36 Dose: 14 units Ipratropium [place] (Atrovent Neb 0.5mg/2.5ml) 0.5 mg IH Q2HR PRN PRN Reason: Shortness of Breath or Wheeze Stop: 11/29/17 01:56 Lactobacillus Rhamnosus (Culturelle 15b) 1 each PO DAILY TINA Stop: 11/29/17 08:59 Last Admin: 10/05/17 10:08 Dose: 1 each Levothyroxine Sodium (Synthroid) 0.125 mg GT 1030 TINA Stop: 11/29/17 10:29 Last Admin: 10/05/17 10:11 Dose: 0.125 mg Magnesium Hydroxide (Milk Of Magnesia) 30 ml GT DAILY PRN PRN Reason: Constipation Stop: 11/29/17 01:56 Miscellaneous (Vancomycin Iv Per Pharmacy) 1 ea MC PRN TINA Stop: 11/29/17 01:56 Miscellaneous (Probiotic Screen) 1 ea MC PRN PRN PRN Reason: PROTOCOL Stop: 11/29/17 08:58 Mupirocin (Bactroban Oint) 1 appl NS BID TINA Stop: 10/06/17 09:01 Last Admin: 10/05/17 10:10 Dose: 1 appl Ondansetron HCl (Zofran) 4 mg IV Q8H PRN PRN Reason: Nausea / Vomiting Stop: 11/29/17 01:56 Pantoprazole Sodium (Protonix) 20 mg IVP DAILY TINA Stop: 11/29/17 08:59 Last Admin: 10/05/17 10:09 Dose: 20 mg Sitagliptin Phosphate (Januvia) 50 mg GT DAILY TINA Stop: 11/29/17 08:59 Last Admin: 10/05/17 10:08 Dose: 50 mg General: weak, alert HEENT: NC/AT, PERRLA Neck: Supple, No JVD Lungs: CTAB Cardiovascular: RRR Abdomen: soft, non-tender, non-distended, positive bowel sound Neurological: alert - Procedures Procedures: Procedures Procedure Code Date BIOPSY OF BREAST OPEN 60494 09/30/17 CHANGE FEEDING DEVICE IN UP INTEST TRACT, PROCEDURE WRITER APPROACH [id number] 04/26/17 CHANGE GASTROSTOMY TUBE 57680 04/26/17 DRAINAGE OF CHEST SUBCU/FASCIA, OPEN APPROACH [id number] 09/30/17 DRAINAGE OF SKIN ABSCESS 92301 09/30/[address] GASTROSTOMY TUBE 64356 12/31/15 EXCISION OF RIGHT BREAST, OPEN APPROACH, DIAGNOSTIC [id number] 09/30/17 INSERTION OF FEEDING DEVICE INTO STOMACH, PERC APPROACH [id number] 12/31/15 TRANSFUSE NONAUT RED BLOOD CELLS IN PERIPH VEIN, PERC 09598J4 12/31/15 Internal Medicine Assmt/Plan - Assessment Assessment: right breast abscess s/p i+d W/mrsa MRSA nares hyponatremia acute renal failure dm hypothyroidism cardiac pacemaker status gerd alzheimer - Plan Plan: await for bed available at [facility] continue with bactroban contact isolation continue ivabx cbc/bmp in am will follow organizational research consultant recommendations continue current plan of care Nutritional Asmnt/Malnutr-PDOC - Dietary Evaluation Malnutrition Findings (Please click <Entered> for more info): Nutritional Asmnt/Malnutrition Start: 09/30/17 16: 02 Text: Status: Complete Freq: Document 09/30/17 16:02 GURJIT (Rec: 09/30/17 16:21 GURJIT INOCENTE-[email or web address]) Nutritional Asmnt/Malnutrition Patient General Information Nutritional Screening High Risk Consult Diagnosis right breast abscess Pertinent Medical Hx/Surgical Hx HTN, CAD, hypothyroidism, CHF, dyslipidemia, arthritis, dementia, depression, ASHD, contractures, pacemaker, PEG Subjective Information Consult received for TF and diabetic. Pt is [place]i speaking note. No diet order at this time. Per nurse note, pt was getting TF Glucerna 1.2 at 65ml/hr x 20hr at care facility. Current Diet Order/ Nutrition Support no diet order Pertinent Medications D5-0.45ns, colace, iron, novolog, levemir, culturelle, synthroid, protonix, piperacillin, kcl, vancomycin Pertinent Labs /2 Na 133, BUN 39, glucose 158 / POC 155-194 Nutritional Hx/Data Height 5 ft 2 in Height (Calculated Centimeters) 157.5 Current Weight (lbs) 180 lb Weight (Calculated Kilograms) 81.6 Weight (Calculated Grams) 74141.6 [place] Body Weight 110 Body Mass Index (BMI) 32.9 Weight Status Obese GI Symptoms GI Symptoms None Last BM 0 Difficult in: None Usual diet at home Glucerna 1.2 at 65ml/hr x 20hr Skin Integrity/Comment: ulceration to right breast abscess Current %PO Negligible < 25% Estimated Nutritional Goals BEE in Kcals: Adj wt of IBW Calories/Kcals/Kg 25-30 adj wt 58kg Kcals Calculated 6297-6301 Protein: Adj wt of IBW Protein g/k.1-1.3 Protein Calculated 64-75 Fluid: ml 1450-1740ml (1ml/kcal) Nutritional Problem 1. Problem Problem altered nutritioni related labs Etiology hx of DM Signs/Symptoms: glucose 158, POC 155-194 Malnutrition Alert Protein-Calorie Malnutrition N/A Is there a minimum of two criteria No selected? Query Text:Check all the applicable criteria. A minimum of two criteria are recommended for diagnosis of either severe or non-severe malnutrition. Intervention/Recommendation Comments 1. Recommend Diabetisource AC at 60ml/hr x 20ml. It provides 1440kcal, 72g protein, 981ml free water, meeting 100% of nutritional needs 2. Monitor TF rate, tolerance, wt weekly, skin integrity and labs 3. F/U as high risk in 2-3 days, 10/02-10/03 Expected Outcomes/Goals Expected Outcomes/Goals 1. Pt to meet at least 75% of nutritional needs via nutrition support with tolerance 2. Wt stability, skin to remain intact, labs to approach WNL.
[2017-10-05] MEDS: Insulin Detemir 100 units/mL 10mL Vial SUBQ SCH (21:20)
[2017-10-06] MEDS: D5-0.45NS 1,000 ML IV SCH (06:38)
[2017-10-06 06:44] LABS: % BASOPHILS 0.6 % (0.0-2.0); % EOSINOPHILS 1.7 % (0.0-5.0); % LYMPHOCYTES 15.9 % (20.0-50.0); % MONOCYTES 9.7 % (2.0-10.0); % NEUTROPHILS 72.1 % (40.0-80.0); BASOPHILE ABSOLUTE 0.1 Th/cumm (0-0.2); EOSINOPHILE ABSOLUTE 0.2 Th/cmm (0.1-0.4); HEMATOCRIT 30.3 % (41.0-60); HEMOGLOBIN 10.2 gm/dL (12-16); LYMPHOCYTE ABSOLUTE 1.5 Th/cmm (1.5-3.0); MEAN CORPUSCULAR HEMOGLOBIN 30.3 pg (27.0-31.0); MEAN CORPUSCULAR HGB CONC 33.6 pg (28.0-36.0); MEAN PLATELET VOLUME 8.4 fl; MONOCYTE ABSOLUTE 0.9 Th/cmm (0.3-1.0); NEUTROPHILE ABSOLUTE 6.6 Th/cmm (1.8-8.0); PLATELET COUNT 218 Th/cmm (150-400); RED BLOOD COUNT 3.37 Mil/cmm (3.80-5.20); RED CELL DISTRIBUTION WIDTH 12.8 % (11.5-20.0); WHITE BLOOD COUNT 9.3 Th/cmm (4.8-10.8)
[2017-10-06] MEDS: INSULIN ASPART SLIDING SCALE 100 UNITS/ML UNIT SUBQ SCH ×3 (06:50→18:44)
[2017-10-06 06:57] LABS: ANION GAP 8.7 (7.0-16.0); BUN - UREA NITROGEN 25 mg/dL (7-25); CALCIUM SERUM 9.1 mg/dL (8.6-10.3); CARBON DIOXIDE 22.8 mEq/L (21.0-31.0); CHLORIDE 106 mEq/L (98-107); CREATININE - SERUM 0.9 mg/dL (0.6-1.2); GLUCOSE 238 mg/dL (70-105); POTASSIUM SERUM 3.5 mEq/L (3.5-5.1); SODIUM SERUM 134 mEq/L (136-145)
[2017-10-06] MEDS: Ferrous Sulfate 300 MG/5 ML UDC GT SCH (08:13)
[2017-10-06] MEDS: Lactobacillus Rhamnosus GG 15 Billion CFU CAP.SPRINK PO SCH (08:14)
[2017-10-06] MEDS: Multivitamin w/ Minerals Tab GT SCH (08:14)
[2017-10-06] MEDS: Venelex 60gm Tube TP SCH (08:15)
[2017-10-06] MEDS: Levothyroxine 0.125 Mg Tab GT SCH (09:30)
--- NOTE | 2017-10-06 09:56 | General Progress Note ---
Subjective - Review of Systems Service Date: 10/06/17 Subjective: non communicative Objective - Results Result Diagrams: 10/06/17 06:00 10/06/17 06:00 Recent Labs: Laboratory Last Values WBC 9.3 Th/cmm (4.8-10.8) 10/06/17 06:00 RBC 3.37 Mil/cmm (3.80-5.20) L 10/06/17 06:00 Hgb 10.2 gm/dL (12-16) L 10/06/17 06:00 Hct 30.3 % (41.0-60) L 10/06/17 06:00 MCV 90.0 fl (81-100) 10/06/17 06:00 MCH 30.3 pg (27.0-31.0) 10/06/17 06:00 MCHC Differential 33.6 pg (28.0-36.0) 10/06/17 06:00 RDW 12.8 % (11.5-20.0) 10/06/17 06:00 Plt Count 218 Th/cmm (150-400) 10/06/17 06:00 MPV 8.4 fl 10/06/17 06:00 Neutrophils % 72.1 % (40.0-80.0) 10/06/17 06:00 Lymphocytes % 15.9 % (20.0-50.0) L 10/06/17 06:00 Monocytes % 9.7 % (2.0-10.0) 10/06/17 06:00 Eosinophils % 1.7 % (0.0-5.0) 10/06/17 06:00 Basophils % 0.6 % (0.0-2.0) 10/06/17 06:00 PT 10.7 SECONDS (9.5-11.5) 10/01/17 04:15 INR 1.03 (0.5-1.4) 10/01/17 04:15 PTT (Actin FS) 25.6 SECONDS (26.0-38.0) L 10/01/17 04:15 Sodium 134 mEq/L (136-145) L 10/06/17 06:00 Potassium 3.5 mEq/L (3.5-5.1) 10/06/17 06:00 Chloride 106 mEq/L (98-107) 10/06/17 06:00 Carbon Dioxide 22.8 mEq/L (21.0-31.0) 10/06/17 06:00 Anion Gap 8.7 (7.0-16.0) 10/06/17 06:00 BUN 25 mg/dL (7-25) 10/06/17 06:00 Creatinine 0.9 mg/dL (0.6-1.2) 10/06/17 06:00 Est GFR ( Amer) TNP 10/06/17 06:00 Est GFR (Non-Af Amer) TNP 10/06/17 06:00 BUN/Creatinine Ratio 27.8 10/06/17 06:00 Glucose 238 mg/dL (70-105) H 10/06/17 06:00 POC Glucose 226 MG/DL (70 - 105) H 10/06/17 06:00 Hemoglobin A1c % 7.4 % (4.0-6.0) H 10/03/17 05:00 Whole Bld Lactic Acid 1.03 mmol/L (0.60-1.99) 09/29/17 23:00 Calcium 9.1 mg/dL (8.6-10.3) 10/06/17 06:00 Magnesium 2.1 mg/dL (1.9-2.7) 09/29/17 23:00 Total Bilirubin 0.6 mg/dL (0.3-1.0) 10/01/17 04:15 AST 26 U/L (13-39) 10/01/17 04:15 ALT 17 U/L (7-52) 10/01/17 04:15 Alkaline Phosphatase 114 U/L (34-104) H 10/01/17 04:15 Total Protein 7.3 gm/dL (6.0-8.3) 10/01/17 04:15 Albumin 3.2 gm/dL (3.7-5.3) L 10/01/17 04:15 Globulin 4.1 gm/dL 10/01/17 04:15 Albumin/Globulin Ratio 0.8 (1.0-1.8) L 10/01/17 04:15 Urine Source CATH 10/02/17 15:37 Urine Color YELLOW 10/02/17 15:37 Urine Clarity CLEAR (CLEAR) 10/02/17 15:37 Urine pH 7.5 (4.6 - 8.0) 10/02/17 15:37 Ur Specific [place] 1.010 (1.005-1.030) 10/02/17 15:37 Urine Protein NEGATIVE mg/dL (NEGATIVE) 10/02/17 15:37 Urine Glucose (UA) NEGATIVE mg/dL (NEGATIVE) 10/02/17 15:37 Urine Clinitest Cancelled 09/29/17 18:19 Urine Ketones NEGATIVE mg/dL (NEGATIVE) 10/02/17 15:37 Urine Blood MODERATE (NEGATIVE) H 10/02/17 15:37 Urine Nitrate NEGATIVE (NEGATIVE) 10/02/17 15:37 Urine Bilirubin NEGATIVE (NEGATIVE) 10/02/17 15:37 Urine Ictotest Cancelled 09/29/17 18:19 Urine Urobilinogen 0.2 E.U./dL (0.2 - 1.0) 10/02/17 15:37 Ur Leukocyte Esterase SMALL (NEGATIVE) H 10/02/17 15:37 Ur Micro Indicated Cancelled 09/29/17 18:19 Urine RBC 10-25 /hpf (0-5) H 10/02/17 15:37 Urine WBC 2-5 /hpf (0-5) 10/02/17 15:37 Ur Epithelial Cells OCCASIONAL /lpf (FEW) 10/02/17 15:37 Calcium Oxalate Crystal Cancelled 09/29/17 18:19 Uric Acid Crystals Cancelled 09/29/17 18:19 Triple Phos Crystals Cancelled 09/29/17 18:19 Other Crystals Cancelled 09/29/17 18:19 Amorphous Sediment Cancelled 09/29/17 18:19 Urine Bacteria OCCASIONAL /hpf (NONE SEEN) 10/02/17 15:37 Hyaline Casts Cancelled 09/29/17 18:19 Fine Granular Casts Cancelled 09/29/17 18:19 Coarse Granular Casts Cancelled 09/29/17 18:19 Waxy Casts Cancelled 09/29/17 18:19 RBC Casts Cancelled 09/29/17 18:19 WBC Casts Cancelled 09/29/17 18:19 Other Casts Cancelled 09/29/17 18:19 Urine Mucus Cancelled 09/29/17 18:19 Urine Other Cancelled 09/29/17 18:19 Urine Trichomonas Cancelled 09/29/17 18:19 Urine Yeast Cancelled 09/29/17 18:19 Urine Sperm Cancelled 09/29/17 18:19 Ur Oval Fat Bodies Cancelled 09/29/17 18:19 Vancomycin Trough 19.0 ug/mL (5-10) H 10/04/17 09:05 - Physical Exam Vitals and I&O: Vital Signs Temp 97 F 10/06/17 07:45 Pulse 83 10/06/17 07:45 Resp 20 10/06/17 07:45 BP 118/66 10/06/17 07:45 Pulse Ox 99 10/06/17 07:45 Intake & Output 10/05/17 10/06/17 10/06/17 18:59 06:59 18:59 Intake Total 250 Balance 250 Weight (lbs) 84.368 kg 82.781 kg Intake: Intake, IV Amount 250 Vancomycin HCl 1 gm In 250 Sodium Chloride 0.9% 250 ml @ 165 mls/hr IV Q24H [facility] Rx#:[id number] Other: # Voids 4 # Bowel Movements 2 Stool Characteristics Soft Soft Weight Source Bedscale Bedscale Active Medications: Current Medications Acetaminophen (Tylenol) 650 mg PO Q4HR PRN PRN Reason: Pain Or Fever above 101 Stop: 11/29/17 01:56 Last Admin: 10/01/17 21:57 Dose: 650 mg Albuterol Sulfate (Albuterol 2.5mg/3ml Neb Ud) 2.5 mg IH Q2HR PRN PRN Reason: Shortness of Breath or Wheeze Stop: 11/29/17 01:56 Bisacodyl (Dulcolax 10 Mg Supp) 10 mg RC DAILY PRN PRN Reason: Constipation Stop: 11/29/17 01:56 [place] Oil/[place] Balsam/Trypsin (Venelex) 1 appl TP DAILY TINA Stop: 12/03/17 08:59 Last Admin: 10/06/17 08:15 Dose: 1 appl Docusate Sodium (Colace) 100 mg PO DAILY TINA Stop: 11/29/17 08:59 Last Admin: 10/06/17 08:14 Dose: 100 mg Ferrous Sulfate (Iron) 450 mg GT DAILY TINA Stop: 11/29/17 08:59 Last Admin: 10/06/17 08:13 Dose: 450 mg Vancomycin HCl 1 gm/ Sodium (Chloride) 250 mls @ 165 mls/hr IV Q24H [facility] Stop: 11/29/17 09:59 Last Admin: 10/06/17 09:25 Dose: 165 mls/hr Dextrose/Sodium Chloride (D5-0.45ns) 1,000 mls @ 40 mls/hr IV .Q24H TINA Stop: 12/03/17 14:33 Last Admin: 10/06/17 06:38 Dose: 40 mls/hr Insulin Aspart (Novolog Insulin Sliding Scale) 0 units SUBQ ACHS TINA PRN Reason: Protocol Stop: 11/29/17 07:29 Last Admin: 10/06/17 06:50 Dose: 5 units Insulin Detemir (Levemir Insulin) 14 units SUBQ HS TINA PRN Reason: Protocol Stop: 12/02/17 01:19 Last Admin: 10/05/17 21:20 Dose: 14 units Ipratropium [place] (Atrovent Neb 0.5mg/2.5ml) 0.5 mg IH Q2HR PRN PRN Reason: Shortness of Breath or Wheeze Stop: 11/29/17 01:56 Lactobacillus Rhamnosus (Culturelle 15b) 1 each PO DAILY TINA Stop: 11/29/17 08:59 Last Admin: 10/06/17 08:14 Dose: 1 each Levothyroxine Sodium (Synthroid) 0.125 mg GT 1030 [facility] Stop: 11/29/17 10:29 Last Admin: 10/06/17 09:30 Dose: 0.125 mg Magnesium Hydroxide (Milk Of Magnesia) 30 ml GT DAILY PRN PRN Reason: Constipation Stop: 11/29/17 01:56 Miscellaneous (Probiotic Screen) 1 ea PRN PRN PRN Reason: PROTOCOL Stop: 11/29/17 08:58 Ondansetron HCl (Zofran) 4 mg IV Q8H PRN PRN Reason: Nausea / Vomiting Stop: 11/29/17 01:56 Pantoprazole Sodium (Protonix) 20 mg IVP DAILY [facility] Stop: 11/29/17 08:59 Last Admin: 10/06/17 08:13 Dose: 20 mg Sitagliptin Phosphate (Januvia) 50 mg GT DAILY TINA Stop: 11/29/17 08:59 Last Admin: 10/06/17 08:14 Dose: 50 mg General: Alert HEENT: Atraumatic Neck: Supple Cardiovascular: Regular rate Lungs: Clear to auscultation Skin: Other (right breast dressing dry) - Procedures Procedures: Procedures Procedure Code Date BIOPSY OF BREAST OPEN 69567 09/30/17 CHANGE FEEDING DEVICE IN UP INTEST TRACT, CLERK CASHIER APPROACH [id number] 04/26/17 CHANGE GASTROSTOMY TUBE 28567 04/26/17 DRAINAGE OF CHEST SUBCU/FASCIA, OPEN APPROACH [id number] 09/30/17 DRAINAGE OF SKIN ABSCESS 70453 09/30/[address] GASTROSTOMY TUBE 72394 12/31/15 EXCISION OF RIGHT BREAST, OPEN APPROACH, DIAGNOSTIC [id number] 09/30/17 INSERTION OF FEEDING DEVICE INTO STOMACH, PERC APPROACH [id number] 12/31/15 TRANSFUSE NONAUT RED BLOOD CELLS IN PERIPH VEIN, PERC 24684V8 12/31/15 Assessment/Plan - Assessment Assessment: * Right breast abcess s/p I&D with excision biopsy Benign Pathology Nutritional Asmnt/Malnutr-PDOC - Dietary Evaluation Malnutrition Findings (Please click <Entered> for more info): Nutritional Asmnt/Malnutrition Start: 09/30/17 16: 02 Text: Status: Complete Freq: Document 09/30/17 16:02 HEN (Rec: 09/30/17 16:21 HENG [email or web address]) Nutritional Asmnt/Malnutrition Patient General Information Nutritional Screening High Risk Consult Diagnosis right breast abscess Pertinent Medical Hx/Surgical Hx HTN, CAD, hypothyroidism, CHF, dyslipidemia, arthritis, dementia, depression, ASHD, contractures, pacemaker, PEG Subjective Information Consult received for TF and diabetic. Pt is Arabic speaking note. No diet order at this time. Per nurse note, pt was getting TF Glucerna 1.2 at 65ml/hr x 20hr at care facility. Current Diet Order/ Nutrition Support no diet order Pertinent Medications D5-0.45ns, colace, iron, novolog, levemir, culturelle, synthroid, protonix, piperacillin, kcl, vancomycin Pertinent Labs 4/2 Na 133, BUN 39, glucose 158 4/3 POC 155-194 Nutritional Hx/Data Height 1.57 m Height (Calculated Centimeters) 157.5 Current Weight (lbs) 81.647 kg Weight (Calculated Kilograms) 81.6 Weight (Calculated Grams) 78550.6 [place] Body Weight 110 Body Mass Index (BMI) 32.9 Weight Status Obese GI Symptoms GI Symptoms None Last BM 0 Difficult in: None Usual diet at home Glucerna 1.2 at 65ml/hr x 20hr Skin Integrity/Comment: ulceration to right breast abscess Current %PO Negligible < 25% Estimated Nutritional Goals BEE in Kcals: Adj wt of IBW Calories/Kcals/Kg 25-30 adj wt 58kg Kcals Calculated 1704-9718 Protein: Adj wt of IBW Protein g/k.1-1.3 Protein Calculated 64-75 Fluid: ml 1450-1740ml (1ml/kcal) Nutritional Problem 1. Problem Problem altered nutritioni related labs Etiology hx of DM Signs/Symptoms: glucose 158, POC 155-194 Malnutrition Alert Protein-Calorie Malnutrition N/A Is there a minimum of two criteria No selected? Query Text:Check all the applicable criteria. A minimum of two criteria are recommended for diagnosis of either severe or non-severe malnutrition. Intervention/Recommendation Comments 1. Recommend Diabetisource AC at 60ml/hr x 20ml. It provides 1440kcal, 72g protein, 981ml free water, meeting 100% of nutritional needs 2. Monitor TF rate, tolerance, wt weekly, skin integrity and labs 3. F/U as high risk in 2-3 days, 5-6 Expected Outcomes/Goals Expected Outcomes/Goals 1. Pt to meet at least 75% of nutritional needs via nutrition support with tolerance 2. Wt stability, skin to remain intact, labs to approach WNL.
--- NOTE | 2017-10-06 13:09 | Internal Medicine Prog Note ---
Internal Medicine Subjective - Subjective Service Date: 10/06/17 Patient is:: asleep Per staff patient has:: tolerating meds Internal Medicine Objective - Results Result Diagrams: 10/06/17 06:00 10/06/17 06:00 Recent Labs: Laboratory Last Values WBC 9.3 Th/cmm (4.8-10.8) 10/06/17 06:00 RBC 3.37 Mil/cmm (3.80-5.20) L 10/06/17 06:00 Hgb 10.2 gm/dL (12-16) L 10/06/17 06:00 Hct 30.3 % (41.0-60) L 10/06/17 06:00 MCV 90.0 fl (81-100) 10/06/17 06:00 MCH 30.3 pg (27.0-31.0) 10/06/17 06:00 MCHC Differential 33.6 pg (28.0-36.0) 10/06/17 06:00 RDW 12.8 % (11.5-20.0) 10/06/17 06:00 Plt Count 218 Th/cmm (150-400) 10/06/17 06:00 MPV 8.4 fl 10/06/17 06:00 Neutrophils % 72.1 % (40.0-80.0) 10/06/17 06:00 Lymphocytes % 15.9 % (20.0-50.0) L 10/06/17 06:00 Monocytes % 9.7 % (2.0-10.0) 10/06/17 06:00 Eosinophils % 1.7 % (0.0-5.0) 10/06/17 06:00 Basophils % 0.6 % (0.0-2.0) 10/06/17 06:00 PT 10.7 SECONDS (9.5-11.5) 10/01/17 04:15 INR 1.03 (0.5-1.4) 10/01/17 04:15 PTT (Actin FS) 25.6 SECONDS (26.0-38.0) L 10/01/17 04:15 Sodium 134 mEq/L (136-145) L 10/06/17 06:00 Potassium 3.5 mEq/L (3.5-5.1) 10/06/17 06:00 Chloride 106 mEq/L (98-107) 10/06/17 06:00 Carbon Dioxide 22.8 mEq/L (21.0-31.0) 10/06/17 06:00 Anion Gap 8.7 (7.0-16.0) 10/06/17 06:00 BUN 25 mg/dL (7-25) 10/06/17 06:00 Creatinine 0.9 mg/dL (0.6-1.2) 10/06/17 06:00 Est GFR ( Amer) TNP 10/06/17 06:00 Est GFR (Non-Af Amer) TNP 10/06/17 06:00 BUN/Creatinine Ratio 27.8 10/06/17 06:00 Glucose 238 mg/dL (70-105) H 10/06/17 06:00 POC Glucose 169 MG/DL (70 - 105) H 10/06/17 12:16 Hemoglobin A1c % 7.4 % (4.0-6.0) H 10/03/17 05:00 Whole Bld Lactic Acid 1.03 mmol/L (0.60-1.99) 09/29/17 23:00 Calcium 9.1 mg/dL (8.6-10.3) 10/06/17 06:00 Magnesium 2.1 mg/dL (1.9-2.7) 09/29/17 23:00 Total Bilirubin 0.6 mg/dL (0.3-1.0) 10/01/17 04:15 AST 26 U/L (13-39) 10/01/17 04:15 ALT 17 U/L (7-52) 10/01/17 04:15 Alkaline Phosphatase 114 U/L (34-104) H 10/01/17 04:15 Total Protein 7.3 gm/dL (6.0-8.3) 10/01/17 04:15 Albumin 3.2 gm/dL (3.7-5.3) L 10/01/17 04:15 Globulin 4.1 gm/dL 10/01/17 04:15 Albumin/Globulin Ratio 0.8 (1.0-1.8) L 10/01/17 04:15 Urine Source CATH 10/02/17 15:37 Urine Color YELLOW 10/02/17 15:37 Urine Clarity CLEAR (CLEAR) 10/02/17 15:37 Urine pH 7.5 (4.6 - 8.0) 10/02/17 15:37 Ur Specific [place] 1.010 (1.005-1.030) 10/02/17 15:37 Urine Protein NEGATIVE mg/dL (NEGATIVE) 10/02/17 15:37 Urine Glucose (UA) NEGATIVE mg/dL (NEGATIVE) 10/02/17 15:37 Urine Clinitest Cancelled 09/29/17 18:19 Urine Ketones NEGATIVE mg/dL (NEGATIVE) 10/02/17 15:37 Urine Blood MODERATE (NEGATIVE) H 10/02/17 15:37 Urine Nitrate NEGATIVE (NEGATIVE) 10/02/17 15:37 Urine Bilirubin NEGATIVE (NEGATIVE) 10/02/17 15:37 Urine Ictotest Cancelled 09/29/17 18:19 Urine Urobilinogen 0.2 E.U./dL (0.2 - 1.0) 10/02/17 15:37 Ur Leukocyte Esterase SMALL (NEGATIVE) H 10/02/17 15:37 Ur Micro Indicated Cancelled 09/29/17 18:19 Urine RBC 10-25 /hpf (0-5) H 10/02/17 15:37 Urine WBC 2-5 /hpf (0-5) 10/02/17 15:37 Ur Epithelial Cells OCCASIONAL /lpf (FEW) 10/02/17 15:37 Calcium Oxalate Crystal Cancelled 09/29/17 18:19 Uric Acid Crystals Cancelled 09/29/17 18:19 Triple Phos Crystals Cancelled 09/29/17 18:19 Other Crystals Cancelled 09/29/17 18:19 Amorphous Sediment Cancelled 09/29/17 18:19 Urine Bacteria OCCASIONAL /hpf (NONE SEEN) 10/02/17 15:37 Hyaline Casts Cancelled 09/29/17 18:19 Fine Granular Casts Cancelled 09/29/17 18:19 Coarse Granular Casts Cancelled 09/29/17 18:19 Waxy Casts Cancelled 09/29/17 18:19 RBC Casts Cancelled 09/29/17 18:19 WBC Casts Cancelled 09/29/17 18:19 Other Casts Cancelled 09/29/17 18:19 Urine Mucus Cancelled 09/29/17 18:19 Urine Other Cancelled 09/29/17 18:19 Urine Trichomonas Cancelled 09/29/17 18:19 Urine Yeast Cancelled 09/29/17 18:19 Urine Sperm Cancelled 09/29/17 18:19 Ur Oval Fat Bodies Cancelled 09/29/17 18:19 Vancomycin Trough 19.0 ug/mL (5-10) H 10/04/17 09:05 - Physical Exam Vitals and I&O: Vital Signs Temp 96.8 F 10/06/17 11:33 Pulse 68 10/06/17 11:33 Resp 18 10/06/17 13:00 BP 129/85 10/06/17 11:33 Pulse Ox 98 10/06/17 11:33 Intake & Output 10/05/17 10/06/17 10/06/17 18:59 06:59 18:59 Intake Total 250 Balance 250 Weight (lbs) 186 lb 182 lb 8 oz Intake: Intake, IV Amount 250 Vancomycin HCl 1 gm In 250 Sodium Chloride 0.9% 250 ml @ 165 mls/hr IV Q24H [facility] Rx#:[id number] Other: # Voids 4 # Bowel Movements 2 Stool Characteristics Soft Soft Soft Weight Source Bedscale Bedscale Active Medications: Current Medications Acetaminophen (Tylenol) 650 mg PO Q4HR PRN PRN Reason: Pain Or Fever above 101 Stop: 11/29/17 01:56 Last Admin: 10/01/17 21:57 Dose: 650 mg Albuterol Sulfate (Albuterol 2.5mg/3ml Neb Ud) 2.5 mg IH Q2HR PRN PRN Reason: Shortness of Breath or Wheeze Stop: 11/29/17 01:56 Bisacodyl (Dulcolax 10 Mg Supp) 10 mg RC DAILY PRN PRN Reason: Constipation Stop: 11/29/17 01:56 [place] Oil/[place] Balsam/Trypsin (Venelex) 1 appl TP DAILY [facility] Stop: 12/03/17 08:59 Last Admin: 10/06/17 08:15 Dose: 1 appl Docusate Sodium (Colace) 100 mg PO DAILY TINA Stop: 11/29/17 08:59 Last Admin: 10/06/17 08:14 Dose: 100 mg Ferrous Sulfate (Iron) 450 mg GT DAILY [facility] Stop: 11/29/17 08:59 Last Admin: 10/06/17 08:13 Dose: 450 mg Vancomycin HCl 1 gm/ Sodium (Chloride) 250 mls @ 165 mls/hr IV Q24H [facility] Stop: 11/29/17 09:59 Last Admin: 10/06/17 09:25 Dose: 165 mls/hr Dextrose/Sodium Chloride (D5-0.45ns) 1,000 mls @ 40 mls/hr IV .Q24H [facility] Stop: 12/03/17 14:33 Last Admin: 10/06/17 06:38 Dose: 40 mls/hr Insulin Aspart (Novolog Insulin Sliding Scale) 0 units SUBQ ACHS TINA PRN Reason: Protocol Stop: 11/29/17 07:29 Last Admin: 10/06/17 12:19 Dose: 3 units Insulin Detemir (Levemir Insulin) 14 units SUBQ HS TINA PRN Reason: Protocol Stop: 12/02/17 01:19 Last Admin: 10/05/17 21:20 Dose: 14 units Ipratropium [place] (Atrovent Neb 0.5mg/2.5ml) 0.5 mg IH Q2HR PRN PRN Reason: Shortness of Breath or Wheeze Stop: 11/29/17 01:56 Lactobacillus Rhamnosus (Culturelle 15b) 1 each PO DAILY TINA Stop: 11/29/17 08:59 Last Admin: 10/06/17 08:14 Dose: 1 each Levothyroxine Sodium (Synthroid) 0.125 mg GT 1030 [facility] Stop: 11/29/17 10:29 Last Admin: 10/06/17 09:30 Dose: 0.125 mg Magnesium Hydroxide (Milk Of Magnesia) 30 ml GT DAILY PRN PRN Reason: Constipation Stop: 11/29/17 01:56 Miscellaneous (Probiotic Screen) 1 ea MC PRN PRN PRN Reason: PROTOCOL Stop: 11/29/17 08:58 Ondansetron HCl (Zofran) 4 mg IV Q8H PRN PRN Reason: Nausea / Vomiting Stop: 11/29/17 01:56 Pantoprazole Sodium (Protonix) 20 mg IVP DAILY [facility]INA Stop: 11/29/17 08:59 Last Admin: 10/06/17 08:13 Dose: 20 mg Sitagliptin Phosphate (Januvia) 50 mg GT DAILY [facility] Stop: 11/29/17 08:59 Last Admin: 10/06/17 08:14 Dose: 50 mg General: weak, alert HEENT: NC/AT, PERRLA Neck: Supple, No JVD Lungs: CTAB Cardiovascular: RRR Abdomen: soft, non-tender, non-distended, positive bowel sound Neurological: alert - Procedures Procedures: Procedures Procedure Code Date BIOPSY OF BREAST OPEN 38702 09/30/17 CHANGE FEEDING DEVICE IN UP INTEST TRACT, GOVERNMENT SERVICES PROFESSIONAL APPROACH [id number] 04/26/17 CHANGE GASTROSTOMY TUBE 16169 04/26/17 DRAINAGE OF CHEST SUBCU/FASCIA, OPEN APPROACH [id number] 09/30/17 DRAINAGE OF SKIN ABSCESS 03543 09/30/[address] GASTROSTOMY TUBE 82588 12/31/15 EXCISION OF RIGHT BREAST, OPEN APPROACH, DIAGNOSTIC [id number] 09/30/17 INSERTION OF FEEDING DEVICE INTO STOMACH, PERC APPROACH [id number] 12/31/15 TRANSFUSE NONAUT RED BLOOD CELLS IN PERIPH VEIN, PERC 40047L0 12/31/15 Internal Medicine Assmt/Plan - Assessment Assessment: right breast abscess s/p i+d W/mrsa MRSA nares hyponatremia acute renal failure dm hypothyroidism cardiac pacemaker status gerd alzheimer - Plan Plan: await for bed available at [facility] continue with bactroban contact isolation continue ivabx cbc/bmp in am will follow principal consultant recommendations continue current plan of care Nutritional Asmnt/Malnutr-PDOC - Dietary Evaluation Malnutrition Findings (Please click <Entered> for more info): Nutritional Asmnt/Malnutrition Start: 09/30/17 16: 02 Text: Status: Complete Freq: Document 09/30/17 16:02 MARIBELL (Rec: 09/30/17 16:21 [facility] Nutritional Asmnt/Malnutrition Patient General Information Nutritional Screening High Risk Consult Diagnosis right breast abscess Pertinent Medical Hx/Surgical Hx HTN, CAD, hypothyroidism, CHF, dyslipidemia, arthritis, dementia, depression, ASHD, contractures, pacemaker, PEG Subjective Information Consult received for TF and diabetic. Pt is Malay speaking note. No diet order at this time. Per nurse note, pt was getting TF Glucerna 1.2 at 65ml/hr x 20hr at care facility. Current Diet Order/ Nutrition Support no diet order Pertinent Medications D5-0.45ns, colace, iron, novolog, levemir, culturelle, synthroid, protonix, piperacillin, kcl, vancomycin Pertinent Labs 4/2 Na 133, BUN 39, glucose 158 4/3 POC 155-194 Nutritional Hx/Data Height 5 ft 2 in Height (Calculated Centimeters) 157.5 Current Weight (lbs) 180 lb Weight (Calculated Kilograms) 81.6 Weight (Calculated Grams) 54446.6 [place] Body Weight 110 Body Mass Index (BMI) 32.9 Weight Status Obese GI Symptoms GI Symptoms None Last BM 0 Difficult in: None Usual diet at home Glucerna 1.2 at 65ml/hr x 20hr Skin Integrity/Comment: ulceration to right breast abscess Current %PO Negligible < 25% Estimated Nutritional Goals BEE in Kcals: Adj wt of IBW Calories/Kcals/Kg 25-30 adj wt 58kg Kcals Calculated 7498-9993 Protein: Adj wt of IBW Protein g/k.1-1.3 Protein Calculated 64-75 Fluid: ml 1450-1740ml (1ml/kcal) Nutritional Problem 1. Problem Problem altered nutritioni related labs Etiology hx of DM Signs/Symptoms: glucose 158, POC 155-194 Malnutrition Alert Protein-Calorie Malnutrition N/A Is there a minimum of two criteria No selected? Query Text:Check all the applicable criteria. A minimum of two criteria are recommended for diagnosis of either severe or non-severe malnutrition. Intervention/Recommendation Comments 1. Recommend Diabetisource AC at 60ml/hr x 20ml. It provides 1440kcal, 72g protein, 981ml free water, meeting 100% of nutritional needs 2. Monitor TF rate, tolerance, wt weekly, skin integrity and labs 3. F/U as high risk in 2-3 days, 10/02-10/03 Expected Outcomes/Goals Expected Outcomes/Goals 1. Pt to meet at least 75% of nutritional needs via nutrition support with tolerance 2. Wt stability, skin to remain intact, labs to approach WNL.
== END 2017-10-06 20:10 | DRG 579 ==
LOC: ER 22:14 → MSI 09-30 01:15 → TELE 10-03 12:26 → MSI 10-06 17:37
PROVIDERS: ADMIT Internal Medicine; ATTEND Internal Medicine
PROC: 0J960ZZ Drainage of Chest Subcutaneous Tissue and Fascia, Open Approach (ICD-10-PCS; principal; 2017-10-01)
PROC: 0HBT0ZX Excision of Right Breast, Open Approach, Diagnostic (ICD-10-PCS; 2017-10-01)
DX: N61.1 Abscess of the breast and nipple (principal); R53.2 Functional quadriplegia; E87.1 Hypo-osmolality and hyponatremia; N17.9 Acute kidney failure, unspecified; E11.9 Type 2 diabetes mellitus without complications; E03.9 Hypothyroidism, unspecified; K21.9 Gastro-esophageal reflux disease without esophagitis; G30.9 Alzheimer's disease, unspecified; F02.80 Dementia in other diseases classified elsewhere, unspecified severity, without behavioral disturbance, psychotic disturbance, mood disturbance, and anxiety; Z95.0 Presence of cardiac pacemaker; I50.9 Heart failure, unspecified; I25.10 Atherosclerotic heart disease of native coronary artery without angina pectoris; I11.0 Hypertensive heart disease with heart failure; E78.5 Hyperlipidemia, unspecified; M19.90 Unspecified osteoarthritis, unspecified site; E66.9 Obesity, unspecified; K27.9 Peptic ulcer, site unspecified, unspecified as acute or chronic, without hemorrhage or perforation; B95.62 Methicillin resistant Staphylococcus aureus infection as the cause of diseases classified elsewhere; R13.10 Dysphagia, unspecified; Z79.4 Long term (current) use of insulin; Z93.1 Gastrostomy status; Z74.01 Bed confinement status; Z68.33 Body mass index [BMI] 33.0-33.9, adult
CPT/HCPCS: 36415-UA; 71045-TC; 76642; 80048-TC; 80053-TC; 80202-TC; 81001-TC; 82948-90; 83036-90; 83605; 83735-TC; 85025-TC; 85610-TC; 87070-90; 87075-90; 87086-90; 87205-90; 93005; C9113; J1815; J2543; J2704; J3370; J7030; V2790; Z7610

== ENCOUNTER 2018-03-11 22:52 | Inpatient (IN) | payer MEDICARE, MEDICAID ==
--- NOTE | 2018-03-11 23:18 | ED Physician Chart ---
ED Chief Complaint/HPI - Patient Information Date Seen:: 03/11/18 Time Seen:: 23:00 Chief Complaint:: G-Tube dysfunction History of Present Illness:: onset x one day of G-Tube Dysfunction; no report of trauma, H/As, S/T, neck pain , C/P, SOB, Abd. Pain, A/N/V/D/C, fever, chills, bleeding, or urinary s/s Allergies:: Allergies Allergy/AdvReac Type Severity Reaction Status Date / Time No Known Allergies Allergy Verified 09/29/17 22:26 Historian:: Patient, EMS Review:: Nurse's Note Reviewed, Old Chart Reviewed, EMS run form Reviewed ED Review of Systems - Review of Systems General/Constitutional: Fever, No chills, No weight loss, Weakness, No diaphoresis, No edema, No loss of appetite Skin: No skin lesions, No rash, No bruising Head: No headache, No light-headedness Eyes: No loss of vision, No pain, No diplopia ENT: No earache, No nasal drainage, No sore throat, No tinnitus Neck: No neck pain, No swelling, No thyromegaly, No stiffness, No mass noted Cardio Vascular: No chest pain, No palpitations, No PND, No orthopnea, No edema Pulmonary: No SOB, No cough, No sputum, No wheezing GI: No nausea, No vomiting, No diarrhea, No pain, No melena, No hematochezia, No constipation, No hematemesis G/U: No dysuria, No frequency, No hematuria, No nacturia 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: No vaginal discharge, No abnormal vaginal bleed, No contraction Musculoskeletal: No bone or joint pain, No back pain, No muscle pain Endocrine: No polyuria, No polydipsia Psychiatric: No prior psych history, No depression, No anxiety, No suicidal ideation, No homicidal ideation, No auditory hallucination, No visual hallucination Hematopoietic: No bruising, No lymphadenopathy Allergic/Immuno: No urticaria, No angioedema Neurological: No syncope, No focal symptoms, Weakness, No paresthesia, No headache, No seizure, No dizziness, Confusion, No vertigo ED Past Medical History - Past Medical History Obtainable: Yes Past Medical History: HTN, DM, CAD, CVA/TIA, Dyslipidemia, PUD/GERD, ESRD, Thyroid disorder, Arthritis, Dementia Family History: Diabetes Melitus, HTN Social History: Non Smoker, No Drug Use, , Care Facility Surgical History: Pacemaker, PEG/GTube Psychiatricy History: Dementia Medication: Reviewed Family Medical History - Family Member Mother History Unknown: Yes Ethnicity: Unknown Living Status: Unknown ED Physical Exam - Physical Examination General/Constitutional: Awake, Well-developed, well-nourished, Alert, No distress, GCS 15, Non-toxic appearing, Ambulatory Head: Atraumatic Eyes: Lids, conjuctiva normal, PERRL, EOMI Skin: Nl inspection, No rash, No skin lesions, No ecchymosis, Well hydrated, No lymphadenopathy ENMT: External ears, nose nl, TM canals nl, Nasal exam nl, Lips, teeth, gums nl , Oropharynx nl, Tonsils nl Neck: Nontender, Full ROM w/o pain, No JVD, No nuchal rigidity, No bruit, No mass, No stridor Respiratory: Nl effort/Exclusion, Clear to Auscultation, No Wheeze/Rhonchi/Rales Cardio Vascular: RRR, No murmur, gallop, rubs, NL S1 S2, Carotid/Femoral/Distal pulses equal bilaterally GI: No tenderness/rebounding/guarding, No organomegaly, No hernia, Normal BS's, Nondistended, No mass/bruits, No McBurney tenderness Other GI comments:: + G-Tube Dysfunction; no pulsatile masses : No CVA tenderness Extremities: No tenderness or effusion, Full ROM, normal strength in all extremities, No edema, Normal digits & nails Neuro/Psych: Alert/oriented, DTR's symmetric, Normal sensory exam, Normal motor strength, Judgement/insight normal, Mood normal, Normal gait, No focal deficits Misc: Normal back, No paraspinal tenderness ED Labs/Radiology/EKG Results - Lab Results Comments:: Reviewed - Radiology Results Comments:: NAD - EKG Interpretations Rate & Rhythm: NSR Comments:: non-specific st-t changes ED Septic Shock - . Is Septic Shock (SBP<90, OR Lactate>4 mmol\L) present?: No ED Reassessment (Disposition) - Reassessment Reassessment Condition:: Improved - Diagnosis Diagnosis:: G-Tube Dysfunction; Hypokalemia; Hyponatremia; Anemia - Aftercare/Follow up Instructions Aftercare/Follow-Up Instructions:: Counseled pt regarding lab results/diagnosis & need follow up, Counseled pt & family regarding lab results/diagnosis & need follow up - Patient Disposition Discharge/Transfer:: Acute Care w/in this hosp Accepting Physician:: Dr. Trent Time Called:: 0030 Time Responded:: 00:30 Admitted to:: Telemetry Spoke to:: Dr. Trent Admitting Medical Physician:: Dr. Trent Condition at Disposition:: Stable, Improved
[2018-03-12] MEDS ORDERED: Magnesium Hydroxide (MOM) 30 mL UDC GT PRN (00:09)
[2018-03-12 00:22] LABS: % BASOPHILS 0.3 % (0.0-2.0); % EOSINOPHILS 5.4 % (0.0-5.0); % LYMPHOCYTES 24.1 % (20.0-50.0); % MONOCYTES 7.3 % (2.0-10.0); % NEUTROPHILS 62.9 % (40.0-80.0); EOSINOPHILE ABSOLUTE 0.5 Th/cmm (0.1-0.4); HEMATOCRIT 33.7 % (41.0-60); MEAN CELL VOLUME 90.1 fl (81-100); MEAN CORPUSCULAR HEMOGLOBIN 29.5 pg (27.0-31.0); MEAN CORPUSCULAR HGB CONC 32.7 pg (28.0-36.0); MONOCYTE ABSOLUTE 0.6 Th/cmm (0.3-1.0); NEUTROPHILE ABSOLUTE 5.4 Th/cmm (1.8-8.0); PLATELET COUNT 217 Th/cmm (150-400); RED BLOOD COUNT 3.74 Mil/cmm (3.80-5.20); RED CELL DISTRIBUTION WIDTH 13.3 % (11.5-20.0); WHITE BLOOD COUNT 8.5 Th/cmm (4.8-10.8)
[2018-03-12 00:40] LABS: INR 1.11 (0.5-1.4); PROTHROMBIN TIME (TEST) 11.4 SECONDS (9.5-11.5)
[2018-03-12 00:42] LABS: ALB/GLOB RATIO 1.1 (1.0-1.8); ALBUMIN 3.2 gm/dL (3.7-5.3); ALKALINE PHOSPHATASE 103 U/L (34-104); ANION GAP 11.1 (7.0-16.0); BILIRUBIN,TOTAL 0.2 mg/dL (0.3-1.0); BUN - UREA NITROGEN 10 mg/dL (7-25); CALCIUM SERUM 8.7 mg/dL (8.6-10.3); CARBON DIOXIDE 24.1 mEq/L (21.0-31.0); CHLORIDE 101 mEq/L (98-107); CREATININE - SERUM 0.5 mg/dL (0.6-1.2); CREATININE KINASE 26 U/L (30-223); GLUCOSE 168 mg/dL (70-105); POTASSIUM SERUM 3.2 mEq/L (3.5-5.1); SGOT 14 U/L (13-39); SGPT/ALT 11 U/L (7-52); SODIUM SERUM 133 mEq/L (136-145); TROP I 0.01 ng/mL (0.01-0.05)
[2018-03-12 03:13] VITALS: BP 99/75
[2018-03-12] MEDS ORDERED: Dextrose 50% 50 mL Abboject IVP PRN (03:43)
[2018-03-12] MEDS ORDERED: GLUCAGON HCl 1 MG KIT IM PRN (03:43)
[2018-03-12] MEDS: D5-0.45NS 1,000 ML IV SCH ×2 (04:23→20:21)
[2018-03-12] MEDS: Ferrous Sulfate 300 MG/5 ML UDC GT SCH (06:10)
[2018-03-12] MEDS ORDERED: INSULIN HUMAN REGULAR 100 UNITS/ML UNIT SUBQ SCH (07:30)
[2018-03-12] MEDS: INSULIN ASPART SLIDING SCALE 100 UNITS/ML UNIT SUBQ SCH ×4 (07:49→20:32)
--- NOTE | 2018-03-12 07:57 | Diagnostic Imaging Report ---
Portable chest x-ray HISTORY: Pain The heart is enlarged. Cardiac pacemaker lead wires project over the right atrium and right ventricle. No focal prominent processes. Degenerative changes seen to the spine. IMPRESSION: 1. No acute focal pulmonary processes 2. Cardiomegaly with atherosclerotic vascular changes and pacemaker placement.
--- NOTE | 2018-03-12 09:00 | Consultation ---
DATE OF CONSULTATION: 03/12/2018 INPATIENT GASTROINTESTINAL CONSULTATION REFERRING PHYSICIAN: Dr. Trent. REASON FOR CONSULTATION: Malfunctioning G-tube and dysphagia. HISTORY OF PRESENT ILLNESS: This is an 82-year-old female with a G-tube that had fallen out and apparently was replaced by a Morse. We are asked to see the patient. She is otherwise a poor historian, unable to give any meaningful history. PAST MEDICAL HISTORY: Hypertension, diabetes, coronary artery disease, stroke, hyperlipidemia, peptic ulcer disease, chronic kidney disease, thyroid disorder, arthritis, and dementia. PAST SURGICAL HISTORY: Pacemaker and PEG tube placement. FAMILY HISTORY: Noncontributory. SOCIAL HISTORY: Resident of skilled facility. ALLERGIES: None. CURRENT MEDICATIONS: Tylenol, Dulcolax, Colace, iron, Florinef, glucagon, insulin, Synthroid, milk of magnesia, and Januvia. REVIEW OF SYSTEMS: Unobtainable. PHYSICAL EXAMINATION: VITAL SIGNS: Temperature 97.3, breathing 18, pulse of 81, blood pressure 93/75, and satting 95%. GENERAL: In no apparent distress. EYES: Anicteric. Normal conjunctivae. HEENT: Normocephalic, atraumatic. Moist mucous membranes. NECK: Soft, supple. CHEST: Clear. No effort. CARDIOVASCULAR: Regular rate and rhythm. ABDOMEN: Soft, nontender, nondistended with a G-tube. SKIN: Warm, dry. EXTREMITIES: Reveal no cyanosis. PSYCHOLOGIC: Awake. LABORATORY DATA: Show white count 8.5, hemoglobin 11, and platelets of 217. INR 1.11. IMPRESSION: An 82-year-old female with multiple medical problems with dysphagia, and had a malfunctioning G-tube, had fallen out and was replaced by a Morse tube. PLAN: Check x-ray to confirm that the G-tube, which is actually a Morse tube is in correct position, may begin using it if it is in good position. We may need to have it change formally to a G-tube later on. Thank you for allowing me to participate. Please call me if any questions. JOB# [id number]
[2018-03-12] MEDS: Multivitamin w/ Minerals 15 mL UDC GT SCH (09:25)
[2018-03-12] MEDS: Lactobacillus Rhamnosus GG 15 Billion CFU CAP.SPRINK PO SCH (09:25)
--- NOTE | 2018-03-12 09:37 | Diagnostic Imaging Report ---
Upper GI (Limited) HISTORY: Gastrostomy tube placement Water-soluble contrast was instilled through the patient's gastrostomy tube. The exam demonstrates opacification of the gastric lumen. IMPRESSION: 1. Confirmation of gastrostomy tube within the gastric lumen.
--- NOTE | 2018-03-12 10:53 | Internal Medicine Prog Note ---
Internal Medicine Subjective - Subjective Service Date: 03/12/18 ([facility] [id number]) Internal Medicine Objective - Results Result Diagrams: 03/11/18 00:00 03/11/18 00:00 Recent Labs: Laboratory Last Values WBC 8.5 Th/cmm (4.8-10.8) 03/11/18 00:00 RBC 3.74 Mil/cmm (3.80-5.20) L 03/11/18 00:00 Hgb 11.0 gm/dL (12-16) L 03/11/18 00:00 Hct 33.7 % (41.0-60) L 03/11/18 00:00 MCV 90.1 fl (81-100) 03/11/18 00:00 MCH 29.5 pg (27.0-31.0) 03/11/18 00:00 MCHC Differential 32.7 pg (28.0-36.0) 03/11/18 00:00 RDW 13.3 % (11.5-20.0) 03/11/18 00:00 Plt Count 217 Th/cmm (150-400) 03/11/18 00:00 MPV 8.0 fl 03/11/18 00:00 Neutrophils % 62.9 % (40.0-80.0) 03/11/18 00:00 Lymphocytes % 24.1 % (20.0-50.0) 03/11/18 00:00 Monocytes % 7.3 % (2.0-10.0) 03/11/18 00:00 Eosinophils % 5.4 % (0.0-5.0) H 03/11/18 00:00 Basophils % 0.3 % (0.0-2.0) 03/11/18 00:00 PT 11.4 SECONDS (9.5-11.5) 03/11/18 00:00 INR 1.11 (0.5-1.4) 03/11/18 00:00 PTT (Actin FS) 26.8 SECONDS (26.0-38.0) 03/11/18 00:00 Sodium 133 mEq/L (136-145) L 03/11/18 00:00 Potassium 3.2 mEq/L (3.5-5.1) L 03/11/18 00:00 Chloride 101 mEq/L (98-107) 03/11/18 00:00 Carbon Dioxide 24.1 mEq/L (21.0-31.0) 03/11/18 00:00 Anion Gap 11.1 (7.0-16.0) 03/11/18 00:00 BUN 10 mg/dL (7-25) 03/11/18 00:00 Creatinine 0.5 mg/dL (0.6-1.2) L 03/11/18 00:00 Est GFR ( Amer) TNP 03/11/18 00:00 Est GFR (Non-Af Amer) TNP 03/11/18 00:00 BUN/Creatinine Ratio 20.0 03/11/18 00:00 Glucose 168 mg/dL (70-105) H 03/11/18 00:00 POC Glucose 108 MG/DL (70 - 105) H 03/12/18 06:08 Whole Bld Lactic Acid 0.82 mmol/L (0.60-1.99) 03/11/18 00:00 Calcium 8.7 mg/dL (8.6-10.3) 03/11/18 00:00 Total Bilirubin 0.2 mg/dL (0.3-1.0) L 03/11/18 00:00 AST 14 U/L (13-39) 03/11/18 00:00 ALT 11 U/L (7-52) 03/11/18 00:00 Alkaline Phosphatase 103 U/L (34-104) 03/11/18 00:00 Creatine Kinase 26 U/L (30-223) L 03/11/18 00:00 Troponin I 0.01 ng/mL (0.01-0.05) 03/11/18 00:00 Total Protein 6.0 gm/dL (6.0-8.3) 03/11/18 00:00 Albumin 3.2 gm/dL (3.7-5.3) L 03/11/18 00:00 Globulin 2.8 gm/dL 03/11/18 00:00 Albumin/Globulin Ratio 1.1 (1.0-1.8) 03/11/18 00:00 - Physical Exam Vitals and I&O: Vital Signs Temp 96.0 F 03/12/18 08:00 Pulse 60 03/12/18 08:00 Resp 18 03/12/18 08:00 BP 130/49 09/13/18 08:00 Pulse Ox 96 03/12/18 08:00 Intake & Output 03/11/18 03/12/18 03/12/18 18:59 06:59 18:59 Weight (lbs) 188 lb 8 oz Other: Weight Source Bedscale Active Medications: Current Medications Acetaminophen (Tylenol 650mg/20.3ml Suspension) 640 mg GT Q6H PRN PRN Reason: Pain or Fever >101 Stop: 05/11/18 00:08 Bisacodyl (Dulcolax 10 Mg Supp) 10 mg RC Q24H PRN PRN Reason: Constipation Stop: 05/11/18 00:08 Dextrose (D50w) 50 ml IVP PRN PRN PRN Reason: Blood Glucose less than 70 Stop: 05/11/18 03:42 Dextrose (Glutose 40%) 18.75 gm PO PRN PRN PRN Reason: Blood Glucose less than 70 Stop: 05/11/18 03:42 Docusate Sodium (Colace) 100 mg PO DAILY [facility] Stop: 05/11/18 08:59 Last Admin: 03/12/18 09:25 Dose: Not Given Ferrous Sulfate (Iron) 330 mg GT 0630 [facility] Stop: 05/11/18 06:29 Last Admin: 03/12/18 06:10 Dose: Not Given Fludrocortisone Acetate (Florinef) 0.1 mg GT DAILY [facility] Stop: 05/11/18 08:59 Last Admin: 03/12/18 09:25 Dose: Not Given Glucagon (Glucagen) 1 mg IM PRN PRN PRN Reason: Blood Glucose less than 70 Stop: 05/11/18 03:42 Dextrose/Sodium Chloride (D5-0.45ns) 1,000 mls @ 70 mls/hr IV .[id number] [facility] Stop: 05/11/18 00:14 Last Admin: 03/12/18 04:23 Dose: 70 mls/hr Insulin Aspart (Novolog Insulin Sliding Scale) 0 units SUBQ ACHS [facility]; Protocol Stop: 05/11/18 07:29 Last Admin: 03/12/18 07:49 Dose: Not Given Lactobacillus Rhamnosus (Culturelle 15b) 1 each PO DAILY [facility] Stop: 05/11/18 08:59 Last Admin: 09/13/18 09:25 Dose: Not Given Levothyroxine Sodium (Synthroid) 0.125 mg GT 1030 [facility] Stop: 05/11/18 10:29 Magnesium Hydroxide (Milk Of Magnesia) 30 ml GT Q24H PRN PRN Reason: Constipation Stop: 05/11/18 00:08 Multivitamins/Minerals (Theragran M) 15 ml GT DAILY [facility] Stop: 05/11/18 08:59 Last Admin: 03/12/18 09:25 Dose: Not Given Ondansetron HCl (Zofran) 4 mg IVP Q6H PRN PRN Reason: Nausea / Vomiting Stop: 05/11/18 00:09 Potassium Chloride (Potassium Chloride Elixir) 20 meq GT DAILY [facility] Stop: 05/11/18 08:59 Sitagliptin Phosphate (Januvia) 50 mg GT DAILY [facility] Stop: 05/11/18 08:59 Last Admin: 03/12/18 09:25 Dose: Not Given - Procedures Procedures: Procedures Procedure Code Date BIOPSY OF BREAST OPEN 26161 09/30/17 CHANGE FEEDING DEVICE IN UP INTEST TRACT, [employer]INTE[employer]CE APPROACH [id number] 04/26/17 CHANGE GASTROSTOMY TUBE 70435 04/26/17 DRAINAGE OF CHEST SUBCU/FASCIA, OPEN APPROACH [id number] 09/30/17 DRAINAGE OF SKIN ABSCESS 36491 09/30/[address] GASTROSTOMY TUBE 19432 12/31/15 EXCISION OF RIGHT BREAST, OPEN APPROACH, DIAGNOSTIC [id number] 09/30/17 INSERTION OF FEEDING DEVICE INTO STOMACH, PERC APPROACH [id number] 12/31/15 TRANSFUSE NONAUT RED BLOOD CELLS IN PERIPH VEIN, PERC 13468A4 12/31/15
--- NOTE | 2018-03-12 11:19 | History & Physical ---
ADMIT DATE: 03/12/2018 HISTORY OF PRESENT ILLNESS: This is an 82-year-old female who is well known to me from [facility], admitted to the Med/Surg unit due to G-tube malfunction. No reports of any nausea, vomiting or any fevers at the [facility]. For further management, the patient is now admitted. PAST MEDICAL HISTORY: Hypertension, diabetes, GERD, hypothyroidism, arthritis, dementia, status post pacemaker. SURGICAL HISTORY: Pacemaker. PEG. FAMILY HISTORY: Noncontributory. SOCIAL HISTORY: The patient is a intermediate resident, requiring no further nursing care. REVIEW OF SYSTEMS: Unable to obtain due to the patient's mental status. PHYSICAL EXAMINATION: GENERAL: Elderly female, awake, not really interactive, no apparent distress. VITAL SIGNS: Temperature 96.0, heart rate 60, blood pressure 130/49, respiration 18, O2 96%. HEENT: Head normocephalic, atraumatic. NECK: Supple. No mass. LUNGS: Clear bilaterally. HEART: Regular rhythm. ABDOMEN: Soft, nontender, nondistended. SKIN: Positive for excoriations. LABORATORY DATA: WBC 8.5, H and H 11.0 and 33.7, platelet of 217. Sodium 132, potassium 3.2, BUN 10, creatinine 0.5. DIAGNOSTICS: The patient had a chest x-ray done, impression is no acute focal pulmonary processes, cardiomegaly with atherosclerotic vascular changes, pacemaker placement. The patient also had upper GI series, impression is confirmation gastrostomy tube within the gastric lumen. ASSESSMENT: Acute dehydration, gastric tube malfunction, hypertension, diabetes, gastroesophageal reflux disease, hypothyroidism, arthritis, dementia, pacemaker status. PLAN: We will admit the patient to Med/Surg. We will get GI consultation, get followup labs for tomorrow morning. We will do IV fluids for hydration. We will monitor the patient's electrolytes. I will continue to follow this patient. JOB# [id number]
[2018-03-12] MEDS ORDERED: Diatrizoate Meglumine/Diatri 30 mL Sol PO ONE (12:56)
--- NOTE | 2018-03-12 13:18 | Operative Report ---
DATE OF SURGERY: 03/12/2018 INPATIENT GASTROINTESTINAL PROCEDURE NAME OF PROCEDURE: G-tube change. REFERRING PHYSICIAN: Davy Trent D.O. REASON FOR PROCEDURE: Malfunctioning G-tube, dysphagia. PREOPERATIVE DIAGNOSES: Malfunctioning G-tube and dysphagia. POSTOPERATIVE DIAGNOSIS: New 20-Bangladeshi gastrostomy tube placed. DESCRIPTION OF PROCEDURE: The patient was placed on her back. The old G-tube site was identified. There was a Morse tube, keeping it open. The Morse was removed after deflating the internal balloon and pulled out. A new 20-Bangladeshi gastrostomy tube was lubricated at the tip and inserted through the gastrocutaneous fistula, entering into stomach lumen. The internal balloon was inflated with 20 mL of sterile saline. The outer flange was secured in position. Procedure was then completed. COMPLICATIONS: None. FINDINGS: New 20-Bangladeshi gastrostomy tube placed in the stomach. RECOMMENDATIONS: 1. KUB with Gastrografin to confirm placement. 2. If it is in stomach, may begin using it. 3. Consider using abdominal binder if needed. Thank you for allowing me to participate. Please call me if any questions. JOB# [id number]
[2018-03-12] MEDS: Levothyroxine 0.125 Mg Tab GT SCH (17:11)
[2018-03-12] MEDS: Potassium Chloride Elixir 20 mEq /15 mL UDC GT SCH (17:12)
[2018-03-13] MEDS: Ferrous Sulfate 300 MG/5 ML UDC GT SCH (05:47)
[2018-03-13] MEDS: INSULIN ASPART SLIDING SCALE 100 UNITS/ML UNIT SUBQ SCH ×4 (06:42→20:13)
--- NOTE | 2018-03-13 08:09 | GI Progress Note ---
Subjective - Review of Systems Subjective: NO EVENTS Objective - Results Result Diagrams: 03/11/18 00:00 03/11/18 00:00 Recent Labs: Laboratory Last Values WBC 8.5 Th/cmm (4.8-10.8) 03/11/18 00:00 RBC 3.74 Mil/cmm (3.80-5.20) L 03/11/18 00:00 Hgb 11.0 gm/dL (12-16) L 03/11/18 00:00 Hct 33.7 % (41.0-60) L 03/11/18 00:00 MCV 90.1 fl (81-100) 03/11/18 00:00 MCH 29.5 pg (27.0-31.0) 03/11/18 00:00 MCHC Differential 32.7 pg (28.0-36.0) 03/11/18 00:00 RDW 13.3 % (11.5-20.0) 03/11/18 00:00 Plt Count 217 Th/cmm (150-400) 03/11/18 00:00 MPV 8.0 fl 03/11/18 00:00 Neutrophils % 62.9 % (40.0-80.0) 03/11/18 00:00 Lymphocytes % 24.1 % (20.0-50.0) 03/11/18 00:00 Monocytes % 7.3 % (2.0-10.0) 03/11/18 00:00 Eosinophils % 5.4 % (0.0-5.0) H 03/11/18 00:00 Basophils % 0.3 % (0.0-2.0) 03/11/18 00:00 PT 11.4 SECONDS (9.5-11.5) 03/11/18 00:00 INR 1.11 (0.5-1.4) 03/11/18 00:00 PTT (Actin FS) 26.8 SECONDS (26.0-38.0) 03/11/18 00:00 Sodium 133 mEq/L (136-145) L 03/11/18 00:00 Potassium 3.2 mEq/L (3.5-5.1) L 03/11/18 00:00 Chloride 101 mEq/L (98-107) 03/11/18 00:00 Carbon Dioxide 24.1 mEq/L (21.0-31.0) 03/11/18 00:00 Anion Gap 11.1 (7.0-16.0) 03/11/18 00:00 BUN 10 mg/dL (7-25) 03/11/18 00:00 Creatinine 0.5 mg/dL (0.6-1.2) L 03/11/18 00:00 Est GFR ( Amer) TNP 03/11/18 00:00 Est GFR (Non-Af Amer) TNP 03/11/18 00:00 BUN/Creatinine Ratio 20.0 03/11/18 00:00 Glucose 168 mg/dL (70-105) H 03/11/18 00:00 POC Glucose 170 MG/DL (70 - 105) H 03/13/18 05:49 Whole Bld Lactic Acid 0.82 mmol/L (0.60-1.99) 03/11/18 00:00 Calcium 8.7 mg/dL (8.6-10.3) 03/11/18 00:00 Total Bilirubin 0.2 mg/dL (0.3-1.0) L 03/11/18 00:00 AST 14 U/L (13-39) 03/11/18 00:00 ALT 11 U/L (7-52) 03/11/18 00:00 Alkaline Phosphatase 103 U/L (34-104) 03/11/18 00:00 Creatine Kinase 26 U/L (30-223) L 03/11/18 00:00 Troponin I 0.01 ng/mL (0.01-0.05) 03/11/18 00:00 Total Protein 6.0 gm/dL (6.0-8.3) 03/11/18 00:00 Albumin 3.2 gm/dL (3.7-5.3) L 03/11/18 00:00 Globulin 2.8 gm/dL 03/11/18 00:00 Albumin/Globulin Ratio 1.1 (1.0-1.8) 03/11/18 00:00 - Physical Exam Vitals and I&O: Vital Signs Temp 96.7 F 03/13/18 03:00 Pulse 83 03/13/18 03:00 Resp 19 03/13/18 03:00 BP 101/50 03/13/18 03:00 Pulse Ox 97 03/13/18 03:00 Intake & Output 03/12/18 03/13/18 03/13/18 18:59 06:59 18:59 Intake Total 1000 420 Balance 1000 420 Weight (lbs) 85.502 kg 85.502 kg Intake: Intake, IV Amount 1000 D5-0.45NS 1,000 ml @ 70 1000 mls/hr IV .[id number] [facility] Rx #:[id number] Tube Feeding 420 Other: # Voids 3 2 # Bowel Movements 1 Weight Source Bedscale Bedscale Active Medications: Current Medications Acetaminophen (Tylenol 650mg/20.3ml Suspension) 640 mg GT Q6H PRN PRN Reason: Pain or Fever >101 Stop: 05/11/18 00:08 Bisacodyl (Dulcolax 10 Mg Supp) 10 mg RC Q24H PRN PRN Reason: Constipation Stop: 05/11/18 00:08 Dextrose (D50w) 50 ml IVP PRN PRN PRN Reason: Blood Glucose less than 70 Stop: 05/11/18 03:42 Dextrose (Glutose 40%) 18.75 gm PO PRN PRN PRN Reason: Blood Glucose less than 70 Stop: 05/11/18 03:42 Docusate Sodium (Colace) 100 mg PO DAILY [facility] Stop: 05/11/18 08:59 Last Admin: 03/12/18 09:25 Dose: Not Given Ferrous Sulfate (Iron) 330 mg GT 0630 [facility] Stop: 05/11/18 06:29 Last Admin: 03/13/18 05:47 Dose: 330 mg Fludrocortisone Acetate (Florinef) 0.1 mg GT DAILY [facility] Stop: 05/11/18 08:59 Last Admin: 03/12/18 09:25 Dose: Not Given Glucagon (Glucagen) 1 mg IM PRN PRN PRN Reason: Blood Glucose less than 70 Stop: 05/11/18 03:42 Dextrose/Sodium Chloride (D5-0.45ns) 1,000 mls @ 70 mls/hr IV .[id number] [facility] Stop: 05/11/18 00:14 Last Admin: 03/12/18 20:21 Dose: 70 mls/hr Insulin Aspart (Novolog Insulin Sliding Scale) 0 units SUBQ ACHS [facility]; Protocol Stop: 05/11/18 07:29 Last Admin: 03/13/18 06:42 Dose: 2 units Lactobacillus Rhamnosus (Culturelle 15b) 1 each PO DAILY [facility] Stop: 05/11/18 08:59 Last Admin: 03/12/18 09:25 Dose: Not Given Levothyroxine Sodium (Synthroid) 0.125 mg GT 1030 [facility] Stop: 05/11/18 10:29 Last Admin: 03/12/18 17:11 Dose: Not Given Magnesium Hydroxide (Milk Of Magnesia) 30 ml GT Q24H PRN PRN Reason: Constipation Stop: 05/11/18 00:08 Multivitamins/Minerals (Theragran M) 15 ml GT DAILY [facility] Stop: 05/11/18 08:59 Last Admin: 03/12/18 09:25 Dose: Not Given Ondansetron HCl (Zofran) 4 mg IVP Q6H PRN PRN Reason: Nausea / Vomiting Stop: 05/11/18 00:09 Potassium Chloride (Potassium Chloride Elixir) 20 meq GT DAILY [facility] Stop: 05/11/18 08:59 Last Admin: 03/12/18 17:12 Dose: Not Given Sitagliptin Phosphate (Januvia) 50 mg GT DAILY [facility] Stop: 05/11/18 08:59 Last Admin: 03/12/18 09:25 Dose: Not Given - Procedures Procedures: Procedures Procedure Code Date BIOPSY OF BREAST OPEN 05526 09/30/17 CHANGE FEEDING DEVICE IN UP INTEST TRACT, PLOW HOLDER APPROACH [id number] 04/26/17 CHANGE GASTROSTOMY TUBE 90114 04/26/17 DRAINAGE OF CHEST SUBCU/FASCIA, OPEN APPROACH [id number] 09/30/17 DRAINAGE OF SKIN ABSCESS 17006 09/30/[address] GASTROSTOMY TUBE 28198 12/31/15 EXCISION OF RIGHT BREAST, OPEN APPROACH, DIAGNOSTIC [id number] 09/30/17 INSERTION OF FEEDING DEVICE INTO STOMACH, PERC APPROACH [id number] 12/31/15 TRANSFUSE NONAUT RED BLOOD CELLS IN PERIPH VEIN, [facility]C 89877O8 12/31/15 Assessment/Plan - Assessment Assessment: 82 YO FEMALE WITH DYSPHAGIA AND MALFUNCTION GT GT WAS CHANGED 1.CHECK UGI SERIES TO CONFIRM GT IN THE STOMACH 2.IF IN THE STOMACH THEN MAY USE IT 3.CONT SUPP CARE 4.IF GT IN THE STOMACH THEN WILL SEE NEEDED; CALL IF QUESTIONS
--- NOTE | 2018-03-13 08:10 | Diagnostic Imaging Report ---
Upper GI (Limited) HISTORY: Gastrostomy tube placement The pulmonary group captain radiograph demonstrates residual contrast within nondilated large bowel. Water-soluble contrast was instilled into the patient's gastrostomy tube. There is opacification of the gastric lumen with flow contrast into the duodenum. IMPRESSION: 1. Confirmation of gastrostomy tube within the gastric lumen.
[2018-03-13] MEDS: Potassium Chloride Elixir 20 mEq /15 mL UDC GT SCH (08:45)
[2018-03-13] MEDS: Multivitamin w/ Minerals 15 mL UDC GT SCH (08:45)
[2018-03-13] MEDS: Lactobacillus Rhamnosus GG 15 Billion CFU CAP.SPRINK PO SCH (08:45)
[2018-03-13] MEDS: Levothyroxine 0.125 Mg Tab GT SCH (11:05)
[2018-03-13] MEDS: D5-0.45NS 1,000 ML IV SCH (11:40)
--- NOTE | 2018-03-13 13:38 | Internal Medicine Prog Note ---
Internal Medicine Subjective - Subjective Service Date: 03/13/18 Patient seen and examined:: with staff Patient is:: awake Per staff patient has:: no adverse event, tolerating meds Internal Medicine Objective - Results Result Diagrams: 03/11/18 00:00 03/11/18 00:00 Recent Labs: Laboratory Last Values WBC 8.5 Th/cmm (4.8-10.8) 03/11/18 00:00 RBC 3.74 Mil/cmm (3.80-5.20) L 03/11/18 00:00 Hgb 11.0 gm/dL (12-16) L 03/11/18 00:00 Hct 33.7 % (41.0-60) L 03/11/18 00:00 MCV 90.1 fl (81-100) 03/11/18 00:00 MCH 29.5 pg (27.0-31.0) 03/11/18 00:00 MCHC Differential 32.7 pg (28.0-36.0) 03/11/18 00:00 RDW 13.3 % (11.5-20.0) 03/11/18 00:00 Plt Count 217 Th/cmm (150-400) 03/11/18 00:00 MPV 8.0 fl 03/11/18 00:00 Neutrophils % 62.9 % (40.0-80.0) 03/11/18 00:00 Lymphocytes % 24.1 % (20.0-50.0) 03/11/18 00:00 Monocytes % 7.3 % (2.0-10.0) 03/11/18 00:00 Eosinophils % 5.4 % (0.0-5.0) H 03/11/18 00:00 Basophils % 0.3 % (0.0-2.0) 03/11/18 00:00 PT 11.4 SECONDS (9.5-11.5) 03/11/18 00:00 INR 1.11 (0.5-1.4) 03/11/18 00:00 PTT (Actin FS) 26.8 SECONDS (26.0-38.0) 03/11/18 00:00 Sodium 133 mEq/L (136-145) L 03/11/18 00:00 Potassium 3.2 mEq/L (3.5-5.1) L 03/11/18 00:00 Chloride 101 mEq/L (98-107) 03/11/18 00:00 Carbon Dioxide 24.1 mEq/L (21.0-31.0) 03/11/18 00:00 Anion Gap 11.1 (7.0-16.0) 03/11/18 00:00 BUN 10 mg/dL (7-25) 03/11/18 00:00 Creatinine 0.5 mg/dL (0.6-1.2) L 03/11/18 00:00 Est GFR ( Amer) TNP 03/11/18 00:00 Est GFR (Non-Af Amer) TNP 03/11/18 00:00 BUN/Creatinine Ratio 20.0 03/11/18 00:00 Glucose 168 mg/dL (70-105) H 03/11/18 00:00 POC Glucose 159 MG/DL (70 - 105) H 03/13/18 11:32 Whole Bld Lactic Acid 0.82 mmol/L (0.60-1.99) 03/11/18 00:00 Calcium 8.7 mg/dL (8.6-10.3) 03/11/18 00:00 Total Bilirubin 0.2 mg/dL (0.3-1.0) L 03/11/18 00:00 AST 14 U/L (13-39) 03/11/18 00:00 ALT 11 U/L (7-52) 03/11/18 00:00 Alkaline Phosphatase 103 U/L (34-104) 03/11/18 00:00 Creatine Kinase 26 U/L (30-223) L 03/11/18 00:00 Troponin I 0.01 ng/mL (0.01-0.05) 03/11/18 00:00 Total Protein 6.0 gm/dL (6.0-8.3) 03/11/18 00:00 Albumin 3.2 gm/dL (3.7-5.3) L 03/11/18 00:00 Globulin 2.8 gm/dL 03/11/18 00:00 Albumin/Globulin Ratio 1.1 (1.0-1.8) 03/11/18 00:00 - Physical Exam Vitals and I&O: Vital Signs Temp 97.3 F 03/13/18 12:04 Pulse 70 03/13/18 12:04 Resp 17 03/13/18 12:04 BP 136/72 03/13/18 12:04 Pulse Ox 99 03/13/18 12:04 Intake & Output 03/12/18 03/13/18 03/13/18 18:59 06:59 18:59 Intake Total 7332 773 7761 Balance 3887 120 5707 Weight (lbs) 188 lb 8 oz 188 lb 8 oz Intake: Intake, IV Amount 1000 1000 D5-0.45NS 1,000 ml @ 70 1000 1000 mls/hr IV .[id number] [facility] Rx #:[id number] Tube Feeding 420 Other: # Voids 3 2 # Bowel Movements 1 Weight Source Bedscale Bedscale Active Medications: Current Medications Acetaminophen (Tylenol 650mg/20.3ml Suspension) 640 mg GT Q6H PRN PRN Reason: Pain or Fever >101 Stop: 05/11/18 00:08 Bisacodyl (Dulcolax 10 Mg Supp) 10 mg RC Q24H PRN PRN Reason: Constipation Stop: 05/11/18 00:08 Dextrose (D50w) 50 ml IVP PRN PRN PRN Reason: Blood Glucose less than 70 Stop: 05/11/18 03:42 Dextrose (Glutose 40%) 18.75 gm PO PRN PRN PRN Reason: Blood Glucose less than 70 Stop: 05/11/18 03:42 Docusate Sodium (Colace) 100 mg PO DAILY [facility] Stop: 05/11/18 08:59 Last Admin: 03/13/18 08:44 Dose: 100 mg Ferrous Sulfate (Iron) 330 mg GT 0630 [facility] Stop: 05/11/18 06:29 Last Admin: 03/13/18 05:47 Dose: 330 mg Fludrocortisone Acetate (Florinef) 0.1 mg GT DAILY [facility] Stop: 05/11/18 08:59 Last Admin: 03/13/18 08:44 Dose: 0.1 mg Glucagon (Glucagen) 1 mg IM PRN PRN PRN Reason: Blood Glucose less than 70 Stop: 05/11/18 03:42 Dextrose/Sodium Chloride (D5-0.45ns) 1,000 mls @ 70 mls/hr IV .[id number] [facility] Stop: 05/11/18 00:14 Last Admin: 03/13/18 11:40 Dose: 70 mls/hr Insulin Aspart (Novolog Insulin Sliding Scale) 0 units SUBQ ACHS TINA; Protocol Stop: 05/11/18 07:29 Last Admin: 03/13/18 11:39 Dose: 2 units Lactobacillus Rhamnosus (Culturelle 15b) 1 each PO DAILY [facility] Stop: 05/11/18 08:59 Last Admin: 03/13/18 08:45 Dose: 1 each Levothyroxine Sodium (Synthroid) 0.125 mg GT 1030 [facility] Stop: 05/11/18 10:29 Last Admin: 03/13/18 11:05 Dose: 0.125 mg Magnesium Hydroxide (Milk Of Magnesia) 30 ml GT Q24H PRN PRN Reason: Constipation Stop: 05/11/18 00:08 Multivitamins/Minerals (Theragran M) 15 ml GT DAILY [facility] Stop: 05/11/18 08:59 Last Admin: 03/13/18 08:45 Dose: 15 ml Mupirocin (Bactroban Oint) 1 appl NS BID [facility] Stop: 03/18/18 16:59 Ondansetron HCl (Zofran) 4 mg IVP Q6H PRN PRN Reason: Nausea / Vomiting Stop: 05/11/18 00:09 Potassium Chloride (Potassium Chloride Elixir) 20 meq GT DAILY [facility] Stop: 05/11/18 08:59 Last Admin: 03/13/18 08:45 Dose: 20 meq Sitagliptin Phosphate (Januvia) 50 mg GT DAILY [facility] Stop: 05/11/18 08:59 Last Admin: 03/13/18 08:45 Dose: 50 mg General: weak, alert HEENT: NC/AT, PERRLA Neck: Supple Lungs: CTAB Cardiovascular: RRR, Normal S1, Normal S2, without murmur Abdomen: soft, non-tender, non-distended, +GT, positive bowel sound Extremities: excoriation Neurological: alert - Procedures Procedures: Procedures Procedure Code Date BIOPSY OF BREAST OPEN 52043 09/30/17 CHANGE FEEDING DEVICE IN UP INTEST TRACT, NOUGAT CUTTER MACHINE APPROACH [id number] 03/12/18 CHANGE GASTROSTOMY TUBE 66799 04/26/17 DRAINAGE OF CHEST SUBCU/FASCIA, OPEN APPROACH [id number] 09/30/17 DRAINAGE OF SKIN ABSCESS 41954 09/30/[address] GASTROSTOMY TUBE 61306 12/31/15 EXCISION OF RIGHT BREAST, OPEN APPROACH, DIAGNOSTIC [id number] 09/30/17 INSERTION OF FEEDING DEVICE INTO STOMACH, PERC APPROACH [id number] 12/31/15 TRANSFUSE NONAUT RED BLOOD CELLS IN PERIPH VEIN, PERC 58520B0 12/31/15 Internal Medicine Assmt/Plan - Assessment Assessment: acute dehydration htn dm gerd hypothyroidism arthritis dementia pacemaker status - Plan Plan: gtf to continue follow up labs in am continue current plan of care Nutritional Asmnt/Malnutr-PDOC - Dietary Evaluation Malnutrition Findings (Please click <Entered> for more info): Nutritional Asmnt/Malnutrition Start: 03/12/18 17: 31 Text: Status: Complete Freq: Protocol: Document 03/12/18 17:33 LCMARIBELLG (Rec: 03/12/18 17:59 LCMARIBELLG INOCENTE-[email or web address]) Nutritional Asmnt/Malnutrition Patient General Information Nutritional Screening High Risk Diagnosis Gtube replacement, Dehydration Pertinent Medical Hx/Surgical Hx HTN, DM, CAD, CVA/TIA, dyslipidemia, PUD/GERD, ESRD, Thyroid disorder, Arthritis, dementia, PEG/Gtube, pacemaker Subjective Information Pt seen in bed non verbal. Per nurse pt had gtube replacement today. Current Diet Order/ Nutrition Support no diet order as of now Pertinent Medications D5-0.45ns, colace, iron, culturelle, synthroid, theragran, kcal, januvia Pertinent Labs 03/11 Na 133, K 3.2, Cr 0.5, glucose 168, Alb 3.2 03/12 POC 108-145 Nutritional Hx/Data Height 5 ft 4 in Height (Calculated Centimeters) 162.6 Current Weight (lbs) 188 lb Weight (Calculated Kilograms) 85.3 Weight (Calculated Grams) 40947.4 [place] Body Weight 120 Body Mass Index (BMI) 32.2 Weight Status Obese GI Symptoms GI Symptoms None Last BM not indicated Difficult in: None Usual diet at home Glucerna 1.2 at 60ml/hr x 20hr Skin Integrity/Comment: incision to stoma Estimated Nutritional Goals BEE in Kcals: Adj wt of IBW Calories/Kcals/Kg 25-30 Kcals Calculated 2097-4434 Protein: Adj wt of IBW Protein g/k Protein Calculated 62 Fluid: ml 1550-1860ml (1ml/kcal) Nutritional Problem 1. Problem Problem altered nutrition related labs Etiology hx of DM, electrolytes imbalance Signs/Symptoms: glucose 168,[id number], Na 133 , K 3.2 Malnutrition Alert Is there a minimum of two criteria No selected? Query Text:Check all the applicable criteria. A minimum of two criteria are recommended for diagnosis of either severe or non-severe malnutrition. Malnutrition Related to Morbid Obesity Malnutrition related to morbid obesity No Intervention/Recommendation Comments 1. When TF initiated, recommend Glucerna 1.2 at 60ml /hr x 20hr, providing 1440kcal and 72g protien, meeting 100% of nutritional needs 2. Monitor TF tolerance, wt, labs and skin integrity 3. F/U as high risk in 2-3 days, 03/14-03/15 Expected Outcomes/Goals Expected Outcomes/Goals 1. Pt to meet at least 75% of nutritional needs via TF with tolerance. 2. Wt stability, skin to remain intact, labs to approach WNL.
[2018-03-14] MEDS: D5-0.45NS 1,000 ML IV SCH ×2 (00:12→12:43)
[2018-03-14] MEDS: Ferrous Sulfate 300 MG/5 ML UDC GT SCH (05:59)
[2018-03-14 06:35] LABS: % BASOPHILS 0.2 % (0.0-2.0); % EOSINOPHILS 3.9 % (0.0-5.0); % LYMPHOCYTES 25.7 % (20.0-50.0); % MONOCYTES 9.3 % (2.0-10.0); % NEUTROPHILS 60.9 % (40.0-80.0); EOSINOPHILE ABSOLUTE 0.2 Th/cmm (0.1-0.4); HEMATOCRIT 35.4 % (41.0-60); HEMOGLOBIN 12.2 gm/dL (12-16); LYMPHOCYTE ABSOLUTE 1.6 Th/cmm (1.5-3.0); MEAN CELL VOLUME 91.2 fl (81-100); MEAN CORPUSCULAR HEMOGLOBIN 31.5 pg (27.0-31.0); MEAN CORPUSCULAR HGB CONC 34.5 pg (28.0-36.0); MEAN PLATELET VOLUME 8.8 fl; MONOCYTE ABSOLUTE 0.6 Th/cmm (0.3-1.0); PLATELET COUNT 181 Th/cmm (150-400); RED BLOOD COUNT 3.88 Mil/cmm (3.80-5.20); RED CELL DISTRIBUTION WIDTH 13.4 % (11.5-20.0); WHITE BLOOD COUNT 6.4 Th/cmm (4.8-10.8)
[2018-03-14] MEDS: INSULIN ASPART SLIDING SCALE 100 UNITS/ML UNIT SUBQ SCH ×4 (06:39→20:49)
[2018-03-14 06:54] LABS: ANION GAP 8.9 (7.0-16.0); BUN - UREA NITROGEN 27 mg/dL (7-25); CALCIUM SERUM 9.4 mg/dL (8.6-10.3); CHLORIDE 108 mEq/L (98-107); CREATININE - SERUM 0.9 mg/dL (0.6-1.2); GLUCOSE 222 mg/dL (70-105); POTASSIUM SERUM 3.9 mEq/L (3.5-5.1); SODIUM SERUM 137 mEq/L (136-145)
[2018-03-14] MEDS: Lactobacillus Rhamnosus GG 15 Billion CFU CAP.SPRINK PO SCH (09:49)
[2018-03-14] MEDS: Multivitamin w/ Minerals 15 mL UDC GT SCH (09:50)
[2018-03-14] MEDS: Potassium Chloride Elixir 20 mEq /15 mL UDC GT SCH (09:50)
[2018-03-14] MEDS: Levothyroxine 0.125 Mg Tab GT SCH (10:00)
--- NOTE | 2018-03-14 14:20 | Internal Medicine Prog Note ---
Internal Medicine Subjective - Subjective Patient seen and examined:: with staff, chart reviewed Patient is:: awake, verbal, interactive, in bed Patient Complaints of:: congestion Per staff patient has:: tolerating meds, other (vomitted) Internal Medicine Objective - Results Result Diagrams: 03/14/18 06:20 03/14/18 06:20 Recent Labs: Laboratory Last Values WBC 6.4 Th/cmm (4.8-10.8) 03/14/18 06:20 RBC 3.88 Mil/cmm (3.80-5.20) 03/14/18 06:20 Hgb 12.2 gm/dL (12-16) 03/14/18 06:20 Hct 35.4 % (41.0-60) L 03/14/18 06:20 MCV 91.2 fl (81-100) 03/14/18 06:20 MCH 31.5 pg (27.0-31.0) H 03/14/18 06:20 MCHC Differential 34.5 pg (28.0-36.0) 03/14/18 06:20 RDW 13.4 % (11.5-20.0) 03/14/18 06:20 Plt Count 181 Th/cmm (150-400) 03/14/18 06:20 MPV 8.8 fl 03/14/18 06:20 Neutrophils % 60.9 % (40.0-80.0) 03/14/18 06:20 Lymphocytes % 25.7 % (20.0-50.0) 03/14/18 06:20 Monocytes % 9.3 % (2.0-10.0) 03/14/18 06:20 Eosinophils % 3.9 % (0.0-5.0) 03/14/18 06:20 Basophils % 0.2 % (0.0-2.0) 03/14/18 06:20 PT 11.4 SECONDS (9.5-11.5) 03/11/18 00:00 INR 1.11 (0.5-1.4) 03/11/18 00:00 PTT (Actin FS) 26.8 SECONDS (26.0-38.0) 03/11/18 00:00 Sodium 137 mEq/L (136-145) 03/14/18 06:20 Potassium 3.9 mEq/L (3.5-5.1) 03/14/18 06:20 Chloride 108 mEq/L (98-107) H 03/14/18 06:20 Carbon Dioxide 24.0 mEq/L (21.0-31.0) 03/14/18 06:20 Anion Gap 8.9 (7.0-16.0) 03/14/18 06:20 BUN 27 mg/dL (7-25) H 03/14/18 06:20 Creatinine 0.9 mg/dL (0.6-1.2) 03/14/18 06:20 Est GFR ( Amer) TNP 03/14/18 06:20 Est GFR (Non-Af Amer) TNP 03/14/18 06:20 BUN/Creatinine Ratio 30.0 03/14/18 06:20 Glucose 222 mg/dL (70-105) H 03/14/18 06:20 POC Glucose 209 MG/DL (70 - 105) H 03/14/18 05:58 Whole Bld Lactic Acid 0.82 mmol/L (0.60-1.99) 03/11/18 00:00 Calcium 9.4 mg/dL (8.6-10.3) 03/14/18 06:20 Total Bilirubin 0.2 mg/dL (0.3-1.0) L 03/11/18 00:00 AST 14 U/L (13-39) 03/11/18 00:00 ALT 11 U/L (7-52) 03/11/18 00:00 Alkaline Phosphatase 103 U/L (34-104) 03/11/18 00:00 Creatine Kinase 26 U/L (30-223) L 03/11/18 00:00 Troponin I 0.01 ng/mL (0.01-0.05) 03/11/18 00:00 Total Protein 6.0 gm/dL (6.0-8.3) 03/11/18 00:00 Albumin 3.2 gm/dL (3.7-5.3) L 03/11/18 00:00 Globulin 2.8 gm/dL 03/11/18 00:00 Albumin/Globulin Ratio 1.1 (1.0-1.8) 03/11/18 00:00 - Physical Exam Vitals and I&O: Vital Signs Temp 97.6 F 03/14/18 12:00 Pulse 72 03/14/18 12:00 Resp 18 03/14/18 12:00 BP 151/54 03/14/18 12:00 Pulse Ox 98 03/14/18 12:00 Intake & Output 03/13/18 03/14/18 03/14/18 18:59 06:59 18:59 Intake Total 1000 877.333 876.167 Output Total 402 Balance 1000 877.333 474.167 Weight (lbs) 89.811 kg 89.811 kg Intake: Intake, IV Amount 1000 877.333 876.167 D5-0.45NS 1,000 ml @ 70 1000 877.333 876.167 mls/hr IV .[id number] [facility] [place] Rx #:[id number] Output: Stool 2 Emesis 400 Other: Weight Source Bedscale Bedscale Active Medications: Current Medications Acetaminophen (Tylenol 650mg/20.3ml Suspension) 640 mg GT Q6H PRN PRN Reason: Pain or Fever >101 Stop: 05/11/18 00:08 Bisacodyl (Dulcolax 10 Mg Supp) 10 mg RC Q24H PRN PRN Reason: Constipation Stop: 05/11/18 00:08 Dextrose (D50w) 50 ml IVP PRN PRN PRN Reason: Blood Glucose less than 70 Stop: 05/11/18 03:42 Dextrose (Glutose 40%) 18.75 gm PO PRN PRN PRN Reason: Blood Glucose less than 70 Stop: 05/11/18 03:42 Ferrous Sulfate (Iron) 330 mg GT 0630 [facility] Stop: 05/11/18 06:29 Last Admin: 03/14/18 05:59 Dose: 330 mg Fludrocortisone Acetate (Florinef) 0.1 mg GT DAILY [facility] Stop: 05/11/18 08:59 Last Admin: 03/14/18 09:49 Dose: 0.1 mg Glucagon (Glucagen) 1 mg IM PRN PRN PRN Reason: Blood Glucose less than 70 Stop: 05/11/18 03:42 Dextrose/Sodium Chloride (D5-0.45ns) 1,000 mls @ 70 mls/hr IV .[id number] [facility] [place] Stop: 05/11/18 00:14 Last Admin: 03/14/18 12:43 Dose: 70 mls/hr Insulin Aspart (Novolog Insulin Sliding Scale) 0 units SUBQ ACHS TINA; Protocol Stop: 05/11/18 07:29 Last Admin: 03/14/18 11:21 Dose: 4 units Lactobacillus Rhamnosus (Culturelle 15b) 1 each PO DAILY [facility] Stop: 05/11/18 08:59 Last Admin: 03/14/18 09:49 Dose: 1 each Levothyroxine Sodium (Synthroid) 0.125 mg GT 1030 [facility] Stop: 05/11/18 10:29 Last Admin: 03/14/18 10:00 Dose: 0.125 mg Magnesium Hydroxide (Milk Of Magnesia) 30 ml GT Q24H PRN PRN Reason: Constipation Stop: 05/11/18 00:08 Mupirocin (Bactroban Oint) 1 appl NS BID [facility] [place] Stop: 03/18/18 16:59 Last Admin: 03/14/18 09:50 Dose: 1 appl Ondansetron HCl (Zofran) 4 mg IVP Q6H PRN PRN Reason: Nausea / Vomiting Stop: 05/11/18 00:09 Last Admin: 03/14/18 13:07 Dose: 4 mg Potassium Chloride (Potassium Chloride Elixir) 20 meq GT DAILY [facility] Stop: 05/11/18 08:59 Last Admin: 03/14/18 09:50 Dose: 20 meq Sitagliptin Phosphate (Januvia) 50 mg GT DAILY [facility] Stop: 05/11/18 08:59 Last Admin: 03/14/18 09:49 Dose: 50 mg General: weak, demented HEENT: NC/AT, PERRLA Neck: Supple Lungs: CTAB Cardiovascular: RRR, Normal S1, Normal S2, without murmur Abdomen: soft, non-tender, non-distended, +GT, positive bowel sound Extremities: excoriation Neurological: no change, disorganized - Procedures Procedures: Procedures Procedure Code Date BIOPSY OF BREAST OPEN 18950 09/30/17 CHANGE FEEDING DEVICE IN UP INTEST TRACT, INSURANCE COUNSELOR APPROACH [id number] 03/12/18 CHANGE GASTROSTOMY TUBE 75997 04/26/17 DRAINAGE OF CHEST SUBCU/FASCIA, OPEN APPROACH [id number] 09/30/17 DRAINAGE OF SKIN ABSCESS 19334 09/30/[address] GASTROSTOMY TUBE 83172 12/31/15 EXCISION OF RIGHT BREAST, OPEN APPROACH, DIAGNOSTIC 4COL7LC 09/30/17 INSERTION OF FEEDING DEVICE INTO STOMACH, PERC APPROACH [id number] 12/31/15 TRANSFUSE NONAUT RED BLOOD CELLS IN PERIPH VEIN, PERC 69546L8 12/31/15 Internal Medicine Assmt/Plan - Assessment Assessment: - Assessment Assessment: vomitting acute dehydration htn dm gerd hypothyroidism arthritis dementia pacemaker status - Plan Plan: gtf to continue follow up labs in am continue current plan of care - Plan Plan: richard conner dw dr bobbi watkins rn Nutritional Asmnt/Malnutr-PDOC - Dietary Evaluation Malnutrition Findings (Please click <Entered> for more info): Nutritional Asmnt/Malnutrition Start: 03/12/18 17: 31 Text: Status: Complete Freq: Protocol: Document 03/12/18 17:33 LCHENG (Rec: 03/12/18 17:59 LCHENG INOCENTE-[email or web address]) Nutritional Asmnt/Malnutrition Patient General Information Nutritional Screening High Risk Diagnosis Gtube replacement, Dehydration Pertinent Medical Hx/Surgical Hx HTN, DM, CAD, CVA/TIA, dyslipidemia, PUD/GERD, ESRD, Thyroid disorder, Arthritis, dementia, PEG/Gtube, pacemaker Subjective Information Pt seen in bed non verbal. Per nurse pt had gtube replacement today. Current Diet Order/ Nutrition Support no diet order as of now Pertinent Medications D5-0.45ns, colace, iron, culturelle, synthroid, theragran, kcal, januvia Pertinent Labs 03/11 Na 133, K 3.2, Cr 0.5, glucose 168, Alb 3.2 03/12 POC 108-145 Nutritional Hx/Data Height 1.63 m Height (Calculated Centimeters) 162.6 Current Weight (lbs) 85.275 kg Weight (Calculated Kilograms) 85.3 Weight (Calculated Grams) 72875.4 Max Body Weight 120 Body Mass Index (BMI) 32.2 Weight Status Obese GI Symptoms GI Symptoms None Last BM not indicated Difficult in: None Usual diet at home Glucerna 1.2 at 60ml/hr x 20hr Skin Integrity/Comment: incision to stoma Estimated Nutritional Goals BEE in Kcals: Adj wt of IBW Calories/Kcals/Kg 25-30 Kcals Calculated 0985-6232 Protein: Adj wt of IBW Protein g/k Protein Calculated 62 Fluid: ml 1550-1860ml (1ml/kcal) Nutritional Problem 1. Problem Problem altered nutrition related labs Etiology hx of DM, electrolytes imbalance Signs/Symptoms: glucose 168,ODE382-390, Na 133 , K 3.2 Malnutrition Alert Is there a minimum of two criteria No selected? Query Text:Check all the applicable criteria. A minimum of two criteria are recommended for diagnosis of either severe or non-severe malnutrition. Malnutrition Related to Morbid Obesity Malnutrition related to morbid obesity No Intervention/Recommendation Comments 1. When TF initiated, recommend Glucerna 1.2 at 60ml /hr x 20hr, providing 1440kcal and 72g protien, meeting 100% of nutritional needs 2. Monitor TF tolerance, wt, labs and skin integrity 3. F/U as high risk in 2-3 days, 03/14-03/15 Expected Outcomes/Goals Expected Outcomes/Goals 1. Pt to meet at least 75% of nutritional needs via TF with tolerance. 2. Wt stability, skin to remain intact, labs to approach WNL.
[2018-03-15] MEDS: D5-0.45NS 1,000 ML IV SCH (03:05)
[2018-03-15] MEDS: Ferrous Sulfate 300 MG/5 ML UDC GT SCH (06:28)
[2018-03-15] MEDS: INSULIN ASPART SLIDING SCALE 100 UNITS/ML UNIT SUBQ SCH ×2 (06:30→11:26)
[2018-03-15 06:45] LABS: % BASOPHILS 0.3 % (0.0-2.0); % EOSINOPHILS 7.4 % (0.0-5.0); % LYMPHOCYTES 25.2 % (20.0-50.0); % MONOCYTES 8.4 % (2.0-10.0); % NEUTROPHILS 58.7 % (40.0-80.0); EOSINOPHILE ABSOLUTE 0.4 Th/cmm (0.1-0.4); HEMATOCRIT 33.1 % (41.0-60); HEMOGLOBIN 11.2 gm/dL (12-16); LYMPHOCYTE ABSOLUTE 1.5 Th/cmm (1.5-3.0); MEAN CELL VOLUME 92.3 fl (81-100); MEAN CORPUSCULAR HEMOGLOBIN 31.2 pg (27.0-31.0); MEAN CORPUSCULAR HGB CONC 33.8 pg (28.0-36.0); MEAN PLATELET VOLUME 8.6 fl; MONOCYTE ABSOLUTE 0.5 Th/cmm (0.3-1.0); NEUTROPHILE ABSOLUTE 3.6 Th/cmm (1.8-8.0); PLATELET COUNT 169 Th/cmm (150-400); RED BLOOD COUNT 3.59 Mil/cmm (3.80-5.20); RED CELL DISTRIBUTION WIDTH 13.1 % (11.5-20.0)
[2018-03-15 06:57] LABS: ALB/GLOB RATIO 0.8 (1.0-1.8); ALBUMIN 2.8 gm/dL (3.7-5.3); ALKALINE PHOSPHATASE 122 U/L (34-104); BILIRUBIN,TOTAL 0.4 mg/dL (0.3-1.0); BUN - UREA NITROGEN 26 mg/dL (7-25); CALCIUM SERUM 9.1 mg/dL (8.6-10.3); CARBON DIOXIDE 25.8 mEq/L (21.0-31.0); CHLORIDE 108 mEq/L (98-107); GLUCOSE 207 mg/dL (70-105); MAGNESIUM 1.9 mg/dL (1.9-2.7); POTASSIUM SERUM 3.8 mEq/L (3.5-5.1); SGOT 25 U/L (13-39); SGPT/ALT 14 U/L (7-52); SODIUM SERUM 137 mEq/L (136-145); TOTAL PROTEIN,SERUM 6.5 gm/dL (6.0-8.3)
[2018-03-15] MEDS: Potassium Chloride Elixir 20 mEq /15 mL UDC GT SCH (08:48)
[2018-03-15] MEDS: Lactobacillus Rhamnosus GG 15 Billion CFU CAP.SPRINK PO SCH (08:50)
[2018-03-15] MEDS ORDERED: Multivitamin w/ Minerals Tab GT SCH (09:00)
[2018-03-15] MEDS: Levothyroxine 0.125 Mg Tab GT SCH (11:00)
--- NOTE | 2018-03-16 00:03 | Discharge Summary ---
DATE OF DISCHARGE: 03/15/2018 CHIEF COMPLAINT: Vomiting, G-tube malfunction. HISTORY: This is an 82-year-old female from nursing facility, who reports nausea, vomiting, and fever at nursing facility. The patient was brought to the ER and also noted to have G-tube malfunction. PHYSICAL EXAMINATION: VITAL SIGNS: Blood pressure is 110/47, respirations are 17, pulse is 60, and temperature is 97.3. GENERAL: The patient is an elderly female, moderately obese. NECK: Supple. No mass. LUNGS: Equal breath sounds; otherwise, clear to auscultation. HEART: Regular rate and rhythm with systolic ejection murmur. ABDOMEN: Soft, globular. EXTREMITIES: Positive excoriation. NEUROLOGIC: Limited. HOSPITAL COURSE: The patient was admitted to the medical floor, continued on IV hydration. The patient was referred to __nazario__ for GI. G-tube was replaced. The patient had episode of vomiting, which has resolved. Workup has been negative. Naris showed positive for MRSA. She was given Bactroban. The patient is cleared for discharge. CONDITION ON DISCHARGE: Fair. DISCHARGE INSTRUCTIONS: The patient to continue current regimen. The patient will be transferred to nursing facility. JOB# [id number] MARGIE
== END 2018-03-15 16:51 | DRG 393 ==
LOC: ER 22:52 → MSI 03-12 00:40
PROVIDERS: ADMIT Internal Medicine; ATTEND Internal Medicine
PROC: 0D20XUZ Change Feeding Device in Upper Intestinal Tract, External Approach (ICD-10-PCS; principal; 2018-03-12)
DX: K94.23 Gastrostomy malfunction (principal); R53.2 Functional quadriplegia; E87.1 Hypo-osmolality and hyponatremia; E44.0 Moderate protein-calorie malnutrition; K21.9 Gastro-esophageal reflux disease without esophagitis; E03.9 Hypothyroidism, unspecified; F03.90 Unspecified dementia, unspecified severity, without behavioral disturbance, psychotic disturbance, mood disturbance, and anxiety; M19.90 Unspecified osteoarthritis, unspecified site; Z95.0 Presence of cardiac pacemaker; E86.0 Dehydration; R13.10 Dysphagia, unspecified; I25.10 Atherosclerotic heart disease of native coronary artery without angina pectoris; E78.5 Hyperlipidemia, unspecified; N18.9 Chronic kidney disease, unspecified; I12.9 Hypertensive chronic kidney disease with stage 1 through stage 4 chronic kidney disease, or unspecified chronic kidney disease; E11.22 Type 2 diabetes mellitus with diabetic chronic kidney disease; E87.6 Hypokalemia; D64.9 Anemia, unspecified; K27.9 Peptic ulcer, site unspecified, unspecified as acute or chronic, without hemorrhage or perforation; B95.62 Methicillin resistant Staphylococcus aureus infection as the cause of diseases classified elsewhere; Y83.3 Surgical operation with formation of external stoma as the cause of abnormal reaction of the patient, or of later complication, without mention of misadventure at the time of the procedure; Y92.89 Other specified places as the place of occurrence of the external cause; Z86.73 Personal history of transient ischemic attack (TIA), and cerebral infarction without residual deficits; Z83.3 Family history of diabetes mellitus; Z68.34 Body mass index [BMI] 34.0-34.9, adult; Z82.49 Family history of ischemic heart disease and other diseases of the circulatory system
CPT/HCPCS: 36415-UA; 71045-TC; 80048-TC; 80053-TC; 82550-TC; 82948-90; 83036-90; 83605; 83735-TC; 84484-TC; 85025-TC; 85610-TC; 85730-TC; 93005; 96374; J1815; J2405